=== PATIENT | male | born 1945 | race Caucasian/White ===

== ENCOUNTER 2019-08-23 17:18 | Inpatient (IN) | payer MEDICARE, OTHER ==
[~2019-08-23] VITALS: Ht 162.6 cm; Wt 95.5 kg
[2019-08-23] MEDS ORDERED: SODIUM CHLORIDE 0.9% 1000ML 1,000 ML IV STA (17:27)
[2019-08-23] MEDS ORDERED: ACETAMINOPHEN 325 MG TAB PO ONE (17:30)
[2019-08-23] MEDS ORDERED: CEFTRIAXONE SOD 1 GM VIAL IV ONE (17:30)
[2019-08-23] MEDS ORDERED: AZITHROMYCIN 500MG/SOD CHL 0.9% 250ML BAG IV SCH ×2 (17:45→21:30)
--- NOTE | 2019-08-23 17:45 | Emergency Department Note ---
History of Present Illnes History of Present Illness Chief Complaint: COVID PUI History of Present Illness This is a 74 year old male diabetes, htn cad, c/o flu-like symptoms for 1 wk, went to clinic few days ago with fever, tested negative for COVID 19, d/c home, not doing better, sat 92 % RA in moderate resp difficulty. . Arrival Mode: Car Marketing Project Manager Required: No Onset (how long ago): week(s) (1) Radiation: Reports non-radiation Severity: moderate Onset quality: gradual Duration (how long): week(s) Timing of current episode: constant Progression: worsening Context: Reports recent illness Relieving factors: none Exacerbating factors: none Associated symptoms: Reports cough, Reports fever/chills, Reports malaise, Reports shortness of breath, Reports weakness Treatments prior to arrival: aspirin Previous service: medications given Past Medical/Family History Physician Review I have reviewed the patient's past medical and family history. Any updates have been documented here. Past Medical History Past Medical History: Hypertension, Diabetes, CAD Social History Smoking Cessation: Unknown if ever smoked Alcohol Use: None Any Illegal Drug Use: No TB Exposure/Symptoms: No Physically hurt or threatened: No Family History Family history of heart diseas: No Other Any Pre-Existing Lines (PICC,: No Is patient up to date on immun: No Review of Systems Review of Systems Constitutional: Reports chills, Reports diaphoresis, Reports fever, Reports malaise, Reports weakness EENTM: Reports no symptoms Cardiovascular: Reports no symptoms Respiratory: Reports chest congestion, Reports cough Gastrointestinal: Reports no symptoms Genitourinary: Reports no symptoms Musculoskeletal: Reports no symptoms Integumentary: Reports no symptoms Neurological: Reports no symptoms Psychological: Reports no symptoms Endocrine: Reports no symptoms Hematological/Lymphatic: Reports no symptoms Review of other systems: All other systems negative Physical Exam Related Data Allergies: Coded Allergies: Penicillins (Verified Allergy, Mild, 08/23/19) Vital signs reviewed: Yes (fever, hypoxic) Physical Exam CONSTITUTIONAL Constitutional: Present well-developed, Present obese, Present distressed, Present ill appearing HENT HENT: Present normocephalic, Present atraumatic, Present oropharynx clear /moist, Present nose normal HENT L/R: Present left ext ear normal, Present right ext ear normal EYES Eyes: Reports PERRL, Reports conjunctivae normal NECK Neck: Present ROM normal PULMONARY Pulmonary: Present respiratory distress, Present rhonchi, Present other (RR 33) CARDIOVASCULAR Cardiovascular: Present regular rhythm, Present heart sounds normal, Present capillary refill normal, Present normal rate GASTROINTESTINAL Abdominal: Present soft, Present nontender, Present bowel sounds normal GENITOURINARY Genitourinary: Present exam deferred SKIN Skin: Present warm, Present dry MUSCULOSKELETAL Musculoskeletal: Present ROM normal NEUROLOGICAL Neurological: Present alert, Present oriented x 3, Present no gross motor or sensory deficits PSYCHOLOGICAL Psychological: Present mood/affect normal, Present judgement normal Results Laboratory Lab results reviewed: Yes Imaging Imaging results reviewed: Yes Imaging Comments pneumonia Diagnostics Tests Diagnostic test(s) reviewed: Yes Critical Care Time Total Critical Care Time (min): 45 Time ED Physician saw patient: 17:30 Critcal care necessary due to: dehydration, respiratory failure (critical care for respiratory distress, saturation at 92 percent, respiratory rate 33, sepsis with lactic acid level 2.6.), sepsis Critcal care time spent by me: develop tx plan w patient/surrogate, discussion w primary provider, evaluation patient response to tx, examination of patient, obtaining hx from patient/surrogate, order/perform tx or interventions, order/review laboratory studies, order/review radiographic studies, pulse oximetry, re-evaluation of patient condition Assessment & Plan Medical Decision Making MDM covid 19 vs PNA Reassessment Reassessment time: 18:45 Reassessment doing beter genaro oxygen, His lactic acid level 2.6, Blood pressure normal, he hypoxic. he is not a candidate for IV fluid 30 cc/kg bolus as per sepsis protocol. He also declines additional IV fluid Assessment & Plan Final Impression: (1) Hypoxia (2) Respiratory distress (3) Pneumonia Depart Disposition: ADMITTED Medications in the ED Ceftriaxone Sodium 1 gm ONCE ONCE IV ; Start 08/23/19 at 17:30; Stop 08/23/19 at 17:37; Status DC Sodium Chloride 1,000 ml @ 0 mls/hr Q0M STAT IV ; Start 08/23/19 at 17:27; Stop 08/23/19 at 17:34; Status DC Acetaminophen 650 mg ONCE ONCE PO ; Start 08/23/19 at 17:30; Stop 08/23/19 at 17:37; Status DC Physician Attestation Provider Attestation case discussed with Dr Purdy, add Pulmonary consult at 8:00 PM, sat 98 percent on 4 liter, mild distress, temperature 99.6. MAICOL ODONNELL MD Aug 23, 2019 17:45
[2019-08-23] MEDS ORDERED: SODIUM CHLORIDE 0.9% 1000ML 1,000 ML ONE (17:52)
[2019-08-23] MEDS ORDERED: CEFTRIAXONE SOD 1 GM/NS 50 ML 50 ML IV ONE (17:52)
[2019-08-23] MEDS ORDERED: ACETAMINOPHEN 325 MG TAB ONE (17:52)
[2019-08-23] MEDS ORDERED: AZITHROMYCIN 500MG/NS 250 ML 250 ML ONE (17:53)
[2019-08-23 21:26] LABS: CREATINE KINASE MB < 1.00 ng/mL (0-4.3)
[2019-08-23] MEDS ORDERED: DIPHENHYDRAMINE HCL INJ 50 MG/ML VIAL IV PRN (21:30)
[2019-08-23] MEDS ORDERED: ENALAPRILAT IV INJ 1.25 MG/ML VIAL IV PRN (21:30)
[2019-08-23] MEDS ORDERED: ACETAMINOPHEN 325 MG TAB PO PRN (21:30)
--- NOTE | 2019-08-23 22:25 | NUR ---
Received patient from the ER. Alert and oriented. Assisted to bed. Bed low and locked, Bed alarm on. Call light within reached.
[2019-08-23 23:29] VITALS: BP 107/56
[2019-08-23 23:47] VITALS: BP 107/56
[2019-08-24] VITALS (8 sets, daily range): BP systolic 96–132; BP diastolic 46–98
--- NOTE | 2019-08-24 00:42 | Diagnostic Imaging Report ---
EXAMINATION: CHEST SINGLE (PORTABLE) INDICATION: Pneumonia COMPARISON: None FINDINGS: TUBES and LINES: None. LUNGS: Normal lung volumes. Multifocal patchy haziness. PLEURA: No pleural effusion or pneumothorax. HEART AND MEDIASTINUM: Cardiac size is mildly enlarged. Surgical clips along the mediastinum. BONES AND SOFT TISSUES: No acute osseous lesion. Soft tissues are unremarkable. Sternotomy wires. UPPER ABDOMEN: No free air under the diaphragm. IMPRESSION: Findings compatible with multifocal pneumonia. Superimposed edema is possible. Mild cardiomegaly. Signed by: Pascual Diana DO on 08/24/2019 12:39 AM
[2019-08-24] MEDS ORDERED: NIFEDIPINE ER30 M1 PO (01:31)
[2019-08-24] MEDS ORDERED: GLIMEPIRIDE2 MG PO (01:32)
[2019-08-24] MEDS ORDERED: METOPROLOL SUCC50 MG PO (01:32)
[2019-08-24] MEDS ORDERED: ATORVASTATIN CA20 MG PO (01:33)
[2019-08-24] MEDS ORDERED: CLOPIDOGREL75 MG PO (01:34)
[2019-08-24] MEDS ORDERED: LISINOPRIL10 MG PO (01:34)
[2019-08-24 04:43] LABS: CREATINE KINASE MB 1.3 ng/mL (0-5.0)
[2019-08-24] MEDS ORDERED: DEXAMETHASONE SOD PHOS INJ 4 MG/ML VIAL IV SCH (06:00)
[2019-08-24] MEDS: FAMOTIDINE 20 MG/2 ML VIAL IV SCH ×2 (08:19→16:53)
[2019-08-24] MEDS: ASCORBIC ACID 500 MG TAB PO SCH (08:19)
[2019-08-24] MEDS ORDERED: CEFTRIAXONE SOD 1 GRAM/0.9% SOD CHL 50ML BAG IV SCH (09:00)
[2019-08-24] MEDS ORDERED: DEXTROSE 50% SYRINGE 50 ML IV PRN (14:30)
[2019-08-24 15:42] LABS: ANION GAP 13.1 mmol/L (8-16); BLOOD UREA NITROGEN 21 mg/dL (7-26); BUN/CREATININE RATIO 21 (6-25); CALCIUM 8.3 mg/dL (8.4-10.2); CARBON DIOXIDE 24 mmol/L (22-29); CHLORIDE 108 mmol/L (98-107); CREATININE, SERUM 1.01 mg/dL (0.72-1.25); EST GLOMERULAR FILTRATION RATE > 60 ML/MIN (60-); GLUCOSE 137 mg/dL (74-118); POTASSIUM 4.1 mmol/L (3.5-5.1); SODIUM 141 mmol/L (136-145)
[2019-08-24 15:52] LABS: CREATINE KINASE MB 1.2 ng/mL (0-5.0)
[2019-08-24] MEDS: INSULIN REGULAR, HUMAN 100 UNIT/1 ML 3ML VIAL SQ SCH ×2 (16:30→21:00)
[2019-08-24] MEDS: AZITHROMYCIN 500MG/SOD CHL 0.9% 250ML BAG IV SCH (17:01)
--- NOTE | 2019-08-24 17:05 | NUR ---
AAOX3. ACYANOTIC. RESTING IN BED SHIVERING. PATIENT'S SHIRT IS WET AND LINEN ARE WET. OFFERED PATIENT A SPONGE BATH OR SHOWER. PATIENT REFUSED. OFFERED TO CHANGE BED LINEN AND ASSIST PATIENT WITH CHANGING INTO A GOWN FOR COMFORT. PATIENT REFUSED. PATIENT ALSO REFUSED INSULIN. NO DISTRESS NOTED. CALL LIGHT IN REACH. SIDE RAILS UP X2.
[2019-08-24] MEDS: CEFTRIAXONE SOD 1 GRAM/0.9% SOD CHL 50ML BAG IV SCH (17:56)
--- NOTE | 2019-08-24 20:35 | Consultation ---
DATE OF CONSULTATION: Pulmonary Critical Care Consultation CHIEF COMPLAINT: Fatigue and dyspnea. HISTORY OF PRESENT ILLNESS: The patient is a 74-year-old man. He has a history of dyspnea and fatigue for the past 7 days. He complains of some cough. He does not complain of any nausea or vomiting. He does note some chest discomfort. He also has some fevers. PAST MEDICAL HISTORY: 1. Hypertension. 2. Diabetes. 3. Hypercholesterolemia. ALLERGIES: THE PATIENT IS ALLERGIC TO PENICILLIN. SOCIAL HISTORY: Noncontributory. FAMILY HISTORY: Noncontributory. REVIEW OF SYSTEMS: The patient is complaining of some fevers. He has some fatigue for the past 7 days. He has no headache. He is not having any neck pain. He denies any chest pain. He does have some cough and dyspnea. He has no abdominal pain. There is no nausea or vomiting. PHYSICAL EXAMINATION: VITAL SIGNS: The patient is afebrile. The vital signs are stable. HEENT: Shows no facial swelling or erythema. CARDIAC: Reveals regular rate and rhythm with normal S1 and S2. LUNGS: Auscultation of lungs reveals clear breath sounds bilaterally. There is no wheezing. ABDOMEN: Soft and nontender. There is no rebound or guarding. EXTREMITIES: Shows no leg edema or calf tenderness. There is no cyanosis or clubbing. SKIN: Shows no rashes. NEUROLOGICAL: Shows no focal abnormalities. LABORATORY DATA: White blood cell count is within normal limits. CBC and CMP are normal. Creatinine is 1.01. RADIOGRAPHIC DATA: Chest x-ray shows bilateral infiltrates. IMPRESSION: 1. COVID-19 and viral pneumonia. 2. Diabetes. 3. Hypertension. PLAN: 1. Rocephin and Zithromax. 2. Lovenox. 3. Tylenol. 4. Decadron. 5. Oxygen as needed. Marc Tong MD [facility]/MODL /[id number]
[2019-08-24] MEDS ORDERED: ZOLPIDEM TARTRATE 5 MG TAB PO PRN (21:00)
[2019-08-24] MEDS: ENOXAPARIN 30 MG/0.3 ML SYR SC SCH (21:00)
[2019-08-24] MEDS: ATORVASTATIN 20 MG TAB PO SCH (21:00)
[2019-08-24] MEDS: CLOPIDOGREL BISULFATE 75 MG TAB PO SCH (21:00)
--- NOTE | 2019-08-24 21:38 | NUR ---
Patient trying to get out of the bed. Pulling off telemetry leads. Assisted to bed and reposition repositioned. oxygen saturation at 90% room air. Patient refused O2. RN explained the importance of O2 patient agreed. Oxygen saturation 96% with oxygen at 4l/min. Patient refused medications yelled No to RN.
[2019-08-25] VITALS (8 sets, daily range): BP systolic 113–131; BP diastolic 61–98
--- NOTE | 2019-08-25 01:36 | History and Physical ---
CHIEF COMPLAINT: Hypoxia, shortness of breath, and chills. HISTORY OF PRESENT ILLNESS: This is a 74-year-old male with past medical history of hypertension, high cholesterol, CAD status post bypass, diabetes, and gout, who presented to the ER with complaints of chills, hypoxia, and shortness of breath x1 week. He reports that he lives with his daughter, who has been diagnosed with COVID- 19. He reports he is feeling okay, but visibly having chills. He is on room air saturating at 95%. He denies any chest pain, nausea, vomiting, hemoptysis, diarrhea, or dizziness. He reports he has joint pains, especially his feet feel swollen and pain with ambulation. He also reports chronic cough and he presented to the [facility] ER for further evaluation as his symptoms continued to worsen. In the [facility] ER, his white counts were 10.4, creatinine 1.1. Sodium 137, potassium 3.9, lactic acid 2.64. Troponin is 0.029. IMAGING: Chest x-ray showed multifocal pneumonia, superimposed edema as possible, so he is admitted for further evaluation. PAST MEDICAL HISTORY: 1. Hypertension. 2. High cholesterol. 3. CAD, status post bypass surgery. 4. Diabetes type 2. 5. Gout. PAST SURGICAL HISTORY: He reports bypass. FAMILY MEDICAL HISTORY: He reports does not remember. SOCIAL HISTORY: Reports he quit smoking a few months ago. He also stopped drinking according to him eight months ago. He denies any illicit drug use. ALLERGIES: HE IS ALLERGIC TO PENICILLIN. REVIEW OF SYSTEMS: Twelve-system reviewed and negative except ones reported in HPI. [id number] EXAMINATION: VITAL SIGNS: Temperature 98.7, pulse is 85, respirations 18, blood pressure 117/75, pulse ox is 96% on room air. GENERAL: Chills and fatigue. HEENT: Normocephalic and atraumatic. NECK: Supple. LUNGS: Decreased breath sounds. CARDIOVASCULAR: Regular rate and rhythm. GI: Soft and nontender, obese. NEUROLOGIC: Alert, awake, and oriented x2-3. MUSCULOSKELETAL: Moves all extremities, bilateral lower extremity edema and pain. SKIN: Dry and intact. PSYCH: Calm. LABORATORY DATA: WBC 10.4, hemoglobin 10.5, hematocrit 31. Sodium 141, potassium 4.1, CO2 of 24, BUN is 21, creatinine 1.01, estimated GFR is 60, glucose 137. CK 212, troponin I 0.029 and 0.020. BNP 161. TSH 1.309. Coronavirus PCR detected. Urine culture pending. Chest x-ray shows multifocal pneumonia superimposed edema as possible. Mild cardiomegaly. IMPRESSION: 1. Generalized weakness and hypoxia due to COVID-19. Chest x-ray noted with multifocal pneumonia. We will continue with Rocephin and Zithromax. Pulmonary and Infectious Disease consulted. Decadron 6 mg IV x10 days. Vitamin C and zinc daily. 2. Diabetes type 2. 3. . 4. Hypertension. To resume metoprolol on lower dose. 5. Coronary artery disease. We will continue Plavix, beta blockers, and statin. 6. High cholesterol. We will continue on statin. 7. Bilateral lower extremity pain and swelling. We will give Lasix x1. Check venous Doppler. 8. Deep venous thrombosis prophylaxis. We will start on Lovenox 30 mg b.i.d. PLAN: To continue IV antibiotics, Decadron, we will check echocardiogram and venous Doppler. Further recommendations per Pulmonary and ID. Dictated by CRYSTAL Gordon Deangelo Purdy MD [facility]/MODL /[id number] The patient was seen and examined on 08/24/19. Agree with the findings and plan as documented by CRYSTAL Hicks. MTDD
[2019-08-25] MEDS: DEXAMETHASONE SOD PHOS INJ 4 MG/ML VIAL IV SCH (05:37)
[2019-08-25 05:43] LABS: BASOPHILS # (AUTO) 0.1 (0.0-0.1); BASOPHILS % 0.4 % (0.0-1.0); EOSINOPHILS % 0.1 % (0.0-6.0); HEMATOCRIT 28.9 % (38.2-49.6); HEMOGLOBIN 9.2 g/dL (14.0-18.0); LYMPHOCYTES % 8.8 % (18.0-39.1); MEAN CORPUSCULAR HEMOGLOBIN 27.8 pg (28-32); MEAN CORPUSCULAR HGB CONC 31.8 g/dL (31-35); MEAN CORPUSCULAR VOLUME 87.3 fL (81-99); MONOCYTES # (AUTO) 1.1 (0.2-0.8); MONOCYTES % 9.7 % (4.4-11.3); NEUTROPHILS # (AUTO) 9.4 (2.1-6.9); NEUTROPHILS % 79.5 % (38.7-80.0); PLATELET COUNT 347 x10e3/uL (140-360); RED BLOOD COUNT 3.31 x10e6/uL (4.3-5.7); RED CELL DISTRIBUTION WIDTH 13.6 % (11.7-14.4)
[2019-08-25 06:02] LABS: BLOOD UREA NITROGEN 18 mg/dL (7-26); BUN/CREATININE RATIO 18 (6-25); CALCIUM 8.5 mg/dL (8.4-10.2); CARBON DIOXIDE 23 mmol/L (22-29); CHLORIDE 110 mmol/L (98-107); EST GLOMERULAR FILTRATION RATE > 60 ML/MIN (60-); GLUCOSE 162 mg/dL (74-118); SODIUM 141 mmol/L (136-145)
--- NOTE | 2019-08-25 06:59 | NUR ---
Called consult for Dr. Keen thru power generation plant operator.
--- NOTE | 2019-08-25 07:00 | NUR ---
RECEIVED PATIENT AWAKE RESTING IN BED NO S/S OF DISTRESS. BED LOW, WHEELS LOCKED, SIDE RAILS X2. CALL LIGHT IN REACH WILL CONTINUE TO MONITOR PATIENT.
[2019-08-25] MEDS: INSULIN REGULAR, HUMAN 100 UNIT/1 ML 3ML VIAL SQ SCH ×4 (07:30→21:30)
[2019-08-25] MEDS ORDERED: FUROSEMIDE INJ 10 MG/ML 2 ML VIAL IV ONE (08:30)
[2019-08-25] MEDS: ENOXAPARIN 30 MG/0.3 ML SYR SC SCH ×2 (09:03→21:30)
[2019-08-25] MEDS: ASCORBIC ACID 500 MG TAB PO SCH (09:03)
[2019-08-25] MEDS: FAMOTIDINE 20 MG/2 ML VIAL IV SCH (09:03)
[2019-08-25] MEDS: METOPROLOL SUCCINATE 50 MG TAB XL PO SCH (09:03)
--- NOTE | 2019-08-25 13:31 | NUR ---
MAGING: Chest x-ray showed multifocal pneumonia, superimposed edema as possible, so he is admitted for further evaluation. PAST MEDICAL HISTORY: 1. Hypertension. 2. High cholesterol. 3. CAD, status post bypass surgery. 4. Diabetes type 2. 5. Gout. PAST SURGICAL HISTORY: He reports bypass. FAMILY MEDICAL HISTORY: He reports does not remember. SOCIAL HISTORY: Reports he quit smoking a few months ago. He also stopped drinking according to him eight months ago. He denies any illicit drug use. ALLERGIES: HE IS ALLERGIC TO PENICILLIN. REVIEW OF SYSTEMS: Twelve-system reviewed and negative except ones reported in HPI. [id number]
[2019-08-25] MEDS ORDERED: SODIUM CHLORIDE 0.9% 250ML 250 ML ONE (16:53)
[2019-08-25] MEDS: CEFTRIAXONE SOD 1 GRAM/0.9% SOD CHL 50ML BAG IV SCH (16:56)
--- NOTE | 2019-08-25 17:25 | Progress Note ---
DATE: SUBJECTIVE: The patient is not complaining of any dyspnea. He is not complaining of pain or cough. PHYSICAL EXAMINATION: VITAL SIGNS: Blood pressure is 113/70 and saturation is 99%. The pulse is 92. HEENT: Shows no facial swelling or erythema. CARDIAC: Reveals regular rate and rhythm with normal S1 and S2. There are no murmurs or rubs. LUNGS: Auscultation of lungs reveals rhonchorous breath sounds bilaterally. There is no wheezing. ABDOMEN: Soft and nontender. There is no rebound or guarding. EXTREMITIES: Shows no leg edema or calf tenderness. There is no cyanosis or clubbing. SKIN: Shows no rashes. LABORATORY DATA: CBC is within normal limits. Lytes, BUN and creatinine are within normal limits. IMPRESSION: 1. Viral pneumonia and COVID-19 infection. 2. Diabetes. 3. Hypertension. 4. Coronary artery disease. PLAN: 1. Continue antibiotics. 2. Oxygen as needed. 3. Lovenox. 4. Dexamethasone. Marc Tong MD [facility]/MODL /[id number]
[2019-08-25] MEDS: AZITHROMYCIN 500MG/SOD CHL 0.9% 250ML BAG IV SCH (17:38)
--- NOTE | 2019-08-25 20:35 | Progress Note ---
DATE: SUBJECTIVE: Mr. Camp is a 74-year-old white male, who comes in with shortness of breath and cough and chills. The patient does have history of hypertension, hypercholesteremia, coronary artery disease, CABG, diabetes mellitus, and gout comes to emergency room with fever and chills, hypoxemia for one week. The patient was diagnosed with COVID-19 but currently he is doing much better. He says his breathing is better. He is on room air. He denies any chest pain, nausea, vomiting, diarrhea, or dizziness. REVIEW OF SYSTEMS: Otherwise unremarkable. PHYSICAL EXAMINATION: GENERAL: Currently, alert and oriented. VITAL SIGNS: Stable. Currently afebrile. HEENT: He is not icteric. NECK: Supple. CHEST: Clear. HEART: S1 and S2: No murmur. ABDOMEN: Soft. Bowel sounds present. EXTREMITIES: No edema. SKIN: No rash. LABORATORY DATA: His cultures are pending. White count 11, hemoglobin 9.2. His sodium 141, potassium 4.0, creatinine 1. His COVID-19 was positive. His white count is 9.8, his temperature 98.2, heart rate 79, O2 saturation on room air is 95. IMPRESSION: COVID-19 pneumonia, concerned superimposed bacterial pneumonia. Rocephin 1 g daily for 5 days, azithromycin 500 mg daily for 3 days. If he is short of breath, he may benefit from short dose of dexamethasone 6 mg daily, Lovenox 0.5 mg/kg q.12 hours, diabetic control. If he continued to be stable, we will watch him for a day or two. If he continued to be stable, he may be discharged home with oxygen and finish course of treatment as an outpatient. Thank you for asking me to see this patient. Further recommendations to follow. MD NAKUL Baca/MARY /[id number]
[2019-08-25] MEDS: ATORVASTATIN 20 MG TAB PO SCH (21:30)
[2019-08-25] MEDS: CLOPIDOGREL BISULFATE 75 MG TAB PO SCH (21:30)
--- NOTE | 2019-08-25 22:46 | Progress Note ---
DATE: 08/25/2019 SUBJECTIVE: He thought that his breathing is little bit better. OBJECTIVE: VITAL SIGNS: Temperature 97.9, pulse 84, respiratory rate 24, and blood pressure 114/71. GENERAL: In no acute distress. SKIN: No rash. LUNGS: Clear. HEART: Regular rate and rhythm. Normal S1, S2. GI: Abdomen is soft, nondistended, and nontender. Normoactive bowel sounds. NEUROLOGIC: Alert and oriented x3. PSYCHIATRIC: No hallucination. LABORATORY DATA: White count 11.8, hemoglobin 9.2, platelet count 347, creatinine 1.0, BUN 18. ASSESSMENT AND PLAN: 1. COVID pneumonia. We will continue azithromycin and Rocephin per consultants. 2. Morbid obesity. 3. Diabetes. We will continue sliding scale. We will also restart his glimepiride. 4. Coronary artery disease. The patient will be continued on Plavix and Lipitor and also metoprolol. His echocardiogram is done, but I do not see a preliminary in his chart. His venous Doppler did not show any deep vein thrombosis. 5. Debility. We will have physical therapist evaluate him. Potentially, he may need SNF placement. 6. Gastrointestinal and deep vein thrombosis prophylaxis. Lovenox. MD DIEGO Mirza/MARY /[id number]
[2019-08-26] VITALS (8 sets, daily range): BP systolic 113–138; BP diastolic 61–83
[2019-08-26] MEDS: DEXAMETHASONE SOD PHOS INJ 4 MG/ML VIAL IV SCH (06:15)
--- NOTE | 2019-08-26 07:00 | NUR ---
RECEIVED PATIENT AWAKE RESTING IN BED NO S/S OF DISTRESS. BED LOW, WHEELS LOCKED, SIDE RAILS X2. CALL LIGHT IN REACH WILL CONTINUE TO MONITOR PATIENT.
[2019-08-26] MEDS: INSULIN REGULAR, HUMAN 100 UNIT/1 ML 3ML VIAL SQ SCH ×4 (07:30→21:10)
[2019-08-26] MEDS: ASCORBIC ACID 500 MG TAB PO SCH (08:38)
[2019-08-26] MEDS: ENOXAPARIN 30 MG/0.3 ML SYR SC SCH ×2 (08:38→21:35)
[2019-08-26] MEDS: METOPROLOL SUCCINATE 50 MG TAB XL PO SCH (08:38)
[2019-08-26] MEDS: GLIMEPIRIDE 2 MG TAB PO SCH (08:38)
--- NOTE | 2019-08-26 14:51 | NUR ---
CALLED CALLI BROWN [phone] AT [facility] TO SEE IF JERRY HAS A COVID POSITIVE BUILDING OR CAN DO A 1 TIME CONTRACT. WAITING MEDICAL FRONT DESK SPECIALIST BACK, NOTIFIED MD AND CM OF DELAY, STILL PENDING PHYSICAL THERAPY NOTE AND RECOMMENDATION.
[2019-08-26] MEDS ORDERED: PREGABALIN 75 MG CAP PO SCH (16:00)
[2019-08-26] MEDS: CEFTRIAXONE SOD 1 GRAM/0.9% SOD CHL 50ML BAG IV SCH (17:27)
[2019-08-26] MEDS: PREGABALIN 50 MG CAP PO SCH (17:27)
--- NOTE | 2019-08-26 17:50 | Progress Note ---
DATE: SUBJECTIVE: The patient was currently lying in bed comfortably, feeling better. He continued to have bilateral lower extremities pain with limited mobility. PHYSICAL EXAMINATION: GENERAL: He is currently alert. VITAL SIGNS: Stable. HEENT: He is not icteric. NECK: Supple. CHEST: Clear. He is currently on 2 L. IMPRESSION: 1. COVID-19, present on admission. 2. Obesity. 3. Neuropathy with debility. 4. Diabetes mellitus. 5. Component of congestive heart failure. Continue diabetic control. Continue with neuropathy treatment, low-dose Lovenox, vitamin C and D. He is currently on dexamethasone, can switch to oral to finish 10 days. Probably need to go home on oxygen, but he would need PT/OT differently. MD NAKUL Baca/MODL /[id number]
[2019-08-26] MEDS: AZITHROMYCIN 500MG/SOD CHL 0.9% 250ML BAG IV SCH (18:02)
--- NOTE | 2019-08-26 19:11 | Progress Note ---
DATE: SUBJECTIVE: The patient is having some confusion. He complains of being thirsty. He is still requiring 2 L of oxygen. PHYSICAL EXAMINATION: VITAL SIGNS: The blood pressure is 125/62, saturation is 99%, and the pulse is 91. HEENT: Shows no facial swelling or erythema. CARDIAC: Reveals regular rate and rhythm with normal S1 and S2. LUNGS: Auscultation of lungs reveals rhonchorous breath sounds bilaterally. There is no wheezing. ABDOMEN: Soft and nontender. There is no rebound or guarding. EXTREMITIES: Shows no leg edema or calf tenderness. There is no cyanosis or clubbing. SKIN: Shows no rashes. NEUROLOGICAL: Shows no focal abnormalities. LABORATORY DATA: White blood cell count is 11.7, hemoglobin is 9.2, and platelet count is 347. Blood sugars are between 170 and 230. IMPRESSION: 1. Viral pneumonia and COVID-19 infection. 2. Diabetes. 3. Hypertension. 4. Coronary artery disease. PLAN: 1. Continue antibiotics. 2. Lovenox. 3. Dexamethasone. 4. Oxygen. 5. Monitor and control blood sugars. Marc Tong MD [facility]/MODL /[id number]
--- NOTE | 2019-08-26 20:30 | NUR ---
VOIDED IN URINAL.BED ALARM ON.NO PAIN VOICED.NO RESP.DISTRESS.TELE IN PLACE.PHONE AND CALL LIGHT WITHIN REACH.INSTRUCTED TO CALL FOR ASSISTANCE NEEDED.
[2019-08-26] MEDS: CLOPIDOGREL BISULFATE 75 MG TAB PO SCH (22:06)
[2019-08-26] MEDS: ATORVASTATIN 20 MG TAB PO SCH (22:06)
[2019-08-27] VITALS: BP 126/68
--- NOTE | 2019-08-27 01:32 | Progress Note ---
DATE: 08/26/2019 SUBJECTIVE: He knows that he is very weak. OBJECTIVE: VITAL SIGNS: Stable. Temperature 97.5, pulse 77, respiratory rate 20, blood pressure 138/65. GENERAL: No acute distress. SKIN: No rash. LUNGS: Decreased. HEART: Regular rate and rhythm. Normal S1, S2. GI: Abdomen is soft, nondistended. NEUROLOGIC: Alert and oriented x3. PSYCHIATRIC: He is calm. ASSESSMENT AND PLAN: 1. Coronavirus disease pneumonia with hypoxia. We will continue management per Infectious Disease specialist and wash crew person. 2. Debility. Still waiting for PT evaluation, most likely he will need Residential Facility placement for skilled physical therapy. However, this may prove to be difficult given his COVID status. 3. Morbid obesity. 4. Diabetes. Sugar appears to be acceptable. We will continue his glimepiride and sliding scale. 5. Coronary artery disease. Continue Plavix and Lipitor and metoprolol. 6. Gastrointestinal and deep vein thrombosis prophylaxes. Continue Lovenox 30 mg twice a day. MD DIEGO Mirza/MARY /[id number]
[2019-08-27 04:00] VITALS: BP 119/69
--- NOTE | 2019-08-27 04:00 | NUR ---
PATIENT IS NO COMPLIANT WITH CALL BUTTON.TYING TO GET OUT OF THE BED AND GOING TO REST ROOM WITHOUT CALLING ASSISTANCE AND BED ALARM IS GOING OFF.MANYTIMES TELLING THE PATIENT TO CALL ASSISTANCE BEFORE TO USE REST ROOM.
[2019-08-27] MEDS: DEXAMETHASONE SOD PHOS INJ 4 MG/ML VIAL IV SCH (05:14)
--- NOTE | 2019-08-27 06:47 | NUR ---
REPORT GIVEN TO ONCOMING RN.STABLE CONDITION.
--- NOTE | 2019-08-27 07:00 | NUR ---
RECEIVED PATIENT AWAKE RESTING IN BED NO S/S OF DISTRESS. BED LOW, WHEELS LOCKED, SIDE RAILS X2. CALL LIGHT IN REACH WILL CONTINUE TO MONITOR PATIENT.
[2019-08-27] MEDS: INSULIN REGULAR, HUMAN 100 UNIT/1 ML 3ML VIAL SQ SCH ×3 (07:30→16:30)
--- NOTE | 2019-08-27 07:54 | NUR ---
PHYSICAL THERAPY NOTE RECOMMENDS HOME WITH HOME HEALTH
[2019-08-27] MEDS: GLIMEPIRIDE 2 MG TAB PO SCH (08:13)
[2019-08-27] MEDS: PREGABALIN 50 MG CAP PO SCH (08:13)
[2019-08-27] MEDS: ASCORBIC ACID 500 MG TAB PO SCH (08:14)
[2019-08-27] MEDS: METOPROLOL SUCCINATE 50 MG TAB XL PO SCH (08:14)
[2019-08-27 09:04] VITALS: BP 118/79
[2019-08-27] MEDS: ENOXAPARIN 30 MG/0.3 ML SYR SC SCH (11:46)
[2019-08-27 11:48] VITALS: BP 137/75
--- NOTE | 2019-08-27 12:30 | NUR ---
Called and spoke to pt regarding home health order. Pt states to call his . Called pt's Marah Capm [phone]. States pt had home health previously but she does not remember the name. Said can use any company in network. Offered choice for [facility] and [facility]. Informed her that referral will be faxed to [facility] since they said they can take COVID pts and service pt's area. Pt's asked about providers. CM informed her that usually that is out of pocket. CM will leave brochures with nurse to give to pt. IMM letter discussed. She verbalized understanding. Copy will be given to nurse to give to pt. Signed choice letter placed in front of chart. Signed IMM placed in chart. Home health referral faxed to [facility] at [phone] / . Fatuma Mohan with [facility] was notified of referral and dc for today. Copies of IMM and choice letter with HH contact information and provider brochures given to GATO Kirkpatrick to give to pt. Addendum: 08/27/19 at 1243 by Bonita Arriaga CM Correction - brochures, choice letter, IMM given to GATO Potter to give to pt.
--- NOTE | 2019-08-27 12:34 | NUR ---
PATIENT ON ROOM AIR O2 SATS 97%. NO S/S OF DISTRESS. RESPIRATIONS EVEN AND UNLABORED.
--- NOTE | 2019-08-27 13:01 | NUR ---
Per Fatuma with [facility], they can accept pt.
[2019-08-27 16:10] VITALS: BP 141/69
--- NOTE | 2019-08-27 16:14 | NUR ---
SPOKE WITH MRS. CASTELLANOS TO LET HER KNOW PATIENT HAS BEEN CLEARED FOR DISCHARGE.
[2019-08-27] MEDS ORDERED: AZITHROMYCIN250 MG PO (16:47)
[2019-08-27] MEDS ORDERED: NAPROSYN500 MG PO (16:47)
[2019-08-27] MEDS ORDERED: DECADRON6 MG PO (16:48)
[2019-08-27] MEDS ORDERED: ASPIRIN325 MG PO (16:48)
--- NOTE | 2019-08-27 17:10 | NUR ---
REMOVED PATIENTS IV. CATHETER TIP INTACT AND PRESSURE DRESSING APPLIED.
--- NOTE | 2019-08-27 17:20 | NUR ---
PATIENT DISCHARGED FROM FACILITY. PATIENT GATHERED ALL PERSONAL BELONGINGS, DISCHARGE INSTRUCTIONS AND FOLLOW UP INFORMATION. NO S/S OF DISTRESS LEAVING FACILITY.
--- NOTE | 2019-08-28 00:12 | Discharge Summary ---
PRIMARY CARE DOCTOR: Dr. Deonte Baumann. FINAL DIAGNOSIS: Coronavirus disease 2019 pneumonia with hypoxia. SECONDARY DIAGNOSES: 1. Debility. Home physical therapy has been arranged. 2. Morbid obesity. 3. Diabetes. 4. Coronary artery disease. CONSULTANTS: 1. Dr. Keen, Infectious Disease. 2. Dr. Tong, dye weigher. PROCEDURE/STUDIES PERFORMED: Venous Doppler was negative for DVT. HISTORY: Per H and P. HOSPITAL COURSE: The patient was admitted, was supported with oxygen. He received Lovenox 30 mg twice a day for DVT prophylaxis. Decadron was given. IV Rocephin was given. IV azithromycin was given as well. The patient was able to come off the oxygen. I have discussed the case with both Dr. Keen and Dr. Tong. Will go home on 7 more days p.o. Decadron and 5 more days of azithromycin. The patient will also get aspirin 300 mg daily for 30 days for DVT prophylaxis. The patient is to follow up with his primary care doctor in a week. The patient was seen and examined today. It took 33 minutes total to discharge this patient. CONDITION ON DISCHARGE: Improved. DISCHARGE MEDICATIONS: Please see medication reconciliation form. MD DIEGO Mirza/MARY /[id number] cc: [facility]
--- OUTSIDE RECORDS SUMMARY | 2019-09-12 10:16 | XMS REPORT | Continuity of Care Document ---
Author Author [facility] t Organization [facility] Address [address] [place] [address] Phone Unavailable Care Team Providers Care [id number] Java Developer Name Role Phone MD CHERYL KASHILPA PCP Unavailable Hieu JOHNSON Attphys Unavailable Cortney DIAZ, Edita Attphys EDITA MILLARD Attphys Unavailable Sona DIAZ, Lila Kirkpatrick Attphys [phone] Scott DIAZ, Benitez Patricio Attphys [phone] Abel DIAZ, Katharine Motta Attphys Eben DIAZ, Ebonie Huber Attphys Rene Cristina DO Attphys Stefanie DIAZ, Karina Coleman Attphys Hieu JOHNSON Admphys Unavailable EDITA MILLARD Admphys Unavailable Payers Payer Name Policy Type Policy Number Effective Date Expiration Date Francesco cooper [employer] Medicare Advantage [id number] 2019 00:0 0:00 [facility] Cdc Review Covid19 [id number] [facility] KELSEYCAREKELSEYCARE MEDICARE ADVxxxxxxxxxxx xxxxxxxxxxx [facility] Problems Condition Name Condition Details Condition Category Status Onset Date Resolution Date Last Treatment Date Treating Clinician Comments Source Paroxysmal atrial fibrillation with rapid ventricular response Paroxysmal atrial fibrillation with rapid ventricular response Disease Active 201 10-20-12 00:00:00 [facility] Acute encephalopathy, metabolic Acute encephalopathy, metabolic Dis ease Active 2018-09-23 00:00:00 [facility] Acute prerenal azotemia Acute prerenal azotemia Disease Active 2018-09-23 00:00:00 [facility] Fluid overload Fluid overload Disease Active 2018-09-23 00:00:00 [facility] S/P CABG x [address] Magallanes on 09/19 S/P CABG x [address] Magallanes o n 09/19 Disease Active 2018-09-20 00:00:00 [facility] CAD (coronary artery disease) CAD (coronary artery disease) Disease Active 2018-09-19 00:00:00 [facility] Chest pain Chest pain Disease Active 2018-09-18 00:00:00 [facility] Peripheral edema Peripheral edema Disease Active 2014-12-05 00:00:00 [facility] D-dimer, elevated D-dimer, elevated Disease Active 2014-12-05 00:00:00 [facility] Acute on chronic renal insufficiency Acute on chronic renal insufficiency Disease Active 2014-12-05 00:00:00 [facility] Neuropathy Neuropathy Disease Active 2014-11-26 00:00:00 [facility] Unsteady gait Unsteady gait Disease Active 2014-11-26 00:00:00 [facility] Lower extremity weakness Lower extremity weakness Disease Acti ve 2014-11-26 00:00:00 [facility] Essential hypertension Essential hypertension Disease Active 2014-11-26 00:00:00 [facility] CAD (coronary artery disease) CAD (coronary artery disease) Disease Active 2014-11-26 00:00:00 [facility] Hypoxia Problem Active [facility] Respiratory distress Problem Active [facility] Pneumonia Problem Active [facility] Gout Gout Disease Active [facility] Hyperlipidemia Hyperlipidemia Disease Active [facility] Chronic kidney disease, stage III (moderate) Chronic k idney disease, stage III (moderate) Disease Active [facility] Type 2 diabetes mellitus with stage 3 chronic kidney d isease Type 2 diabetes mellitus with stage 3 chronic kidney disease Disease Active [facility] Severe obesity Severe obesity Disease Active [facility] Peripheral vascular disease Peripheral vascular disease Disease Active [facility] Acute respiratory insufficiency Acute respiratory insufficiency Dis ease Active [facility] Vasogenic shock Vasogenic shock Disease Active [facility] Acute blood loss anemia Acute blood loss anemia Disease Active [facility] Hyperglycemia Hyperglycemia Disease Active [facility] ETOH abuse ETOH abuse Disease Active [facility] Alcohol withdrawal syndrome without complication Alcoh ol withdrawal syndrome without complication Disease Active [facility] Allergies, Adverse Reactions, Alerts Allergy Name Allergy Type Status Severity Reaction(s) Onset Date Inacti ve Date Treating Clinician Comments Source Penicillin Allergy to substance Active Mild 2019-08-23 00:00:00 [facility] No Known Allergies DA Active U 2018-12-31 00:00:00 [facility] Penicillin V Potassium Propensity to adverse reactions Active 2014-12-05 00:00:00 Severe gas build up and chest pr essure [facility] Amlodipine Propensity to adverse reactions Active [facility] (See Comments) 2014-12-04 00:00:00 Severe back pain [facility] Cilostazol Propensity to adverse reactions Active [facility] (See Comments) 2014-12-04 00:00:00 Severe Urinary incontinence [facility] No Known Contrast Allergies DA Active U 2005-06-20 00:00: 00 [facility] No Known Drug Allergies DA Active U 2005-06-20 00:00:00 [facility] No Known Food Allergies DA Active U 2005-06-20 00:00:00 [facility] No Known Other Allergies DA Active U 2005-06-20 00:00:00 [facility] Family History Family Member Diagnosis Comments Start Date Stop Date Source Natural daughter Mental retardation [facility] Natural father Diabetes [facility] Natural father Hyperlipidemia [facility] Natural father Hypertension [facility] Natural father Stroke [facility] Natural mother Arthritis [facility] Natural mother Diabetes [facility] Natural mother Hyperlipidemia [facility] Natural mother Hypertension [facility] Natural mother Stroke [facility] Social History Social Habit Start Date Stop Date Quantity Comments Source Sex Assigned At [facility] Tobacco Comment 2018-09-18 00:00:00 2018-09-18 00:00:00 quit 25 yrs a go [facility] Alcohol Comment 2014-12-05 00:00:00 2014-12-05 00:00:00 Daily [facility] Smoking Status Start Date Stop Date Source Former smoker 2019-01-18 00:00:00 2019-01-18 00:00:00 [facility] Medications Ordered Medication Name Filled Medication Name Start Date Stop Da te Current Medication? Ordering Clinician Indication Dosage Frequency Signature (SIG) Comments Components Source NIFEdipine (PROCARDIA-XL) 60 MG (OSM) 24 hr tablet 2019-01 11:02:57 Yes 60mg QD Take 60 mg by mouth daily. [facility] nitroglycerin (NITROSTAT) 0.4 MG SL tablet 01-16 11:02:26 2019-01-16 00:00:[address] 0.4 mg u nder the tongue every 5 (five) minutes as needed for Chest pain Put 1 pill under tongue every 5min as needed for chest pain.No more than 3 doses in 15min.Call 911 if pain is unrelieved 5min after 1st dose . [facility] predniSONE (DELTASONE) 20 MG tablet 2019-01-16 11:02:2 2 2019-01-16 00:00:00 No 20mg Take 20 mg by mouth 2 (two) times daily as needed. [facility] colchicine (COLCRYS) 0.6 mg tablet 2019-01-16 10:45:07 Yes .6mg QD Take 0.6 mg by mouth daily. [facility] clopidogrel (PLAVIX) 75 mg tablet 2019-01-16 00:00:00 2019 23:59:00 No 75mg QD Take 1 tablet (75 mg total) by mouth hernan rodríguez. [facility] multivitamin per tablet 2018-10-17 11:40:48 2018-10-17 00:00:00 No 1{tbl} Take [address] [facility] lisinopril (PRINIVIL,ZESTRIL) 20 MG tablet 2018-10-16 00:00:00 Yes 40mg QD Take 40 mg by mouth daily . [facility] metoprolol (TOPROL-XL) 25 MG 24 hr tablet 2018-10-16 00:00:00 Yes 50mg QD Take 50 mg by mouth daily . [facility] amiodarone (PACERONE) 200 MG tablet 2018-10-03 00:00:0 0 2019-10-03 23:59:00 No 200mg QD Take 1 tablet (200 mg total) by mouth donald tony. [facility] folic acid (FOLVITE) 1 MG tablet 2018-10-03 00:00:00 2019-09 23:59:00 No 1mg QD Take 1 tablet (1 mg total) by mouth daily. [facility] multivitamin (THERAGRAN) tablet 2018-10-03 00:00:00 23:59:00 No 1{tbl} QD Take 1 tablet by mouth daily. [facility] thiamine 100 MG tablet 2018-10-03 00:00:00 2019-10-03 23:59:00 N o 100mg QD Take 1 tablet (100 mg total) by mouth daily. [facility] metoprolol (LOPRESSOR) 25 MG tablet 2018-10-02 13:51:4 7 2018-10-02 00:00:00 No 25mg QD Take 25 mg by mouth daily. [facility] lisinopril (PRINIVIL,ZESTRIL) 40 MG tablet 10-02 13:51:47 2018-10-02 00:00:00 No 40mg QD Take 40 mg by mouth daily. [facility] melatonin 5 mg Tab tablet 2018-10-02 00:00:00 Yes 5mg Take 1 tablet (5 mg total) by mouth every night as needed. [facility] senna (SENOKOT) 8.6 mg tablet 2018-10-02 00:00:00 2019-10-02 23: 59:00 No 8.6mg QD Take 1 tablet (8.6 mg total) by mouth nightly. [facility] apixaban (ELIQUIS) 5 mg Tab tablet 2018-10-02 00:00:00 201 10-24-04 00:00:00 No 5mg Q.5D Take 1 tablet (5 mg total) by mouth 2 (t wo) times daily. [facility] insulin lispro (HUMALOG) 100 unit/mL injection 2 00:00:00 2019-01-16 00:00:00 No 0U Inject 0-4 Uni ts subcutaneously every night as needed (High blood sugar). [facility] insulin lispro (HUMALOG) 100 unit/mL injection 2 00:00:00 2019-01-16 00:00:00 No 0U Inject 0-8 Uni ts subcutaneously as needed (High blood sugar). [facility] QUEtiapine (SEROQUEL) 25 MG tablet 2018-10-02 00:00:00 201 10-22-19 23:59:00 No 25mg QD Take 1 tablet (25 mg total) by mouth nig htly for 30 days. [facility] metoprolol (LOPRESSOR) 50 MG tablet 2018-10-02 00:00:0 0 2018-10-17 00:00:00 No 50mg Q.5D Take 1 tablet (50 mg total) by mouth 2 ( two) times daily. [facility] atorvastatin (LIPITOR) 40 MG tablet 2018-09-18 09:58:34 Yes 40mg QD Take 40 mg by mouth daily. [facility] aspirin 81 MG EC tablet 2018-09-18 09:58:34 Yes 81mg QD Take 81 mg by mouth daily. [facility] aspirin 325 MG tablet 2018-09-18 09:54:43 2018-09-18 00:00:00 No QD Take by mouth daily . [facility] cholecalciferol, vitamin D3, (VITAMIN D3) 2,000 unit Cap 2014-12-05 01:19:46 Yes 2000U QD Take 2,000 Units by mouth daily . [facility] glimepiride (AMARYL) 4 MG tablet 2014-05-26 00:00:00 Yes TAKE ONE TABLET BY MOUTH EVERY MORNING WITH BREAKFAST. [facility] fenofibrate (TRIGLIDE,LOFIBRA) 160 MG tablet 201 06-15-13 00:00:00 2018-10-02 00:00:00 No 160mg QD Take 160 mg by mouth daily . [facility] Aspirin Aspirin Yes 325 Daily [facility] Atorvastatin Calcium Atorvastatin Calcium Yes 40 Bedtime [facility] Azithromycin (Z-Apolinar) 250 Mg TABLET Azithromycin (Z-Apolinar) 250 Mg TABLET Yes 500 Daily [facility] Clopidogrel Bisulfate (Clopidogrel) 75 Mg TABLET Clopi dogrel Bisulfate (Clopidogrel) 75 Mg TABLET Yes 75 Bedtime [facility] Dexamethasone (Decadron) 6 Mg TABLET Dexamethasone (Decadron) 6 Mg TABLET Yes 6 Daily [facility] Glimepiride Glimepiride Yes 4 Daily [facility] Lisinopril Lisinopril Yes 40 Bedtime [facility] Metoprolol Succinate Metoprolol Succinate Yes 50 Daily [facility] Naproxen (Naprosyn) 500 Mg TABLET Naproxen (Naprosyn) 500 Mg TABLET Yes 500 Every 12 Hours as needed for Mild Pain (1-3) Or Fever> 100.8 [facility] Nifedipine (Nifedipine Er) 30 Mg TAB.ER.24 Nifedipine (Nifedipine Er) 30 Mg TAB.ER.24 Yes 60 Daily [facility] Vital Signs Vital Name Observation Time Observation Value Comments Source Body Temperature 2019-08-27 16:10:00 97.5 [degF] [facility] Weight 2019-08-27 01:00:00 210.56 [lb_av] [facility] BMI (Body Mass Index) 2019-08-27 01:00:00 36.1 kg/m2 [facility] Systolic blood pressure 2019-01-16 19:30:00 136 mm[Hg] [facility] Diastolic blood pressure 2019-01-16 19:30:00 79 mm[Hg] [facility] Heart rate 2019-01-16 19:30:00 67 /min [facility] Respiratory rate 2019-01-16 19:30:00 16 /min [facility] Oxygen saturation in Arterial blood by Pulse oximetry 2018-02 17:40:00 97 [facility] 2019-01-16 10:14:00 37 Susie [facility] Body height 2019-01-16 10:14:[address] [facility] Body weight Measured 2019-01-16 10:14:00 89.359 kg [facility] BMI 2019-01-16 10:14:00 33.81 kg/m2 [facility] Procedures Procedure Date / Time Performed Performing Clinician Sourc e VASCULAR DIAGRAM -SCAN 2019-01-29 12:20:52 Provider, Default Sca nning [facility] REPORT OF PROCEDURE - ENDOSCOPY SCAN 2019-01-20 07:00:32 Pro vider, Default Scanning [facility] CARDIAC CATH REPORT - SCAN 2019-01-20 07:00:31 Provider, Default Scanning [facility] POCT-ACT 2019-01-16 16:16:00 [facility] PERIPHERAL ANGIOS & IVUS 2019-01-16 13:52:00 [facility] POCT-GLUCOSE METER 2019-01-16 12:00:00 [facility] RHYTHM STRIP - SCAN 2018-10-03 11:11:13 Provider, Default Scanni [facility] RHYTHM STRIP - SCAN 2018-10-03 10:10:31 Provider, Default Scanni [facility] CARDIAC CATH REPORT - SCAN 2018-10-03 10:10:26 Provider, Default Scanning [facility] VASCULAR DIAGRAM -SCAN 2018-10-03 10:10:24 Provider, Default Sca nning [facility] POCT-GLUCOSE METER 2018-10-02 14:09:00 Jae Cristina [facility] POCT-GLUCOSE METER 2018-10-02 13:05:00 Jae Cristina [facility] POCT-GLUCOSE METER 2018-10-02 07:48:00 Jae Cristina [facility] BASIC METABOLIC PANEL (7) 2018-10-02 06:08:00 Jes Gutierrez [facility] CBC W/PLT COUNT & AUTO DIFFERENTIAL 2018-10-02 06:08:00 Jhonatan Gutierrez [facility] POCT-GLUCOSE METER 2018-10-01 23:19:00 Jae Cristina [facility] VASCULAR DIAGRAM -SCAN 2018-10-01 14:41:50 Provider, Default Sca [facility] POCT-GLUCOSE METER 2018-10-01 13:26:00 Jae Cristina [facility] POCT-GLUCOSE METER 2018-10-01 09:23:00 Jae Cristina [facility] BASIC METABOLIC PANEL (7) 2018-10-01 05:18:00 Jes Gutierrez [facility] CBC W/PLT COUNT & AUTO DIFFERENTIAL 2018-10-01 05:18:00 Jhonatan Gutierrez [facility] POCT-GLUCOSE METER 2018-09-30 21:51:00 Jae Cristina [facility] POCT-GLUCOSE METER 2018-09-30 18:24:00 Jae Cristina [facility] POCT-GLUCOSE METER 2018-09-30 16:43:00 Jae Cristina [facility] POCT-GLUCOSE METER 2018-09-30 12:36:00 Jae Cristina [facility] POCT-GLUCOSE METER 2018-09-30 08:24:00 Jae Cristina [facility] BASIC METABOLIC PANEL (7) 2018-09-30 04:56:00 Jes Gutierrez [facility] CBC W/PLT COUNT & AUTO DIFFERENTIAL 2018-09-30 04:56:00 Jhonatan Gutierrez [facility] POCT-GLUCOSE METER 2018-09-29 21:40:00 CroCecile mitchell [facility] POCT-GLUCOSE METER 2018-09-29 16:47:00 CroCecile mitchell [facility] POCT-GLUCOSE METER 2018-09-29 12:50:00 Cecile Treadwell [facility] BASIC METABOLIC PANEL (7) 2018-09-29 04:08:00 Jes Gutierrez [facility] CBC W/PLT COUNT & AUTO DIFFERENTIAL 2018-09-29 04:08:00 Jhonatan Gutierrez [facility] POCT-GLUCOSE METER 2018-09-28 21:06:00 Cecile Treadwell [facility] POCT-GLUCOSE METER 2018-09-28 13:12:00 Cecile Treadwell [facility] POCT-GLUCOSE METER 2018-09-28 07:47:00 Cecile Treadwell [facility] BASIC METABOLIC PANEL (7) 2018-09-28 05:54:00 Jes Gutierrez [facility] CBC W/PLT COUNT & AUTO DIFFERENTIAL 2018-09-28 05:54:00 Jhonatan Gutierrez [facility] POCT-GLUCOSE METER 2018-09-27 21:43:00 Cecile Treadwell [facility] POCT-GLUCOSE METER 2018-09-27 17:31:00 Abel [facility] POCT-GLUCOSE METER 2018-09-27 09:43:00 Kalia Roman [facility] ECG 12-LEAD 2018-09-27 06:35:10 Gely Landry [facility] BASIC METABOLIC PANEL (7) 2018-09-27 06:26:00 Jes Gutierrez [facility] MAGNESIUM 2018-09-27 06:26:00 Helen Brooks [facility] PHOSPHORUS 2018-09-27 06:26:00 [facility] AUTO DIFFERENTIAL 2018-09-27 06:26:00 Jhonatan Gutierrez [facility] POCT-GLUCOSE METER 2018-09-26 16:09:00 Abel [facility] POCT-GLUCOSE METER 2018-09-26 11:57:00 Kalia Roman [facility] XR CHEST 1 VIEW PORTABLE/BEDSIDE 2018-09-26 08:50:00 Waldemar Davidson [facility] POCT-GLUCOSE METER 2018-09-26 07:46:00 Abel [facility] BASIC METABOLIC PANEL (7) 2018-09-26 04:44:00 Jes Gutierrez [facility] MAGNESIUM 2018-09-26 04:44:00 Helen Brooks [facility] PHOSPHORUS 2018-09-26 04:44:00 [facility] W/[facility]T COUNT & AUTO DIFFERENTIAL 2018-09-26 04:44:00 Jhonatan Gutierrez [facility] POCT-GLUCOSE METER 2018-09-25 22:22:00 Kalia Roman [facility] POCT-GLUCOSE METER 2018-09-25 17:51:00 Abel [facility] POCT-GLUCOSE METER 2018-09-25 11:56:00 Abel [facility] POCT-GLUCOSE METER 2018-09-25 08:04:00 Abel [facility] BASIC METABOLIC PANEL (7) 2018-09-25 04:13:00 Jes Gutierrez [facility], [facility] MAGNESIUM 2018-09-25 04:13:00 Honey Brookszabeth [facility] PHOSPHORUS 2018-09-25 04:13:00 Todd [facility] CALCIUM, IONIZED 2018-09-25 04:13:00 [facility] W/[facility] COUNT & AUTO DIFFERENTIAL 2018-09-25 04:13:00 Jhonatan Gutierrez [facility] POCT-GLUCOSE METER 2018-09-24 22:01:00 [facility] 2018-09-24 20:33:00 Marilee [facility] MAGNESIUM 2018-09-24 20:33[facility] 2018-09-24 11:58:00 Kalia Roman [facility] POCT-GLUCOSE METER 2018-09-24 08:03:00 [facility] 2018-09-24 04:03:00 Marilee [facility] BASIC METABOLIC PANEL (7) 2018-09-24 04:03:00 Jes Gutierrez [facility] CALCIUM, IONIZED 2018-09-24 04:03:00 Jes Gutierrez [facility] CBC W/PLT COUNT & AUTO DIFFERENTIAL 2018-09-24 04:03:00 Jhonatan Gutierrez [facility] POCT-GLUCOSE METER 2018-09-23 21:56:00 Kalia Roman [facility] POCT-GLUCOSE METER 2018-09-23 17:10:00 Kalia Roman [facility] RHYTHM STRIP - SCAN 2018-09-23 12:26:07 Provider, Khai pettit [facility] POCT-GLUCOSE METER 2018-09-23 12:14:00 Kalia Roman [facility] POCT-GLUCOSE METER 2018-09-23 07:57:00 Kalia Roman [facility] XR CHEST 1 VIEW PORTABLE/BEDSIDE 2018-09-23 05:10:00 [place] donald [facility] MAGNESIUM 2018-09-23 04:54:00 [place], [facility] BASIC METABOLIC PANEL (7) 2018-09-23 04:54:00 [place], [facility] CBC (HEMOGRAM ONLY) 2018-09-23 04:54:00 [place], [facility] BASIC METABOLIC PANEL (7) 2018-09-22 12:18:00 [facility] 2018-09-22 12:18:00 [place], [facility] CBC W/PLT COUNT & AUTO DIFFERENTIAL 2018-09-22 12:18:00 Ck Hawthorne [facility] XR CHEST 1 VIEW PORTABLE/BEDSIDE 2018-09-22 07:25:00 Krystin Hawthorne [facility] LACTIC ACID, VENOUS 2018-09-22 00:29:00 [place], [facility] BLOOD GAS, VENOUS 2018-09-22 00:29:00 [place], [facility] BASIC METABOLIC PANEL (7) 2018-09-22 00:29:00 [place], [facility] CBC (HEMOGRAM ONLY) 2018-09-22 00:29:00 [place], [facility] MAGNESIUM 2018-09-22 00:29:00 [place], [facility] POCT-GLUCOSE METER 2018-09-22 00:12:00 Cortney [facility] ECG 12-LEAD 2018-09-21 23:33:39 Unknown, Hl7 [facility] POCT-GLUCOSE METER 2018-09-21 12:14:00 [facility] ECG 12-LEAD 2018-09-21 10:13:04 Unknown, Hl7 [facility] POCT-GLUCOSE METER 2018-09-21 07:38:00 [facility] VIEW PORTABLE/BEDSIDE 2018-09-21 04:59:00 Jes Gutierrez Katiana [facility] BASIC METABOLIC PANEL (7) 2018-09-21 03:49:00 Kaya Magallanes [facility] MAGNESIUM 2018-09-21 03:49:00 Kaya Magallanes [facility] PHOSPHORUS 2018-09-21 03:49:00 Kaya Magallanes [facility] CBC (HEMOGRAM ONLY) 2018-09-21 03:49:00 Kaya Magallanes [facility] BLOOD GAS, ARTERIAL 2018-09-21 03:49:00 Matt [facility] LACTIC ACID, ARTERIAL 2018-09-21 03:49:00 Matt [facility] OXYGEN SATURATION, MEASURED 2018-09-21 03:49:00 Matt [facility] CALCIUM, IONIZED 2018-09-21 03:49:00 Matt [facility] BLOOD GAS, ARTERIAL 2018-09-20 23:00:00 Kaya Magallanes [facility] SODIUM NA-STAT LAB 2018-09-20 23:00:00 Kaya Magallanes [facility] POTASSIUM-STAT LAB 2018-09-20 23:00:00 Kaya Magallanes [facility] GLUCOSE-STAT LAB 2018-09-20 23:00:00 Kaya Magallanes [facility] HGB/HCT (H&H) - STAT LAB 2018-09-20 23:00:00 Kaya Magallanes [facility] POCT-GLUCOSE METER 2018-09-20 20:47:00 Cortney [facility] TRANSFUSION SERVICE REPORT - SCAN 2018-09-20 18:04:05 Provid er, Default Scanning [facility] POCT-GLUCOSE METER 2018-09-20 16:04:00 Massumi, [facility] POCT-GLUCOSE METER 2018-09-20 13:00:00 Massumi, [facility] POCT-GLUCOSE METER 2018-09-20 11:59:00 Massumi, [facility] POCT-GLUCOSE METER 2018-09-20 10:30:00 Massumi, [facility] POCT-GLUCOSE METER 2018-09-20 07:40:00 Massumi, [facility] POCT-GLUCOSE METER 2018-09-20 05:45:00 Mass[place], [facility] XR CHEST 1 VIEW PORTABLE/BEDSIDE 2018-09-20 04:12:00 Fay Magallanes [facility] CBC (HEMOGRAM ONLY) 2018-09-20 03:08:00 Kaya Magallanes [facility] BASIC METABOLIC PANEL (7) 2018-09-20 03:08:00 Danay Stanton [facility] MAGNESIUM 2018-09-20 03:08:00 Danay Stanton [facility] PHOSPHORUS 2018-09-20 03:08:00 [facility] 2018-09-20 03:08:00 Danay Stanton [facility] LACTIC ACID, ARTERIAL 2018-09-20 03:08:00 Danay Stanton [facility] BLOOD GAS, ARTERIAL 2018-09-20 01:36:[address] [facility] SODIUM NA-STAT LAB 2018-09-20 01:36:00 Jes Gutierrez [facility] POTASSIUM-STAT LAB 2018-09-20 01:36:00 Jes Gutierrez [facility] GLUCOSE-STAT LAB 2018-09-20 01:36:00 Jes Gutierrez [facility] HGB/HCT (H&H) - STAT LAB 2018-09-20 01:36:00 Matt, Jes [facility] BASIC METABOLIC PANEL (7) 2018-09-19 23:53:00 Kaya Magallanes [facility] MAGNESIUM 2018-09-19 23:53:00 Kaya Magallanes [facility] PHOSPHORUS 2018-09-19 23:53:00 [facility] 2018-09-19 23:52:00 Matt [facility] LACTIC ACID, ARTERIAL 2018-09-19 23:52:00 Matt [facility] OXYGEN SATURATION, MEASURED 2018-09-19 23:52:00 Matt [facility] BLOOD GAS, ARTERIAL 2018-09-19 23:52:00 Jes Gutierrez [facility] SODIUM NA-STAT LAB 2018-09-19 23:52:00 Matt [facility] POTASSIUM-STAT LAB 2018-09-19 23:52:00 Matt [facility] GLUCOSE-STAT LAB 2018-09-19 23:52:00 Matt [facility] HGB/HCT (H&H) - STAT LAB 2018-09-19 23:52:00 Matt [facility] POCT-GLUCOSE METER 2018-09-19 22:59:00 Cortney [facility] LACTIC ACID, ARTERIAL 2018-09-19 22:57:00 Danay Stanton [facility] BLOOD GAS, ARTERIAL 2018-09-19 22:56:00 Danay Stanton [facility] POCT-GLUCOSE METER 2018-09-19 22:00:00 Cortney [facility] XR CHEST 1 VIEW PORTABLE/BEDSIDE 2018-09-19 19:31:00 Matt [facility] CBC W/PLT COUNT & AUTO DIFFERENTIAL 2018-09-19 19:18:00 Jhonatan Gutierrez [facility] BASIC METABOLIC PANEL (7) 2018-09-19 19:11:00 Jes Gutierrez [facility], [facility] MAGNESIUM 2018-09-19 19:11:00 Jes Gutierrez [facility] PROTHROMBIN TIME/INR 2018-09-19 19:11:00 Jes Gutierrez [facility] BLOOD GAS, ARTERIAL 2018-09-19 19:11:[address] [facility] PREPARE RBC 2018-09-19 19:02:00 Cortney [facility] POCT-ACT 2018-09-19 17:07:00 Cortney [facility] CALCIUM, IONIZED 2018-09-19 17:03:[address] [facility] PROTHROMBIN TIME/INR 2018-09-19 17:03:48 Catalina [facility] APTT 2018-09-19 17:03:48 Catalina [facility] FIBRINOGEN 2018-09-19 17:03:48 Catalina [facility] THROMBOELASTOGRAPH (TEG) 2018-09-19 17:03:48 [facility] 2018-09-19 17:03:48 Catalina [facility] BLOOD GAS, ARTERIAL 2018-09-19 17:03:48 Catalina [facility] SODIUM NA-STAT LAB 2018-09-19 17:03:48 Catalina [facility] POTASSIUM-STAT LAB 2018-09-19 17:03:48 [facility] 2018-09-19 17:03:[address] [facility] HGB/HCT (H&H) - STAT LAB 2018-09-19 17:03:48 Catalina [facility] POCT-ACT 2018-09-19 16:45:00 Cortney [facility] BLOOD GAS, ARTERIAL 2018-09-19 16:43:40 Kaya Magallanes [facility] SODIUM NA-STAT LAB 2018-09-19 16:43:40 Kaya Magallanes [facility] POTASSIUM-STAT LAB 2018-09-19 16:43:40 Kaya Magallanes [facility] GLUCOSE-STAT LAB 2018-09-19 16:43:40 Kaya Magallanes [facility] HGB/HCT (H&H) - STAT LAB 2018-09-19 16:43:40 Kaya Magallanes [facility] POCT-ACT 2018-09-19 16:15:00 Massumi [facility] BLOOD GAS, ARTERIAL 2018-09-19 16:14:06 Kaya Magallanes [facility] SODIUM NA-STAT LAB 2018-09-19 16:14:06 Kaya Magallanes [facility] POTASSIUM-STAT LAB 2018-09-19 16:14:06 Kaya Magallanes [facility] GLUCOSE-STAT LAB 2018-09-19 16:14:06 Kaya Magallanes [facility] HGB/HCT (H&H) - STAT LAB 2018-09-19 16:14:06 Kaya Magallanes [facility] POCT-ACT 2018-09-19 15:54:00 Massumi, [facility] BLOOD GAS, ARTERIAL 2018-09-19 15:44:47 Kaya Magallanes [facility] SODIUM NA-STAT LAB 2018-09-19 15:44:47 Kaya Magallanes [facility] POTASSIUM-STAT LAB 2018-09-19 15:44:47 Kaya Magallanes [facility] GLUCOSE-STAT LAB 2018-09-19 15:44:47 Sona, [facility] - STAT LAB 2018-09-19 15:44:47 Kaya Magallanes [facility] POCT-ACT 2018-09-19 15:22:00 [facility] BLOOD GAS, ARTERIAL 2018-09-19 15:18:07 Kaya Magallanes [facility] SODIUM NA-STAT LAB 2018-09-19 15:18:07 Kaya Magallanes [facility] POTASSIUM-STAT LAB 2018-09-19 15:18:07 Kaya Magallanes [facility] GLUCOSE-STAT LAB 2018-09-19 15:18:07 Kaya Magallanes [facility] HGB/HCT (H&H) - STAT LAB 2018-09-19 15:18:07 [facility] 2018-09-19 15:05:00 Cortney [facility] POCT-ACT 2018-09-19 14:46:00 [facility] BLOOD GAS, ARTERIAL 2018-09-19 13:04:34 [facility] 2018-09-19 13:04:34 [facility] 2018-09-19 13:04:34 [facility] 2018-09-19 13:04:[address] [facility] HGB/HCT (H&H) - STAT LAB 2018-09-19 13:04:34 Catalina [facility] BYPASS,AORTO CORONARY SU/SVG 2018-09-19 12:00:00 Verona Magallanes [facility] ENDOSCOPIC HARVEST,VEIN 2018-09-19 12:00:00 Kaya Magallanes [facility] 2D ECHO W/ DOPPLER (CW/PW/COLOR) 2018-09-19 09:54:27 Fay Magallanes [facility] APTT 2018-09-19 08:32:00 Cortney [facility] POCT-GLUCOSE METER 2018-09-19 07:01:00 Cortney, [facility] ABORH, MANUAL 2018-09-19 03:56:00 Adrianne Charles [facility] ECG 12-LEAD 2018-09-19 03:52:42 Kaya Magallanes [facility] MAGNESIUM 2018-09-19 03:35:00 Kaya Magallanes [facility] HEMOGLOBIN A1C 2018-09-19 03:35:00 Kaya Magallanes [facility] LIPID PANEL 2018-09-19 03:35:00 Kaya Magallanes [facility] PROTHROMBIN TIME/INR 2018-09-19 03:35:00 [facility] COMPREHENSIVE METABOLIC PANEL 2018-09-19 03:35:00 Verona Magallanes [facility] TYPE AND SCREEN, AUTOMATED 2018-09-19 03:35:00 Kaya Magallanes [facility] CBC W/PLT COUNT & AUTO DIFFERENTIAL 2018-09-19 03:35:00 [facility] APTT 2018-09-19 01:01:00 Cortney [facility] XR CHEST 1 VIEW PORTABLE/BEDSIDE 2018-09-18 22:50:00 [facility] CAROTID DOPPLER BILATERAL 2018-09-18 21:39:00 Kaya Magallanes [facility] POCT-GLUCOSE METER 2018-09-18 21:27:00 [facility] 2018-09-18 15:34:00 Cortney [facility] APTT 2018-09-18 15:34:00 [facility] POCT-GLUCOSE METER 2018-09-18 15:33:00 [facility] L CATH & CORONARY ANGIOS 2018-09-18 15:10:00 [facility] CORONARY ANGIOS / PCI / STENT 2018-09-18 15:10:00 [facility] Alejandra n [facility] PCI 2018-09-18 15:10:00 [facility] POCT-GLUCOSE METER 2018-09-18 11:09:00 [facility] Plan of Care Planned Activity Planned Date Details Comments Source Future Scheduled Test 2019-10-14 00:00:00 INFLUENZA VACCINE (#1) [code = INFLUENZA VACCINE (#1)] [facility] Future Scheduled Test 2019-03-22 00:00:00 Hemoglobin A1c vasile surement (procedure) [code = 13000553] [facility] Future Scheduled Test 2018-11-26 00:00:00 Urine screening fo r protein (procedure) [code = 258374075] [facility] Future Scheduled Test 2010-02-13 00:00:00 MEDICARE ANNUAL WE LLNESS (YEAR 2 or FIRST YEAR if no IPPE) [code = MEDICARE ANNUAL WELLNESS (YEAR 2 or FIRST YEAR if no IPPE)] [facility] Future Scheduled Test 1955-05-15 00:00:00 DIABETIC EYE EXAM [code = DIABETIC EYE EXAM] [facility] Future Scheduled Test 1955-05-15 00:00:00 Diabetic foot exam ination (regime/therapy) [code = 847705094] [facility] Instructions Pneumonia - Viral [facility] Encounters Start Date/Time End Date/Time Encounter Type Admission Type Attendi [facility] Facility Care Department Encounter ID Source 2019-08-23 17:41:00 2019-08-27 17:20:00 Discharged Inpatient 1 DILLAN JOHNSON [facility] [id number] [facility] Results Test Description Test Time Test Comments Results Result Comments Source Capillary blood glucose measurement by glucometer (mas s/volume) 2019-08-26 10:56:00 Test Item Bedside Glucose (test code = 02496-6) 231 70-120 Meter ID: [id number] [facility] leukocytes automated count (number/volume)2019-08-25 05:30:00* Test Item Value Reference Range Interpretation Comments White Blood Count (test code = 6690-2) 11.77 4.8-10.8 [facility] erythrocytes automated count (number/volume)2019-08-25 05:30:00* Test Item Value Reference Range Interpretation Comments Red Blood Count (test code = 789-8) 3.31 4.3-5.7 [facility] (moles/volume)2019-08-25 05:30:00* Test Item Value Reference Range Interpretation Comments Hemoglobin (test code = 87022-6) 9.2 14.0-18.0 [facility] SystemAutomated blood hematocrit (volume fraction)2019-08-25 05:30:00* Test Item Value Reference Range Interpretation Comments Hematocrit (test code = 4544-3) 28.9 38.2-49.6 [facility] SystemAutomated erythrocyte mean corpuscular suaouo1410-00-36 05:30:00* Test Item Value Reference Range Interpretation Comments Mean Corpuscular Volume (test code = 787-2) 87.3 81-99 [facility] SystemAutom[facility] erythrocyte mean corpuscular hemoglobin (mass per erythrocyte)2019-08-25 05:30:00* Test Item Value Reference Range Interpretation Comments Mean Corpuscular Hemoglobin (test code = 785-6) 27.8 28-32 [facility] SystemAutomated erythrocyte mean corpuscular hemoglobin concentration measurement (mass/volume)2019-08-25 05:30:00* Test Item Value Reference Range Interpretation Comments Mean Corpuscular Hemoglobin Concent (test code = 786-4) 31.8 31-35 [facility] SystemRDW JecVu-Imo1438-25-13 05:30:00* Test Item Value Reference Range Interpretation Comments Red Cell Distribution Width (test code = 81163-5) 13.6 11.7 -14.4 [facility] SystemAutomated blood platelet count (count/volume)2019-08-25 05:30:00* Test Item Value Reference Range Interpretation Comments Platelet Count (test code = 777-3) 347 140-360 [facility] SystemAutomated blood segmented neutrophil count as percentage of total apiwpudyvp6878-13-84 05:30:00* Test Item Value Reference Range Interpretation Comments Neutrophils (%) (Auto) (test code = 03752-2) 79.5 38.7-80.0 [facility] SystemAutomated blood lymphocyte count as percentage ot total bexrnepwtx7388-39-66 05:30:00* Test Item Value Reference Range Interpretation Comments Lymphocytes (%) (Auto) (test code = 736-9) 8.8 18.0-39.1 [facility] SystemAutomated blood monocyte count as percentage of total bniaykdmfp0731-12-30 05:30:00* Test Item Value Reference Range Interpretation Comments Monocytes (%) (Auto) (test code = 5905-5) 9.7 4.4-11.3 [facility] SystemAutomated blood eosinophil count as percentage of total tnpvyvvpux9507-30-20 05:30:00* Test Item Value Reference Range Interpretation Comments Eosinophils (%) (Auto) (test code = 713-8) 0.1 0.0-6.0 [facility] SystemAutomated blood basophil count as percentage of total foblnaeowe0444-83-67 05:30:00* Test Item Value Reference Range Interpretation Comments Basophils (%) (Auto) (test code = 706-2) 0.4 0.0-1.0 [facility] SystemFluoroscopic procedure less than one hour czxhtess4327-14-61 05:30:00* Test Item Value Reference Range Interpretation Comments IM GRANULOCYTES % (test code = IM GRANULOCYTES %) 1.5 0.0- 1.0 [facility] SystemAutomated blood neutrophil count 2019-08-25 05:30:00* Test Item Value Reference Range Interpretation Comments Neutrophils # (Auto) (test code = 751-8) 9.4 2.1-6.9 [facility] SystemBlood lymphocytes count (number/volume) 2019-08-25 05:30:00* Test Item Value Reference Range Interpretation Comments Lymphocytes # (Auto) (test code = 69247-4) 1.0 1.0-3.2 [facility] SystemBlood monocytes automated count (number/volume)2019-08-25 05:30:00* Test Item Value Reference Range Interpretation Comments Monocytes # (Auto) (test code = 742-7) 1.1 0.2-0.8 [facility] SystemAutomated blood eosinophil count 2019-08-25 05:30:00* Test Item Value Reference Range Interpretation Comments Eosinophils # (Auto) (test code = 711-2) 0.0 0.0-0.4 [facility] SystemAutomated blood basophil count (count/volume)2019-08-25 05:30:00* Test Item Value Reference Range Interpretation Comments Basophils # (Auto) (test code = 704-7) 0.1 0.0-0.1 [facility] SystemFluoroscopic procedure less than one hour wrnsasbw3505-67-28 05:30:00* Test Item Value Reference Range Interpretation Comments Absolute Immature Granulocyte (auto (shanique t code = Absolute Immature Granulocyte (auto) 0.18 0-0.1 [facility] sodium measurement (moles/volume)2019-08-25 05:30:00* Test Item Value Reference Range Interpretation Comments Sodium Level (test code = 2951-2) 141 136-145 [facility]wooderum or plasma potassium measurement (moles/volume)2019-08-25 05:30:00* Test Item Value Reference Range Interpretation Comments Potassium Level (test code = 2823-3) 4.0 3.5-5.1 [facility]wood[facility]um or plasma chloride measurement (moles/volume)2019-08-25 05:30:00* Test Item Value Reference Range Interpretation Comments Chloride Level (test code = 2075-0) 110 98-107 [facility]wooderum or plasma carbon dioxide, total measurement (moles/volume)2019-08-25 05:30:00* Test Item Value Reference Range Interpretation Comments Carbon Dioxide Level (test code = 2028-9) 23 22-29 [facility]wooderum or plasma anion auq3106-82-47 05:30:00* Test Item Value Reference Range Interpretation Comments Anion Gap (test code = 43178-3) 12.0 8-16 [facility]wood[facility] or plasma urea nitrogen measurement (mass/volume)2019-08-25 05:30:00* Test Item Value Reference Range Interpretation Comments Blood Urea Nitrogen (test code = 3094-0) 18 7-26 [facility]wood[facility] or plasma creatinine measurement (mass/volume)2019-08-25 05:30:00* Test Item Value Reference Range Interpretation Comments Creatinine (test code = 2160-0) 1.00 0.72-1.25 [facility] or plasma urea nitrogen/creatinine mass zqjnz7579-27-83 05:30:00* Test Item Value Reference Range Interpretation Comments BUN/Creatinine Ratio (test code = 3097-3) 18 6-25 [facility] SystemEstimated glomerular filtration rate (GFR) uutmmtopnyiaf5040-41-75 05:30:00* Test Item Value Reference Range Interpretation Comments Estimat Glomerular Filtration Rate (test code = 186347567) > 60 >60 Ranges were taken from the National Kidney Disease Education Program and the [facility] Kidney Foundation literature.Reference ranges:60 or greater: Rqmwvo13-96 ( for 3 consecutive months): Chronic kidney disease 15 or less: Kidney failureNorthwest Texas Healthcare SystemGlucose zzlwproiaxr6073-65-11 05:30:00* Test Item Value Reference Range Interpretation Comments Glucose Level (test code = OUK6863) 162 74-118 [facility]wooder[facility] or plasma calcium measurement (mass/volume)2019-08-25 05:30:00* Test Item Value Reference Range Interpretation Comments Calcium Level (test code = 07825-9) 8.5 8.4-10.2 [facility] SystemBNP Tcm-kTtk0342-58-12 15:00:00* Test Item Value Reference Range Interpretation Comments B-Type Natriuretic Peptide (test code = 85480-4) 161.6 0-100 [facility]wooderum or plasma creatine kinase measurement (enzymatic activity/volume)2019-08-24 15:00:00* Test Item Value Reference Range Interpretation Comments Creatine Kinase (test code = 2157-6) 179 30-200 [facility]wooderum or plasma creatine kinase MB measurement (mass/volume)2019-08-24 15:00:00* Test Item Value Reference Range Interpretation Comments Creatine Kinase MB (test code = 06842-3) 1.20 0-5.0 [facility] SystemTroponin I measurement by highly sensitive enzyme lxwmczhdaqj5030-06-36 15:00:00* Test Item Value Reference Range Interpretation Comments Troponin I (test code = 91945-3) 0.020 0-0.300 [facility]wood[facility] or plasma thyrotropin measurement by detection limit <= 0.005 miu/l (units/volume)2019-08-24 15:00:00* Test Item Value Reference Range Interpretation Comments Thyroid Stimulating Hormone (TSH) (test code = 89181-2) 1.309 0.350-4.940 [facility] SystemCHEST SINGLE (PORTABLE)2019-08-24 00:38:00 [facility] [address] [place] [address] Patient Name: STACIA CASTELLANOS MR #: [id number] : 1945 Age/Sex: 74/M Req #: [id number] Adm Physician: DILLAN JOHNSON MD Ordered by: MAICOL ODONNELL MD Report #: [id number] Location: [facility] Room/Bed: [place] [address] Procedure: [id number] DX/CHEST SINGLE (PORTABLE) Exam Date: 08/23/19 Exam Time: REPORT STATUS: Signed EXAMINA TION: CHEST SINGLE (PORTABLE) INDICATION: Pneumonia COMPARIS ON: None FINDINGS: TUBES and LINES: None. LUNGS: Norm al lung volumes. Multifocal patchy haziness. PLEURA: No pleural effu keaton or pneumothorax. HEART AND MEDIASTINUM: Cardiac size is mildly enlarg ed. Surgical clips along the mediastinum. BONES AND SOFT TISSUES: No acu te osseous lesion. Soft tissues are unremarkable. Sternotomy wires. UPPE R ABDOMEN: No free air under the diaphragm. IMPRESSION: Findings compatible with multifocal pneumonia. Superimposed edema is possible. Mild cardiomegaly. Signed by: Pascual Yeh DO on 08/24/2019 12:39 AM Di ctated By: PASCUAL YEH DO Transcribed By: GIANCARLO on 08/24/1938 COPY TO: SHANAE ODONNELL MD Fluoroscopic procedure less than one hour zmnwwmet6007-22-01 21:30:00* Test Item Value Reference Range Interpretation Comments Coronavirus (PCR) (test code = Coronavirus (PCR)) DETECTED NOTD ETECTED SARS-COV2/RT-PCRResults are for the detection of SARS-COV-2 RNA. The SARS-COV-2 RNA is generally detectable in nasopharyngeal swab specimens during the acute ph ase of infection. Positive results are indicitive of active infection with SARS- COV-2; clinical correlation with patient history and other diagnostic informatio n is necessary to determine patient infection status. Positive results do not ru le out bacterial infection or co-infection with other viruses. The agent detecte d may not be the definite cause of the disease.The limit of detection for this a ssay is 250 copies/mLThe SARS-CoV-2 test is a rapid, real-time RT-PCR test inten ded for the qualitative detection of nucleic acid from SARS-CoV-2 in nasopharyng eal swab specimen collected from individuals suspected of COVID-19 by their [facility] provider. This test has not been Food and Drug Administration (FDA) clear ed or approved and has been authorized by FDA under an Emergency Use Authorizati on (EUA). This EUA will be effective until the declaration that circumstances ex ist justifying the authorization of the emergency use of in vitro diagnostic shanique t for detection and or diagnosis of COVID-19 is terminated under section 564(b) of the Act, or the the EUA is revoked under 564(g) of the ACT.Testing performed by [address] [address] ACTIVATED CLOTTING [id number] 16:47:00* Test Item Value Reference Range Interpretation Comments Activated Clotting Time (test code = 441) 257 sec Reference Range: 74-137 seconds, Baseline/TESTED AT [address] [address] [facility]TME9550-65-79 16:47:00* Test Item Value Reference Range Interpretation Comments ACTIVATED CLOTTING TIME (BEAKER) (test code = 441) 257 sec Reference Range: 74-137 seconds, Baseline/TESTED AT [address] [address] POC-Glucose qfjio3891-42-93 12:16:00* Test Item Value Reference Range Interpretation Comments POC-Glucose Meter (test code = 1538) 106 mg/dL 70-110 : TESTED AT [address], [address]: Environmental Programs Specialist/Lieutenant Ballistics ID = [id number] for Maryjo Flores Lab Interpretation (test code = 81139-8) Normal [facility] [id number] 12:16:00* Test Item Value Reference Range Interpretation Comments POC-GLUCOSE METER (BEAKER) (test code = 1538) 106 mg/dL 70-110 : TESTED AT [address], [address]: Environmental Programs Specialist/Lieutenant Ballistics ID = [id number] for Maryjo Flores BASIC METABOLIC [id number] 15:26:00* Test Item Value Reference Range Interpretation Comments SODIUM (test code = NA) 139 mEq/L 134-147 N POTASSIUM (test code = K) 3.6 mEq/L 3.4-5.0 N CHLORIDE (test code = CL) 105 mEq/L 100-108 N CARBON DIOXIDE (test code = CO2) 28 mEq/L 21-33 N ANION GAP (test code = GAP) 10 0-20 N GLUCOSE (test code = GLU) 152 mg/dL 70-110 H BLOOD UREA NITROGEN (test code = BUN) 12 mg/dL 7-18 N GLOMERULAR FILTRATION RATE (test code = GFR) 59.0 70-80 L Units of measure = ml/min/1.73 m2 CREATININE (test code = CREAT) 1.2 mg/dL 0.6-1.3 N CALCIUM (test code = CA) 9.0 mg/dL 8.0-10.5 N PROTHROMBIN [id number] 15:23:00* Test Item Value Reference Range Interpretation Comments PROTHROMBIN TIME PATIENT (test code = PTP) 12.5 SECONDS 9.3-12.9 N INTERNATIONAL NORMAL RATIO (test code = INR) 1.1 0.8-1.2 N TARGET INR BY INDICATION Indication INR1. Prophylaxis of venous thrombosis 2.0 - 3.0 (orthopedic surgery), Prophylaxis of venous thrombosis (other than high-risk surgery), Treatment of Deep Vein Thrombosis/Pulmonary Embolism, Prevention of systemic embolism - Tissue heart valves, Acute Myocardial Infarction (to prevent systemic embolism), Valvular heart disease, Atrial Fibrillation, Bileaflet mechanical valve in aortic position.2. Mechanical prosthetic valves (high risk), 2.5 - 3.5 Presence of Lupus Anticoagulant or Antiphospholipid Antibodies, Prevention of systemic embolism - Acute Myocardial Infarction (to prevent recurrent infarct). BASIC METABOLIC [id number] 15:23:00* Test Item Value Reference Range Interpretation Comments SODIUM (test code = NA) 139 mEq/L 134-147 N POTASSIUM (test code = K) 3.6 mEq/L 3.4-5.0 N CHLORIDE (test code = CL) 105 mEq/L 100-108 N CARBON DIOXIDE (test code = CO2) 28 mEq/L 21-33 N ANION GAP (test code = GAP) 10 0-20 N GLUCOSE (test code = GLU) 152 mg/dL 70-110 H BLOOD UREA NITROGEN (test code = BUN) 12 mg/dL 7-18 N GLOMERULAR FILTRATION RATE (test code = GFR) 70-80 CREATININE (test code = CREAT) mg/dL 0.6-1.3 CALCIUM (test code = CA) 9.0 mg/dL 8.0-10.5 N CBC W/AUTO [id number] 15:21:00* Test Item Value Reference Range Interpretation Comments WHITE BLOOD CELL (test code = WBC) 7.84 x10 3/uL 4.5-11.0 N RED BLOOD CELL (test code = RBC) 4.90 x10 6/uL 4.00-5.60 N HEMOGLOBIN (test code = HGB) 13.5 g/dL 12.5-16.9 N HEMATOCRIT (test code = HCT) 42.7 % 37.5-50.7 N MEAN CELL VOLUME (test code = MCV) 87.1 fL 81.0-99.0 N MEAN CELL HGB (test code = MCH) 27.6 pg 27.0-33.0 N MEAN CELL HGB CONCETRATION (test code = MCHC) 31.6 g/dL 33.0-37. 0 L RED CELL DISTRIBUTION WIDTH CV (test code = RDW) 14.5 % 11.5- 14.5 N RED CELL DISTRIBUTION WIDTH SD (test code = RDW-SD) 46.3 fL 37 .0-54.0 N PLATELET COUNT (test code = PLT) 195 x10 3/uL 150-400 N MEAN PLATELET VOLUME (test code = MPV) 12.2 fL 7.0-9.0 H NEUTROPHIL % (test code = NT%) 73.3 % 56.0-77.0 N IMMATURE GRANULOCYTE % (test code = IG%) 0.3 % 0.0-2.0 N LYMPHOCYTE % (test code = LY%) 17.5 % 14.0-32.0 N MONOCYTE % (test code = MO%) 5.0 % 4.8-9.0 N EOSINOPHIL % (test code = EO%) 2.6 % 0.3-3.7 N BASOPHIL % (test code = BA%) 1.3 % 0.0-2.0 N NUCLEATED RBC % (test code = NRBC%) 0.0 % 0-0 N NEUTROPHIL # (test code = NT#) 5.76 x10 3/uL 2.0-7.6 N IMMATURE GRANULOCYTE # (test code = IG#) 0.02 x10 3/uL 0.00-0.03 N LYMPHOCYTE # (test code = LY#) 1.37 x10 3/uL 1.0-3.8 N MONOCYTE # (test code = MO#) 0.39 x10 3/uL 0.1-0.8 N EOSINOPHIL # (test code = EO#) 0.20 x10 3/uL 0.0-0.2 N BASOPHIL # (test code = BA#) 0.10 x10 3/uL 0.0-0.2 N NUCLEATED RBC # (test code = NRBC#) 0.00 x10 3/uL 0.0-0.1 N MANUAL DIFF REQUIRED (test code = MDIFF) NO - CT HEAD/BRAIN W/O [id number] 15:14:00 Name: STACIA CASTELLANOS [facility] : 1945 Age/S: 73 / M [address] [place] [address] Bl Unit #: [id number] Loc: [place] [address] Phys: Star Son MD Acct: [id number] Dis Date: Status: REG ER PHONE #: [phone] Exam Date: 12/31/2018 7243 FAX #: [phone] Reason: fall / occipital contusion/lac EXAMS: CPT CODE: [id number] CT HEAD/BRAIN W/O CONT [id number] STUDY: - CT HEAD/BRAIN W/O CONT 12/31/2018 1:53 PM Ordering Physician: Star Son MD Patient Name: STACIA CASTELLANOS MR: [id number] : 1945; Age: 73 years y/o Male Clinical Indication: fall / occipital contusion/lac Comparison: None TECHNIQUE: Multiple contiguous transaxial noncontrast CT images were obtained through the head. Coronal and sagittal reformatted images were prepared. DOSE: CT imaging performed at this location utilizes radiation dose optimization technique which includes one or more of the followin) Automated exposure c ontrol; 2) Adjustment of the mA and/or kV according to patient's size; 3) Use of iterative reconstruction techniques. DLP (mGy-cm): 972 FINDINGS: BRAIN PARENCHYMA: Moderate diffuse atro phy. Confluent and scattered hypodensities in the supratentorial white matter likely reflect chronic small vessel ischemic changes. 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 Vascular calcifications in the carotid siphons and intradural vertebral arteries. No evidence o f acute intracranial hemorrhage, mass lesion, mass effect, midline shift, or extra-axial fluid collection. VENTRICLES: The lateral ventricle s, third ventricle, fourth ventricle, and basilar cisterns are appropriate for degree of atrophy present. PARANASAL SINUSES: Right maxillary sinus retention cyst MASTOIDS: Clear. ORBITS: The v isualized portions of the orbits are normal. Bilateral lens prostheses. SOFT TISSUES: Left parietal scalp hematoma PAGE 1 Signed Report (CONTINUED) Name: Taylor CASTELLANOS [facility] : 1945 Age/ S: 73 / M [address] [place] [address] Blvd Unit #: [id number] Loc: [place] [address] Phys: Star Son MD Acct: [id number] Dis Date: Status: REG ER PHONE #: [phone] Exam Date: 12/31/2018 1454 FAX #: [phone] Reason: fall / occipital contusion/lac EXAMS: CPT CODE: [id number] CT HEAD/BRAIN W/O CONT [id number] <Continued> SKULL: No acute fracture or suspicious osseous lesion. IMPRESSION: 1. No acute intracranial abnormality. Left parietal scalp hematoma. 2. Severe chronic small vessel ischemic changes in the supratentorial white matter. 3. 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 SL: [id number] at 1514 Reported and signed by: Mello Guzmán M.D. CC: Star Son MD Technologist:Nemo Arriaga RT(R)(CT) CTDI: DLP: Trnscb Date/Time: 12/31/2018 (1513) [email or web address] Orig Print D/T: S: 12/31/2018 (4527) PAGE 2 Signed Report ECG 12 lead 2018-10-02 17:56:35Interface, External Ris In - 10/02/2018 5:56 PM CDTVentricular Rate 70 BPMAtrial Rate 70 BPMP-R Interval 170 msQRS Duration 88 msQ-T Interval 424 msQTC Calculation(Bazezev) 457 msP [place] 56 degreesR [place] -3 degreesT [place] 70 degreesNormal sinus rhythmNormal ECGWhen compared with ECG of 21-SEP-2018 23:33,PAC's are not seen on the current EKGConfirmed by Chas HOLLINS BASANT ([id number]) on 10/02/2018 5:56:33 [facility] [id number] 14:11:00* Test Item Value Reference Range Interpretation Comments POC-GLUCOSE METER (BEAKER) (test code = 1538) 140 mg/dL 70-110 H TESTED AT [facility] [address] [facility] [address] POCT-GLUCOSE [id number] 13:08:00* Test Item Value Reference Range Interpretation Comments POC-GLUCOSE METER (BEAKER) (test code = 1538) 138 mg/dL 70-110 H TESTED AT [facility] [address] [facility] [address] POCT-GLUCOSE [id number] 08:26:00* Test Item Value Reference Range Interpretation Comments POC-GLUCOSE METER (BEAKER) (test code = 1538) 183 mg/dL 70-110 H TESTED AT [facility] [address] [facility] [address] Basic Metabolic [id number] 07:27:00* Test Item Value Reference Range Interpretation Comments Sodium (test code = 2951-2) 140 meq/L 136-145 Potassium (test code = 2823-3) 4.3 meq/L 3.5-5.1 Chloride (test code = 2075-0) 107 meq/L 98-107 CO2 (test code = 8-9) 26 meq/L 22-29 BUN (test code = 3094-0) 12 mg/dL 7-21 Creatinine (test code = 2160-0) 1.24 mg/dL 0.57-1.25 Glucose (test code = 2345-7) 129 mg/dL 70-105 H Calcium (test code = 33219-5) 9.0 mg/dL 8.4-10.2 EGFR (test code = 45360-5) 57 mL/min/1.73 sq m ESTIMATED GFR IS NOT ACCURATE CREATININE CLEARANCE IN PREDICTING GLOMERULAR FILTRATION RATE. ESTIMATED GFR IS NOT APPLICABLE FOR DIALYSIS PATIENTS. Lab Interpretation (test code = 56410-5) [facility]normal [facility] [id number] 07:27:00* Test Item Value Reference Range Interpretation Comments SODIUM (BEAKER) (test code = 381) 140 meq/L 136-145 POTASSIUM (BEAKER) (test code = 379) 4.3 meq/L 3.5-5.1 CHLORIDE (BEAKER) (test code = 382) 107 meq/L 98-107 CO2 (BEAKER) (test code = 355) 26 meq/L 22-29 BLOOD UREA NITROGEN (BEAKER) (test code = 354) 12 mg/dL 7-21 CREATININE (BEAKER) (test code = 358) 1.24 mg/dL 0.57-1.25 GLUCOSE RANDOM (BEAKER) (test code = 652) 129 mg/dL 70-105 H CALCIUM (BEAKER) (test code = 697) 9.0 mg/dL 8.4-10.2 EGFR (BEAKER) (test code = 1092) 57 mL/min/1.73 sq m ESTIMATED GFR IS NOT ACCURATE CREATININE CLEARANCE IN PREDICTING GLOMERULAR FILTRATION RATE. ESTIMATED GFR IS NOT APPLICABLE FOR DIALYSIS PATIENTS. CBC with platelet count + automated [id number] 06:47:00* Test Item Value Reference Range Interpretation Comments WBC (test code = 6690-2) 9.5 3.5- 10.5 K/L RBC (test code = 789-8) 3.10 4.63- 6.08 M/L L MCHC (test code = 786-4) 31.1 32.3- 36.5 GM/DL L Hematocrit (test code = 4544-3) 28.6 % 40.1-51 L MCV (test code = 787-2) 92.3 fL 79-92.2 H MCH (test code = 785-6) 28.7 pg 25.7-32.2 RDW (test code = 788-0) 14.1 % 11.6-14.4 Platelets (test code = 777-3) 368 150- 450 K/CU MM MPV (test code = 27170-4) 11.3 fL 9.4-12.4 nRBC (test code = 413) 0 0- 0 /100 WBC % Neutros (test code = 429) 67 % % Lymphs (test code = 430) 17 % % Monos (test code = 431) 7 % % Eos (test code = 432) 8 % % Baso (test code = 437) 1 % # Neutros (test code = 670) 6.33 1.78- 5.38 K/L H # Lymphs (test code = 414) 1.56 1.32- 3.57 K/L # Monos (test code = 415) 0.69 0.30- 0.82 K/L # Eos (test code = 416) 0.72 0.04- 0.54 K/L H # Baso (test code = 417) 0.08 0.01- 0.08 K/L Immature Granulocytes-Relative (test code = 2801) 1 % 0-1 Lab Interpretation (test code = 47797-3) Abnormal [facility] W/PLT COUNT & AUTO [id number] 06:47:00* Test Item Value Reference Range Interpretation Comments WHITE BLOOD CELL COUNT (BEAKER) (test code = 775) 9.5 K/ L 3.5- 10.5 RED BLOOD CELL COUNT (BEAKER) (test code = 761) 3.10 M/ L 4.63-6 .08 L HEMOGLOBIN (BEAKER) (test code = 410) 8.9 GM/DL 13.7-17.5 L HEMATOCRIT (BEAKER) (test code = 411) 28.6 % 40.1-51.0 L MEAN CORPUSCULAR VOLUME (BEAKER) (test code = 753) 92.3 fL 79. 0-92.2 H MEAN CORPUSCULAR HEMOGLOBIN (BEAKER) (test code = 751) 28.7 pg 25.7-32.2 MEAN CORPUSCULAR HEMOGLOBIN CONC (BEAKER) (test code = 752) 31.1 GM/DL 32.3-36.5 L RED CELL DISTRIBUTION WIDTH (BEAKER) (test code = 412) 14.1 % 11.6-14.4 PLATELET COUNT (BEAKER) (test code = 756) 368 K/CU MM 150-450 MEAN PLATELET VOLUME (BEAKER) (test code = 754) 11.3 fL 9.4-12 .4 NUCLEATED RED BLOOD CELLS (BEAKER) (test code = 413) 0 /100 WBC 0 -0 NEUTROPHILS RELATIVE PERCENT (BEAKER) (test code = 429) 67 % LYMPHOCYTES RELATIVE PERCENT (BEAKER) (test code = 430) 17 % MONOCYTES RELATIVE PERCENT (BEAKER) (test code = 431) 7 % EOSINOPHILS RELATIVE PERCENT (BEAKER) (test code = 432) 8 % BASOPHILS RELATIVE PERCENT (BEAKER) (test code = 437) 1 % NEUTROPHILS ABSOLUTE COUNT (BEAKER) (test code = 670) 6.33 K/ L 1.78-5.38 H LYMPHOCYTES ABSOLUTE COUNT (BEAKER) (test code = 414) 1.56 K/ L 1.32-3.57 MONOCYTES ABSOLUTE COUNT (BEAKER) (test code = 415) 0.69 K/ L 0. 30-0.82 EOSINOPHILS ABSOLUTE COUNT (BEAKER) (test code = 416) 0.72 K/ L 0.04-0.54 H BASOPHILS ABSOLUTE COUNT (BEAKER) (test code = 417) 0.08 K/ L 0. 01-0.08 IMMATURE GRANULOCYTES-RELATIVE PERCENT (BEAKER) (test code = 2801) 1 % 0-1 POCT-GLUCOSE [id number] 23:47:00* Test Item Value Reference Range Interpretation Comments POC-GLUCOSE METER (BEAKER) (test code = 1538) 137 mg/dL 70-110 H TESTED AT [place] [id number] POCT-GLUCOSE [id number] 13:28:00* Test Item Value Reference Range Interpretation Comments POC-GLUCOSE METER (BEAKER) (test code = 1538) 130 mg/dL 70-110 H TESTED AT [place] [address] POCT-GLUCOSE [id number] 09:31:00* Test Item Value Reference Range Interpretation Comments POC-GLUCOSE METER (BEAKER) (test code = 1538) 151 mg/dL 70-110 H TESTED AT [address] [address] BASIC METABOLIC [id number] 06:37:00* Test Item Value Reference Range Interpretation Comments SODIUM (BEAKER) (test code = 381) 136 meq/L 136-145 POTASSIUM (BEAKER) (test code = 379) 3.8 meq/L 3.5-5.1 CHLORIDE (BEAKER) (test code = 382) 105 meq/L 98-107 CO2 (BEAKER) (test code = 355) 22 meq/L 22-29 BLOOD UREA NITROGEN (BEAKER) (test code = 354) 15 mg/dL 7-21 CREATININE (BEAKER) (test code = 358) 1.18 mg/dL 0.57-1.25 GLUCOSE RANDOM (BEAKER) (test code = 652) 138 mg/dL 70-105 H CALCIUM (BEAKER) (test code = 697) 8.4 mg/dL 8.4-10.2 EGFR (BEAKER) (test code = 1092) 60 mL/min/1.73 sq m ESTIMATED GFR IS NOT ACCURATE CREATININE CLEARANCE IN PREDICTING GLOMERULAR FILTRATION RATE. ESTIMATED GFR IS NOT APPLICABLE FOR DIALYSIS PATIENTS. CBC W/PLT COUNT & AUTO [id number] 05:40:00* Test Item Value Reference Range Interpretation Comments WHITE BLOOD CELL COUNT (BEAKER) (test code = 775) 9.1 K/ L 3.5- 10.5 RED BLOOD CELL COUNT (BEAKER) (test code = 761) 2.94 M/ L 4.63-6 .08 L HEMOGLOBIN (BEAKER) (test code = 410) 8.6 GM/DL 13.7-17.5 L HEMATOCRIT (BEAKER) (test code = 411) 27.0 % 40.1-51.0 L MEAN CORPUSCULAR VOLUME (BEAKER) (test code = 753) 91.8 fL 79. 0-92.2 MEAN CORPUSCULAR HEMOGLOBIN (BEAKER) (test code = 751) 29.3 pg 25.7-32.2 MEAN CORPUSCULAR HEMOGLOBIN CONC (BEAKER) (test code = 752) 31.9 GM/DL 32.3-36.5 L RED CELL DISTRIBUTION WIDTH (BEAKER) (test code = 412) 13.8 % 11.6-14.4 PLATELET COUNT (BEAKER) (test code = 756) 395 K/CU MM 150-450 MEAN PLATELET VOLUME (BEAKER) (test code = 754) 11.0 fL 9.4-12 .4 NUCLEATED RED BLOOD CELLS (BEAKER) (test code = 413) 0 /100 WBC 0 -0 NEUTROPHILS RELATIVE PERCENT (BEAKER) (test code = 429) 66 % LYMPHOCYTES RELATIVE PERCENT (BEAKER) (test code = 430) 17 % MONOCYTES RELATIVE PERCENT (BEAKER) (test code = 431) 8 % EOSINOPHILS RELATIVE PERCENT (BEAKER) (test code = 432) 8 % BASOPHILS RELATIVE PERCENT (BEAKER) (test code = 437) 1 % NEUTROPHILS ABSOLUTE COUNT (BEAKER) (test code = 670) 5.97 K/ L 1.78-5.38 H LYMPHOCYTES ABSOLUTE COUNT (BEAKER) (test code = 414) 1.51 K/ L 1.32-3.57 MONOCYTES ABSOLUTE COUNT (BEAKER) (test code = 415) 0.71 K/ L 0. 30-0.82 EOSINOPHILS ABSOLUTE COUNT (BEAKER) (test code = 416) 0.76 K/ L 0.04-0.54 H BASOPHILS ABSOLUTE COUNT (BEAKER) (test code = 417) 0.07 K/ L 0. 01-0.08 IMMATURE GRANULOCYTES-RELATIVE PERCENT (BEAKER) (test code = 2801) 1 % 0-1 POCT-GLUCOSE [id number] 22:39:00* Test Item Value Reference Range Interpretation Comments POC-GLUCOSE METER (BEAKER) (test code = 1538) 157 mg/dL 70-110 H TESTED AT [address] [address] POCT-GLUCOSE [id number] 18:30:00* Test Item Value Reference Range Interpretation Comments POC-GLUCOSE METER (BEAKER) (test code = 1538) 155 mg/dL 70-110 H TESTED AT [address] [address] POCT-GLUCOSE [id number] 16:45:00* Test Item Value Reference Range Interpretation Comments POC-GLUCOSE METER (BEAKER) (test code = 1538) 235 mg/dL 70-110 H TESTED AT [address] [address] POCT-GLUCOSE [id number] 12:39:00* Test Item Value Reference Range Interpretation Comments POC-GLUCOSE METER (BEAKER) (test code = 1538) 112 mg/dL 70-110 H TESTED AT [address] [address] POCT-GLUCOSE [id number] 08:35:00* Test Item Value Reference Range Interpretation Comments POC-GLUCOSE METER (BEAKER) (test code = 1538) 132 mg/dL 70-110 H TESTED AT [address] [address] BASIC METABOLIC [id number] 06:05:00* Test Item Value Reference Range Interpretation Comments SODIUM (BEAKER) (test code = 381) 137 meq/L 136-145 POTASSIUM (BEAKER) (test code = 379) 4.4 meq/L 3.5-5.1 CHLORIDE (BEAKER) (test code = 382) 104 meq/L 98-107 CO2 (BEAKER) (test code = 355) 24 meq/L 22-29 BLOOD UREA NITROGEN (BEAKER) (test code = 354) 16 mg/dL 7-21 CREATININE (BEAKER) (test code = 358) 1.14 mg/dL 0.57-1.25 GLUCOSE RANDOM (BEAKER) (test code = 652) 119 mg/dL 70-105 H CALCIUM (BEAKER) (test code = 697) 8.6 mg/dL 8.4-10.2 EGFR (BEAKER) (test code = 1092) 63 mL/min/1.73 sq m ESTIMATED GFR IS NOT ACCURATE CREATININE CLEARANCE IN PREDICTING GLOMERULAR FILTRATION RATE. ESTIMATED GFR IS NOT APPLICABLE FOR DIALYSIS PATIENTS. CBC W/PLT COUNT & AUTO [id number] 05:40:00* Test Item Value Reference Range Interpretation Comments WHITE BLOOD CELL COUNT (BEAKER) (test code = 775) 9.6 K/ L 3.5- 10.5 RED BLOOD CELL COUNT (BEAKER) (test code = 761) 3.10 M/ L 4.63-6 .08 L HEMOGLOBIN (BEAKER) (test code = 410) 9.0 GM/DL 13.7-17.5 L HEMATOCRIT (BEAKER) (test code = 411) 28.8 % 40.1-51.0 L MEAN CORPUSCULAR VOLUME (BEAKER) (test code = 753) 92.9 fL 79. 0-92.2 H MEAN CORPUSCULAR HEMOGLOBIN (BEAKER) (test code = 751) 29.0 pg 25.7-32.2 MEAN CORPUSCULAR HEMOGLOBIN CONC (BEAKER) (test code = 752) 31.3 GM/DL 32.3-36.5 L RED CELL DISTRIBUTION WIDTH (BEAKER) (test code = 412) 13.8 % 11.6-14.4 PLATELET COUNT (BEAKER) (test code = 756) 364 K/CU MM 150-450 MEAN PLATELET VOLUME (BEAKER) (test code = 754) 11.1 fL 9.4-12 .4 NUCLEATED RED BLOOD CELLS (BEAKER) (test code = 413) 0 /100 WBC 0 -0 NEUTROPHILS RELATIVE PERCENT (BEAKER) (test code = 429) 66 % LYMPHOCYTES RELATIVE PERCENT (BEAKER) (test code = 430) 16 % MONOCYTES RELATIVE PERCENT (BEAKER) (test code = 431) 8 % EOSINOPHILS RELATIVE PERCENT (BEAKER) (test code = 432) 8 % BASOPHILS RELATIVE PERCENT (BEAKER) (test code = 437) 1 % NEUTROPHILS ABSOLUTE COUNT (BEAKER) (test code = 670) 6.33 K/ L 1.78-5.38 H LYMPHOCYTES ABSOLUTE COUNT (BEAKER) (test code = 414) 1.55 K/ L 1.32-3.57 MONOCYTES ABSOLUTE COUNT (BEAKER) (test code = 415) 0.76 K/ L 0. 30-0.82 EOSINOPHILS ABSOLUTE COUNT (BEAKER) (test code = 416) 0.72 K/ L 0.04-0.54 H BASOPHILS ABSOLUTE COUNT (BEAKER) (test code = 417) 0.11 K/ L 0. 01-0.08 H IMMATURE GRANULOCYTES-RELATIVE PERCENT (BEAKER) (test code = 2801) 1 % 0-1 POCT-GLUCOSE [id number] 21:47:00* Test Item Value Reference Range Interpretation Comments POC-GLUCOSE METER (BEAKER) (test code = 1538) 128 mg/dL 70-110 H TESTED AT [address] [address] POCT-GLUCOSE [id number] 16:49:00* Test Item Value Reference Range Interpretation Comments POC-GLUCOSE METER (BEAKER) (test code = 1538) 115 mg/dL 70-110 H TESTED AT [address] [address] POCT-GLUCOSE [id number] 13:10:00* Test Item Value Reference Range Interpretation Comments POC-GLUCOSE METER (BEAKER) (test code = 1538) 124 mg/dL 70-110 H TESTED AT [address] [address] BASIC METABOLIC [id number] 06:35:00* Test Item Value Reference Range Interpretation Comments SODIUM (BEAKER) (test code = 381) 136 meq/L 136-145 POTASSIUM (BEAKER) (test code = 379) 3.7 meq/L 3.5-5.1 CHLORIDE (BEAKER) (test code = 382) 104 meq/L 98-107 CO2 (BEAKER) (test code = 355) 19 meq/L 22-29 L BLOOD UREA NITROGEN (BEAKER) (test code = 354) 13 mg/dL 7-21 CREATININE (BEAKER) (test code = 358) 1.10 mg/dL 0.57-1.25 GLUCOSE RANDOM (BEAKER) (test code = 652) 113 mg/dL 70-105 H CALCIUM (BEAKER) (test code = 697) 8.3 mg/dL 8.4-10.2 L EGFR (BEAKER) (test code = 1092) 65 mL/min/1.73 sq m ESTIMATED GFR IS NOT ACCURATE CREATININE CLEARANCE IN PREDICTING GLOMERULAR FILTRATION RATE. ESTIMATED GFR IS NOT APPLICABLE FOR DIALYSIS PATIENTS. CBC W/PLT COUNT & AUTO [id number] 05:04:00* Test Item Value Reference Range Interpretation Comments WHITE BLOOD CELL COUNT (BEAKER) (test code = 775) 9.1 K/ L 3.5- 10.5 RED BLOOD CELL COUNT (BEAKER) (test code = 761) 2.94 M/ L 4.63-6 .08 L HEMOGLOBIN (BEAKER) (test code = 410) 8.5 GM/DL 13.7-17.5 L HEMATOCRIT (BEAKER) (test code = 411) 27.7 % 40.1-51.0 L MEAN CORPUSCULAR VOLUME (BEAKER) (test code = 753) 94.2 fL 79. 0-92.2 H MEAN CORPUSCULAR HEMOGLOBIN (BEAKER) (test code = 751) 28.9 pg 25.7-32.2 MEAN CORPUSCULAR HEMOGLOBIN CONC (BEAKER) (test code = 752) 30.7 GM/DL 32.3-36.5 L RED CELL DISTRIBUTION WIDTH (BEAKER) (test code = 412) 14.0 % 11.6-14.4 PLATELET COUNT (BEAKER) (test code = 756) 308 K/CU MM 150-450 MEAN PLATELET VOLUME (BEAKER) (test code = 754) 11.5 fL 9.4-12 .4 NUCLEATED RED BLOOD CELLS (BEAKER) (test code = 413) 0 /100 WBC 0 -0 NEUTROPHILS RELATIVE PERCENT (BEAKER) (test code = 429) 66 % LYMPHOCYTES RELATIVE PERCENT (BEAKER) (test code = 430) 15 % MONOCYTES RELATIVE PERCENT (BEAKER) (test code = 431) 9 % EOSINOPHILS RELATIVE PERCENT (BEAKER) (test code = 432) 9 % BASOPHILS RELATIVE PERCENT (BEAKER) (test code = 437) 1 % NEUTROPHILS ABSOLUTE COUNT (BEAKER) (test code = 670) 5.99 K/ L 1.78-5.38 H LYMPHOCYTES ABSOLUTE COUNT (BEAKER) (test code = 414) 1.38 K/ L 1.32-3.57 MONOCYTES ABSOLUTE COUNT (BEAKER) (test code = 415) 0.78 K/ L 0. 30-0.82 EOSINOPHILS ABSOLUTE COUNT (BEAKER) (test code = 416) 0.78 K/ L 0.04-0.54 H BASOPHILS ABSOLUTE COUNT (BEAKER) (test code = 417) 0.11 K/ L 0. 01-0.08 H IMMATURE GRANULOCYTES-RELATIVE PERCENT (BEAKER) (test code = 2801) 1 % 0-1 POCT-GLUCOSE [id number] 21:22:00* Test Item Value Reference Range Interpretation Comments POC-GLUCOSE METER (BEAKER) (test code = 1538) 122 mg/dL 70-110 H TESTED AT [address] [address] POCT-GLUCOSE [id number] 13:14:00* Test Item Value Reference Range Interpretation Comments POC-GLUCOSE METER (BEAKER) (test code = 1538) 122 mg/dL 70-110 H TESTED AT [address] [address] POCT-GLUCOSE [id number] 07:50:00* Test Item Value Reference Range Interpretation Comments POC-GLUCOSE METER (BEAKER) (test code = 1538) 122 mg/dL 70-110 H TESTED AT [address] [address] BASIC METABOLIC [id number] 07:29:00* Test Item Value Reference Range Interpretation Comments SODIUM (BEAKER) (test code = 381) 133 meq/L 136-145 L POTASSIUM (BEAKER) (test code = 379) 3.8 meq/L 3.5-5.1 CHLORIDE (BEAKER) (test code = 382) 102 meq/L 98-107 CO2 (BEAKER) (test code = 355) 22 meq/L 22-29 BLOOD UREA NITROGEN (BEAKER) (test code = 354) 16 mg/dL 7-21 CREATININE (BEAKER) (test code = 358) 1.08 mg/dL 0.57-1.25 GLUCOSE RANDOM (BEAKER) (test code = 652) 122 mg/dL 70-105 H CALCIUM (BEAKER) (test code = 697) 8.2 mg/dL 8.4-10.2 L EGFR (BEAKER) (test code = 1092) 67 mL/min/1.73 sq m ESTIMATED GFR IS NOT ACCURATE CREATININE CLEARANCE IN PREDICTING GLOMERULAR FILTRATION RATE. ESTIMATED GFR IS NOT APPLICABLE FOR DIALYSIS PATIENTS. CBC W/PLT COUNT & AUTO [id number] 06:34:00* Test Item Value Reference Range Interpretation Comments WHITE BLOOD CELL COUNT (BEAKER) (test code = 775) 10.2 K/ L 3.5- 10.5 RED BLOOD CELL COUNT (BEAKER) (test code = 761) 2.81 M/ L 4.63-6 .08 L HEMOGLOBIN (BEAKER) (test code = 410) 8.2 GM/DL 13.7-17.5 L HEMATOCRIT (BEAKER) (test code = 411) 26.0 % 40.1-51.0 L MEAN CORPUSCULAR VOLUME (BEAKER) (test code = 753) 92.5 fL 79. 0-92.2 H MEAN CORPUSCULAR HEMOGLOBIN (BEAKER) (test code = 751) 29.2 pg 25.7-32.2 MEAN CORPUSCULAR HEMOGLOBIN CONC (BEAKER) (test code = 752) 31.5 GM/DL 32.3-36.5 L RED CELL DISTRIBUTION WIDTH (BEAKER) (test code = 412) 13.9 % 11.6-14.4 PLATELET COUNT (BEAKER) (test code = 756) 307 K/CU MM 150-450 MEAN PLATELET VOLUME (BEAKER) (test code = 754) 11.4 fL 9.4-12 .4 NUCLEATED RED BLOOD CELLS (BEAKER) (test code = 413) 0 /100 WBC 0 -0 NEUTROPHILS RELATIVE PERCENT (BEAKER) (test code = 429) 70 % LYMPHOCYTES RELATIVE PERCENT (BEAKER) (test code = 430) 13 % MONOCYTES RELATIVE PERCENT (BEAKER) (test code = 431) 8 % EOSINOPHILS RELATIVE PERCENT (BEAKER) (test code = 432) 7 % BASOPHILS RELATIVE PERCENT (BEAKER) (test code = 437) 1 % NEUTROPHILS ABSOLUTE COUNT (BEAKER) (test code = 670) 7.15 K/ L 1.78-5.38 H LYMPHOCYTES ABSOLUTE COUNT (BEAKER) (test code = 414) 1.30 K/ L 1.32-3.57 L MONOCYTES ABSOLUTE COUNT (BEAKER) (test code = 415) 0.86 K/ L 0. 30-0.82 H EOSINOPHILS ABSOLUTE COUNT (BEAKER) (test code = 416) 0.68 K/ L 0.04-0.54 H BASOPHILS ABSOLUTE COUNT (BEAKER) (test code = 417) 0.08 K/ L 0. 01-0.08 IMMATURE GRANULOCYTES-RELATIVE PERCENT (BEAKER) (test code = 2801) 1 % 0-1 POCT-GLUCOSE [id number] 21:50:00* Test Item Value Reference Range Interpretation Comments POC-GLUCOSE METER (BEAKER) (test code = 1538) 142 mg/dL 70-110 H TESTED AT [address] [address] POCT-GLUCOSE [id number] 17:34:00* Test Item Value Reference Range Interpretation Comments POC-GLUCOSE METER (BEAKER) (test code = 1538) 143 mg/dL 70-110 H TESTED AT [address] [address] POCT-GLUCOSE [id number] 09:46:00* Test Item Value Reference Range Interpretation Comments POC-GLUCOSE METER (BEAKER) (test code = 1538) 121 mg/dL 70-110 H TESTED AT [address] [address] [id number] 08:09:00* Test Item Value Reference Range Interpretation Comments Magnesium (test code = 36915-7) 1.9 mg/dL 1.6-2.6 Lab Interpretation (test code = 30639-8) [facility] Test Item Value Reference Range Interpretation Comments Phosphorus (test code = 2777-1) 4.1 mg/dL 2.3-4.7 Lab Interpretation (test code = 37511-7) [facility]:09:[facility]* Test Item Value Reference Range Interpretation Comments PHOSPHORUS (BEAKER) (test code = 604) 4.1 mg/dL 2.3-4.7 [id number] 08:09:00* Test Item Value Reference Range Interpretation Comments MAGNESIUM (BEAKER) (test code = 627) 1.9 mg/dL 1.6-2.6 BASIC METABOLIC [id number] 08:09:00* Test Item Value Reference Range Interpretation Comments SODIUM (BEAKER) (test code = 381) 137 meq/L 136-145 POTASSIUM (BEAKER) (test code = 379) 3.6 meq/L 3.5-5.1 CHLORIDE (BEAKER) (test code = 382) 104 meq/L 98-107 CO2 (BEAKER) (test code = 355) 23 meq/L 22-29 BLOOD UREA NITROGEN (BEAKER) (test code = 354) 19 mg/dL 7-21 CREATININE (BEAKER) (test code = 358) 1.08 mg/dL 0.57-1.25 GLUCOSE RANDOM (BEAKER) (test code = 652) 109 mg/dL 70-105 H CALCIUM (BEAKER) (test code = 697) 8.2 mg/dL 8.4-10.2 L EGFR (BEAKER) (test code = 1092) 67 mL/min/1.73 sq m ESTIMATED GFR IS NOT ACCURATE CREATININE CLEARANCE IN PREDICTING GLOMERULAR FILTRATION RATE. ESTIMATED GFR IS NOT APPLICABLE FOR DIALYSIS PATIENTS. CBC W/PLT COUNT & AUTO [id number] 06:57:00* Test Item Value Reference Range Interpretation Comments WHITE BLOOD CELL COUNT (BEAKER) (test code = 775) 10.3 K/ L 3.5- 10.5 RED BLOOD CELL COUNT (BEAKER) (test code = 761) 2.70 M/ L 4.63-6 .08 L HEMOGLOBIN (BEAKER) (test code = 410) 7.9 GM/DL 13.7-17.5 L HEMATOCRIT (BEAKER) (test code = 411) 25.3 % 40.1-51.0 L MEAN CORPUSCULAR VOLUME (BEAKER) (test code = 753) 93.7 fL 79. 0-92.2 H MEAN CORPUSCULAR HEMOGLOBIN (BEAKER) (test code = 751) 29.3 pg 25.7-32.2 MEAN CORPUSCULAR HEMOGLOBIN CONC (BEAKER) (test code = 752) 31.2 GM/DL 32.3-36.5 L RED CELL DISTRIBUTION WIDTH (BEAKER) (test code = 412) 14.0 % 11.6-14.4 PLATELET COUNT (BEAKER) (test code = 756) 271 K/CU MM 150-450 MEAN PLATELET VOLUME (BEAKER) (test code = 754) 11.6 fL 9.4-12 .4 NUCLEATED RED BLOOD CELLS (BEAKER) (test code = 413) 0 /100 WBC 0 -0 NEUTROPHILS RELATIVE PERCENT (BEAKER) (test code = 429) 68 % LYMPHOCYTES RELATIVE PERCENT (BEAKER) (test code = 430) 15 % MONOCYTES RELATIVE PERCENT (BEAKER) (test code = 431) 8 % EOSINOPHILS RELATIVE PERCENT (BEAKER) (test code = 432) 7 % BASOPHILS RELATIVE PERCENT (BEAKER) (test code = 437) 1 % NEUTROPHILS ABSOLUTE COUNT (BEAKER) (test code = 670) 6.95 K/ L 1.78-5.38 H LYMPHOCYTES ABSOLUTE COUNT (BEAKER) (test code = 414) 1.54 K/ L 1.32-3.57 MONOCYTES ABSOLUTE COUNT (BEAKER) (test code = 415) 0.79 K/ L 0. 30-0.82 EOSINOPHILS ABSOLUTE COUNT (BEAKER) (test code = 416) 0.72 K/ L 0.04-0.54 H BASOPHILS ABSOLUTE COUNT (BEAKER) (test code = 417) 0.07 K/ L 0. 01-0.08 IMMATURE GRANULOCYTES-RELATIVE PERCENT (BEAKER) (test code = 2801) 2 % 0-1 H POCT-GLUCOSE [id number] 16:15:00* Test Item Value Reference Range Interpretation Comments POC-GLUCOSE METER (BEAKER) (test code = 1538) 147 mg/dL 70-110 H TESTED AT [facility] [address] [facility] [address] POCT-GLUCOSE [id number] 11:59:00* Test Item Value Reference Range Interpretation Comments POC-GLUCOSE METER (BEAKER) (test code = 1538) 135 mg/dL 70-110 H TESTED AT [facility] [address] [facility] [address] RAD, CHEST, 1 VIEW, NON [id number] 08:51:00Reason for exam:->pulmonary edemaShould this be performed at the bedside?->YesFINAL REPORT RAD, CHEST, 1 VIEW, NON DEPT INDICATION: pulmonary edema COMPARISON: September 23, 2018 FINDINGS: Portable frontal view of the chest. IMPRESSION: Limited by underpenetration.Support Lines: Stable. Lungs and pleura: Congestive interstitial changes slightly increased from the prior examination. Stable left effusion. No pneumothorax.Heart and mediastinum: Stable contours. Stable surgical changes.Additional findings: None. Signed: JR Jaime Robert MDReport Verified Date/Time: 09/26/2018 08:51:52 Reading Location: [facility] Radiology Reading Room chest 1 view portable / [id number] 08:51:00 Interface, External Ris In - 09/26/2018 8:53 AM CDTFINAL REPORT PATIENT ID: [id number] RAD, CHEST, 1 VIEW, NON DEPT INDICATION: pulmonary edema COMPARISON: Sep us2018 FINDINGS: Portable frontal view of the chest. IMPRESSION: Limited by underpenetration.Support Lines: Stable. Lungs and pleura: Congestive interst itial changes slightly increased from the prior examination. Stable left effusio n. No pneumothorax.Heart and mediastinum: Stable contours. Stable surgical basurto es.Additional findings: None. Signed: JR Jaime Robert MDReport Verified Date/Time: 09/26/2018 08:51:52 Reading Location: [facility] [id number] 07:53:00* Test Item Value Reference Range Interpretation Comments POC-GLUCOSE METER (BEAKER) (test code = 1538) 129 mg/dL 70-110 H TESTED AT [facility] [address] [facility] [address] [id number] 07:24:00* Test Item Value Reference Range Interpretation Comments PHOSPHORUS (BEAKER) (test code = 604) 3.6 mg/dL 2.3-4.7 [id number] 07:24:00* Test Item Value Reference Range Interpretation Comments MAGNESIUM (BEAKER) (test code = 627) 1.9 mg/dL 1.6-2.6 BASIC METABOLIC [id number] 07:24:00* Test Item Value Reference Range Interpretation Comments SODIUM (BEAKER) (test code = 381) 138 meq/L 136-145 POTASSIUM (BEAKER) (test code = 379) 3.9 meq/L 3.5-5.1 CHLORIDE (BEAKER) (test code = 382) 106 meq/L 98-107 CO2 (BEAKER) (test code = 355) 23 meq/L 22-29 BLOOD UREA NITROGEN (BEAKER) (test code = 354) 19 mg/dL 7-21 CREATININE (BEAKER) (test code = 358) 1.06 mg/dL 0.57-1.25 GLUCOSE RANDOM (BEAKER) (test code = 652) 118 mg/dL 70-105 H CALCIUM (BEAKER) (test code = 697) 8.5 mg/dL 8.4-10.2 EGFR (BEAKER) (test code = 1092) 68 mL/min/1.73 sq m ESTIMATED GFR IS NOT ACCURATE CREATININE CLEARANCE IN PREDICTING GLOMERULAR FILTRATION RATE. ESTIMATED GFR IS NOT APPLICABLE FOR DIALYSIS PATIENTS. CBC W/PLT COUNT & AUTO [id number] 06:02:00* Test Item Value Reference Range Interpretation Comments WHITE BLOOD CELL COUNT (BEAKER) (test code = 775) 10.4 K/ L 3.5- 10.5 RED BLOOD CELL COUNT (BEAKER) (test code = 761) 2.74 M/ L 4.63-6 .08 L HEMOGLOBIN (BEAKER) (test code = 410) 8.0 GM/DL 13.7-17.5 L HEMATOCRIT (BEAKER) (test code = 411) 25.8 % 40.1-51.0 L MEAN CORPUSCULAR VOLUME (BEAKER) (test code = 753) 94.2 fL 79. 0-92.2 H MEAN CORPUSCULAR HEMOGLOBIN (BEAKER) (test code = 751) 29.2 pg 25.7-32.2 MEAN CORPUSCULAR HEMOGLOBIN CONC (BEAKER) (test code = 752) 31.0 GM/DL 32.3-36.5 L RED CELL DISTRIBUTION WIDTH (BEAKER) (test code = 412) 14.0 % 11.6-14.4 PLATELET COUNT (BEAKER) (test code = 756) 228 K/CU MM 150-450 MEAN PLATELET VOLUME (BEAKER) (test code = 754) 12.1 fL 9.4-12 .4 NUCLEATED RED BLOOD CELLS (BEAKER) (test code = 413) 0 /100 WBC 0 -0 NEUTROPHILS RELATIVE PERCENT (BEAKER) (test code = 429) 70 % LYMPHOCYTES RELATIVE PERCENT (BEAKER) (test code = 430) 13 % MONOCYTES RELATIVE PERCENT (BEAKER) (test code = 431) 10 % EOSINOPHILS RELATIVE PERCENT (BEAKER) (test code = 432) 4 % BASOPHILS RELATIVE PERCENT (BEAKER) (test code = 437) 1 % NEUTROPHILS ABSOLUTE COUNT (BEAKER) (test code = 670) 7.23 K/ L 1.78-5.38 H LYMPHOCYTES ABSOLUTE COUNT (BEAKER) (test code = 414) 1.39 K/ L 1.32-3.57 MONOCYTES ABSOLUTE COUNT (BEAKER) (test code = 415) 1.06 K/ L 0. 30-0.82 H EOSINOPHILS ABSOLUTE COUNT (BEAKER) (test code = 416) 0.44 K/ L 0.04-0.54 BASOPHILS ABSOLUTE COUNT (BEAKER) (test code = 417) 0.09 K/ L 0. 01-0.08 H IMMATURE GRANULOCYTES-RELATIVE PERCENT (BEAKER) (test code = 2801) 2 % 0-1 H POCT-GLUCOSE [id number] 22:29:00* Test Item Value Reference Range Interpretation Comments POC-GLUCOSE METER (BEAKER) (test code = 1538) 159 mg/dL 70-110 H TESTED AT [address] [address] POCT-GLUCOSE [id number] 18:23:00* Test Item Value Reference Range Interpretation Comments POC-GLUCOSE METER (BEAKER) (test code = 1538) 139 mg/dL 70-110 H TESTED AT [address] [address] POCT-GLUCOSE [id number] 12:42:00* Test Item Value Reference Range Interpretation Comments POC-GLUCOSE METER (BEAKER) (test code = 1538) 139 mg/dL 70-110 H TESTED AT [address] [address] POCT-GLUCOSE [id number] 08:36:00* Test Item Value Reference Range Interpretation Comments POC-GLUCOSE METER (BEAKER) (test code = 1538) 141 mg/dL 70-110 H TESTED AT [address] [address] [id number] 05:04:00* Test Item Value Reference Range Interpretation Comments PHOSPHORUS (BEAKER) (test code = 604) 2.7 mg/dL 2.3-4.7 [id number] 05:04:00* Test Item Value Reference Range Interpretation Comments MAGNESIUM (BEAKER) (test code = 627) 2.0 mg/dL 1.6-2.6 BASIC METABOLIC [id number] 05:04:00* Test Item Value Reference Range Interpretation Comments SODIUM (BEAKER) (test code = 381) 137 meq/L 136-145 POTASSIUM (BEAKER) (test code = 379) 3.6 meq/L 3.5-5.1 CHLORIDE (BEAKER) (test code = 382) 107 meq/L 98-107 CO2 (BEAKER) (test code = 355) 24 meq/L 22-29 BLOOD UREA NITROGEN (BEAKER) (test code = 354) 19 mg/dL 7-21 CREATININE (BEAKER) (test code = 358) 0.90 mg/dL 0.57-1.25 GLUCOSE RANDOM (BEAKER) (test code = 652) 130 mg/dL 70-105 H CALCIUM (BEAKER) (test code = 697) 8.3 mg/dL 8.4-10.2 L EGFR (BEAKER) (test code = 1092) 82 mL/min/1.73 sq m ESTIMATED GFR IS NOT ACCURATE CREATININE CLEARANCE IN PREDICTING GLOMERULAR FILTRATION RATE. ESTIMATED GFR IS NOT APPLICABLE FOR DIALYSIS PATIENTS. CBC W/PLT COUNT & AUTO [id number] 04:44:00* Test Item Value Reference Range Interpretation Comments WHITE BLOOD CELL COUNT (BEAKER) (test code = 775) 9.2 K/ L 3.5- 10.5 RED BLOOD CELL COUNT (BEAKER) (test code = 761) 2.78 M/ L 4.63-6 .08 L HEMOGLOBIN (BEAKER) (test code = 410) 8.2 GM/DL 13.7-17.5 L HEMATOCRIT (BEAKER) (test code = 411) 25.9 % 40.1-51.0 L MEAN CORPUSCULAR VOLUME (BEAKER) (test code = 753) 93.2 fL 79. 0-92.2 H MEAN CORPUSCULAR HEMOGLOBIN (BEAKER) (test code = 751) 29.5 pg 25.7-32.2 MEAN CORPUSCULAR HEMOGLOBIN CONC (BEAKER) (test code = 752) 31.7 GM/DL 32.3-36.5 L RED CELL DISTRIBUTION WIDTH (BEAKER) (test code = 412) 13.5 % 11.6-14.4 PLATELET COUNT (BEAKER) (test code = 756) 211 K/CU MM 150-450 MEAN PLATELET VOLUME (BEAKER) (test code = 754) 12.1 fL 9.4-12 .4 NUCLEATED RED BLOOD CELLS (BEAKER) (test code = 413) 0 /100 WBC 0 -0 NEUTROPHILS RELATIVE PERCENT (BEAKER) (test code = 429) 66 % LYMPHOCYTES RELATIVE PERCENT (BEAKER) (test code = 430) 17 % MONOCYTES RELATIVE PERCENT (BEAKER) (test code = 431) 11 % EOSINOPHILS RELATIVE PERCENT (BEAKER) (test code = 432) 4 % BASOPHILS RELATIVE PERCENT (BEAKER) (test code = 437) 1 % NEUTROPHILS ABSOLUTE COUNT (BEAKER) (test code = 670) 6.01 K/ L 1.78-5.38 H LYMPHOCYTES ABSOLUTE COUNT (BEAKER) (test code = 414) 1.51 K/ L 1.32-3.57 MONOCYTES ABSOLUTE COUNT (BEAKER) (test code = 415) 0.99 K/ L 0. 30-0.82 H EOSINOPHILS ABSOLUTE COUNT (BEAKER) (test code = 416) 0.35 K/ L 0.04-0.54 BASOPHILS ABSOLUTE COUNT (BEAKER) (test code = 417) 0.10 K/ L 0. 01-0.08 H IMMATURE GRANULOCYTES-RELATIVE PERCENT (BEAKER) (test code = 2801) 2 % 0-1 H Calcium, [id number] 04:27:00* Test Item Value Reference Range Interpretation Comments Calcium, Ion (test code = 1994-3) 1.14 mmol/L 1.12-1.27 pH, Blood (test code = 36785-2) 7.48 [facility] [id number] 04:27:00* Test Item Value Reference Range Interpretation Comments CALCIUM IONIZED (BEAKER) (test code = 698) 1.14 mmol/L 1.12-1.27 PH, BLOOD (BEAKER) (test code = 1810) 7.48 POCT-GLUCOSE [id number] 22:05:00* Test Item Value Reference Range Interpretation Comments POC-GLUCOSE METER (BEAKER) (test code = 1538) 156 mg/dL 70-110 H TESTED AT [place] [id number] [facility] [address] [id number] 21:22:00* Test Item Value Reference Range Interpretation Comments Potassium (test code = 2823-3) 3.5 meq/L 3.5-5.1 KRISTIAN (test code = KRISTIAN) Check Serum Potassium level 2 hours after oral potassium replacement completed or 30 min after intravenous potassium replacement. Lab Interpretation (test code = 77575-2) [id number] 21:22[facility]* Test Item Value Reference Range Interpretation Comments POTASSIUM (BEAKER) (test code = 379) 3.5 meq/L 3.5-5.1 Check Serum Potassium level 2 hours after oral potassium replacement completed o r 30 min after intravenous potassium replacement.[id number] 21:22:00* Test Item Value Reference Range Interpretation Comments MAGNESIUM (BEAKER) (test code = 627) 2.0 mg/dL 1.6-2.6 Check Serum Potassium level 2 hours after oral potassium replacement completed o r 30 min after intravenous potassium replacement.POCT-GLUCOSE [id number] 12:16:00* Test Item Value Reference Range Interpretation Comments POC-GLUCOSE METER (BEAKER) (test code = 1538) 156 mg/dL 70-110 H TESTED AT [address] [address] POCT-GLUCOSE [id number] 08:30:00* Test Item Value Reference Range Interpretation Comments POC-GLUCOSE METER (BEAKER) (test code = 1538) 145 mg/dL 70-110 H TESTED AT [address] [address] [id number] 04:43:00* Test Item Value Reference Range Interpretation Comments MAGNESIUM (BEAKER) (test code = 627) 1.9 mg/dL 1.6-2.6 BASIC METABOLIC [id number] 04:43:00* Test Item Value Reference Range Interpretation Comments SODIUM (BEAKER) (test code = 381) 138 meq/L 136-145 POTASSIUM (BEAKER) (test code = 379) 3.6 meq/L 3.5-5.1 CHLORIDE (BEAKER) (test code = 382) 106 meq/L 98-107 CO2 (BEAKER) (test code = 355) 24 meq/L 22-29 BLOOD UREA NITROGEN (BEAKER) (test code = 354) 22 mg/dL 7-21 H CREATININE (BEAKER) (test code = 358) 0.96 mg/dL 0.57-1.25 GLUCOSE RANDOM (BEAKER) (test code = 652) 130 mg/dL 70-105 H CALCIUM (BEAKER) (test code = 697) 8.3 mg/dL 8.4-10.2 L EGFR (BEAKER) (test code = 1092) 76 mL/min/1.73 sq m ESTIMATED GFR IS NOT ACCURATE CREATININE CLEARANCE IN PREDICTING GLOMERULAR FILTRATION RATE. ESTIMATED GFR IS NOT APPLICABLE FOR DIALYSIS PATIENTS. CBC W/PLT COUNT & AUTO [id number] 04:21:00* Test Item Value Reference Range Interpretation Comments WHITE BLOOD CELL COUNT (BEAKER) (test code = 775) 9.7 K/ L 3.5- 10.5 RED BLOOD CELL COUNT (BEAKER) (test code = 761) 2.88 M/ L 4.63-6 .08 L HEMOGLOBIN (BEAKER) (test code = 410) 8.5 GM/DL 13.7-17.5 L HEMATOCRIT (BEAKER) (test code = 411) 26.7 % 40.1-51.0 L MEAN CORPUSCULAR VOLUME (BEAKER) (test code = 753) 92.7 fL 79. 0-92.2 H MEAN CORPUSCULAR HEMOGLOBIN (BEAKER) (test code = 751) 29.5 pg 25.7-32.2 MEAN CORPUSCULAR HEMOGLOBIN CONC (BEAKER) (test code = 752) 31.8 GM/DL 32.3-36.5 L RED CELL DISTRIBUTION WIDTH (BEAKER) (test code = 412) 13.6 % 11.6-14.4 PLATELET COUNT (BEAKER) (test code = 756) 201 K/CU MM 150-450 MEAN PLATELET VOLUME (BEAKER) (test code = 754) 12.2 fL 9.4-12 .4 NUCLEATED RED BLOOD CELLS (BEAKER) (test code = 413) 0 /100 WBC 0 -0 NEUTROPHILS RELATIVE PERCENT (BEAKER) (test code = 429) 72 % LYMPHOCYTES RELATIVE PERCENT (BEAKER) (test code = 430) 14 % MONOCYTES RELATIVE PERCENT (BEAKER) (test code = 431) 10 % EOSINOPHILS RELATIVE PERCENT (BEAKER) (test code = 432) 2 % BASOPHILS RELATIVE PERCENT (BEAKER) (test code = 437) 1 % NEUTROPHILS ABSOLUTE COUNT (BEAKER) (test code = 670) 6.93 K/ L 1.78-5.38 H LYMPHOCYTES ABSOLUTE COUNT (BEAKER) (test code = 414) 1.40 K/ L 1.32-3.57 MONOCYTES ABSOLUTE COUNT (BEAKER) (test code = 415) 0.96 K/ L 0. 30-0.82 H EOSINOPHILS ABSOLUTE COUNT (BEAKER) (test code = 416) 0.21 K/ L 0.04-0.54 BASOPHILS ABSOLUTE COUNT (BEAKER) (test code = 417) 0.07 K/ L 0. 01-0.08 IMMATURE GRANULOCYTES-RELATIVE PERCENT (BEAKER) (test code = 2801) 1 % 0-1 CALCIUM, [id number] 04:11:00* Test Item Value Reference Range Interpretation Comments CALCIUM IONIZED (BEAKER) (test code = 698) 0.97 mmol/L 1.12-1.27 L PH, BLOOD (BEAKER) (test code = 1810) 7.46 POCT-GLUCOSE [id number] 21:59:00* Test Item Value Reference Range Interpretation Comments POC-GLUCOSE METER (BEAKER) (test code = 1538) 150 mg/dL 70-110 H TESTED AT [address] [address] POCT-GLUCOSE [id number] 17:41:00* Test Item Value Reference Range Interpretation Comments POC-GLUCOSE METER (BEAKER) (test code = 1538) 148 mg/dL 70-110 H TESTED AT [address] [address] POCT-GLUCOSE [id number] 12:17:00* Test Item Value Reference Range Interpretation Comments POC-GLUCOSE METER (BEAKER) (test code = 1538) 183 mg/dL 70-110 H TESTED AT [address] [address] POCT-GLUCOSE [id number] 07:59:00* Test Item Value Reference Range Interpretation Comments POC-GLUCOSE METER (BEAKER) (test code = 1538) 141 mg/dL 70-110 H TESTED AT [facility] [address] [facility] [address] RAD, CHEST, 1 VIEW, NON [id number] 07:51:00Reason for exam:->eval pulm congestionShould this be performed at the bedside?->YesFINAL REPORT INDICATION: eval pulm congestion TECHNIQUE: Chest radiograph, single view, portable technique. FINDINGS / IMPRESSION: Comparison to September 22.Enlarged heart shadow and evidence of coronary artery bypass.Pulmonary venous congestion, mild interstitial edema, and small left pleural effusion, unchanged allowing for differences in technique.No pneumothorax. Signed: Carmela Diaz MDReport Verified Date/Time: 09/23/2018 07:51:38 Reading Location: [facility] Diagnostic Imaging Reading Room - [place] [address] [id number] 05:35:00* Test Item Value Reference Range Interpretation Comments MAGNESIUM (BEAKER) (test code = 627) 2.0 mg/dL 1.6-2.6 BASIC METABOLIC [id number] 05:35:00* Test Item Value Reference Range Interpretation Comments SODIUM (BEAKER) (test code = 381) 136 meq/L 136-145 POTASSIUM (BEAKER) (test code = 379) 3.9 meq/L 3.5-5.1 CHLORIDE (BEAKER) (test code = 382) 107 meq/L 98-107 CO2 (BEAKER) (test code = 355) 22 meq/L 22-29 BLOOD UREA NITROGEN (BEAKER) (test code = 354) 26 mg/dL 7-21 H CREATININE (BEAKER) (test code = 358) 0.94 mg/dL 0.57-1.25 GLUCOSE RANDOM (BEAKER) (test code = 652) 129 mg/dL 70-105 H CALCIUM (BEAKER) (test code = 697) 8.2 mg/dL 8.4-10.2 L EGFR (BEAKER) (test code = 1092) 78 mL/min/1.73 sq m ESTIMATED GFR IS NOT ACCURATE CREATININE CLEARANCE IN PREDICTING GLOMERULAR FILTRATION RATE. ESTIMATED GFR IS NOT APPLICABLE FOR DIALYSIS PATIENTS. CBC (Hemogram only)2018-09-23 05:28:00* Test Item Value Reference Range Interpretation Comments WBC (test code = 6690-2) 10.4 3.5- 10.5 K/L RBC (test code = 789-8) 2.83 4.63- 6.08 M/L L MCHC (test code = 786-4) 29.7 32.3- 36.5 GM/DL L Hematocrit (test code = 4544-3) 27.9 % 40.1-51 L MCV (test code = 787-2) 98.6 fL 79-92.2 H Disc ordant MCV results compared to previous results; clinical correlation required. MCH (test code = 785-6) 29.3 pg 25.7-32.2 RDW (test code = 788-0) 13.7 % 11.6-14.4 Platelets (test code = 777-3) 166 150- 450 K/CU MM MPV (test code = 18784-0) 12.6 fL 9.4-12.4 H nRBC (test code = 413) 0 0- 0 /100 WBC Lab Interpretation (test code = 61499-0) [facility]normal [facility]2018-[facility] 05:28:00* Test Item Value Reference Range Interpretation Comments WHITE BLOOD CELL COUNT (BEAKER) (test code = 775) 10.4 K/ L 3.5- 10.5 RED BLOOD CELL COUNT (BEAKER) (test code = 761) 2.83 M/ L 4.63-6 .08 L HEMOGLOBIN (BEAKER) (test code = 410) 8.3 GM/DL 13.7-17.5 L HEMATOCRIT (BEAKER) (test code = 411) 27.9 % 40.1-51.0 L MEAN CORPUSCULAR VOLUME (BEAKER) (test code = 753) 98.6 fL 79. 0-92.2 H Discordant MCV results compared to previous results; clinical correlation required. MEAN CORPUSCULAR HEMOGLOBIN (BEAKER) (test code = 751) 29.3 pg 25.7-32.2 MEAN CORPUSCULAR HEMOGLOBIN CONC (BEAKER) (test code = 752) 29.7 GM/DL 32.3-36.5 L RED CELL DISTRIBUTION WIDTH (BEAKER) (test code = 412) 13.7 % 11.6-14.4 PLATELET COUNT (BEAKER) (test code = 756) 166 K/CU MM 150-450 MEAN PLATELET VOLUME (BEAKER) (test code = 754) 12.6 fL 9.4-12 .4 H NUCLEATED RED BLOOD CELLS (BEAKER) (test code = 413) 0 /100 WBC 0 -0 [id number] 13:01:00* Test Item Value Reference Range Interpretation Comments MAGNESIUM (BEAKER) (test code = 627) 2.2 mg/dL 1.6-2.6 BASIC METABOLIC [id number] 13:01:00* Test Item Value Reference Range Interpretation Comments SODIUM (BEAKER) (test code = 381) 136 meq/L 136-145 POTASSIUM (BEAKER) (test code = 379) 4.0 meq/L 3.5-5.1 CHLORIDE (BEAKER) (test code = 382) 107 meq/L 98-107 CO2 (BEAKER) (test code = 355) 21 meq/L 22-29 L BLOOD UREA NITROGEN (BEAKER) (test code = 354) 26 mg/dL 7-21 H CREATININE (BEAKER) (test code = 358) 1.09 mg/dL 0.57-1.25 GLUCOSE RANDOM (BEAKER) (test code = 652) 133 mg/dL 70-105 H CALCIUM (BEAKER) (test code = 697) 8.4 mg/dL 8.4-10.2 EGFR (BEAKER) (test code = 1092) 66 mL/min/1.73 sq m ESTIMATED GFR IS NOT ACCURATE CREATININE CLEARANCE IN PREDICTING GLOMERULAR FILTRATION RATE. ESTIMATED GFR IS NOT APPLICABLE FOR DIALYSIS PATIENTS. CBC W/PLT COUNT & AUTO [id number] 12:30:00* Test Item Value Reference Range Interpretation Comments WHITE BLOOD CELL COUNT (BEAKER) (test code = 775) 11.5 K/ L 3.5- 10.5 H RED BLOOD CELL COUNT (BEAKER) (test code = 761) 2.87 M/ L 4.63-6 .08 L HEMOGLOBIN (BEAKER) (test code = 410) 8.7 GM/DL 13.7-17.5 L HEMATOCRIT (BEAKER) (test code = 411) 26.8 % 40.1-51.0 L MEAN CORPUSCULAR VOLUME (BEAKER) (test code = 753) 93.4 fL 79. 0-92.2 H MEAN CORPUSCULAR HEMOGLOBIN (BEAKER) (test code = 751) 30.3 pg 25.7-32.2 MEAN CORPUSCULAR HEMOGLOBIN CONC (BEAKER) (test code = 752) 32.5 GM/DL 32.3-36.5 RED CELL DISTRIBUTION WIDTH (BEAKER) (test code = 412) 13.6 % 11.6-14.4 PLATELET COUNT (BEAKER) (test code = 756) 146 K/CU MM 150-450 L MEAN PLATELET VOLUME (BEAKER) (test code = 754) 12.5 fL 9.4-12 .4 H NUCLEATED RED BLOOD CELLS (BEAKER) (test code = 413) 0 /100 WBC 0 -0 NEUTROPHILS RELATIVE PERCENT (BEAKER) (test code = 429) 77 % LYMPHOCYTES RELATIVE PERCENT (BEAKER) (test code = 430) 13 % MONOCYTES RELATIVE PERCENT (BEAKER) (test code = 431) 8 % EOSINOPHILS RELATIVE PERCENT (BEAKER) (test code = 432) 1 % BASOPHILS RELATIVE PERCENT (BEAKER) (test code = 437) 1 % NEUTROPHILS ABSOLUTE COUNT (BEAKER) (test code = 670) 8.82 K/ L 1.78-5.38 H LYMPHOCYTES ABSOLUTE COUNT (BEAKER) (test code = 414) 1.43 K/ L 1.32-3.57 MONOCYTES ABSOLUTE COUNT (BEAKER) (test code = 415) 0.92 K/ L 0. 30-0.82 H EOSINOPHILS ABSOLUTE COUNT (BEAKER) (test code = 416) 0.12 K/ L 0.04-0.54 BASOPHILS ABSOLUTE COUNT (BEAKER) (test code = 417) 0.10 K/ L 0. 01-0.08 H IMMATURE GRANULOCYTES-RELATIVE PERCENT (BEAKER) (test code = 2801) 1 % 0-1 RAD, CHEST, 1 VIEW, NON [id number] 09:04:00Reason for exam:->S/p CABGShould this be performed at the bedside?->YesFINAL REPORT Chest, one view HISTORY: 09/21/2018 Comparison: Date Findings: Lungs: Stable mild left basilar airspace disease. Heart: Normal in size. Pleura: Stable small left pleural effusion. No pneumothorax is appreciated. Bones: Unremarkable. Lines/tubes: Interval removal of previous bilateral chest tubes and right IJ central line. IMPRESSION: Interval removal of previous bilateral chest tubes and right IJ central line. Otherwise, there has been no significant interval change. Signed: Estuardo Arambula MDReport Verified Date/Time: 09/22/2018 09:04:28 Reading Location: [address] Ortho Consult Reading Room [id number] 01:29:00* Test Item Value Reference Range Interpretation Comments MAGNESIUM (BEAKER) (test code = 627) 2.0 mg/dL 1.6-2.6 BASIC METABOLIC [id number] 01:29:00* Test Item Value Reference Range Interpretation Comments SODIUM (BEAKER) (test code = 381) 137 meq/L 136-145 POTASSIUM (BEAKER) (test code = 379) 3.7 meq/L 3.5-5.1 CHLORIDE (BEAKER) (test code = 382) 108 meq/L 98-107 H CO2 (BEAKER) (test code = 355) 23 meq/L 22-29 BLOOD UREA NITROGEN (BEAKER) (test code = 354) 22 mg/dL 7-21 H CREATININE (BEAKER) (test code = 358) 1.07 mg/dL 0.57-1.25 GLUCOSE RANDOM (BEAKER) (test code = 652) 143 mg/dL 70-105 H CALCIUM (BEAKER) (test code = 697) 8.3 mg/dL 8.4-10.2 L EGFR (BEAKER) (test code = 1092) 67 mL/min/1.73 sq m ESTIMATED GFR IS NOT ACCURATE CREATININE CLEARANCE IN PREDICTING GLOMERULAR FILTRATION RATE. ESTIMATED GFR IS NOT APPLICABLE FOR DIALYSIS PATIENTS. Lactic acid, [id number] 01:24:00* Test Item Value Reference Range Interpretation Comments Lactate, Venous (test code = 2872) 2.0 mmol/L 0.5-2.2 Lab Interpretation (test code = 60367-2) [facility] [id number] 01:24:00* Test Item Value Reference Range Interpretation Comments LACTATE BLOOD VENOUS (2) (BEAKER) (test code = 2872) 2.0 mmol/L 0 .5-2.2 CBC (HEMOGRAM ONLY)2018-09-22 00:56:00* Test Item Value Reference Range Interpretation Comments WHITE BLOOD CELL COUNT (BEAKER) (test code = 775) 13.3 K/ L 3.5- 10.5 H RED BLOOD CELL COUNT (BEAKER) (test code = 761) 2.87 M/ L 4.63-6 .08 L HEMOGLOBIN (BEAKER) (test code = 410) 8.7 GM/DL 13.7-17.5 L HEMATOCRIT (BEAKER) (test code = 411) 26.8 % 40.1-51.0 L MEAN CORPUSCULAR VOLUME (BEAKER) (test code = 753) 93.4 fL 79. 0-92.2 H MEAN CORPUSCULAR HEMOGLOBIN (BEAKER) (test code = 751) 30.3 pg 25.7-32.2 MEAN CORPUSCULAR HEMOGLOBIN CONC (BEAKER) (test code = 752) 32.5 GM/DL 32.3-36.5 RED CELL DISTRIBUTION WIDTH (BEAKER) (test code = 412) 13.6 % 11.6-14.4 PLATELET COUNT (BEAKER) (test code = 756) 152 K/CU MM 150-450 MEAN PLATELET VOLUME (BEAKER) (test code = 754) 12.7 fL 9.4-12 .4 H NUCLEATED RED BLOOD CELLS (BEAKER) (test code = 413) 0 /100 WBC 0 -0 Blood gas, [id number] 00:37:00* Test Item Value Reference Range Interpretation Comments pH, Stephen (test code = 2746-6) 7.46 7.32-7.42 H pCO2, Stephen (test code = 755) 34 41- 51 mmHg L pO2, Stephen (test code = 2705-2) 47 25- 40 mmHg H O2 Sat, Stephen (test code = 2711-0) 85.7 % 40-70 H HCO3, Stephen (test code = 20184-1) 24 mmol/L 21-29 Base Excess, Stephen (test code = 1927-3) 0.3 mmol/L -2-3 Patient Temperature (test code = 8310-5) 37.0 C FIO2 (test code = 1819) 100 % Lab Interpretation (test code = 65571-4) [facility] [id number] 00:37:00* Test Item Value Reference Range Interpretation Comments PH VENOUS (BEAKER) (test code = 701) 7.46 7.32-7.42 H PCO2 VENOUS (BEAKER) (test code = 755) 34 mmHg 41-51 L PO2 VENOUS (BEAKER) (test code = 702) 47 mmHg 25-40 H O2 SATURATION VENOUS (BEAKER) (test code = 703) 85.7 % 40.0-7 0.0 H HCO3 VENOUS (BEAKER) (test code = 705) 24 mmol/L 21-29 BASE EXCESS VENOUS (BEAKER) (test code = 704) 0.3 mmol/L -2.0-3.0 PATIENT TEMPERATURE (BEAKER) (test code = 1818) 37.0 C FIO2 (BEAKER) (test code = 1819) 100.0 % POCT-GLUCOSE [id number] 00:18:00* Test Item Value Reference Range Interpretation Comments POC-GLUCOSE METER (BEAKER) (test code = 1538) 154 mg/dL 70-110 H TESTED AT [facility] [address] [facility] [address] POCT-GLUCOSE [id number] 23:18:00* Test Item Value Reference Range Interpretation Comments POC-GLUCOSE METER (BEAKER) (test code = 1538) 154 mg/dL 70-110 H TESTED AT [facility] [address] [facility] [address] RAD, CHEST, 1 VIEW, NON [id number] 13:24:00Reason for exam:->chest tubes FINAL REPORT Chest, one view HISTORY: Chest tubes Compari son: 09/20/2018 Findings: Lungs: The lungs are clear. Heart: Mild cardiomegaly. Po stoperative changes of CABG surgery. Pleura: No pneumothorax. Questionable small bilateral pleural effusions. Bones: Unremarkable. Lines/tubes: Unchanged in pos ition. IMPRESSION: No significant interval change. Signed: Estuardo Arambula MDRep ort Verified Date/Time: 09/21/2018 13:24:39 Reading Location: [facility] [address] [place] [address] Consult Reading Room Electronically signed by: ESTUARDO ARAMBULA MD on 09/12 01:24 PM POCT-GLUCOSE [id number] 08:55:00* Test Item Value Reference Range Interpretation Comments POC-GLUCOSE METER (BEAKER) (test code = 1538) 140 mg/dL 70-110 H TESTED AT [facility] [address] [facility] [address] [id number] 06:24:00* Test Item Value Reference Range Interpretation Comments PHOSPHORUS (BEAKER) (test code = 604) 3.0 mg/dL 2.3-4.7 [id number] 06:24:00* Test Item Value Reference Range Interpretation Comments MAGNESIUM (BEAKER) (test code = 627) 2.1 mg/dL 1.6-2.6 BASIC METABOLIC [id number] 06:24:00* Test Item Value Reference Range Interpretation Comments SODIUM (BEAKER) (test code = 381) 138 meq/L 136-145 POTASSIUM (BEAKER) (test code = 379) 3.8 meq/L 3.5-5.1 CHLORIDE (BEAKER) (test code = 382) 108 meq/L 98-107 H CO2 (BEAKER) (test code = 355) 21 meq/L 22-29 L BLOOD UREA NITROGEN (BEAKER) (test code = 354) 17 mg/dL 7-21 CREATININE (BEAKER) (test code = 358) 1.12 mg/dL 0.57-1.25 GLUCOSE RANDOM (BEAKER) (test code = 652) 154 mg/dL 70-105 H CALCIUM (BEAKER) (test code = 697) 8.3 mg/dL 8.4-10.2 L EGFR (BEAKER) (test code = 1092) 64 mL/min/1.73 sq m ESTIMATED GFR IS NOT ACCURATE CREATININE CLEARANCE IN PREDICTING GLOMERULAR FILTRATION RATE. ESTIMATED GFR IS NOT APPLICABLE FOR DIALYSIS PATIENTS. Lactic Acid, [id number] 05:25:00* Test Item Value Reference Range Interpretation Comments Lactate, Art (test code = 2874) 0.8 mmol/L 0.5-2.2 Lab Interpretation (test code = 04631-7) [facility] [id number] 05:25:00* Test Item Value Reference Range Interpretation Comments LACTATE BLOOD ARTERIAL (2) (BEAKER) (test code = 2874) 0.8 mmol/L 0.5-2.2 CBC (HEMOGRAM ONLY)2018-09-21 04:47:00* Test Item Value Reference Range Interpretation Comments WHITE BLOOD CELL COUNT (BEAKER) (test code = 775) 13.4 K/ L 3.5- 10.5 H RED BLOOD CELL COUNT (BEAKER) (test code = 761) 3.06 M/ L 4.63-6 .08 L HEMOGLOBIN (BEAKER) (test code = 410) 9.0 GM/DL 13.7-17.5 L HEMATOCRIT (BEAKER) (test code = 411) 28.4 % 40.1-51.0 L MEAN CORPUSCULAR VOLUME (BEAKER) (test code = 753) 92.8 fL 79. 0-92.2 H MEAN CORPUSCULAR HEMOGLOBIN (BEAKER) (test code = 751) 29.4 pg 25.7-32.2 MEAN CORPUSCULAR HEMOGLOBIN CONC (BEAKER) (test code = 752) 31.7 GM/DL 32.3-36.5 L RED CELL DISTRIBUTION WIDTH (BEAKER) (test code = 412) 13.7 % 11.6-14.4 PLATELET COUNT (BEAKER) (test code = 756) 142 K/CU MM 150-450 L MEAN PLATELET VOLUME (BEAKER) (test code = 754) 12.9 fL 9.4-12 .4 H NUCLEATED RED BLOOD CELLS (BEAKER) (test code = 413) 0 /100 WBC 0 -0 CALCIUM, [id number] 04:05:00* Test Item Value Reference Range Interpretation Comments CALCIUM IONIZED (BEAKER) (test code = 698) 1.13 mmol/L 1.12-1.27 PH, BLOOD (BEAKER) (test code = 1810) 7.42 Blood gas, [id number] 04:04:00* Test Item Value Reference Range Interpretation Comments pH, Arterial (test code = 2744-1) 7.43 7.35-7.45 pCO2, Arterial (test code = 2018-) 36 35- 45 mmHg pO2, Arterial (test code = 2703-7) 86 80- 90 mmHg O2 Sat, Arterial (test code = 2708-6) 96.8 % 96-97 HCO3, Arterial (test code = 1959-4) 23 mmol/L 21-29 Base Excess, Arterial (test code = 1925-7) -0.8 mmol/L -2-3 Patient Temperature (test code = 8310-5) 36.8 C FIO2 (test code = 1819) 32 % [facility] [id number] 04:04:00* Test Item Value Reference Range Interpretation Comments O2 Saturation (Measured) (test code = 47449-6) 64.1 % [facility], [id number] 04:04:00* Test Item Value Reference Range Interpretation Comments PH ARTERIAL (BEAKER) (test code = 383) 7.43 7.35-7.45 PCO2 ARTERIAL (BEAKER) (test code = 384) 36 mmHg 35-45 PO2 ARTERIAL (BEAKER) (test code = 385) 86 mmHg 80-90 O2 SATURATION ARTERIAL (BEAKER) (test code = 386) 96.8 % 96.0 -97.0 HCO3 ARTERIAL (BEAKER) (test code = 388) 23 mmol/L 21-29 BASE EXCESS ARTERIAL (BEAKER) (test code = 387) -0.8 mmol/L -2.0-3 .0 PATIENT TEMPERATURE (BEAKER) (test code = 1818) 36.8 C FIO2 (BEAKER) (test code = 1819) 32.0 % OXYGEN SATURATION, [id number] 04:04:00* Test Item Value Reference Range Interpretation Comments O2 SATURATION (MEASURED) (BEAKER) (test code = 1455) 64.1 % HGB/HCT (H&H)-Stat [id number] 23:19:00* Test Item Value Reference Range Interpretation Comments Hemoglobin (test code = 786-4) 9.9 g/dL 13-16.8 L Hematocrit (test code = 4544-3) 29.0 % 40-50 L Lab Interpretation (test code = 57607-5) [facility]normal [facility] [id number] 23:19:00* Test Item Value Reference Range Interpretation Comments Glucose (test code = 2345-7) 132 mg/dL 70-110 H Lab Interpretation (test code = 62968-5) [facility]normal [facility] [id number] 23:19:00* Test Item Value Reference Range Interpretation Comments Potassium (test code = 2823-3) 3.4 meq/L 3.6-5.5 L Lab Interpretation (test code = 72291-6) [facility]normal [facility], [id number] 23:19:00* Test Item Value Reference Range Interpretation Comments PH ARTERIAL (BEAKER) (test code = 383) 7.44 7.35-7.45 PCO2 ARTERIAL (BEAKER) (test code = 384) 34 mmHg 35-45 L PO2 ARTERIAL (BEAKER) (test code = 385) 88 mmHg 80-90 O2 SATURATION ARTERIAL (BEAKER) (test code = 386) 97.1 % 96.0 -97.0 H HCO3 ARTERIAL (BEAKER) (test code = 388) 22 mmol/L 21-29 BASE EXCESS ARTERIAL (BEAKER) (test code = 387) -1.5 mmol/L -2.0-3 .0 PATIENT TEMPERATURE (BEAKER) (test code = 1818) 36.9 C FIO2 (BEAKER) (test code = 1819) 32.0 % GLUCOSE-STAT [id number] 23:19:00* Test Item Value Reference Range Interpretation Comments GLUCOSE RANDOM (BEAKER) (test code = 652) 132 mg/dL 70-110 H POTASSIUM-STAT [id number] 23:19:00* Test Item Value Reference Range Interpretation Comments POTASSIUM (BEAKER) (test code = 379) 3.4 meq/L 3.6-5.5 L HGB/HCT (H&H) - STAT [id number] 23:19:00* Test Item Value Reference Range Interpretation Comments HEMOGLOBIN (BEAKER) (test code = 410) 9.9 g/dL 13.0-16.8 L HEMATOCRIT (BEAKER) (test code = 411) 29.0 % 40.0-50.0 L Sodium Na-Stat [id number] 23:18:00* Test Item Value Reference Range Interpretation Comments Sodium (test code = 2951-2) 137 meq/L 135-148 Lab Interpretation (test code = 70005-9) [facility] [id number] 23:18:00* Test Item Value Reference Range Interpretation Comments SODIUM (BEAKER) (test code = 381) 137 meq/L 135-148 POCT-GLUCOSE [id number] 20:54:00* Test Item Value Reference Range Interpretation Comments POC-GLUCOSE METER (BEAKER) (test code = 1538) 131 mg/dL 70-110 H TESTED AT [address] [address] POCT-GLUCOSE [id number] 16:19:00* Test Item Value Reference Range Interpretation Comments POC-GLUCOSE METER (BEAKER) (test code = 1538) 173 mg/dL 70-110 H TESTED AT [address] [address] [id number] 14:45:00* Test Item Value Reference Range Interpretation Comments ACTIVATED CLOTTING TIME (BEAKER) (test code = 441) 103 sec TESTED AT [address] [address] [id number] 14:45:00* Test Item Value Reference Range Interpretation Comments ACTIVATED CLOTTING TIME (BEAKER) (test code = 441) 439 sec TESTED AT [address] [address] [id number] 14:45:00* Test Item Value Reference Range Interpretation Comments ACTIVATED CLOTTING TIME (BEAKER) (test code = 441) 422 sec TESTED AT [address] [address] [id number] 14:45:00* Test Item Value Reference Range Interpretation Comments ACTIVATED CLOTTING TIME (BEAKER) (test code = 441) 444 sec TESTED AT [address] [address] POCT-GLUCOSE [id number] 13:40:00* Test Item Value Reference Range Interpretation Comments POC-GLUCOSE METER (BEAKER) (test code = 1538) 164 mg/dL 70-110 H TESTED AT [address] [address] POCT-GLUCOSE [id number] 12:04:00* Test Item Value Reference Range Interpretation Comments POC-GLUCOSE METER (BEAKER) (test code = 1538) 162 mg/dL 70-110 H TESTED AT [address] [address] POCT-GLUCOSE [id number] 12:03:00* Test Item Value Reference Range Interpretation Comments POC-GLUCOSE METER (BEAKER) (test code = 1538) 180 mg/dL 70-110 H TESTED AT [facility] [address] [facility] [address] POCT-GLUCOSE [id number] 08:07:00* Test Item Value Reference Range Interpretation Comments POC-GLUCOSE METER (BEAKER) (test code = 1538) 126 mg/dL 70-110 H TESTED AT [facility] [address] [facility] [address] RAD, CHEST, 1 VIEW, NON [id number] 07:47:00while patient is intubated or has chest tubes.Reason for exam:->Status post CV SurgeryShould this be performed at the bedside?->YesFINAL REPORT RAD, CHEST, 1 VIEW, NON DEPT CLINICAL INDICATION: Status post CV Surgery COMPARISON: Radiograph 09/19/2018 TECHNIQUE: AP view of the chest FINDINGS: ET tube and enteric tube have been removed. Left basilar chest tube, mediastinal drain, and right IJ central venous catheter are unchanged. Lower lung volumes. Increased bibasilar opacities likely represent atelectasis. No new focal consolidation or pneumothorax. Cardiomediastinal silhouette, ivan, and pulmonary vasculature are unchanged allowing for lower lung volumes. IMPRESSION:Lower lung volumes following extubation. Signed: Maddie Calabrese Verified Date/Time: 09/20/2018 07:47:04 Reading Location: [facility] Radiology Reading Room -GLUCOSE METER 2018-09-20 06:35:00* Test Item Value Reference Range Interpretation Comments POC-GLUCOSE METER (BEAKER) (test code = 1538) 128 mg/dL 70-110 H TESTED AT [place] [id number] [facility] [address] BLOOD GAS, [id number] 04:15:00* Test Item Value Reference Range Interpretation Comments PH ARTERIAL (BEAKER) (test code = 383) 7.42 7.35-7.45 PCO2 ARTERIAL (BEAKER) (test code = 384) 36 mmHg 35-45 PO2 ARTERIAL (BEAKER) (test code = 385) 120 mmHg 80-90 H O2 SATURATION ARTERIAL (BEAKER) (test code = 386) 98.4 % 96.0 -97.0 H HCO3 ARTERIAL (BEAKER) (test code = 388) 23 mmol/L 21-29 BASE EXCESS ARTERIAL (BEAKER) (test code = 387) -1.2 mmol/L -2.0-3 .0 PATIENT TEMPERATURE (BEAKER) (test code = 1818) 37.0 C FIO2 (BEAKER) (test code = 1819) 36.0 % [id number] 03:55:00* Test Item Value Reference Range Interpretation Comments PHOSPHORUS (BEAKER) (test code = 604) 4.0 mg/dL 2.3-4.7 [id number] 03:55:00* Test Item Value Reference Range Interpretation Comments MAGNESIUM (BEAKER) (test code = 627) 2.1 mg/dL 1.6-2.6 BASIC METABOLIC [id number] 03:55:00* Test Item Value Reference Range Interpretation Comments SODIUM (BEAKER) (test code = 381) 141 meq/L 136-145 POTASSIUM (BEAKER) (test code = 379) 4.0 meq/L 3.5-5.1 CHLORIDE (BEAKER) (test code = 382) 111 meq/L 98-107 H CO2 (BEAKER) (test code = 355) 24 meq/L 22-29 BLOOD UREA NITROGEN (BEAKER) (test code = 354) 14 mg/dL 7-21 CREATININE (BEAKER) (test code = 358) 1.14 mg/dL 0.57-1.25 GLUCOSE RANDOM (BEAKER) (test code = 652) 131 mg/dL 70-105 H CALCIUM (BEAKER) (test code = 697) 8.4 mg/dL 8.4-10.2 EGFR (BEAKER) (test code = 1092) 63 mL/min/1.73 sq m ESTIMATED GFR IS NOT ACCURATE CREATININE CLEARANCE IN PREDICTING GLOMERULAR FILTRATION RATE. ESTIMATED GFR IS NOT APPLICABLE FOR DIALYSIS PATIENTS. LACTIC ACID, [id number] 03:46:00* Test Item Value Reference Range Interpretation Comments LACTATE BLOOD ARTERIAL (2) (BEAKER) (test code = 2874) 1.8 mmol/L 0.5-2.2 CBC (HEMOGRAM ONLY)2018-09-20 03:26:00* Test Item Value Reference Range Interpretation Comments WHITE BLOOD CELL COUNT (BEAKER) (test code = 775) 11.4 K/ L 3.5- 10.5 H RED BLOOD CELL COUNT (BEAKER) (test code = 761) 3.32 M/ L 4.63-6 .08 L HEMOGLOBIN (BEAKER) (test code = 410) 9.8 GM/DL 13.7-17.5 L HEMATOCRIT (BEAKER) (test code = 411) 31.1 % 40.1-51.0 L MEAN CORPUSCULAR VOLUME (BEAKER) (test code = 753) 93.7 fL 79. 0-92.2 H MEAN CORPUSCULAR HEMOGLOBIN (BEAKER) (test code = 751) 29.5 pg 25.7-32.2 MEAN CORPUSCULAR HEMOGLOBIN CONC (BEAKER) (test code = 752) 31.5 GM/DL 32.3-36.5 L RED CELL DISTRIBUTION WIDTH (BEAKER) (test code = 412) 13.3 % 11.6-14.4 PLATELET COUNT (BEAKER) (test code = 756) 160 K/CU MM 150-450 MEAN PLATELET VOLUME (BEAKER) (test code = 754) 12.2 fL 9.4-12 .4 NUCLEATED RED BLOOD CELLS (BEAKER) (test code = 413) 0 /100 WBC 0 -0 BLOOD GAS, [id number] 01:47:00* Test Item Value Reference Range Interpretation Comments PH ARTERIAL (BEAKER) (test code = 383) 7.39 7.35-7.45 PCO2 ARTERIAL (BEAKER) (test code = 384) 41 mmHg 35-45 PO2 ARTERIAL (BEAKER) (test code = 385) 100 mmHg 80-90 H O2 SATURATION ARTERIAL (BEAKER) (test code = 386) 97.5 % 96.0 -97.0 H HCO3 ARTERIAL (BEAKER) (test code = 388) 24 mmol/L 21-29 BASE EXCESS ARTERIAL (BEAKER) (test code = 387) -1.2 mmol/L -2.0-3 .0 PATIENT TEMPERATURE (BEAKER) (test code = 1818) 36.9 C FIO2 (BEAKER) (test code = 1819) 36.0 % GLUCOSE-STAT [id number] 01:47:00* Test Item Value Reference Range Interpretation Comments GLUCOSE RANDOM (BEAKER) (test code = 652) 140 mg/dL 70-110 H HGB/HCT (H&H) - STAT [id number] 01:47:00* Test Item Value Reference Range Interpretation Comments HEMOGLOBIN (BEAKER) (test code = 410) 10.5 g/dL 13.0-16.8 L HEMATOCRIT (BEAKER) (test code = 411) 31.0 % 40.0-50.0 L SODIUM NA-STAT [id number] 01:46:00* Test Item Value Reference Range Interpretation Comments SODIUM (BEAKER) (test code = 381) 138 meq/L 135-148 POTASSIUM-STAT [id number] 01:46:00* Test Item Value Reference Range Interpretation Comments POTASSIUM (BEAKER) (test code = 379) 4.0 meq/L 3.6-5.5 [id number] 01:03:00* Test Item Value Reference Range Interpretation Comments PHOSPHORUS (BEAKER) (test code = 604) 4.3 mg/dL 2.3-4.7 [id number] 01:03:00* Test Item Value Reference Range Interpretation Comments MAGNESIUM (BEAKER) (test code = 627) 2.3 mg/dL 1.6-2.6 BASIC METABOLIC [id number] 01:03:00* Test Item Value Reference Range Interpretation Comments SODIUM (BEAKER) (test code = 381) 140 meq/L 136-145 POTASSIUM (BEAKER) (test code = 379) 4.1 meq/L 3.5-5.1 CHLORIDE (BEAKER) (test code = 382) 109 meq/L 98-107 H CO2 (BEAKER) (test code = 355) 23 meq/L 22-29 BLOOD UREA NITROGEN (BEAKER) (test code = 354) 15 mg/dL 7-21 CREATININE (BEAKER) (test code = 358) 1.16 mg/dL 0.57-1.25 GLUCOSE RANDOM (BEAKER) (test code = 652) 177 mg/dL 70-105 H CALCIUM (BEAKER) (test code = 697) 8.3 mg/dL 8.4-10.2 L EGFR (BEAKER) (test code = 1092) 61 mL/min/1.73 sq m ESTIMATED GFR IS NOT ACCURATE CREATININE CLEARANCE IN PREDICTING GLOMERULAR FILTRATION RATE. ESTIMATED GFR IS NOT APPLICABLE FOR DIALYSIS PATIENTS. BLOOD GAS, [id number] 00:58:00* Test Item Value Reference Range Interpretation Comments PH ARTERIAL (BEAKER) (test code = 383) 7.40 7.35-7.45 PCO2 ARTERIAL (BEAKER) (test code = 384) 38 mmHg 35-45 PO2 ARTERIAL (BEAKER) (test code = 385) 158 mmHg 80-90 H O2 SATURATION ARTERIAL (BEAKER) (test code = 386) 99.1 % 96.0 -97.0 H HCO3 ARTERIAL (BEAKER) (test code = 388) 23 mmol/L 21-29 BASE EXCESS ARTERIAL (BEAKER) (test code = 387) -1.9 mmol/L -2.0-3 .0 PATIENT TEMPERATURE (BEAKER) (test code = 1818) 36.7 C FIO2 (BEAKER) (test code = 1819) 40.0 % GLUCOSE-STAT [id number] 00:58:00* Test Item Value Reference Range Interpretation Comments GLUCOSE RANDOM (BEAKER) (test code = 652) 171 mg/dL 70-110 H HGB/HCT (H&H) - STAT [id number] 00:58:00* Test Item Value Reference Range Interpretation Comments HEMOGLOBIN (BEAKER) (test code = 410) 10.2 g/dL 13.0-16.8 L HEMATOCRIT (BEAKER) (test code = 411) 30.0 % 40.0-50.0 L OXYGEN SATURATION, [id number] 00:57:00* Test Item Value Reference Range Interpretation Comments O2 SATURATION (MEASURED) (BEAKER) (test code = 1455) 71.7 % SODIUM NA-STAT [id number] 00:53:00* Test Item Value Reference Range Interpretation Comments SODIUM (BEAKER) (test code = 381) 138 meq/L 135-148 POTASSIUM-STAT [id number] 00:53:00* Test Item Value Reference Range Interpretation Comments POTASSIUM (BEAKER) (test code = 379) 3.9 meq/L 3.6-5.5 CALCIUM, [id number] 00:53:00* Test Item Value Reference Range Interpretation Comments CALCIUM IONIZED (BEAKER) (test code = 698) 1.13 mmol/L 1.12-1.27 PH, BLOOD (BEAKER) (test code = 1810) 7.39 LACTIC ACID, [id number] 00:41:00* Test Item Value Reference Range Interpretation Comments LACTATE BLOOD ARTERIAL (2) (BEAKER) (test code = 2874) 2.4 mmol/L 0.5-2.2 H LACTIC ACID, [id number] 23:40:00* Test Item Value Reference Range Interpretation Comments LACTATE BLOOD ARTERIAL (2) (BEAKER) (test code = 2874) 2.8 mmol/L 0.5-2.2 H BLOOD GAS, [id number] 23:13:00* Test Item Value Reference Range Interpretation Comments PH ARTERIAL (BEAKER) (test code = 383) 7.39 7.35-7.45 PCO2 ARTERIAL (BEAKER) (test code = 384) 37 mmHg 35-45 PO2 ARTERIAL (BEAKER) (test code = 385) 134 mmHg 80-90 H O2 SATURATION ARTERIAL (BEAKER) (test code = 386) 98.7 % 96.0 -97.0 H HCO3 ARTERIAL (BEAKER) (test code = 388) 22 mmol/L 21-29 BASE EXCESS ARTERIAL (BEAKER) (test code = 387) -2.9 mmol/L -2.0-3 .0 L PATIENT TEMPERATURE (BEAKER) (test code = 1818) 36.7 C FIO2 (BEAKER) (test code = 1819) 40.0 % POCT-GLUCOSE [id number] 23:02:00* Test Item Value Reference Range Interpretation Comments POC-GLUCOSE METER (BEAKER) (test code = 1538) 204 mg/dL 70-110 H TESTED AT [facility] [address] [facility] [address] POCT-GLUCOSE [id number] 23:02:00* Test Item Value Reference Range Interpretation Comments POC-GLUCOSE METER (BEAKER) (test code = 1538) 199 mg/dL 70-110 H TESTED AT [facility] [address] [facility] [address] RAD, CHEST, 1 VIEW, NON [id number] 21:12:00Reason for exam:->S/P acbShould this be performed at the bedside?->YesFINAL REPORT Chest one view. Clinical history: S/P acb Comparison: Chest radiograph 09/18/2018. Technique: A single frontal view of the chest was obtained. Findings: The patient is status post median sternotomy and CABG. There is a right IJ central venous catheter with tip in the SVC. There is a left chest tube with tip in the left lung base. There is a mediastinal drain.There is a low-lying endotracheal tube with tip overlying the right main stem bronchus. There is a malpositioned feeding tube which is coiled in the midesophagus with tip in the proximal esophagus. The heart is normal in size. The aorta is atherosclerotic. There is mild elevation of the right hemidiaphragm. There is discoid atelectasis in the left upper and left lower lobes. There is no definite pneumothorax or pleural effusion. Impression: Malpositioned feeding tube which requires repositioning. Low-lying endotracheal tube which requires retraction of approximately 3 cm. GATO Swenson was notified at 9:11 PM 09/19/2018. Signed: Lexa Beeeport Verified Date/Time: 09/19/2018 21:12:10 C METABOLIC [id number] 19:55:00* Test Item Value Reference Range Interpretation Comments SODIUM (BEAKER) (test code = 381) 142 meq/L 136-145 POTASSIUM (BEAKER) (test code = 379) 3.8 meq/L 3.5-5.1 Specimen slightly hemolyzed CHLORIDE (BEAKER) (test code = 382) 111 meq/L 98-107 H CO2 (BEAKER) (test code = 355) 23 meq/L 22-29 BLOOD UREA NITROGEN (BEAKER) (test code = 354) 15 mg/dL 7-21 CREATININE (BEAKER) (test code = 358) 1.12 mg/dL 0.57-1.25 Specimen slightly hemolyzed GLUCOSE RANDOM (BEAKER) (test code = 652) 171 mg/dL 70-105 H CALCIUM (BEAKER) (test code = 697) 8.1 mg/dL 8.4-10.2 L EGFR (BEAKER) (test code = 1092) 64 mL/min/1.73 sq m ESTIMATED GFR IS NOT ACCURATE CREATININE CLEARANCE IN PREDICTING GLOMERULAR FILTRATION RATE. ESTIMATED GFR IS NOT APPLICABLE FOR DIALYSIS PATIENTS. [id number] 19:45:00* Test Item Value Reference Range Interpretation Comments MAGNESIUM (BEAKER) (test code = 627) 1.7 mg/dL 1.6-2.6 Specimen slightly hemolyzed Prothrombin time/[id number] 19:44:00* Test Item Value Reference Range Interpretation Comments Protime (test code = 5902-2) 16.5 11.9- 14.2 seconds H INR (test code = 6301-6) 1.4 <=5.9 KRISTIAN (test code = KRISTIAN) Effective 07/10/2018: PT Refe rence Range ChangeNew: 11.9- 14.2 Previous: 11.7-14.7 RECOMMENDED COUMADIN/WARFARIN INR THERAPY RANGESSTANDARD DOSE: 2.0-3.0 Includes: PROPHYLAXIS for venous thrombosis, sys temic embolization; TREATMENT for venous thrombosis and/or pulmonary embolus.HIGH RISK: Target INR is 2.5-3.5 for patients wiht mechanical heart valves. Lab Interpretation (test code = 65280-4) [facility]/[id number] 19:44:00* Test Item Value Reference Range Interpretation Comments PROTIME (BEAKER) (test code = 759) 16.5 seconds 11.9-14.2 H INR (BEAKER) (test code = 370) 1.4 <=5.9 Effective 07/10/2018: PT Reference Range ChangeNew: 11.9-14.2 Previous: 11.7-14. 7RECOMMENDED COUMADIN/WARFARIN INR THERAPY RANGESSTANDARD DOSE: 2.0-3.0 Include s: PROPHYLAXIS for venous thrombosis, systemic embolization; TREATMENT for venou s thrombosis and/or pulmonary embolus.HIGH RISK: Target INR is 2.5-3.5 for patie nts wiht mechanical heart valves.CBC W/PLT COUNT & AUTO [id number] 19:29:00* Test Item Value Reference Range Interpretation Comments WHITE BLOOD CELL COUNT (BEAKER) (test code = 775) 13.4 K/ L 3.5- 10.5 H RED BLOOD CELL COUNT (BEAKER) (test code = 761) 3.24 M/ L 4.63-6 .08 L HEMOGLOBIN (BEAKER) (test code = 410) 9.6 GM/DL 13.7-17.5 L HEMATOCRIT (BEAKER) (test code = 411) 30.2 % 40.1-51.0 L MEAN CORPUSCULAR VOLUME (BEAKER) (test code = 753) 93.2 fL 79. 0-92.2 H MEAN CORPUSCULAR HEMOGLOBIN (BEAKER) (test code = 751) 29.6 pg 25.7-32.2 MEAN CORPUSCULAR HEMOGLOBIN CONC (BEAKER) (test code = 752) 31.8 GM/DL 32.3-36.5 L RED CELL DISTRIBUTION WIDTH (BEAKER) (test code = 412) 13.3 % 11.6-14.4 PLATELET COUNT (BEAKER) (test code = 756) 149 K/CU MM 150-450 L MEAN PLATELET VOLUME (BEAKER) (test code = 754) 12.2 fL 9.4-12 .4 NUCLEATED RED BLOOD CELLS (BEAKER) (test code = 413) 0 /100 WBC 0 -0 NEUTROPHILS RELATIVE PERCENT (BEAKER) (test code = 429) 81 % LYMPHOCYTES RELATIVE PERCENT (BEAKER) (test code = 430) 11 % MONOCYTES RELATIVE PERCENT (BEAKER) (test code = 431) 6 % EOSINOPHILS RELATIVE PERCENT (BEAKER) (test code = 432) 0 % BASOPHILS RELATIVE PERCENT (BEAKER) (test code = 437) 1 % NEUTROPHILS ABSOLUTE COUNT (BEAKER) (test code = 670) 10.93 K/ L 1.78-5.38 H LYMPHOCYTES ABSOLUTE COUNT (BEAKER) (test code = 414) 1.42 K/ L 1.32-3.57 MONOCYTES ABSOLUTE COUNT (BEAKER) (test code = 415) 0.86 K/ L 0. 30-0.82 H EOSINOPHILS ABSOLUTE COUNT (BEAKER) (test code = 416) 0.05 K/ L 0.04-0.54 BASOPHILS ABSOLUTE COUNT (BEAKER) (test code = 417) 0.07 K/ L 0. 01-0.08 IMMATURE GRANULOCYTES-RELATIVE PERCENT (BEAKER) (test code = 2801) 1 % 0-1 BLOOD GAS, [id number] 19:24:00* Test Item Value Reference Range Interpretation Comments PH ARTERIAL (BEAKER) (test code = 383) 7.36 7.35-7.45 PCO2 ARTERIAL (BEAKER) (test code = 384) 41 mmHg 35-45 PO2 ARTERIAL (BEAKER) (test code = 385) 118 mmHg 80-90 H O2 SATURATION ARTERIAL (BEAKER) (test code = 386) 98.3 % 96.0 -97.0 H HCO3 ARTERIAL (BEAKER) (test code = 388) 23 mmol/L 21-29 BASE EXCESS ARTERIAL (BEAKER) (test code = 387) -2.7 mmol/L -2.0-3 .0 L PATIENT TEMPERATURE (BEAKER) (test code = 1818) 36.1 C FIO2 (BEAKER) (test code = 1819) 60.0 % Prepare [id number] 19:02:00* Test Item Value Reference Range Interpretation Comments CROSSMATCH (test code = 2264) COMPATIBLE Unit ABO (test code = 9645210) A Pos UNIT NUMBER (test code = 934-0) [id number] Status (test code = 0215871) RETURNED FROM ISSUE Blood Bank Product (test code = 2263) RED BLOOD CELLS PRODUCT CODE (test code = 933-2) [id number] [facility]2018-09-[facility] 17:56:00* Test Item Value Reference Range Interpretation Comments TEG Activated Clotting Time (test code = 90715-6) 5.0 4.0- 7.0 minutes TEG Fibrinogen Activity (test code = 19222-7) 70.9 61.0- 73 .0 degrees TEG Platelet Aggregation (test code = 89869-9) 66.5 55.0- 6 5.0 MM H TEG-H Activated Clotting Time (test code = 1411) 5.2 4.0- 7.0 minutes TEG-H Fibrinogen Activity (test code = 1412) 72.7 61.0- 73. 0 degrees TEG-H Platelet Aggregation (test code = 1413) 58.5 55.0- 65 .0 MM Lab Interpretation (test code = 07375-7) [facility]19 17:56:00* Test Item Value Reference Range Interpretation Comments TEG ACTIVATED CLOTTING TIME (BEAKER) (test code = 1407) 5.0 minutes 4.0-7.0 TEG FIBRINOGEN ACTIVITY (BEAKER) (test code = 1408) 70.9 degrees 61 .0-73.0 TEG PLT. AGGREGATION (BEAKER) (test code = 1409) 66.5 MM 55.0- 65.0 H TGH ACTIVATED CLOTTING TIME (BEAKER) (test code = 1411) 5.2 minutes 4.0-7.0 TGH FIBRINOGEN ACTIVITY (BEAKER) (test code = 1412) 72.7 degrees 61 .0-73.0 TGH PLT. AGGREGATION (BEAKER) (test code = 1413) 58.5 MM 55.0- 65.0 [id number] 17:46:00* Test Item Value Reference Range Interpretation Comments Fibrinogen (test code = 3255-7) 266 mg/dl 225-434 Lab Interpretation (test code = 16906-5) [facility] 17:46:00* Test Item Value Reference Range Interpretation Comments PTT (test code = 80309-2) 28.4 22.5- 36.0 seconds Lab Interpretation (test code = 68026-4) [facility]-08 17:46:00* Test Item Value Reference Range Interpretation Comments FIBRINOGEN LEVEL (BEAKER) (test code = 658) 266 mg/dl 225-434 [id number] 17:46:00* Test Item Value Reference Range Interpretation Comments PARTIAL THROMBOPLASTIN TIME (BEAKER) (test code = 760) 28.4 seconds 22.5-36.0 PROTHROMBIN TIME/[id number] 17:45:00* Test Item Value Reference Range Interpretation Comments PROTIME (BEAKER) (test code = 759) 18.3 seconds 11.9-14.2 H INR (BEAKER) (test code = 370) 1.6 <=5.9 Effective 07/10/2018: PT Reference Range ChangeNew: 11.9-14.2 Previous: 11.7-14. 7RECOMMENDED COUMADIN/WARFARIN INR THERAPY RANGESSTANDARD DOSE: 2.0-3.0 Include s: PROPHYLAXIS for venous thrombosis, systemic embolization; TREATMENT for venou s thrombosis and/or pulmonary embolus.HIGH RISK: Target INR is 2.5-3.5 for patie nts wiht mechanical heart valves.Platelet [id number] 17:21:00* Test Item Value Reference Range Interpretation Comments Platelets (test code = 777-3) 148 150- 450 K/CU MM L Lab Interpretation (test code = 19700-6) [facility] [id number] 17:21:00* Test Item Value Reference Range Interpretation Comments PLATELET COUNT (BEAKER) (test code = 756) 148 K/CU MM 150-450 L POTASSIUM-STAT [id number] 17:12:00* Test Item Value Reference Range Interpretation Comments POTASSIUM (BEAKER) (test code = 379) 4.9 meq/L 3.6-5.5 BLOOD GAS, [id number] 17:12:00* Test Item Value Reference Range Interpretation Comments PH ARTERIAL (BEAKER) (test code = 383) 7.44 7.35-7.45 PCO2 ARTERIAL (BEAKER) (test code = 384) 38 mmHg 35-45 PO2 ARTERIAL (BEAKER) (test code = 385) 311 mmHg 80-90 H O2 SATURATION ARTERIAL (BEAKER) (test code = 386) 99.7 % 96.0 -97.0 H HCO3 ARTERIAL (BEAKER) (test code = 388) 25 mmol/L 21-29 BASE EXCESS ARTERIAL (BEAKER) (test code = 387) 0.7 mmol/L -2.0-3 .0 PATIENT TEMPERATURE (BEAKER) (test code = 1818) 36.3 C FIO2 (BEAKER) (test code = 1819) 100.0 % SODIUM NA-STAT [id number] 17:12:00* Test Item Value Reference Range Interpretation Comments SODIUM (BEAKER) (test code = 381) 134 meq/L 135-148 L GLUCOSE-STAT [id number] 17:12:00* Test Item Value Reference Range Interpretation Comments GLUCOSE RANDOM (BEAKER) (test code = 652) 206 mg/dL 70-110 H HGB/HCT (H&H) - STAT [id number] 17:12:00* Test Item Value Reference Range Interpretation Comments HEMOGLOBIN (BEAKER) (test code = 410) 9.9 g/dL 13.0-16.8 L HEMATOCRIT (BEAKER) (test code = 411) 29.0 % 40.0-50.0 L CALCIUM, [id number] 17:12:00* Test Item Value Reference Range Interpretation Comments CALCIUM IONIZED (BEAKER) (test code = 698) 1.11 mmol/L 1.12-1.27 L PH, BLOOD (BEAKER) (test code = 1810) 7.43 BLOOD GAS, [id number] 16:48:00* Test Item Value Reference Range Interpretation Comments PH ARTERIAL (BEAKER) (test code = 383) 7.37 7.35-7.45 PCO2 ARTERIAL (BEAKER) (test code = 384) 41 mmHg 35-45 PO2 ARTERIAL (BEAKER) (test code = 385) 292 mmHg 80-90 H O2 SATURATION ARTERIAL (BEAKER) (test code = 386) 99.7 % 96.0 -97.0 H HCO3 ARTERIAL (BEAKER) (test code = 388) 24 mmol/L 21-29 BASE EXCESS ARTERIAL (BEAKER) (test code = 387) -1.9 mmol/L -2.0-3 .0 PATIENT TEMPERATURE (BEAKER) (test code = 1818) 34.6 C FIO2 (BEAKER) (test code = 1819) 75.0 % SODIUM NA-STAT [id number] 16:48:00* Test Item Value Reference Range Interpretation Comments SODIUM (BEAKER) (test code = 381) 134 meq/L 135-148 L GLUCOSE-STAT [id number] 16:48:00* Test Item Value Reference Range Interpretation Comments GLUCOSE RANDOM (BEAKER) (test code = 652) 221 mg/dL 70-110 H HGB/HCT (H&H) - STAT [id number] 16:48:00* Test Item Value Reference Range Interpretation Comments HEMOGLOBIN (BEAKER) (test code = 410) 9.9 g/dL 13.0-16.8 L HEMATOCRIT (BEAKER) (test code = 411) 29.0 % 40.0-50.0 L POTASSIUM-STAT [id number] 16:47:00* Test Item Value Reference Range Interpretation Comments POTASSIUM (BEAKER) (test code = 379) 5.5 meq/L 3.6-5.5 [id number] 16:39:00* Test Item Value Reference Range Interpretation Comments ACTIVATED CLOTTING TIME (BEAKER) (test code = 441) 455 sec TESTED AT [facility] [address] [facility] [address] [id number] 16:39:00* Test Item Value Reference Range Interpretation Comments ACTIVATED CLOTTING TIME (BEAKER) (test code = 441) 367 sec TESTED AT [facility] [address] [facility] [address] [id number] 16:39:00* Test Item Value Reference Range Interpretation Comments ACTIVATED CLOTTING TIME (BEAKER) (test code = 441) 351 sec TESTED AT [facility] [address] [facility] [address] BLOOD GAS, [id number] 16:21:00* Test Item Value Reference Range Interpretation Comments PH ARTERIAL (BEAKER) (test code = 383) 7.42 7.35-7.45 PCO2 ARTERIAL (BEAKER) (test code = 384) 38 mmHg 35-45 PO2 ARTERIAL (BEAKER) (test code = 385) 274 mmHg 80-90 H O2 SATURATION ARTERIAL (BEAKER) (test code = 386) 99.7 % 96.0 -97.0 H HCO3 ARTERIAL (BEAKER) (test code = 388) 25 mmol/L 21-29 BASE EXCESS ARTERIAL (BEAKER) (test code = 387) 0.1 mmol/L -2.0-3 .0 PATIENT TEMPERATURE (BEAKER) (test code = 1818) 34.4 C FIO2 (BEAKER) (test code = 1819) 75.0 % GLUCOSE-STAT [id number] 16:21:00* Test Item Value Reference Range Interpretation Comments GLUCOSE RANDOM (BEAKER) (test code = 652) 212 mg/dL 70-110 H HGB/HCT (H&H) - STAT [id number] 16:21:00* Test Item Value Reference Range Interpretation Comments HEMOGLOBIN (BEAKER) (test code = 410) 9.1 g/dL 13.0-16.8 L HEMATOCRIT (BEAKER) (test code = 411) 27.0 % 40.0-50.0 L SODIUM NA-STAT [id number] 16:20:00* Test Item Value Reference Range Interpretation Comments SODIUM (BEAKER) (test code = 381) 137 meq/L 135-148 POTASSIUM-STAT [id number] 16:20:00* Test Item Value Reference Range Interpretation Comments POTASSIUM (BEAKER) (test code = 379) 5.1 meq/L 3.6-5.5 BLOOD GAS, [id number] 15:55:00* Test Item Value Reference Range Interpretation Comments PH ARTERIAL (BEAKER) (test code = 383) 7.41 7.35-7.45 PCO2 ARTERIAL (BEAKER) (test code = 384) 33 mmHg 35-45 L PO2 ARTERIAL (BEAKER) (test code = 385) 272 mmHg 80-90 H O2 SATURATION ARTERIAL (BEAKER) (test code = 386) 99.6 % 96.0 -97.0 H HCO3 ARTERIAL (BEAKER) (test code = 388) 21 mmol/L 21-29 BASE EXCESS ARTERIAL (BEAKER) (test code = 387) -3.4 mmol/L -2.0-3 .0 L PATIENT TEMPERATURE (BEAKER) (test code = 1818) 35.3 C FIO2 (BEAKER) (test code = 1819) 70.0 % SODIUM NA-STAT [id number] 15:55:00* Test Item Value Reference Range Interpretation Comments SODIUM (BEAKER) (test code = 381) 130 meq/L 135-148 L GLUCOSE-STAT [id number] 15:55:00* Test Item Value Reference Range Interpretation Comments GLUCOSE RANDOM (BEAKER) (test code = 652) 223 mg/dL 70-110 H HGB/HCT (H&H) - STAT [id number] 15:55:00* Test Item Value Reference Range Interpretation Comments HEMOGLOBIN (BEAKER) (test code = 410) 10.1 g/dL 13.0-16.8 L HEMATOCRIT (BEAKER) (test code = 411) 30.0 % 40.0-50.0 L POTASSIUM-STAT [id number] 15:54:00* Test Item Value Reference Range Interpretation Comments POTASSIUM (BEAKER) (test code = 379) 5.5 meq/L 3.6-5.5 BLOOD GAS, [id number] 15:34:00* Test Item Value Reference Range Interpretation Comments PH ARTERIAL (BEAKER) (test code = 383) 7.37 7.35-7.45 PCO2 ARTERIAL (BEAKER) (test code = 384) 36 mmHg 35-45 PO2 ARTERIAL (BEAKER) (test code = 385) 285 mmHg 80-90 H O2 SATURATION ARTERIAL (BEAKER) (test code = 386) 99.7 % 96.0 -97.0 H HCO3 ARTERIAL (BEAKER) (test code = 388) 21 mmol/L 21-29 BASE EXCESS ARTERIAL (BEAKER) (test code = 387) -4.6 mmol/L -2.0-3 .0 L PATIENT TEMPERATURE (BEAKER) (test code = 1818) 34.2 C FIO2 (BEAKER) (test code = 1819) 65.0 % SODIUM NA-STAT [id number] 15:34:00* Test Item Value Reference Range Interpretation Comments SODIUM (BEAKER) (test code = 381) 131 meq/L 135-148 L GLUCOSE-STAT [id number] 15:34:00* Test Item Value Reference Range Interpretation Comments GLUCOSE RANDOM (BEAKER) (test code = 652) 206 mg/dL 70-110 H HGB/HCT (H&H) - STAT [id number] 15:34:00* Test Item Value Reference Range Interpretation Comments HEMOGLOBIN (BEAKER) (test code = 410) 9.6 g/dL 13.0-16.8 L HEMATOCRIT (BEAKER) (test code = 411) 28.0 % 40.0-50.0 L POTASSIUM-STAT [id number] 15:33:00* Test Item Value Reference Range Interpretation Comments POTASSIUM (BEAKER) (test code = 379) 5.1 meq/L 3.6-5.5 BLOOD GAS, [id number] 13:10:00* Test Item Value Reference Range Interpretation Comments PH ARTERIAL (BEAKER) (test code = 383) 7.44 7.35-7.45 PCO2 ARTERIAL (BEAKER) (test code = 384) 34 mmHg 35-45 L PO2 ARTERIAL (BEAKER) (test code = 385) 426 mmHg 80-90 H O2 SATURATION ARTERIAL (BEAKER) (test code = 386) 99.8 % 96.0 -97.0 H HCO3 ARTERIAL (BEAKER) (test code = 388) 22 mmol/L 21-29 BASE EXCESS ARTERIAL (BEAKER) (test code = 387) -1.4 mmol/L -2.0-3 .0 PATIENT TEMPERATURE (BEAKER) (test code = 1818) 36.4 C FIO2 (BEAKER) (test code = 1819) 100.0 % GLUCOSE-STAT [id number] 13:10:00* Test Item Value Reference Range Interpretation Comments GLUCOSE RANDOM (BEAKER) (test code = 652) 116 mg/dL 70-110 H HGB/HCT (H&H) - STAT [id number] 13:10:00* Test Item Value Reference Range Interpretation Comments HEMOGLOBIN (BEAKER) (test code = 410) 12.5 g/dL 13.0-16.8 L HEMATOCRIT (BEAKER) (test code = 411) 37.0 % 40.0-50.0 L SODIUM NA-STAT [id number] 13:09:00* Test Item Value Reference Range Interpretation Comments SODIUM (BEAKER) (test code = 381) 136 meq/L 135-148 POTASSIUM-STAT [id number] 13:09:00* Test Item Value Reference Range Interpretation Comments POTASSIUM (BEAKER) (test code = 379) 3.8 meq/L 3.6-5.5 2D Echo W/Doppler(CW/PW/Color)2018-09-19 12:03:28Ejection FractionSLEH ECHO HEARTLAB MKCKESSON CPACSInterface, External Ris In - 09/19/2018 12:03 PM CDTTransthoracic Echocardiography Report (TTE) Demographics Patient Name STACIA CASTELLANOS Date of Study 09/19/2018 JOSELYN Gender Male Visit Number [id number] Race Room Number SCPR Number Date of 1945 Referring Physician Kaya Magallanes MD Age 73 year(s) [employer] Operator Nahum Gonzalez Cigarette Carton Sealer Roxanne Snyder, RDCS Interpreting Physician JOE Rossi Procedure Type of Study TTE procedure:2DECHO W DOPPLER(CW/PW/COLOR) (JOSEPHINE) Indications:Acute Chest Pain/ Suspected CAD.Clinical HistoryHGB 11.8HCT 36.6 %HLDCKDCADDMGOUTHeight: 64 inches Weight: 98.43 kg (217 lbs) BSA: 2.03 m^2 BMI: 37.25 kg/m^2HR: 66 bpm BP: 176/72 mmHg Summary The left ventricle is chamber size (by vol index) is normal (male - LVED vol - 34-74ml/m2). No evidence of LV hypertrophy. All of the LV segments contract normally . Global LV systolic func tion normal . LVEF by Ambriz's method of disk assessment is normal (55-60%) . G rade 1 diastolic dysfunction (impaired relaxation and low-normal LA pressure). U nable to estimate peak systolic PA pressure; inadequate TR velocity signal. No p ericardial effusion is visualized. Previous Study No prior studies available fo r comparison. Signature Findings Technical Quality: Technically adequate exam. Left Ventricl e The left ventricle is chamber size (by vol index) is normal (male - LVED vol - 34-74ml/m2). No evidence of LV hypertrophy. All of the LV segments contract normal ly . Global LV systolic function normal . LVEF by Ambriz 's method of disk assessment is normal (55-60%) . Grade 1 diastolic dysfunction (impaired relaxation and low-normal LA pressure). Left Atrium LA size is severely enlarged (>48 ml/m2) . Right Ventricle The right ventricular chamber size and systolic function are within normal limits. Right Atrium RA size is normal. Aortic Valve Mild AoV cusp calcification. AoV cusp mobility is normal . Mitral Valve Mild MV leaflet thickening. Trace mitral regurgitation. Tricuspid Valve TV structure is normal. A trace of tricuspid regurgitation. Unable to estimate peak systolic PA pressure; inadequate TR velocity signal. Pulmonic Valve Mild pulmonary regurgitation. Normal PV structure appears normal by available views. Aorta Aortic root size (SInus of Valsalva diameter) is normal . Pericardium No pericardial effusion is visualized. IVC/SVC/PA/PV/Pleural The estimated RA pressure by IVC dynamics 5-10mmHg . Chambers/Structures Left Atrium LA Volume: 99 ml LA Vol. Index: 49 ml/m^2 Left Ventricle LVIDd: 5.11 cm LVIDs: 3.9 cm LV Septum Diastolic: 1 cm LV Septum Systolic: 1.22 cm LV Length: 7.99 cm LV PW Diastolic: 1 cm LV FS: 23.7 % LV PW Systolic: 1.22 cm LVEDV Ambriz's:94.75 ml LVEDVI: 47 ml/m^2 LVESV Ambriz's:38.77 ml LVESVI: 19 ml/m^2 LVEF Ambriz's: 59.1 % LVOT Diameter: 2.16 cm Aorta Ascending Aorta: 3.44 cm Doppler/Quantitative Measurements Mitral Valve MV Peak E-Wave: 0.83 m/s MV Peak A-Wave: 0.87 m/s E/A Ratio: 0.96 Peak Gradient: 2.79 mmHg Deceleration Time: 172.9 msec MV Ed. Peak: Aortic Valve Peak Velocity: 1.26 m/s Mean Velocity: 0.86 m/s Peak Gradient: 6.3 mmHg Mean Gradient: 3.36 mmHg AV Area (continuity): 2.8 cm^2 AV VTI: 30.71 cm AV DVI: 0.77 LVOT Peak Velocity: 0.99 m/s Peak Gradient: 3.96 mmHg Mean Velocity: 0.67 m/s Mean Gradient: 2.09 mmHg LVOT Diameter: 2.16 cm LVOT VTI: 23.51 cm LVOT Area: 3.66 cm^2 LVOT SV:86.11 ml LVOT CO: 5.68 l/min LVOT CI: 2.8 l/min/m^2 [facility] [id number] 09:57:49Ejection FractionSST. LUKE'S [facility] ECHO HEARTLAB MKCKESSON CPACSRight Impression1. There is <50% diameter reduction (approximately 10% by 2-D measurement)in the internal carotid artery with a peak velocity of 10 cm/sec andheterogeneous plaque.2. There is non-occluding plaque in the external carotid artery.3. There is non-occluding plaque in the common carotid artery.4. The vertebral artery flow is antegrade an d normal.5. The subclavian artery is within normal limits where visualized.Left Impression1. There is <50% diameter reduction (unable to determine by 2-D measurement)in the internal carotid artery with a peak velocity of 119/29.9 cm/sec andheterogeneous plaque.2. There is non-occluding plaque in the external carotid artery.3. There is non-occluding plaque in the common carotid artery.4. The vertebral artery flow is antegrade and normal.5. The subclavian artery is within normal limits where visualized. Conclusions Summary Carotid duplex scanning and color flow imaging were performed bilaterally. The arteries were adequately visualized except as noted. The bilateral internal carotid arteries had <50% hemodynamically insignificant stenosis (approximately 28% by 2-D measurement on the right, unable to determine by 2-D measurement on the left) with heterogeneous plaque. The vertebral artery flow was antegrade and normal bilaterally. The subclavian arteries were patent with normal flow bilaterally where visualized. Signature Velocities are measured in cm/s ; Diameters are measured in cm Carotid Right Measurem ents+ +----+----+-----+ + + + !Location !PSV !EDV !Angle!%Stenosis 2D!%Stenosis Doppler!Tortuosity !+--- +----+----+-----+ + + +!Prox CC A !87.9!11.1!60 ! ! ! !+ ----+----+----+-----+ + + +!Dist CCA !70.9!14.7!60 ! ! ! !+ +--- -+----+-----+ + + +!Prox ICA !61.6!14 .1!60 !28% !<50% ! !+ +----+----+-----+ +----- + +!Dist ICA !62.9!14.1!60 ! ! ! !+ +----+----+-----+ + ----+ +!Prox ECA !104 !9.97!60 ! ! ! !+ +----+----+-----+ + +--- --------+!Vertebral !41.6!13.4!60 ! ! ! !+ +----+----+-----+ + + +!Prox Subclavian!104 ! !60 ! ! ! !+-- +----+----+-----+ + + + - Th ere is antegrade vertebral flow noted on the right side. - Additional Measurem ents:ICAPSV/CCAPSV 0.89.ICAEDV/CCAEDV 1.27. Carotid Left Measurements+ -----+----+----+-----+ + + +!Location !PSV !EDV !Angle!%Stenosis 2D!%Stenosis Doppler!Tortuosity !+ +-- --+----+-----+ + + +!Prox CCA !110 !1 8.8!60 ! ! ! !+ +----+----+ -----+ + + +!Dist CCA !72.1!14.1!60 ! ! ! !+ +----+----+-----+-- + + +!Prox ICA !119 !29.9!60 ! !<50% ! !+ +----+----+-----+ +----- + +!Dist ICA !108 !29.9!60 ! ! ! !+ +----+----+-----+ + ----+ +!Prox ECA !92 !8.21!60 ! ! ! !+ +----+----+-----+ + +--- --------+!Vertebral !63.9!10.6!60 ! ! ! !+ +----+----+-----+ + + +!Prox Subclavian!151 ! !60 ! ! ! !+-- +----+----+-----+ + + + - Th ere is antegrade vertebral flow noted on the left side. - Additional Measureme nts:ICAPSV/CCAPSV 1.65.ICAEDV/CCAEDV 1.59. Interface, External Ris In - 09/20/19 9:58 AM CDTPV LAB - Carotid Duplex Study Demographics Patient Name STACIA ABEBE Date of Study 09/18/2018 JOSELYN Age 73 Visit Number [id number] Gender Male Accession Number [id number] Date of 1945 Referring Kaya Magallanes, Room Number C626 Tammy mcarthur MD [employer] Operator Philip Khan Interpreting Carie Magallanes MD Physician ProcedureType of Stud y: Cerebral: Carotid, CAROTID DOPPLER, BILATERAL. Indications for Study:Pre-op evaluation.Patient Status:TODAY.Study Location:Portable.Technical Quality:Techni joslyn Difficult.Risk FactorsHistory of Disease+ +----+- +!Diagnosis !Date!Comme nts !+ +----+--------- +!History/Risk Factors: ! !Neuropathy !! ! !DM !! ! !HTN !! ! !HLD !! ! !FOrmer smoker !! ! !Bilateral LE swelling x 1 day !+ +----+ -----+ImpressionsRight Impression1. There is <50% diameter reduction (approximately 10% by 2-D measurement)in the internal carotid artery with a peak velocity of 10 cm/sec andheterogeneous plaque.2. There is non-occluding plaque in the external carotid artery.3. There is non-occluding plaque in the common carotid artery.4. The vertebral artery flow is antegrade and normal.5. The subclavian artery is within normal limits where visualized.Left Impression1. There is <50% diameter reduction (unable to determine by 2-D measurement)in the internal carotid artery with a peak velocity of 119/29.9 cm/sec andheterogeneous plaque.2. There is non-occluding plaque in the external carotid artery.3. There is non-occluding plaque in the common carotid artery.4. The vertebral artery flow is antegrade and normal.5. The subclavian artery is within normal limits where visualized. Conclusions Summary Carotid duplex scanning and color flow imaging were performed bilaterally. The arteries were adequately visualized except as noted. The bilateral internal carotid arteries had <50% hemodynamically insignificant stenosis (approximately 28% by 2-D measurement on the right, unable to determine by 2-D measurement on the left) with heteroge neous plaque. The vertebral artery flow was antegrade and normal bilaterally. Th e subclavian arteries were patent with normal flow bilaterally where visualized. Signature El ectronically signed by Kaya Magallanes MD(Interpreting physician) on 09/19/2018 09:57 AM Veloc ities are measured in cm/s ; Diameters are measured in cmCarotid Right Measureme nts+ +----+----+-----+ + + +! Location !PSV !EDV !Angle!%Stenosis 2D!%Stenosis Doppler!Tortuosity !+---- +----+----+-----+ + + +!Prox CCA !87.9!11.1!60 ! ! ! !+ ---+----+----+-----+ + + +!Dist CCA ! 70.9!14.7!60 ! ! ! !+ +---- +----+-----+ + + +!Prox ICA !61.6!14. 1!60 !28% !<50% ! !+ +----+----+-----+ +----- + +!Dist ICA !62.9!14.1!60 ! ! ! !+ +----+----+-----+ + ----+ +!Prox ECA !104 !9.97!60 ! ! ! !+ +----+----+-----+ + +--- --------+!Vertebral !41.6!13.4!60 ! ! ! !+ +----+----+-----+ + + +!Prox Subclavian!104 ! !60 ! ! ! !+-- +----+----+-----+ + + + - The re is antegrade vertebral flow noted on the right side. - Additional Measuremen ts:ICAPSV/CCAPSV 0.89.ICAEDV/CCAEDV 1.27.Carotid Left Measurements+ --+----+----+-----+ + + +!Location !P SV !EDV !Angle!%Stenosis 2D!%Stenosis Doppler!Tortuosity !+ +----+ ----+-----+ + + +!Prox CCA !110 !18.8 !60 ! ! ! !+ +----+----+--- --+ + + +!Dist CCA !72.1!14.1!60 ! ! ! !+ +----+----+-----+----- -------+ + +!Prox ICA !119 !29.9!60 ! !<50% ! !+ +----+----+-----+ +----- + +!Dist ICA !108 !29.9!60 ! ! ! !+ +----+----+-----+ + ----+ +!Prox ECA !92 !8.21!60 ! ! ! !+ +----+----+-----+ + +--- --------+!Vertebral !63.9!10.6!60 ! ! ! !+ +----+----+-----+ + + +!Prox Subclavian!151 ! !60 ! ! ! !+-- +----+----+-----+ + + + - The re is antegrade vertebral flow noted on the left side. - Additional Measurement s:ICAPSV/CCAPSV 1.65.ICAEDV/CCAEDV 1.59.[facility] 2018-09-19 09:38:00* Test Item Value Reference Range Interpretation Comments PARTIAL THROMBOPLASTIN TIME (BEAKER) (test code = 760) 34.3 seconds 22.5-36.0 Hemoglobin [id number] 09:01:00* Test Item Value Reference Range Interpretation Comments Hemoglobin A1C (test code = 4548-4) 6.2 % 4.3-6.1 H Lab Interpretation (test code = 78025-2) [facility]normal [facility] [id number] 09:01:00* Test Item Value Reference Range Interpretation Comments HEMOGLOBIN A1C (BEAKER) (test code = 368) 6.2 % 4.3-6.1 H POCT-GLUCOSE [id number] 07:17:00* Test Item Value Reference Range Interpretation Comments POC-GLUCOSE METER (BEAKER) (test code = 1538) 138 mg/dL 70-110 H TESTED AT [facility] [address] [facility] [place] [address] ABORH, [id number] 06:19:00* Test Item Value Reference Range Interpretation Comments ABO Grouping (test code = 2588) A Rh Factor (test code = 2589) POS [facility] [id number] 04:37:00* Test Item Value Reference Range Interpretation Comments Protein, Total (test code = 2885-2) 6.7 6.0- 8.3 gm/dL Albumin (test code = 24186-8) 3.9 g/dL 3.5-5 Alkaline Phosphatase (test code = 6768-6) 40 U/L 40-150 Total Bilirubin (test code = 1974-2) 0.5 mg/dL 0.2-1.2 Sodium (test code = 2951-2) 138 meq/L 136-145 Potassium (test code = 2823-3) 4.1 meq/L 3.5-5.1 Chloride (test code = 5-0) 106 meq/L 98-107 CO2 (test code = 2027-9) 23 meq/L 22-29 BUN (test code = 3094-0) 18 mg/dL 7-21 Creatinine (test code = 2160-0) 1.30 mg/dL 0.57-1.25 H Glucose (test code = 2345-7) 127 mg/dL 70-105 H Calcium (test code = 62110-3) 9.6 mg/dL 8.4-10.2 AST (test code = 1920-8) 19 U/L 5-34 ALT (test code = 1742-6) 19 U/L 6-55 EGFR (test code = 91538-6) 54 mL/min/1.73 sq m ESTIMATED GFR IS NOT ACCURATE CREATININE CLEARANCE IN PREDICTING GLOMERULAR FILTRATION RATE. ESTIMATED GFR IS NOT APPLICABLE FOR DIALYSIS PATIENTS. Lab Interpretation (test code = 44415-0) [id number] 04:37:00* Test Item Value Reference Range Interpretation Comments Triglycerides (test code = 2571-8) 194 mg/dL Cholesterol (test code = 2093-3) 107 mg/dL HDL (test code = 2085-9) 27 mg/dL LDL Calculated (test code = 47201-7) 41 mg/dL KRISTIAN (test code = KRISTIAN) Triglyceride Reference Range : Low Risk <150 Borderline 150-199 High Risk 200-499 Very High Risk >=500 Cholesterol Reference Range: Low Risk <200 Borderline 200-239 High Risk >240 HDL Cholesterol Reference Range: Low Risk >=60 High Risk <40 LDL Cholesterol Reference Range: Optimal <100 Near Optimal 100-129 Borderline 130-159 High 160-189 Very High >=190 [facility]* Test Item Value Reference Range Interpretation Comments MAGNESIUM (BEAKER) (test code = 627) 1.8 mg/dL 1.6-2.6 COMPREHENSIVE METABOLIC [id number] 04:37:00* Test Item Value Reference Range Interpretation Comments TOTAL PROTEIN (BEAKER) (test code = 770) 6.7 gm/dL 6.0-8.3 ALBUMIN (BEAKER) (test code = 1145) 3.9 g/dL 3.5-5.0 ALKALINE PHOSPHATASE (BEAKER) (test code = 346) 40 U/L 40-150 BILIRUBIN TOTAL (BEAKER) (test code = 377) 0.5 mg/dL 0.2-1.2 SODIUM (BEAKER) (test code = 381) 138 meq/L 136-145 POTASSIUM (BEAKER) (test code = 379) 4.1 meq/L 3.5-5.1 CHLORIDE (BEAKER) (test code = 382) 106 meq/L 98-107 CO2 (BEAKER) (test code = 355) 23 meq/L 22-29 BLOOD UREA NITROGEN (BEAKER) (test code = 354) 18 mg/dL 7-21 CREATININE (BEAKER) (test code = 358) 1.30 mg/dL 0.57-1.25 H GLUCOSE RANDOM (BEAKER) (test code = 652) 127 mg/dL 70-105 H CALCIUM (BEAKER) (test code = 697) 9.6 mg/dL 8.4-10.2 AST (SGOT) (BEAKER) (test code = 353) 19 U/L 5-34 ALT (SGPT) (BEAKER) (test code = 347) 19 U/L 6-55 EGFR (BEAKER) (test code = 1092) 54 mL/min/1.73 sq m ESTIMATED GFR IS NOT ACCURATE CREATININE CLEARANCE IN PREDICTING GLOMERULAR FILTRATION RATE. ESTIMATED GFR IS NOT APPLICABLE FOR DIALYSIS PATIENTS. LIPID [id number] 04:37:00* Test Item Value Reference Range Interpretation Comments TRIGLYCERIDES (BEAKER) (test code = 540) 194 mg/dL CHOLESTEROL (BEAKER) (test code = 631) 107 mg/dL HDL CHOLESTEROL (BEAKER) (test code = 976) 27 mg/dL LDL CHOLESTEROL CALCULATED (BEAKER) (test code = 633) 41 mg/dL Triglyceride Reference Range: Low Risk <150 Borderline 150-199 High Risk 200-499 Very High Risk >=500Cholesterol Reference Range: Low Risk <200 Borderline 200-239 High Risk >240HDL Cholesterol Reference Range: Low Risk >=60 High Risk <40LDL Cholesterol Reference Range: Optimal <100 Near Optimal 100-129 Borderline 130-159 High 160-189 Very High >=190 Type and screen, [id number] 04:22:00* Test Item Value Reference Range Interpretation Comments ABO/RH AUTOMATED (BEAKER) (test code = 2260) A POSITIVE Ab Scrn (test code = 890-4) NEGATIVE [facility] Beach[facility]/[id number] 04:19:00* Test Item Value Reference Range Interpretation Comments PROTIME (BEAKER) (test code = 759) 14.2 seconds 11.9-14.2 INR (BEAKER) (test code = 370) 1.2 <=5.9 Effective 07/10/2018: PT Reference Range ChangeNew: 11.9-14.2 Previous: 11.7-14. 7RECOMMENDED COUMADIN/WARFARIN INR THERAPY RANGESSTANDARD DOSE: 2.0-3.0 Include s: PROPHYLAXIS for venous thrombosis, systemic embolization; TREATMENT for venou s thrombosis and/or pulmonary embolus.HIGH RISK: Target INR is 2.5-3.5 for patie nts wiht mechanical heart valves.CBC W/PLT COUNT & AUTO [id number] 03:57:00* Test Item Value Reference Range Interpretation Comments WHITE BLOOD CELL COUNT (BEAKER) (test code = 775) 7.9 K/ L 3.5- 10.5 RED BLOOD CELL COUNT (BEAKER) (test code = 761) 4.01 M/ L 4.63-6 .08 L HEMOGLOBIN (BEAKER) (test code = 410) 11.8 GM/DL 13.7-17.5 L HEMATOCRIT (BEAKER) (test code = 411) 36.6 % 40.1-51.0 L MEAN CORPUSCULAR VOLUME (BEAKER) (test code = 753) 91.3 fL 79. 0-92.2 MEAN CORPUSCULAR HEMOGLOBIN (BEAKER) (test code = 751) 29.4 pg 25.7-32.2 MEAN CORPUSCULAR HEMOGLOBIN CONC (BEAKER) (test code = 752) 32.2 GM/DL 32.3-36.5 L RED CELL DISTRIBUTION WIDTH (BEAKER) (test code = 412) 13.2 % 11.6-14.4 PLATELET COUNT (BEAKER) (test code = 756) 210 K/CU MM 150-450 MEAN PLATELET VOLUME (BEAKER) (test code = 754) 12.2 fL 9.4-12 .4 NUCLEATED RED BLOOD CELLS (BEAKER) (test code = 413) 0 /100 WBC 0 -0 NEUTROPHILS RELATIVE PERCENT (BEAKER) (test code = 429) 61 % LYMPHOCYTES RELATIVE PERCENT (BEAKER) (test code = 430) 28 % MONOCYTES RELATIVE PERCENT (BEAKER) (test code = 431) 7 % EOSINOPHILS RELATIVE PERCENT (BEAKER) (test code = 432) 3 % BASOPHILS RELATIVE PERCENT (BEAKER) (test code = 437) 1 % NEUTROPHILS ABSOLUTE COUNT (BEAKER) (test code = 670) 4.77 K/ L 1.78-5.38 LYMPHOCYTES ABSOLUTE COUNT (BEAKER) (test code = 414) 2.19 K/ L 1.32-3.57 MONOCYTES ABSOLUTE COUNT (BEAKER) (test code = 415) 0.56 K/ L 0. 30-0.82 EOSINOPHILS ABSOLUTE COUNT (BEAKER) (test code = 416) 0.23 K/ L 0.04-0.54 BASOPHILS ABSOLUTE COUNT (BEAKER) (test code = 417) 0.10 K/ L 0. 01-0.08 H IMMATURE GRANULOCYTES-RELATIVE PERCENT (BEAKER) (test code = 2801) 0 % 0-1 [id number] 01:30:00* Test Item Value Reference Range Interpretation Comments PARTIAL THROMBOPLASTIN TIME (BEAKER) (test code = 760) 37.8 seconds 22.5-36.0 H RAD, CHEST, 1 VIEW, NON [id number] 23:18:00Reason for exam:->sobShould this be performed at the bedside?->YesFINAL REPORT AP view of the chest dated 09/18/2018 CLINICAL INFORMATION: sob Comment: Heart is normal in size. Pulmonary vasculature is unremarkable. Lungs are clear. No pulmonary infiltrate or pleural effusion is present. Impression: No active cardiopulmonary disease. Signed: Kristel Parks MDReport Verified Date/Time: 09/18/2018 23:18:18 Reading Location: [facility] B1 [id number] Consult Reading Room -GLUCOSE [id number] 22:47:00* Test Item Value Reference Range Interpretation Comments POC-GLUCOSE METER (BEAKER) (test code = 1538) 105 mg/dL 70-110 [address]ED AT [address] [address] [id number] 15:57:00* Test Item Value Reference Range Interpretation Comments PARTIAL THROMBOPLASTIN TIME (BEAKER) (test code = 760) 61.0 seconds 22.5-36.0 H Prior to initiating heparinPLATELET [id number] 15:46:00* Test Item Value Reference Range Interpretation Comments PLATELET COUNT (BEAKER) (test code = 756) 241 K/CU MM 150-450 POCT-GLUCOSE [id number] 15:36:00* Test Item Value Reference Range Interpretation Comments POC-GLUCOSE METER (BEAKER) (test code = 1538) 136 mg/dL 70-110 H TESTED AT [address] [address] POCT-GLUCOSE [id number] 11:12:00* Test Item Value Reference Range Interpretation Comments POC-GLUCOSE METER (BEAKER) (test code = 1538) 129 mg/dL 70-110 H TESTED AT [address] [address]
--- OUTSIDE RECORDS SUMMARY | 2019-09-12 10:16 | XMS REPORT | Clinical Summary ---
Author Author [facility] Address Unknown Phone Unavailable Care Team Providers Care Supervisor Central Supply Name Role Phone Yusuf Menendez MD PCP Unavailable Allergies Comments Active Allergy Reactions Severity Noted Date Severe back pain Amlodipine Other (See 12/04/2014 Comments) Severe Urinary incontinence Cilostazol Other (See 12/04/2014 Comments) Severe gas build up and chest pressure Penicillin V Potassium 12/05/2014 Medications End Date Status Medication Sig Dispensed Refills Start Date Active cholecalciferol, vitamin Take 2,000 0 D3, (VITAMIN D3) 2,000 Units by unit Cap mouth daily . Active glimepiride (AMARYL) 4 MG TAKE ONE 0 05/13 tablet TABLET BY 5 MOUTH EVERY MORNING WITH BREAKFAST. Active atorvastatin (LIPITOR) 40 Take 40 mg by 0 MG tablet mouth daily. Active aspirin 81 MG EC tablet Take 81 mg by 0 mouth daily. 10/03/2019 Active amiodarone (PACERONE) 200 Take 1 tablet 0 09/13 MG tablet (200 mg 9 total) by mouth daily. 10/03/2019 Active folic acid (FOLVITE) 1 MG Take 1 tablet 0 09/13 tablet (1 mg total) 9 by mouth daily. Active melatonin 5 mg Tab tablet Take 1 tablet 0 09/13 (5 mg total) 9 by mouth every night as needed. 10/03/2019 Active multivitamin (THERAGRAN) Take 1 tablet 0 10/03 tablet by mouth 9 daily. 10/03/2019 Active thiamine 100 MG tablet Take 1 tablet 0 01 (100 mg 9 total) by mouth daily. 10/02/2019 Active senna (SENOKOT) 8.6 mg Take 1 tablet 0 01 tablet (8.6 mg 9 total) by mouth nightly. Active lisinopril Take 40 mg by 0 (PRINIVIL,ZESTRIL) 20 MG mouth daily . 9 tablet Active metoprolol (TOPROL-XL) 25 Take 50 mg by 0 / 4/201 MG 24 hr tablet mouth daily . 9 Active colchicine (COLCRYS) 0.6 Take 0.6 mg 0 mg tablet by mouth daily. Active NIFEdipine (PROCARDIA-XL) Take 60 mg by 0 60 MG (OSM) 24 hr tablet mouth daily. 01/16/2020 Active clopidogrel (PLAVIX) 75 Take 1 tablet 90 tablet 3 mg tablet (75 mg total) 9 by mouth daily. 10/02/2018 Discontinued metoprolol (LOPRESSOR) 25 Take 25 mg by 0 MG tablet mouth daily. 10/02/2018 Discontinued lisinopril Take 40 mg by 0 (PRINIVIL,ZESTRIL) 40 MG mouth daily. tablet 10/17/2018 Discontinued multivitamin per tablet Take 1 tablet 0 by mouth. 09/18/2018 Discontinued aspirin 325 MG tablet Take by mouth 0 daily . 10/02/2018 Discontinued fenofibrate Take 160 mg 0 (TRIGLIDE,LOFIBRA) 160 MG by mouth 5 tablet daily . 01/16/2019 Discontinued nitroglycerin (NITROSTAT) Place 0.4 mg 0 0.4 MG SL tablet under the tongue every 5 (five) minutes as needed for Chest pain Put 1 pill under tongue every 5min as needed for chest pain.No more than 3 doses in 15min.Call 911 if pain is unrelieved 5min after 1st dose . 10/17/2018 Discontinued metoprolol (LOPRESSOR) 50 Take 1 tablet 0 09/13/201 MG tablet (50 mg total) 9 by mouth 2 (two) times daily. 01/16/2019 Discontinued apixaban (ELIQUIS) 5 mg Take 1 tablet 0 Tab tablet (5 mg total) 9 by mouth 2 (two) times daily. 01/16/2019 Discontinued insulin lispro (HUMALOG) Inject 0-4 10 mL 0 0 100 unit/mL injection Units 9 subcutaneousl y every night as needed (High blood sugar). 01/16/2019 Discontinued insulin lispro (HUMALOG) Inject 0-8 10 mL 0 0 100 unit/mL injection Units 9 subcutaneousl y as needed (High blood sugar). 11/01/2018 QUEtiapine (SEROQUEL) 25 Take 1 tablet 0 10/02 MG tablet (25 mg total) 9 by mouth nightly for 30 days. 01/16/2019 Discontinued predniSONE (DELTASONE) 20 Take 20 mg by 0 MG tablet mouth 2 (two) times daily as needed. Active Problems Problem Noted Date PAD (peripheral artery disease) 01/16/2019 Paroxysmal atrial fibrillation with rapid ventricular response 09/24/2018 Acute encephalopathy, metabolic 09/23/2018 Acute prerenal azotemia 09/23/2018 Fluid overload 09/23/2018 S/P CABG x [address] Magallanes on 09/1909/20/2018 CAD (coronary artery disease) 09/19/2018 Type 2 diabetes mellitus with hyperglycemia, without long-term current use 09/19/2018 of insulin Chest pain 09/18/2018 Peripheral edema 12/05/2014 D-dimer, elevated 12/05/2014 Acute on chronic renal insufficiency 12/05/2014 Neuropathy 11/26/2014 Unsteady gait 11/26/2014 Lower extremity weakness 11/26/2014 Essential hypertension 11/26/2014 CAD (coronary artery disease) 11/26/2014 Gout Hyperlipidemia Chronic kidney disease, stage III (mode rate) Type 2 diabetes mellitus with stage 3 c hronic kidney disease Severe obesity Peripheral vascular disease Acute respiratory insufficiency Vasogenic shock Acute blood loss anemia Hyperglycemia ETOH abuse Alcohol withdrawal syndrome without com plication Encounters Care Team Description Date Type Specialty Rashel Barr MD PERIPHERAL ANGIOS & IVUS 01/16/2019 Surgery Rashel Barr MD 01/16/2019 Hospital Encounter Kaya Magallanes MD Post-operative state (Primary Dx) 10/17/2018 Office Visit Cardiology 09/21/2018 Orders Only General Internal Me Kaya Early MD [facility],[place] CORONARY SU/SVG 09/19/2018 Surgery Virginia Watts MD 09/19/2018 Anesthesia Event Rashel Barr MD L CATH & CORONARY ANGIOS 09/18/2018 Surgery Rashel Barr MD Herlihy, MD Abel Schultz, MD Eben Macias, MD Ibeth Shah Wayne K., DO Acute on chronic renal insufficiency (Pr imary Dx); Acute blood loss anemia; Acute encephalopathy; Acute prerenal azotemia; Acute respiratory insufficiency; Alcohol withdrawal syndrome without complication (HCC); Coronary artery disease involving [place] coronary artery of [place] heart with angina pectoris (HCC); ETOH abuse; Hypervolemia, unspecified hypervolemia type; S/P CABG x 2; Paroxysmal atrial fibrillation with rapid ventricular response (HCC); Impaired mobility and ADLs; Other abnormalities of gait and mobility 09/18/2018 Hospital Cardiology - Encounter 10/02/2018 09/18/2018 Travel after 08/22/2018 Family History Medical History Relation Name Comments Mental retardation Daughter Diabetes Father Hyperlipidemia Father Hypertension Father Stroke Father Arthritis Mother Diabetes Mother Hyperlipidemia Mother Hypertension Mother Stroke Mother Relation Name Status Comments Daughter Father Mother Social History Date Tobacco Use Types Packs/Day Years Used Former Smoker Smokeless Tobacco: Never Used Comments: quit 25 yrs ago Alcohol Use Drinks/Week oz/Week Comments Yes 21 Cans of 12.6 Daily beer Sex Assigned at Date Recorded Not on file Industry Job Start Date Occupation Not on file Not on file Not on file Travel End Travel History Travel Start No recent travel history available. Last Filed Vital Signs Time Taken Vital Sign Reading 01/16/2019 7:30 PM PROCESS MOLD TECHNICIAN Blood Pressure 136/79 01/16/2019 7:30 PM PROCESS MOLD TECHNICIAN Pulse 67 01/16/2019 10:14 AM PROCESS MOLD TECHNICIAN Temperature 37 C (98.6 F) 01/16/2019 7:30 PM PROCESS MOLD TECHNICIAN Respiratory Rate 16 01/16/2019 5:40 PM PROCESS MOLD TECHNICIAN Oxygen Saturation 97% 09/30/2018 7:52 AM CDT Inhaled Oxygen 21% Concentration 01/16/2019 10:14 AM PROCESS MOLD TECHNICIAN Weight 89.4 kg (197 lb) 01/16/2019 10:14 AM PROCESS MOLD TECHNICIAN Height 162.6 cm (5' 4") 01/16/2019 10:14 AM PROCESS MOLD TECHNICIAN Body Mass Index 33.81 Plan of Treatment Health Maintenance Due Date Last Done Comments DIABETIC EYE EXAM 05/15/1955 DIABETIC FOOT EXAM 05/15/1955 MEDICARE ANNUAL WELLNESS 02/13/2010 (YEAR 2 or FIRST YEAR if no IPPE) URINE MICROALBUMIN 11/26/2018 11/26/2017, 018 HEMOGLOBIN A1C 03/22/2019 09/19/2018 INFLUENZA VACCINE (#1) 2019 PNEUMOCOCCAL 65+ Completed 11/26/2017, 010 LOW/MEDIUM RISK Implants Device Identifier Shelf Expiration Date Model / Serial / L ot Implanted Type Area Manufactur er 03/14/2023 [id number] / / [id number] Sternal Zipfix Ndl Strl IMPLANTS SYNTHES:SY [id number] - [id number] [employer] [place] Implanted: Qty: 1 on 09/19/2018 by Kaay Magallanes MD Procedures Comments Procedure Name Priority Date/Time Associated Diag nosis VASCULAR DIAGRAM -SCAN 01/29/2019 12:20 PM PROCESS MOLD TECHNICIAN REPORT OF PROCEDURE - 01/20/2019 ENDOSCOPY SCAN 7:00 AM PROCESS MOLD TECHNICIAN CARDIAC CATH REPORT - 01/20/2019 SCAN 7:00 AM PROCESS MOLD TECHNICIAN POCT-ACT Routine 01/16/2019 4:16 PM PROCESS MOLD TECHNICIAN PERIPHERAL ANGIOS & IVUS 01/16/2019 PAD (periphe ral artery 1:52 PM PROCESS MOLD TECHNICIAN disease) (HCC) Case Notes (6)CASE 6TOP/ [id number] POCT-GLUCOSE METER Routine 01/16/2019 12:00 PM PROCESS MOLD TECHNICIAN RHYTHM STRIP - SCAN 10/03/2018 11:11 AM CDT RHYTHM STRIP - SCAN 10/03/2018 10:10 AM CDT CARDIAC CATH REPORT - 10/03/2018 SCAN 10:10 AM CDT VASCULAR DIAGRAM -SCAN 10/03/2018 10:10 AM CDT POCT-GLUCOSE METER Routine 10/02/2018 2:09 PM CDT POCT-GLUCOSE METER Routine 10/02/2018 1:05 PM CDT POCT-GLUCOSE METER Routine 10/02/2018 7:48 AM CDT CBC W/PLT COUNT & AUTO Routine 10/02/2018 DIFFERENTIAL 6:08 AM CDT BASIC METABOLIC PANEL (7) Routine 10/02/2018 6:08 AM CDT CBC W/PLT COUNT & AUTO Routine 10/02/2018 DIFFERENTIAL 6:08 AM CDT POCT-GLUCOSE METER Routine 10/01/2018 11:19 PM CDT VASCULAR DIAGRAM -SCAN 10/01/2018 2:41 PM CDT POCT-GLUCOSE METER Routine 10/01/2018 1:26 PM CDT POCT-GLUCOSE METER Routine 10/01/2018 9:23 AM CDT CBC W/PLT COUNT & AUTO Routine 10/01/2018 DIFFERENTIAL 5:18 AM CDT BASIC METABOLIC PANEL (7) Routine 10/01/2018 5:18 AM CDT CBC W/PLT COUNT & AUTO Routine 10/01/2018 DIFFERENTIAL 5:18 AM CDT POCT-GLUCOSE METER Routine 09/30/2018 9:51 PM CDT POCT-GLUCOSE METER Routine 09/30/2018 6:24 PM CDT POCT-GLUCOSE METER Routine 09/30/2018 4:43 PM CDT POCT-GLUCOSE METER Routine 09/30/2018 12:36 PM CDT POCT-GLUCOSE METER Routine 09/30/2018 8:24 AM CDT CBC W/PLT COUNT & AUTO Routine 09/30/2018 DIFFERENTIAL 4:56 AM CDT BASIC METABOLIC PANEL (7) Routine 09/30/2018 4:56 AM CDT CBC W/PLT COUNT & AUTO Routine 09/30/2018 DIFFERENTIAL 4:56 AM CDT POCT-GLUCOSE METER Routine 09/29/2018 9:40 PM CDT POCT-GLUCOSE METER Routine 09/29/2018 4:47 PM CDT POCT-GLUCOSE METER Routine 09/29/2018 12:50 PM CDT CBC W/PLT COUNT & AUTO Routine 09/29/2018 DIFFERENTIAL 4:08 AM CDT BASIC METABOLIC PANEL (7) Routine 09/29/2018 4:08 AM CDT CBC W/PLT COUNT & AUTO Routine 09/29/2018 DIFFERENTIAL 4:08 AM CDT POCT-GLUCOSE METER Routine 09/28/2018 9:06 PM CDT POCT-GLUCOSE METER Routine 09/28/2018 1:12 PM CDT POCT-GLUCOSE METER Routine 09/28/2018 7:47 AM CDT CBC W/PLT COUNT & AUTO Routine 09/28/2018 DIFFERENTIAL 5:54 AM CDT BASIC METABOLIC PANEL (7) Routine 09/28/2018 5:54 AM CDT CBC W/PLT COUNT & AUTO Routine 09/28/2018 DIFFERENTIAL 5:54 AM CDT POCT-GLUCOSE METER Routine 09/27/2018 9:43 PM CDT POCT-GLUCOSE METER Routine 09/27/2018 5:31 PM CDT POCT-GLUCOSE METER Routine 09/27/2018 9:43 AM CDT ECG 12-LEAD Routine 09/27/2018 6:35 AM CDT CBC W/PLT COUNT & AUTO Routine 09/27/2018 DIFFERENTIAL 6:26 AM CDT PHOSPHORUS Routine 09/27/2018 6:26 AM CDT MAGNESIUM Routine 09/27/2018 6:26 AM CDT BASIC METABOLIC PANEL (7) Routine 09/27/2018 6:26 AM CDT CBC W/PLT COUNT & AUTO Routine 09/27/2018 DIFFERENTIAL 6:26 AM CDT POCT-GLUCOSE METER Routine 09/26/2018 4:09 PM CDT POCT-GLUCOSE METER Routine 09/26/2018 11:57 AM CDT XR CHEST 1 VIEW JOSEPHINE 09/26/2018 PORTABLE/BEDSIDE 8:50 AM CDT POCT-GLUCOSE METER Routine 09/26/2018 7:46 AM CDT CBC W/PLT COUNT & AUTO Routine 09/26/2018 DIFFERENTIAL 4:44 AM CDT PHOSPHORUS Routine 09/26/2018 4:44 AM CDT MAGNESIUM Routine 09/26/2018 4:44 AM CDT BASIC METABOLIC PANEL (7) Routine 09/26/2018 4:44 AM CDT CBC W/PLT COUNT & AUTO Routine 09/26/2018 DIFFERENTIAL 4:44 AM CDT POCT-GLUCOSE METER Routine 09/25/2018 10:22 PM CDT POCT-GLUCOSE METER Routine 09/25/2018 5:51 PM CDT POCT-GLUCOSE METER Routine 09/25/2018 11:56 AM CDT POCT-GLUCOSE METER Routine 09/25/2018 8:04 AM CDT CBC W/PLT COUNT & AUTO Routine 09/25/2018 DIFFERENTIAL 4:13 AM CDT CALCIUM, IONIZED Routine 09/25/2018 4:13 AM CDT PHOSPHORUS Routine 09/25/2018 4:13 AM CDT MAGNESIUM Routine 09/25/2018 4:13 AM CDT BASIC METABOLIC PANEL (7) Routine 09/25/2018 4:13 AM CDT CBC W/PLT COUNT & AUTO Routine 09/25/2018 DIFFERENTIAL 4:13 AM CDT POCT-GLUCOSE METER Routine 09/24/2018 10:01 PM CDT MAGNESIUM Routine 09/24/2018 8:33 PM CDT POTASSIUM Routine 09/24/2018 8:33 PM CDT POCT-GLUCOSE METER Routine 09/24/2018 11:58 AM CDT POCT-GLUCOSE METER Routine 09/24/2018 8:03 AM CDT CBC W/PLT COUNT & AUTO Routine 09/24/2018 DIFFERENTIAL 4:03 AM CDT CALCIUM, IONIZED Routine 09/24/2018 4:03 AM CDT BASIC METABOLIC PANEL (7) Routine 09/24/2018 4:03 AM CDT CBC W/PLT COUNT & AUTO Routine 09/24/2018 DIFFERENTIAL 4:03 AM CDT MAGNESIUM Routine 09/24/2018 4:03 AM CDT POCT-GLUCOSE METER Routine 09/23/2018 9:56 PM CDT POCT-GLUCOSE METER Routine 09/23/2018 5:10 PM CDT RHYTHM STRIP - SCAN 09/23/2018 12:26 PM CDT POCT-GLUCOSE METER Routine 09/23/2018 12:14 PM CDT POCT-GLUCOSE METER Routine 09/23/2018 7:57 AM CDT XR CHEST 1 VIEW Routine 09/23/2018 PORTABLE/BEDSIDE 5:10 AM CDT CBC (HEMOGRAM ONLY) Routine 09/23/2018 4:54 AM CDT BASIC METABOLIC PANEL (7) Routine 09/23/2018 4:54 AM CDT MAGNESIUM Routine 09/23/2018 4:54 AM CDT CBC W/PLT COUNT & AUTO Routine 09/22/2018 DIFFERENTIAL 12:18 PM CDT MAGNESIUM Routine 09/22/2018 12:18 PM CDT CBC W/PLT COUNT & AUTO Routine 09/22/2018 DIFFERENTIAL 12:18 PM CDT BASIC METABOLIC PANEL (7) Routine 09/22/2018 12:18 PM CDT XR CHEST 1 VIEW Routine 09/22/2018 PORTABLE/BEDSIDE 7:25 AM CDT MAGNESIUM Routine 09/22/2018 12:29 AM CDT CBC (HEMOGRAM ONLY) Routine 09/22/2018 12:29 AM CDT BASIC METABOLIC PANEL (7) Routine 09/22/2018 12:29 AM CDT BLOOD GAS, VENOUS Routine 09/22/2018 12:29 AM CDT LACTIC ACID, VENOUS Routine 09/22/2018 12:29 AM CDT POCT-GLUCOSE METER Routine 09/22/2018 12:12 AM CDT ECG 12-LEAD Routine 09/21/2018 11:33 PM CDT POCT-GLUCOSE METER Routine 09/21/2018 12:14 PM CDT ECG 12-LEAD Routine 09/21/2018 10:13 AM CDT Procedure Note - Interface, External Ris In - 09/21/2018 10:22 AM CDT Ventricula r Rate 112 BPM Atrial Rate 112 BPM QRS Duration 82 ms Q-T Interval 330 ms QTC Calculatio n(Bazett) 450 ms P [place] 25 degrees R [place] -15 degrees T [place] 56 degrees Sinus tachycardi a with Premature atrial complexes Otherwise normal ECG ECG 12-LEAD Routine 09/21/2018 10:13 AM CDT POCT-GLUCOSE METER Routine 09/21/2018 7:38 AM CDT XR CHEST 1 VIEW Routine 09/21/2018 PORTABLE/BEDSIDE 4:59 AM CDT CALCIUM, IONIZED Routine 09/21/2018 3:49 AM CDT OXYGEN SATURATION, Routine 09/21/2018 MEASURED 3:49 AM CDT LACTIC ACID, ARTERIAL Routine 09/21/2018 3:49 AM CDT BLOOD GAS, ARTERIAL Routine 09/21/2018 3:49 AM CDT CBC (HEMOGRAM ONLY) Routine 09/21/2018 3:49 AM CDT PHOSPHORUS Routine 09/21/2018 3:49 AM CDT MAGNESIUM Routine 09/21/2018 3:49 AM CDT BASIC METABOLIC PANEL (7) Routine 09/21/2018 3:49 AM CDT HGB/HCT (H&H) - STAT LAB STAT 09/20/2018 11:00 PM CDT GLUCOSE-STAT LAB STAT 09/20/2018 11:00 PM CDT POTASSIUM-STAT LAB STAT 09/20/2018 11:00 PM CDT SODIUM NA-STAT LAB STAT 09/20/2018 11:00 PM CDT BLOOD GAS, ARTERIAL STAT 09/20/2018 11:00 PM CDT RRL CRITICAL LABS STAT 09/20/2018 (ABG,NA,K,H&H,GLUCOSE) 11:00 PM CDT POCT-GLUCOSE METER Routine 09/20/2018 8:47 PM CDT TRANSFUSION SERVICE 09/20/2018 REPORT - SCAN 6:04 PM CDT POCT-GLUCOSE METER Routine 09/20/2018 4:04 PM CDT POCT-GLUCOSE METER Routine 09/20/2018 1:00 PM CDT POCT-GLUCOSE METER Routine 09/20/2018 11:59 AM CDT POCT-GLUCOSE METER Routine 09/20/2018 10:30 AM CDT POCT-GLUCOSE METER Routine 09/20/2018 7:40 AM CDT POCT-GLUCOSE METER Routine 09/20/2018 5:45 AM CDT XR CHEST 1 VIEW Routine 09/20/2018 PORTABLE/BEDSIDE 4:12 AM CDT LACTIC ACID, ARTERIAL Routine 09/20/2018 3:08 AM CDT BLOOD GAS, ARTERIAL Routine 09/20/2018 3:08 AM CDT PHOSPHORUS Routine 09/20/2018 3:08 AM CDT MAGNESIUM Routine 09/20/2018 3:08 AM CDT BASIC METABOLIC PANEL (7) Routine 09/20/2018 3:08 AM CDT CBC (HEMOGRAM ONLY) Routine 09/20/2018 3:08 AM CDT HGB/HCT (H&H) - STAT LAB STAT 09/20/2018 1:36 AM CDT GLUCOSE-STAT LAB STAT 09/20/2018 1:36 AM CDT POTASSIUM-STAT LAB STAT 09/20/2018 1:36 AM CDT SODIUM NA-STAT LAB STAT 09/20/2018 1:36 AM CDT BLOOD GAS, ARTERIAL STAT 09/20/2018 1:36 AM CDT RRL CRITICAL LABS STAT 09/20/2018 (ABG,NA,K,H&H,GLUCOSE) 1:36 AM CDT PHOSPHORUS STAT 09/19/2018 11:53 PM CDT MAGNESIUM STAT 09/19/2018 11:53 PM CDT BASIC METABOLIC PANEL (7) STAT 09/19/2018 11:53 PM CDT HGB/HCT (H&H) - STAT LAB STAT 09/19/2018 11:52 PM CDT GLUCOSE-STAT LAB STAT 09/19/2018 11:52 PM CDT POTASSIUM-STAT LAB STAT 09/19/2018 11:52 PM CDT SODIUM NA-STAT LAB STAT 09/19/2018 11:52 PM CDT BLOOD GAS, ARTERIAL STAT 09/19/2018 11:52 PM CDT OXYGEN SATURATION, STAT 09/19/2018 MEASURED 11:52 PM CDT LACTIC ACID, ARTERIAL STAT 09/19/2018 11:52 PM CDT CALCIUM, IONIZED STAT 09/19/2018 11:52 PM CDT RRL CRITICAL LABS STAT 09/19/2018 (ABG,NA,K,H&H,GLUCOSE) 11:52 PM CDT POCT-GLUCOSE METER Routine 09/19/2018 10:59 PM CDT LACTIC ACID, ARTERIAL Routine 09/19/2018 10:57 PM CDT BLOOD GAS, ARTERIAL Routine 09/19/2018 10:56 PM CDT POCT-GLUCOSE METER Routine 09/19/2018 10:00 PM CDT XR CHEST 1 VIEW STAT 09/19/2018 PORTABLE/BEDSIDE 7:31 PM CDT CBC W/PLT COUNT & AUTO STAT 09/19/2018 DIFFERENTIAL 7:18 PM CDT CBC W/PLT COUNT & AUTO STAT 09/19/2018 DIFFERENTIAL 7:18 PM CDT BLOOD GAS, ARTERIAL STAT 09/19/2018 7:11 PM CDT PROTHROMBIN TIME/INR STAT 09/19/2018 7:11 PM CDT MAGNESIUM STAT 09/19/2018 7:11 PM CDT BASIC METABOLIC PANEL (7) STAT 09/19/2018 7:11 PM CDT PREPARE RBC STAT 09/19/2018 7:02 PM CDT POCT-ACT Routine 09/19/2018 5:07 PM CDT HGB/HCT (H&H) - STAT LAB STAT 09/19/2018 5:03 PM CDT GLUCOSE-STAT LAB STAT 09/19/2018 5:03 PM CDT POTASSIUM-STAT LAB STAT 09/19/2018 5:03 PM CDT SODIUM NA-STAT LAB STAT 09/19/2018 5:03 PM CDT BLOOD GAS, ARTERIAL STAT 09/19/2018 5:03 PM CDT PLATELET COUNT STAT 09/19/2018 5:03 PM CDT THROMBOELASTOGRAPH (TEG) STAT 09/19/2018 5:03 PM CDT FIBRINOGEN STAT 09/19/2018 5:03 PM CDT APTT STAT 09/19/2018 5:03 PM CDT PROTHROMBIN TIME/INR STAT 09/19/2018 5:03 PM CDT CALCIUM, IONIZED STAT 09/19/2018 5:03 PM CDT RRL CRITICAL LABS STAT 09/19/2018 (ABG,NA,K,H&H,GLUCOSE) 5:03 PM CDT POCT-ACT Routine 09/19/2018 4:45 PM CDT HGB/HCT (H&H) - STAT LAB STAT 09/19/2018 4:43 PM CDT GLUCOSE-STAT LAB STAT 09/19/2018 4:43 PM CDT POTASSIUM-STAT LAB STAT 09/19/2018 4:43 PM CDT SODIUM NA-STAT LAB STAT 09/19/2018 4:43 PM CDT BLOOD GAS, ARTERIAL STAT 09/19/2018 4:43 PM CDT RRL CRITICAL LABS STAT 09/19/2018 (ABG,NA,K,H&H,GLUCOSE) 4:43 PM CDT POCT-ACT Routine 09/19/2018 4:15 PM CDT HGB/HCT (H&H) - STAT LAB STAT 09/19/2018 4:14 PM CDT GLUCOSE-STAT LAB STAT 09/19/2018 4:14 PM CDT POTASSIUM-STAT LAB STAT 09/19/2018 4:14 PM CDT SODIUM NA-STAT LAB STAT 09/19/2018 4:14 PM CDT BLOOD GAS, ARTERIAL STAT 09/19/2018 4:14 PM CDT RRL CRITICAL LABS STAT 09/19/2018 (ABG,NA,K,H&H,GLUCOSE) 4:14 PM CDT POCT-ACT Routine 09/19/2018 3:54 PM CDT HGB/HCT (H&H) - STAT LAB STAT 09/19/2018 3:44 PM CDT GLUCOSE-STAT LAB STAT 09/19/2018 3:44 PM CDT POTASSIUM-STAT LAB STAT 09/19/2018 3:44 PM CDT SODIUM NA-STAT LAB STAT 09/19/2018 3:44 PM CDT BLOOD GAS, ARTERIAL STAT 09/19/2018 3:44 PM CDT RRL CRITICAL LABS STAT 09/19/2018 (ABG,NA,K,H&H,GLUCOSE) 3:44 PM CDT POCT-ACT Routine 09/19/2018 3:22 PM CDT HGB/HCT (H&H) - STAT LAB STAT 09/19/2018 3:18 PM CDT GLUCOSE-STAT LAB STAT 09/19/2018 3:18 PM CDT POTASSIUM-STAT LAB STAT 09/19/2018 3:18 PM CDT SODIUM NA-STAT LAB STAT 09/19/2018 3:18 PM CDT BLOOD GAS, ARTERIAL STAT 09/19/2018 3:18 PM CDT RRL CRITICAL LABS STAT 09/19/2018 (ABG,NA,K,H&H,GLUCOSE) 3:18 PM CDT POCT-ACT Routine 09/19/2018 3:05 PM CDT POCT-ACT Routine 09/19/2018 2:46 PM CDT HGB/HCT (H&H) - STAT LAB Routine 09/19/2018 1:04 PM CDT GLUCOSE-STAT LAB Routine 09/19/2018 1:04 PM CDT POTASSIUM-STAT LAB Routine 09/19/2018 1:04 PM CDT SODIUM NA-STAT LAB Routine 09/19/2018 1:04 PM CDT BLOOD GAS, ARTERIAL Routine 09/19/2018 1:04 PM CDT RRL CRITICAL LABS Routine 09/19/2018 (ABG,NA,K,H&H,GLUCOSE) 1:04 PM CDT ENDOSCOPIC HARVEST,VEIN 09/19/2018 Coronary malaika ry disease 12:00 PM CDT involving [place] coronary artery of [place] heart without angina pectoris Case Notes [facility] Special Needs Request 12 pm [place] CORONARY 09/19/2018 Coronary artery disease SU/SVG 12:00 PM CDT involving [place] co ronary artery of [place] heart without angina pectoris Case Notes [facility] Special Needs Request 12 pm 2D ECHO W/ DOPPLER JOSEPHINE 09/19/2018 (CW/PW/COLOR) 9:54 AM CDT APTT Routine 09/19/2018 8:32 AM CDT POCT-GLUCOSE METER Routine 09/19/2018 7:01 AM CDT ABORH, MANUAL STAT 09/19/2018 3:56 AM CDT ECG 12-LEAD Routine 09/19/2018 3:52 AM CDT CBC W/PLT COUNT & AUTO Routine 09/19/2018 DIFFERENTIAL 3:35 AM CDT TYPE AND SCREEN, Routine 09/19/2018 AUTOMATED 3:35 AM CDT COMPREHENSIVE METABOLIC Routine 09/19/2018 PANEL 3:35 AM CDT PROTHROMBIN TIME/INR Routine 09/19/2018 3:35 AM CDT CBC W/PLT COUNT & AUTO Routine 09/19/2018 DIFFERENTIAL 3:35 AM CDT LIPID PANEL Routine 09/19/2018 3:35 AM CDT HEMOGLOBIN A1C Routine 09/19/2018 3:35 AM CDT MAGNESIUM Routine 09/19/2018 3:35 AM CDT APTT Routine 09/19/2018 1:01 AM CDT XR CHEST 1 VIEW Routine 09/18/2018 PORTABLE/BEDSIDE 10:50 PM CDT CAROTID DOPPLER BILATERAL Routine 09/18/2018 9:39 PM CDT POCT-GLUCOSE METER Routine 09/18/2018 9:27 PM CDT APTT Routine 09/18/2018 3:34 PM CDT PLATELET COUNT Routine 09/18/2018 3:34 PM CDT POCT-GLUCOSE METER Routine 09/18/2018 3:33 PM CDT PCI 09/18/2018 Chest pain, unspeci fied 3:10 PM CDT type Essential hypertension, malignant Case Notes (5)case POP6 CORONARY ANGIOS / PCI / 09/18/2018 Chest pain, u nspecified STENT 3:10 PM CDT type Essential hypertension, malignant Case Notes (5)case POP6 L CATH & CORONARY ANGIOS 09/18/2018 Chest pain, unspecified 3:10 PM CDT type Essential hypertension, malignant Case Notes (5)case POP6 POCT-GLUCOSE METER Routine 09/18/2018 11:09 AM CDT after 08/22/2018 Results * VASCULAR DIAGRAM -SCAN (01/29/2019 12:20 PM PROCESS MOLD TECHNICIAN) Only the most recent of 3 results within the time period is included. Narrative Performed At This result has an attachment that is n ot available. * EKG-SCANNED (01/20/2019 7:00 AM PROCESS MOLD TECHNICIAN) Narrative Performed At This result has an attachment that is n ot available. * CARDIAC CATH REPORT - SCAN (01/20/2019 7:00 AM PROCESS MOLD TECHNICIAN) Narrative Performed At This result has an attachment that is n ot available. * POC ACTIVATED CLOTTING TIME (01/16/2019 4:16 PM PROCESS MOLD TECHNICIAN) Only the most recent of 8 results within the time period is included. Activated Clotting Time 257Comment: Reference Range: sec [facility] 74-137 seconds, [facility] Baseline/TESTED AT [facility] [address] [place] [id number] Specimen Blood Performing Organization Address City/State/Zipcode Ph one Number [address] [facility] * POC-Glucose meter (01/16/2019 12:00 PM PROCESS MOLD TECHNICIAN) Only the most recent of 51 results within the time period is included. POC-Glucose Meter 106Comment: : TESTED AT [facility] 70 - 110 mg/d L [address] [address]: Digital Solution Architect/Powertrain Design Engineer ID = [id number] for Maryjo Flores Specimen Blood Performing Organization Address City/State/[facility] [[email or web address] Ph one Number [address] [facility] * RHYTHM STRIP - SCAN (10/03/2018 11:11 AM CDT) Only the most recent of 3 results within the time period is included. Narrative Performed At This result has an attachment that is n ot available. * CARDIAC CATH REPORT - SCAN (10/03/2018 10:10 AM CDT) Narrative Performed At This result has an attachment that is n ot available. * CBC with platelet count + automated diff (10/02/2018 6:08 AM CDT) Only the most recent of 12 results within the time period is included. WBC 9.5 3.5 - 10.5 K/L [facility] RBC 3.10 (L) 4.63 - 6.08 M/L [facility] Hemoglobin 8.9 (L) 13.7 - 17.5 GM/DL [facility] Hematocrit 28.6 (L) 40.1 - 51.0 % [facility] MCV 92.3 (H) 79.0 - 92.2 fL [facility] MCH 28.7 25.7 - 32.2 pg [facility] MCHC 31.1 (L) 32.3 - 36.5 GM/DL [facility] RDW 14.1 11.6 - 14.4 % [facility] Platelets 368 150 - 450 K/CU MM [facility] MPV 11.3 9.4 - 12.4 fL [facility] nRBC 0 0 - 0 /100 WBC [facility] % Neutros 67 % [facility] % Lymphs 17 % [facility] % Monos 7 % [facility] % Eos 8 % [facility] % Baso 1 % [facility] # Neutros 6.33 (H) 1.78 - 5.38 K/L [facility] # Lymphs 1.56 1.32 - 3.57 K/L [facility] # Monos 0.69 0.30 - 0.82 K/L [facility] # Eos 0.72 (H) 0.04 - 0.54 K/L [facility] # Baso 0.08 0.01 - 0.08 K/L [facility] Immature 1 0 - 1 % [facility] Granulocytes-Relative [facility] Specimen Blood Performing Organization Address City/State/Zipcode Ph one Number [address] [facility] [facility] * Basic Metabolic Panel (10/02/2018 6:08 AM CDT) Only the most recent of 16 results within the time period is included. Sodium 140 136 - 145 meq/L [facility] Potassium 4.3 3.5 - 5.1 meq/L [facility] Chloride 107 98 - 107 meq/L [facility] CO2 26 22 - 29 meq/L [facility] BUN 12 7 - 21 mg/dL [facility] Creatinine 1.24 0.57 - 1.25 mg/dL [facility] Glucose 129 (H) 70 - 105 mg/dL [facility] Calcium 9.0 8.4 - 10.2 mg/dL [facility] EGFR 57Comment: ESTIMATED GFR IS mL/min/1.73 sq m [facility] NOT ACCURATE CREATININE [facility] CLEARANCE IN PREDICTING GLOMERULAR FILTRATION RATE. ESTIMATED GFR IS NOT APPLICABLE FOR DIALYSIS PATIENTS. Specimen Blood Performing Organization Address [facility] Ph one Number [facility] [address] [address] [facility] * ECG 12 lead (09/27/2018 6:35 AM CDT) Only the most recent of 4 results within the time period is included. Specimen Narrative Performed At Ventricular Rate 70 BPM GE MUSE Atrial Rate 70 BPM P-R Interval 170 ms QRS Duration 88 ms Q-T Interval 424 ms QTC Calculation(Bazett) 457 ms P Shohola 56 degrees R Shohola -3 degrees T Shohola 70 degrees Normal sinus rhythm Normal ECG When compared with ECG of 21-SEP-2018 2 3:33, PAC's are not seen on the current EKG Confirmed by Chas HOLLINS, ALFRED ([id number]) on 10/02/2018 5:56:33 PM Procedure Note Interface, External Ris In - 10/02/2018 5:56 PM CDT Ventricular Rate 70 BPM Atrial Rate 70 BPM P-R Interval 170 ms QRS Duration 88 ms Q-T Interval 424 ms QTC Calculation(Bazett) 457 ms P Shohola 56 degrees R Shohola -3 degrees T Shohola 70 degrees Normal sinus rhythm Normal ECG When compared with ECG of 21-SEP-2018 23:33, PAC's are not seen on the current EKG Confirmed by Chas HOLLINS BASANT ([email or web address]) on 10/02/2018 5:56:33 PM Performing Organization Address City/[facility] one Number GE MUSE * Phosphorus (09/27/2018 6:26 AM CDT) Only the most recent of 6 results within the time period is included. Phosphorus 4.1 2.3 - 4.7 mg/dL [facility] Specimen Blood Performing Organization Address City/[facility] [email or web address] Ph one Number [facility] [address] [place], [place] [address] [facility] * Magnesium (09/27/2018 6:26 AM CDT) Only the most recent of 13 results within the time period is included. Magnesium 1.9 1.6 - 2.6 mg/dL [facility] Specimen Blood Performing Organization Address City/[facility] [[email or web address] Ph one Number [facility] [address] [place], [place] [address] [facility] * XR chest 1 view portable / bedside (09/26/2018 8:50 AM CDT) Only the most recent of 7 results within the time period is included. Specimen Narrative Performed At FINAL REPORT GE RIS RAD, CHEST, 1 VIEW, NON DEPT INDICATION: pulmonary edema COMPARISON: September 23, 2018 FINDINGS: Portable frontal view of the chest. IMPRESSION: Limited by underpenetration. Support Lines: Stable. Lungs and pleura: Congestive interstiti al changes slightly increased from the prior examination. Stable left effusion. No pneumothorax. Heart and mediastinum: Stable contours. Stable surgical changes. Additional findings: None. Signed: JR Jaime Robert MD Report Verified Date/Time: 9 08:51:52 Reading Location: [facility] Reading Room Procedure Note Interface, External Ris In - 09/26/2018 8:53 AM CDT FINAL REPORT RAD, CHEST, 1 VIEW, NON DEPT INDICATION: pulmonary edema COMPARISON: September 23, 2018 FINDINGS: Portable frontal view of the chest. IMPRESSION: Limited by underpenetration. Support Lines: Stable. Lungs and pleura: Congestive interstitial changes slightly increased from the prior examination. Stable left effusion. No pneumothorax. Heart and mediastinum: Stable contours. Stable surgical changes. Additional findings: None. Signed: JR Jaime Robert MD Report Verified Date/Time: 09/26/2018 08:51:52 Reading Location: [facility] Reading Room Performing Organization Address City/[facility] Ph one Number GE RIS * Calcium, Ionized (09/25/2018 4:13 AM CDT) Only the most recent of 5 results within the time period is included. Calcium, Ion 1.14 1.12 - 1.27 mmol/L [facility] pH, Blood 7.48 [facility] Specimen Blood Performing Organization Address City/[facility] Ph one Number [address] [place] [address] 0 [phone] [place] [address] * Potassium (09/24/2018 8:33 PM CDT) Potassium 3.5 3.5 - 5.1 meq/L [facility] Specimen Blood Narrative Performed At Check Serum Potassium level 2 hours after oral potass ium replacement completed [facility] or 30 min after intravenous potassium replacement. [facility] Performing Organization Address [facility] Ph one Number [address] [address] 0 [phone] [place] [address] * CBC (Hemogram only) (09/23/2018 4:54 AM CDT) Only the most recent of 4 results within the time period is included. WBC 10.4 3.5 - 10.5 K/L [facility] RBC 2.83 (L) 4.63 - 6.08 M/L [facility] Hemoglobin 8.3 (L) 13.7 - 17.5 GM/DL [facility] Hematocrit 27.9 (L) 40.1 - 51.0 % [facility] MCV 98.6 (H)Comment: Discordant 79.0 - 92.2 fL [facility] MCV results compared to [facility] previous results; clinical correlation required. MCH 29.3 25.7 - 32.2 pg [facility] MCHC 29.7 (L) 32.3 - 36.5 GM/DL [facility] RDW 13.7 11.6 - 14.4 % [facility] Platelets 166 150 - 450 K/CU MM [facility] MPV 12.6 (H) 9.4 - 12.4 fL [facility] nRBC 0 0 - 0 /100 WBC [facility] Specimen Blood Performing Organization Address City/[facility] [[email or web address] Ph one Number [place] [address] [facility] * Lactic acid, venous (09/22/2018 12:29 AM CDT) Lactate, Venous 2.0 0.5 - 2.2 mmol/L [facility] Specimen Blood Performing Organization Address City/[facility] Ph one Number [address] [place] [address] [facility] * Blood gas, venous (09/22/2018 12:29 AM CDT) pH, Stephen 7.46 (H) 7.32 - 7.42 [facility] pCO2, Stephen 34 (L) 41 - 51 mmHg [facility] pO2, Stephen 47 (H) 25 - 40 mmHg [facility] O2 Sat, Stephen 85.7 (H) 40.0 - 70.0 % [facility] HCO3, Stephen 24 21 - 29 mmol/L [facility] Base Excess, Stephen 0.3 -2.0 - 3.0 mmol/L [facility] Patient Temperature 37.0 C [facility] FIO2 100.0 % [facility] Specimen Blood Performing Organization Address [facility] one Number [facility] [address] [place] [address] [facility] * Oxygen saturation, measured (09/21/2018 3:49 AM CDT) Only the most recent of 2 results within the time period is included. O2 Saturation (Measured) 64.1 % [facility] Specimen Blood Performing Organization Address [facility] Ph one Number [facility] [address] [place] [address] [facility] * Lactic Acid, Arterial (09/21/2018 3:49 AM CDT) Only the most recent of 4 results within the time period is included. Lactate, Art 0.8 0.5 - 2.2 mmol/L [facility] Specimen Blood, Arterial Performing Organization Address [facility] Ph one Number [phone] [place], [place] [address] [facility] * Blood gas, arterial (09/21/2018 3:49 AM CDT) Only the most recent of 13 results within the time period is included. pH, Arterial 7.43 7.35 - 7.45 [facility] pCO2, Arterial 36 35 - 45 mmHg [facility] pO2, Arterial 86 80 - 90 mmHg [facility] O2 Sat, Arterial 96.8 96.0 - 97.0 % [facility] HCO3, Arterial 23 21 - 29 mmol/L [facility] Base Excess, Arterial -0.8 -2.0 - 3.0 mmol/L [facility] Patient Temperature 36.8 C [facility] FIO2 32.0 % [facility] Specimen Blood, Arterial Performing Organization Address [facility] one Number [address] [facility] * Potassium-Stat Lab (09/20/2018 11:00 PM CDT) Only the most recent of 9 results within the time period is included. Potassium 3.4 (L) 3.6 - 5.5 meq/L [facility] Specimen Blood, Arterial Performing Organization Address [facility] one Number [address] [address] [facility] * Sodium Na-Stat Lab (09/20/2018 11:00 PM CDT) Only the most recent of 9 results within the time period is included. Sodium 137 135 - 148 meq/L [facility] Specimen Blood, Arterial Performing Organization Address [facility] one Number [address] [facility] * Glucose-Stat Lab (09/20/2018 11:00 PM CDT) Only the most recent of 9 results within the time period is included. Glucose 132 (H) 70 - 110 mg/dL [facility] Specimen Blood, Arterial Performing Organization Address [facility] one Number [address] [facility] * HGB/HCT (H&H)-Stat Lab (09/20/2018 11:00 PM CDT) Only the most recent of 9 results within the time period is included. Hemoglobin 9.9 (L) 13.0 - 16.8 g/dL [facility] Hematocrit 29.0 (L) 40.0 - 50.0 % [facility] Specimen Blood, Arterial Performing Organization Address [facility] one Number [address] [facility] * TRANSFUSION SERVICE REPORT - SCAN (09/20/2018 6:04 PM CDT) Narrative Performed At This result has an attachment that is n ot available. * Prothrombin time/INR (09/19/2018 7:11 PM CDT) Only the most recent of 3 results within the time period is included. Protime 16.5 (H) 11.9 - 14.2 seconds [facility] INR 1.4 <=5.9 [facility] Specimen Blood Narrative Performed At Effective 07/10/2018: PT Reference Range Change [facility] New: 11.9-14.2Previous: 11.7-14.7 [facility] NTER RECOMMENDED COUMADIN/WARFARIN INR THERA PY RANGES STANDARD DOSE: 2.0-3.0Includes: PRO PHYLAXIS for venous thrombosis, systemic embolization; TREATMENT for venous thro mbosis and/or pulmonary embolus. HIGH RISK: Target INR is 2.5-3.5 for pa tients wiht mechanical heart valves. Performing Organization Address [facility] Ph one Number [address] [facility] * Prepare RBC (09/19/2018 7:02 PM CDT) CROSSMATCH COMPATIBLE SAFETRACE TX Unit ABO A Pos SAFETRACE TX UNIT NUMBER [id number] SAFETRACE TX Status RETURNED FROM ISSUE SAFETRACE TX Blood Bank Product RED BLOOD CELLS SAFETRACE TX PRODUCT CODE [id number] SAFETRACE TX CROSSMATCH COMPATIBLE SAFETRACE TX Unit ABO A Pos SAFETRACE TX UNIT NUMBER [id number] SAFETRACE TX Status RETURNED FROM ISSUE SAFETRACE TX Blood Bank Product RED BLOOD CELLS SAFETRACE TX PRODUCT CODE [id number] SAFETRACE TX Performing Organization Address [facility] one Number SAFETRACE [place] * Thromboelastograph (TEG) (09/19/2018 5:03 PM CDT) TEG Activated Clotting 5.0 4.0 - 7.0 minutes [facility] TEG Fibrinogen Activity 70.9 61.0 - 73.[address] [facility] TEG Platelet Aggregation 66.5 (H) 55.0 - 65.[address] [facility] TEG-H Activated Clotting 5.2 4.0 - 7.0 minutes [facility] Time [facility] TEG-H Fibrinogen Activity 72.7 61.0 - 73.0 degrees [facility] TEG-H Platelet 58.5 55.0 - 65.0 MM [facility] Aggregation [facility] Specimen Blood Performing Organization Address [facility] Ph one Number [address] [facility] * aPTT (09/19/2018 5:03 PM CDT) Only the most recent of 4 results within the time period is included. PTT 28.4 22.5 - 36.0 seconds [facility] Specimen Blood Performing Organization Address [facility] Ph one Number [address] [address] [facility] * Fibrinogen (09/19/2018 5:03 PM CDT) Fibrinogen 266 225 - 434 mg/dl [facility] Specimen Blood Performing Organization Address City/[facility] Ph one Number [address] [facility] * Platelet count (09/19/2018 5:03 PM CDT) Only the most recent of 2 results within the time period is included. Platelets 148 (L) 150 - 450 K/CU MM [facility] Specimen Blood Performing Organization Address [facility] Ph one Number [address] [facility] * 2D Echo W/Doppler(CW/PW/Color) (09/19/2018 9:54 AM CDT) Ejection Fraction [facility] ECHO HEARTLAB [facility] Specimen Narrative Performed At Transthoracic Echocardiography Report (TTE) [facility] ECH O HEARTLAB Demographics [facility] Patient Name PEE CASTELLANOS Date of Study 09/19/2018 JOSELYN [id number] Gender Male Visit Number [id number] Room Number SCPR Number Date of Birth1945 Referring Physician Kaya Magallanes MD Age73 year(s)[employer] Transplanter Nahum Snyder RD CSInterpretingJoseJanny Bone MD Procedure Type of Study TTE procedure:2DECHO W DO PPLER(CW/PW/COLOR) (JOSEPHINE) Indications:Acute Chest Pain/ Suspected CAD. Clinical History HGB 11.8 HCT 36.6 % HLD CKD CAD DM GOUT Height: 64 inches Weight: 98.43 kg (217 lbs) BSA: 2.03 m^2 BMI: 37.25 kg/m^2 HR: 66 bpm BP: 176/72 mmHg Summary The left ventricle is chamber size (by vol index) is normal (male - LVED vol - 34-74ml/m2). No evidence of LV hy pertrophy. All of the LV segments contract normally . Global LV systolic function normal . LVEF by Ambriz's method of disk assessment is normal (55 -60%) . Grade 1 diastolic dysfunction (impaired relaxation and lo w-normal LA pressure). Unable to estimate peak systolic PA pre ssure; inadequate TR velocity signal. No pericardial effusion is visualized. Previous Study No prior studies available for comparis on. Signature Findings Technical Quality: Technically adequate exam. Left Ventricle The left ventricle is chamber size (by vol index) is normal (male - LVED vol - 34-74ml/m2). No evidence of LV hypertrophy. All of the LV segments contract normally . Global LV systolic function normal . LVEF by Ambriz's method of disk assessment is normal (55-60%) . Grade 1 diastolic dysfunction (impaired relaxation and low-normal LA pressure). Left AtriumLA s ize is severely enlarged (>48 ml/m2) . Right VentricleThe righ t ventricular chamber size and systolic function are within normal limits. Right Atrium RA siz e is normal. Aortic Valve Mild A oV cusp calcification. AoV cusp mobility is normal . Mitral Valve Mild M V leaflet thickening. Trace mitral regurgitation. Tricuspid ValveTV struc ture is normal. A trace of tricuspid regurgitation. Unable to estimate peak systolic PA pressure; inadequate TR velocity signal. Pulmonic Valve Mild pul monary regurgitation. Normal PV structure appears normal by available views. Aorta Aortic root size (SInus of Valsalva diameter) is normal . PericardiumNo p ericardial effusion is visualized. IVC/SVC/PA/PV/PleuralThe estimated RA pressure by IVC dynamics 5-10mmHg [...] E/A Ratio: 0.96 Peak Gradient: 2.79 mmHg Decelera tion Time: 172.9 msec MV Ed. Peak: Aortic [...] CO: 5.68 l/min LVOT CI: 2.8 l/min/m^2 Procedure Note Interface, External Ris In - 09/19/2018 12:03 PM CDT Transthoracic Echocardiography Report (TTE) Demographics Patient Name PEE CASTELLANOS Date of Study 09/19/2018 JOSELYN Gender Male Visit Number [id number] Race Room Number SCPR Number Date of 1945 Referring Physician Kaya Magallanes MD Age 73 year(s) [employer] Transplanter Nahum Gonzalez Water Valve Repairer Roxanne Snyder, [facility] Interpreting Physician JOE Rossi Procedure Type of Study TTE procedure:2DECHO W DOPPLER(CW/PW/COLOR) (JOSEPHINE) Indications:Acute Chest Pain/ Suspected CAD. Clinical History HGB 11.8 HCT 36.6 % HLD CKD CAD DM GOUT Height: 64 inches Weight: 98.43 kg (217 lbs) BSA: 2.03 m^2 BMI: 37.25 kg/m^2 HR: 66 bpm BP: 176/72 mmHg Summary The left ventricle is chamber size (by vol index) is normal (male - LVED vol - 34-74ml/m2). No evidence of LV hypertrophy. All of the LV segments contract normally . Global LV systolic function normal . LVEF by Ambriz's method of disk assessment is normal (55-60%) . Grade 1 diastolic dysfunction (impaired relaxation and low-normal LA pressure). Unable to estimate peak systolic PA pressure; inadequate TR velocity signal. No pericardial effusion is visualized. Previous Study No prior studies available for comparison. Signature Findings Technical Quality: Technically adequate exam. Left Ventricle The left ventricle is chamber size (by vol index) is normal (male - LVED vol - 34-74ml/m2). No evidence of LV hypertrophy. All of the LV segments contract normally . Global LV systolic function normal . LVEF by Ambriz's method of [...] CO: 5.68 l/min LVOT CI: 2.8 l/min/m^2 Performing Organization Address [facility] Ph one Number [facility] ECHO HEARTLAB MKCKESSON CPACS * ABORH, manual (09/19/2018 3:56 AM CDT) ABO Grouping A [facility] Rh Factor POS [facility] Specimen Blood Performing Organization Address [facility] Ph one Number [address] * Type and screen, automated (09/19/2018 3:35 AM CDT) ABO/RH AUTOMATED (BEAKER) A POSITIVE [facility] Ab Scrn NEGATIVE [facility] Specimen Blood Performing Organization Address [facility] Ph one Number [address] * Hemoglobin A1c (09/19/2018 3:35 AM CDT) Hemoglobin A1C 6.2 (H) 4.3 - 6.1 % [facility] Specimen Blood Performing Organization Address [facility] one Number [address] [facility] * Lipid panel (09/19/2018 3:35 AM CDT) Triglycerides 194 mg/dL [facility] Cholesterol 107 mg/dL [facility] HDL 27 mg/dL [facility] LDL Calculated 41 mg/dL [facility] Specimen Blood Narrative Performed At Triglyceride Reference Range: [facility] Low Risk <150 [facility] R [id number] High Risk 200-499 Very High Risk>=500 Cholesterol Reference Range: Low Risk <200 [id number] High Risk>240 HDL Cholesterol Reference Range: Low Risk >=60 High Risk <40 LDL Cholesterol Reference Range: Optimal<100 Near [id number] Very High >=190 Performing Organization Address [facility] one Number [address] [facility] * Comprehensive metabolic panel (09/19/2018 3:35 AM CDT) Protein, Total 6.7 6.0 - 8.3 gm/dL [facility] Albumin 3.9 3.5 - 5.0 g/dL [facility] Alkaline Phosphatase 40 40 - 150 U/L [facility] Total Bilirubin 0.5 0.2 - 1.2 mg/dL [facility] Sodium 138 136 - 145 meq/L [facility] Potassium 4.1 3.5 - 5.1 meq/L [facility] Chloride 106 98 - 107 meq/L [facility] CO2 23 22 - 29 meq/L [facility] BUN 18 7 - 21 mg/dL [facility] Creatinine 1.30 (H) 0.57 - 1.25 mg/dL [facility] Glucose 127 (H) 70 - 105 mg/dL [facility] Calcium 9.6 8.4 - 10.2 mg/dL [facility] AST 19 5 - 34 U/L [facility] ALT 19 6 - 55 U/L [facility] EGFR 54Comment: ESTIMATED GFR IS mL/min/1.73 sq m [facility] NOT ACCURATE CREATININE [facility] CLEARANCE IN PREDICTING GLOMERULAR FILTRATION RATE. ESTIMATED GFR IS NOT APPLICABLE FOR DIALYSIS PATIENTS. Specimen Blood Performing Organization Address City/State/Zipcode Ph one Number [facility] [address] [place], [place] [address] [facility] * Carotid doppler bilateral (09/18/2018 9:39 PM CDT) [facility] ECHO HEARTLAB MK[facility] CPACS Specimen Impressions Performed At Right Impression [facility] ECHO HEARTLAB 1. There is <50% diameter reduction (approximately 10 % by 2-D measurement) [facility] CPACS in the internal carotid artery with a p eak velocity of 10 cm/sec and heterogeneous plaque. 2. There is non-occluding plaque in the external carotid artery. 3. There is non-occluding plaque in the common carotid artery. 4. The vertebral artery flow is antegra de and normal. 5. The subclavian artery is within norm al limits where visualized. Left Impression 1. There is <50% diameter reduction (un able to determine by 2-D measurement) in the internal carotid artery with a p eak velocity of 119/29.9 cm/sec and heterogeneous plaque. 2. There is non-occluding plaque in the external carotid artery. 3. There is non-occluding plaque in the common carotid artery. 4. The vertebral artery flow is antegra de and normal. 5. The subclavian artery is within norm al limits where visualized. Conclusions Summary Carotid duplex scanning and color flow imaging were performed bilaterally. The arteries were adequately visualized except as noted. The bilateral internal carotid arteries had <50% hemo dynamically insignificant stenosis (approximately 28% by 2-D measurement o n the right, unable to determine by 2-D measurement on the left) with heter ogeneous plaque. The vertebral artery flow was antegrade and normal bi laterally. The subclavian arteries were patent with normal flow bilaterall y where visualized. Signature Velocities are measured in cm/s ; Diame ters are measured in cm Carotid Right Measurements + +----+----+-----+------ ------+ + + !Location !PSV !EDV !Angle! %Stenosis 2D!%Stenosis Doppler!Tortuosity ! + +----+----+-----+------ ------+ + + !Prox CCA !87.9!11.1!60 !! ! ! + +----+----+-----+------ ------+ + + !Dist CCA !70.9!14.7!60 !! ! ! + +----+----+-----+------ ------+ + + !Prox ICA !61.6!14.1!60 !28% !<50% ! ! + +----+----+-----+------ ------+ + + !Dist ICA !62.9!14.1!60 !! ! ! + +----+----+-----+------ ------+ + + !Prox ECA !104 !9.97!60 !! ! ! + +----+----+-----+------ ------+ + + !Vertebral!41.6!13.4!60 !! ! ! + +----+----+-----+------ ------+ + + !Prox Subclavian!104 !!60 !! ! ! + +----+----+-----+------ ------+ + + - There is antegrade vertebral flow noted on the right side. - Additional Measurements:ICAPSV/CC APSV 0.89.ICAEDV/CCAEDV 1.27. Carotid Left Measurements + +----+----+-----+------ ------+ + + !Location !PSV !EDV !Angle! %Stenosis 2D!%Stenosis Doppler!Tortuosity ! + +----+----+-----+------ ------+ + + !Prox CCA !110 !18.8!60 !! ! ! + +----+----+-----+------ ------+ + + !Dist CCA !72.1!14.1!60 !! ! ! + +----+----+-----+------ ------+ + + !Prox ICA !119 !29.9!60 !!<50% ! ! + +----+----+-----+------ ------+ + + !Dist ICA !108 !29.9!60 !! ! ! + +----+----+-----+------ ------+ + + !Prox ECA !92!8.21!60 !! ! ! + +----+----+-----+------ ------+ + + !Vertebral!63.9!10.6!60 !! ! ! + +----+----+-----+------ ------+ + + !Prox Subclavian!151 !!60 !! ! ! + +----+----+-----+------ ------+ + + - There is antegrade vertebral flow noted on the left side. - Additional Measurements:ICAPSV/CC APSV 1.65.ICAEDV/CCAEDV 1.59. Narrative Performed At LAB - Carotid Duplex Study [facility] Demographics [facility] Patient Name EMANUEL, PEE Date of Study09/18/2018 EDWINA STENI [id number] Visit Number [id number] Gender Male Accession Number [id number] Date of Birth1945 ReferringIlanalinsey Vincespencer umaña, Room [id number] PhysicianMD Thea Khan Interpreting Kaya Magallanes MD Physician Procedure Type of Study: Cerebral: Carotid, CAROTID DOPPLER, DEMETRA ATERAL. Indications for Study:Pre-op evaluation . Patient Status:TODAY. Study Location:Portable. Technical Quality:Technically Difficult . Risk Factors History of Disease + +----+------ + !Diagnosis !Date!Comments ! + +----+------ + !History/Risk Factors: !!Neuropathy ! !!!DM ! !!!HTN ! !!!HLD ! ! !!FOrmer smoker ! ! !!Bilateral LE swelling x 1 day ! + +----+------ + Procedure Note Interface, External Ris In - 09/19/2018 9:58 AM CDT [facility] - Carotid Duplex Study Demographics Patient Name SUNIL CASTELLANOSFRED Date of Study 09/18/2018 JOSELYN Age 73 Visit Number [id number] Gender Male Accession Number [id number] Date of 1945 Referring Kaya Magallanes, Room Number C626 Physician [facility] Philip Khan Interpreting Kaya Magallanes MD Physician Procedure Type of Study: Cerebral: Carotid, CAROTID DOPPLER, BILATERAL. Indications for Study:Pre-op evaluation. Patient Status:TODAY. Study Location:Portable. Technical Quality:Technically Difficult. Risk Factors History of Disease + +----+------- + !Diagnosis !Date!Comments ! + +----+------- + !History/Risk Factors: ! !Neuropathy ! ! ! !DM ! ! ! !HTN ! ! ! !HLD ! ! ! !FOrmer smoker ! ! ! !Bilateral LE swelling x 1 day ! + +----+------- + Impressions Right Impression 1. There is <50% diameter reduction (delma roximately 10% by 2-D measurement) in the internal carotid artery with a peak velocity of 10 cm/sec and heterogeneous plaque. 2. There is non-occluding plaque in the external carotid artery. 3. There is non-occluding plaque in the common carotid artery. 4. The vertebral artery flow is antegrad e and normal. 5. The subclavian artery is within konstantin l limits where visualized. Left Impression 1. There is <50% diameter reduction (wandy ble to determine by 2-D measurement) in the internal carotid artery with a peak velocity of 119/29.9 cm/sec and heterogeneous plaque. 2. There is non-occluding plaque in the external carotid artery. 3. There is non-occluding plaque in the common carotid artery. 4. The vertebral artery flow is antegrad e and normal. 5. The subclavian artery is within konstantin l limits where visualized. Conclusions Summary Carotid duplex [...] Diameters are measured in cm Carotid Right Measurements + +----+----+-----+------- -----+ + + !Location !PSV !EDV !Angle!%Stenosis 2D!%Stenosis Doppler!Tortuosity ! + +----+----+-----+------- -----+ + + !Prox CCA !87.9!11.1!60 ! ! ! ! + +----+----+-----+------- -----+ + + !Dist CCA !70.9!14.7!60 ! ! ! ! + +----+----+-----+------- -----+ + + !Prox ICA !61.6!14.1!60 !28% !<50% ! ! + +----+----+-----+------- -----+ + + !Dist ICA !62.9!14.1!60 ! ! ! ! + +----+----+-----+------- -----+ + + !Prox ECA !104 !9.97!60 ! ! ! ! + +----+----+-----+------- -----+ + + !Vertebral !41.6!13.4!60 ! ! ! ! + +----+----+-----+------- -----+ + + !Prox Subclavian!104 ! !60 ! ! ! ! + +----+----+-----+------- -----+ + + - There is antegrade vertebral flow noted on the right side. - Additional Measurements:ICAPSV/CCAPSV 0.89.ICAEDV/CCAEDV 1.27. Carotid Left Measurements + +----+----+-----+------- -----+ + + !Location !PSV !EDV !Angle!%Stenosis 2D!%Stenosis Doppler!Tortuosity ! + +----+----+-----+------- -----+ + + !Prox CCA !110 !18.8!60 ! ! ! ! + +----+----+-----+------- -----+ + + !Dist CCA !72.1!14.1!60 ! ! ! ! + +----+----+-----+------- -----+ + + !Prox ICA !119 !29.9!60 ! !<50% ! ! + +----+----+-----+------- -----+ + + !Dist ICA !108 !29.9!60 ! ! ! ! + +----+----+-----+------- -----+ + + !Prox ECA !92 !8.21!60 ! ! ! ! + +----+----+-----+------- -----+ + + !Vertebral !63.9!10.6!60 ! ! ! ! + +----+----+-----+------- -----+ + + !Prox Subclavian!151 ! !60 ! ! ! ! + +----+----+-----+------- -----+ + + - There is antegrade vertebral flow noted on the left side. - Additional Measurements:ICAPSV/CCAPSV 1.65.ICAEDV/CCAEDV 1.59. Performing Organization Address City/State/Zipcode Ph one Number [facility] after 08/22/2018 Insurance Payer Benefit Subscriber ID Type Phone Address Plan / Group [employer] xxxxxxxxxxx MEDICARE ADV [id number] Advance Directives For more information, please contact: [facility] [address] [place] [address] Date Inactivated Comments Code Status Date Activated 01/16/2019 10:08 PM Full Code 01/16/2019 10:33 AM This code status was determined by: Patient 10/02/2018 6:44 PM Full Code 09/18/2018 9:33 AM This code status was determined by: Patient 12/07/2014 4:38 PM Full Code 12/05/2014 1:32 AM This code status was determined by: Patient 11/30/2014 2:45 PM Full Code 11/26/2014 7:26 PM This code status was determined by: Patient
--- OUTSIDE RECORDS SUMMARY | 2019-09-12 10:18 | XMS REPORT | Clinical Summary ---
Author Author ESTELA [facility] Address Unknown Phone Unavailable Care Team Providers Care Net Coordinator Name Role Phone Yusuf Menendez MD PCP [...] without complication (HCC); Coronary artery disease involving [place] coronary artery of [place] heart with angina pectoris (HCC); ETOH abuse; [...] Taken Vital Sign Reading 01/16/2019 7:30 PM SPICE ROOM WORKER Blood Pressure 136/79 01/16/2019 7:30 PM SPICE ROOM WORKER Pulse 67 01/16/2019 10:14 AM SPICE ROOM WORKER Temperature 37 C (98.6 F) 01/16/2019 7:30 PM SPICE ROOM WORKER Respiratory Rate 16 01/16/2019 5:40 PM SPICE ROOM WORKER Oxygen Saturation 97% 09/30/2018 7:52 AM CDT Inhaled Oxygen 21% Concentration 01/16/2019 10:14 AM SPICE ROOM WORKER Weight 89.4 kg (197 lb) 01/16/2019 10:14 AM SPICE ROOM WORKER Height 162.6 cm (5' 4") 01/16/2019 10:14 AM SPICE ROOM WORKER Body Mass Index 33.81 Plan of Treatment [...] Area Manufactur er 03/14/2023 [id number] / / [id number] Sternal [employer]fix Ndl Strl IMPLANTS SYNTHES:[id number] .[id number] - [id number] NTHES [place] Implanted: Qty: 1 on 09/19/2018 by Kaya Magallanes MD Procedures Comments Procedure Name Priority Date/Time Associated Diag nosis VASCULAR DIAGRAM -SCAN 01/29/2019 12:20 PM SPICE ROOM WORKER REPORT OF PROCEDURE - 01/20/2019 ENDOSCOPY SCAN 7:00 AM SPICE ROOM WORKER CARDIAC CATH REPORT - 01/20/2019 SCAN 7:00 AM SPICE ROOM WORKER POCT-ACT Routine 01/16/2019 4:16 PM SPICE ROOM WORKER PERIPHERAL ANGIOS & IVUS 01/16/2019 PAD (periphe ral artery 1:52 PM SPICE ROOM WORKER disease) (HCC) Case Notes (6)CASE 6TOP/ [id number] POCT-GLUCOSE METER Routine 01/16/2019 12:00 PM SPICE ROOM WORKER RHYTHM STRIP - SCAN 10/03/2018 11:11 AM [...] ms QTC Calculatio n(Bazett) 450 ms P Sawyer 25 degrees R Sawyer -15 degrees T Sawyer 56 degrees Sinus tachycardi a with Premature [...] malaika ry disease 12:00 PM CDT involving [place] coronary artery of [place] heart without angina pectoris Case Notes [facility] Special Needs Request 12 pm [place]PASS,[place] CORONARY 09/19/2018 Coronary artery disease SU/SVG 12:00 PM CDT involving [place] co ronary artery of [place] heart without angina pectoris Case Notes HARD [...] * VASCULAR DIAGRAM -SCAN (01/29/2019 12:20 PM SPICE ROOM WORKER) Only the most recent of 3 results within the time period is included. Narrative Performed At This result has an attachment that is n ot available. * EKG-SCANNED (01/20/2019 7:00 AM SPICE ROOM WORKER) Narrative Performed At This result has an attachment that is n ot available. * CARDIAC CATH REPORT - SCAN (01/20/2019 7:00 AM SPICE ROOM WORKER) Narrative Performed At This result has an attachment that is n ot available. * POC ACTIVATED CLOTTING TIME (01/16/2019 4:16 PM SPICE ROOM WORKER) Only the most recent of 8 results within the time period is included. Activated Clotting Time 257Comment: Reference Range: sec [facility] 74-137 seconds, [facility] Baseline/TESTED AT [facility] [address] [place] [id number] Specimen Blood Performing Organization Address City/State/Zipcode Ph one Number [address] [facility] * POC-Glucose meter (01/16/2019 12:00 PM SPICE ROOM WORKER) Only the most recent of 51 results within the time period is included. POC-Glucose Meter 106Comment: : TESTED AT [facility] 70 - 110 mg/d L [address] [address]: Tufter Hand/Catalog Library Assistant ID = [id number] for Maryjo Flores Specimen Blood Performing Organization Address City/State/[facility] Ph one Number [address] [facility] * RHYTHM STRIP - SCAN (10/03/2018 11:11 [...] included. WBC 9.5 3.5 - 10.5 K/L [facility] RBC 3.10 (L) 4.63 - 6.08 M/L [facility] Hemoglobin 8.9 (L) 13.7 - 17.5 GM/DL [facility] Hematocrit 28.6 (L) 40.1 - 51.0 % [facility] MCV 92.3 (H) 79.0 - 92.2 fL [facility] MCH 28.7 25.7 - 32.2 pg [facility] MCHC 31.1 (L) 32.3 - 36.5 GM/DL [facility] RDW 14.1 11.6 - 14.4 % [facility] Platelets 368 150 - 450 K/CU MM [facility] MPV 11.3 9.4 - 12.4 fL [facility] nRBC 0 0 - 0 /100 WBC [facility] % Neutros 67 % [facility] % Lymphs 17 % [facility] % Monos 7 % [facility] % Eos 8 % [facility] % Baso 1 % [facility] # Neutros 6.33 (H) 1.78 - 5.38 K/L [facility] # Lymphs 1.56 1.32 - 3.57 K/L [facility] # Monos 0.69 0.30 - 0.82 K/L [facility] # Eos 0.72 (H) 0.04 - 0.54 K/L [facility] # Baso 0.08 0.01 - 0.08 K/L [facility] Immature 1 0 - 1 % [facility] Granulocytes-Relative [facility] Specimen Blood Performing Organization Address City/State/Zipcode Ph one Number [address] [facility] * Basic Metabolic Panel (10/02/2018 6:08 AM CDT) Only the most recent of 16 results within the time period is included. Sodium 140 136 - 145 meq/L [facility] Potassium 4.3 3.5 - 5.1 meq/L [facility] Chloride 107 98 - 107 meq/L [facility] CO2 26 22 - 29 meq/L [facility] BUN 12 7 - 21 mg/dL [facility] Creatinine 1.24 0.57 - 1.25 mg/dL [facility] Glucose 129 (H) 70 - 105 mg/dL [facility] Calcium 9.0 8.4 - 10.2 mg/dL [facility] EGFR 57Comment: ESTIMATED GFR IS mL/min/1.73 sq m [facility] NOT ACCURATE CREATININE [facility] CLEARANCE IN PREDICTING GLOMERULAR FILTRATION RATE. ESTIMATED GFR IS NOT APPLICABLE FOR DIALYSIS PATIENTS. Specimen Blood Performing Organization Address [facility] Ph one Number [facility] [address] [address] [facility] * ECG 12 lead (09/27/2018 6:35 AM CDT) Only the most recent of 4 results within the time period is included. Specimen Narrative Performed At Ventricular Rate 70 BPM GE MUSE Atrial Rate 70 BPM P-R Interval 170 ms QRS Duration 88 ms Q-T Interval 424 ms QTC Calculation(Bazett) 457 ms P Sawyer 56 degrees R Sawyer -3 degrees T Sawyer 70 degrees Normal sinus rhythm Normal ECG [...] 424 ms QTC Calculation(Bazett) 457 ms P Sawyer 56 degrees R Sawyer -3 degrees T Sawyer 70 degrees Normal sinus rhythm Normal ECG When compared with ECG of 21-SEP-2018 23:33, PAC's are not seen on the current EKG Confirmed by Chas HOLLINS BASANT ([email or web address]) on 10/02/2018 5:56:33 PM Performing Organization Address City/[facility]/Replaced By [facility] one Number GE MUSE * Phosphorus (09/27/2018 6:26 AM CDT) Only the most recent of 6 results within the time period is included. Phosphorus 4.1 2.3 - 4.7 mg/dL [facility] Specimen Blood Performing Organization Address City/[facility] Ph one Number [facility] [address] [place], [place] [address] [facility] * Magnesium (09/27/2018 6:26 AM CDT) Only the most recent of 13 results within the time period is included. Magnesium 1.9 1.6 - 2.6 mg/dL [facility] Specimen Blood Performing Organization Address City/[facility] Ph one Number [facility] [address] [place], [place] [address] [facility] * XR chest 1 view portable / [...] Verified Date/Time: 9 08:51:52 Reading Location: [facility] Reading Room Procedure Note Interface, [...] [facility] Reading Room Performing Organization Address City/[facility] Ph one Number GE RIS * Calcium, Ionized (09/25/2018 4:13 AM CDT) Only the most recent of 5 results within the time period is included. Calcium, Ion 1.14 1.12 - 1.27 mmol/L [facility] pH, Blood 7.48 [facility] Specimen Blood Performing Organization Address City/[facility] Ph one Number [place] [address] 0 [phone] [place] [address] * Potassium (09/24/2018 8:33 PM CDT) Potassium 3.5 3.5 - 5.1 meq/L [facility] Specimen Blood Narrative Performed At Check Serum Potassium level 2 hours after oral potass ium replacement completed [facility] or 30 min after intravenous potassium replacement. B [facility] Performing Organization Address [facility] Ph one Number [place] [address] 0 [phone] [place] [address] * CBC (Hemogram only) (09/23/2018 4:54 AM CDT) Only the most recent of 4 results within the time period is included. WBC 10.4 3.5 - 10.5 K/L [facility] RBC 2.83 (L) 4.63 - 6.08 M/L [facility] Hemoglobin 8.3 (L) 13.7 - 17.5 GM/DL [facility] Hematocrit 27.9 (L) 40.1 - 51.0 % [facility] MCV 98.6 (H)Comment: Discordant 79.0 - 92.2 fL [facility] MCV results compared to [facility] previous results; clinical correlation required. MCH 29.3 25.7 - 32.2 pg [facility] MCHC 29.7 (L) 32.3 - 36.5 GM/DL [facility] RDW 13.7 11.6 - 14.4 % [facility] Platelets 166 150 - 450 K/CU MM [facility] MPV 12.6 (H) 9.4 - 12.4 fL [facility] nRBC 0 0 - 0 /100 WBC [facility] Specimen Blood Performing Organization Address City/[facility] Ph one Number [place] [address] [facility] * Lactic acid, venous (09/22/2018 12:29 AM CDT) Lactate, Venous 2.0 0.5 - 2.2 mmol/L [facility] Specimen Blood Performing Organization Address City/[facility] Ph one Number [place] [address] [facility] * Blood gas, venous (09/22/2018 12:29 AM CDT) pH, Stephen 7.46 (H) 7.32 - 7.42 [facility] pCO2, Stephen 34 (L) 41 - 51 mmHg [facility] pO2, Stephen 47 (H) 25 - 40 mmHg [facility] O2 Sat, Stephen 85.7 (H) 40.0 - 70.0 % [facility] HCO3, Stephen 24 21 - 29 mmol/L [facility] Base Excess, Stephen 0.3 -2.0 - 3.0 mmol/L [facility] Patient Temperature 37.0 C [facility] FIO2 100.0 % [facility] Specimen Blood Performing Organization Address [facility]/Replaced By [facility] one Number [facility] [address] [place] [address] [address] [facility] * Oxygen saturation, measured (09/21/2018 3:49 AM CDT) Only the most recent of 2 results within the time period is included. O2 Saturation (Measured) 64.1 % [facility] [place] Specimen Blood Performing Organization Address [facility] Ph one Number [facility] [address] [place] [address] [address] [facility] * Lactic Acid, Arterial (09/21/2018 3:49 AM CDT) Only the most recent of 4 results within the time period is included. Lactate, Art 0.8 0.5 - 2.2 mmol/L [facility] Specimen Blood, Arterial Performing Organization Address [facility] Ph one Number [place] [address] [phone] [place], [place] [address] [facility] * Blood gas, arterial (09/21/2018 3:49 AM CDT) Only the most recent of 13 results within the time period is included. pH, Arterial 7.43 7.35 - 7.45 [facility] pCO2, Arterial 36 35 - 45 mmHg [facility] pO2, Arterial 86 80 - 90 mmHg [facility] O2 Sat, Arterial 96.8 96.0 - 97.0 % [facility] HCO3, Arterial 23 21 - 29 mmol/L [facility] Base Excess, Arterial -0.8 -2.0 - 3.0 mmol/L [facility] [place] Patient Temperature 36.8 C [facility] FIO2 32.0 % [facility] Specimen Blood, Arterial Performing Organization Address [facility]/Replaced By [facility] one Number [address] [facility] * Potassium-Stat Lab (09/20/2018 11:00 PM CDT) Only the most recent of 9 results within the time period is included. Potassium 3.4 (L) 3.6 - 5.5 meq/L [facility] Specimen Blood, Arterial Performing Organization Address [facility] one Number [address] [facility] * Sodium Na-Stat Lab (09/20/2018 11:00 PM CDT) Only the most recent of 9 results within the time period is included. Sodium 137 135 - 148 meq/L [facility] Specimen Blood, Arterial Performing Organization Address [facility] one Number [address] [facility] * Glucose-Stat Lab (09/20/2018 11:00 PM CDT) Only the most recent of 9 results within the time period is included. Glucose 132 (H) 70 - 110 mg/dL [facility] Specimen Blood, Arterial Performing Organization Address [facility] one Number [address] [facility] * HGB/HCT (H&H)-Stat Lab (09/20/2018 11:00 PM CDT) Only the most recent of 9 results within the time period is included. Hemoglobin 9.9 (L) 13.0 - 16.8 g/dL [facility] Hematocrit 29.0 (L) 40.0 - 50.0 % [facility] Specimen Blood, Arterial Performing Organization Address [facility] one Number [address] [facility] * TRANSFUSION SERVICE REPORT - SCAN (09/20/2018 6:04 PM CDT) Narrative Performed At This result has an attachment that is n ot available. * Prothrombin time/INR (09/19/2018 7:11 PM CDT) Only the most recent of 3 results within the time period is included. Protime 16.5 (H) 11.9 - 14.2 seconds [facility] INR 1.4 <=5.9 [facility] Specimen Blood Narrative Performed At Effective 07/10/2018: PT Reference Range Change [facility] New: 11.9-14.2Previous: 11.7-14.7 [facility] NTER RECOMMENDED COUMADIN/WARFARIN INR THERA PY RANGES STANDARD DOSE: 2.0-3.0Includes: PRO PHYLAXIS for venous thrombosis, systemic embolization; TREATMENT for venous thro mbosis and/or pulmonary embolus. HIGH RISK: Target INR is 2.5-3.5 for pa tients wiht mechanical heart valves. Performing Organization Address [facility] Ph one Number [address] [facility] * Prepare RBC (09/19/2018 7:02 PM CDT) CROSSMATCH COMPATIBLE SAFETRACE TX Unit ABO A Pos SAFETRACE TX UNIT NUMBER [id number] SAFETRACE TX Status RETURNED FROM ISSUE SAFETRACE TX Blood Bank Product RED BLOOD CELLS SAFETRACE TX PRODUCT CODE [id number] SAFETRACE TX CROSSMATCH COMPATIBLE SAFETRACE TX Unit ABO A Pos SAFETRACE TX UNIT NUMBER [id number] SAFETRACE TX Status RETURNED FROM ISSUE SAFETRACE TX Blood Bank Product RED BLOOD CELLS SAFETRACE [place] PRODUCT CODE [id number] SAFETRACE [place] Performing Organization Address [facility]/Replaced By [facility] one Number [place] * Thromboelastograph (TEG) (09/19/2018 5:03 PM CDT) TEG Activated Clotting 5.0 4.0 - 7.0 minutes [facility] TEG Fibrinogen Activity 70.9 61.0 - 73.0 degrees C HI [facility] TEG Platelet Aggregation 66.5 (H) 55.0 - 65.[address] [facility] [place] TEG-H Activated Clotting 5.2 4.0 - 7.0 minutes [facility] Time [facility] TEG-H Fibrinogen Activity 72.7 61.0 - 73.[address] [facility] TEG-H Platelet 58.5 55.0 - 65.0 MM [facility] Aggregation [facility] Specimen Blood Performing Organization Address [facility] Ph one Number [address] [facility] * aPTT (09/19/2018 5:03 PM CDT) Only the most recent of 4 results within the time period is included. PTT 28.4 22.5 - 36.0 seconds [facility] Specimen Blood Performing Organization Address [facility] Ph one Number [address] [facility] * Fibrinogen (09/19/2018 5:03 PM CDT) Fibrinogen 266 225 - 434 mg/dl [facility] Specimen Blood Performing Organization Address City/[facility] Ph one Number [address] [facility] * Platelet count (09/19/2018 5:03 PM CDT) Only the most recent of 2 results within the time period is included. Platelets 148 (L) 150 - 450 K/CU MM [facility] Specimen Blood Performing Organization Address [facility] Ph one Number [address] [facility] * 2D Echo W/Doppler(CW/PW/Color) (09/19/2018 9:54 AM CDT) Ejection Fraction [facility] Specimen Narrative Performed At Transthoracic Echocardiography Report (TTE) [facility] Demographics [facility] Patient Name PEE CASTELLANOS Date of Study 09/19/2018 JOSELYN [id number] Gender Male Visit Number [id number] Room Number SCPR Number Date of Birth1945 Referring Physician Kaya Magallanes MD Age73 year(s)Roll Shop Supervisor Nahum Snyder RD CSInterpretingJoseJanny Bone MD Procedure [...] Study 09/19/2018 JOSELYN Gender Male Visit Number [id number] Race Room Number SCPR Number Date of 1945 Referring Physician Kaya Magallanes MD Age 73 year(s) Roll Shop Supervisor Nahum Gonzalez Tower Attendant Roxanne Snyder, [facility] Interpreting Physician JOE Rossi Procedure Type [...] LVOT CI: 2.8 l/min/m^2 Performing Organization Address [facility] Ph one Number [facility] MKCKESSON CPACS * ABORH, manual (09/19/2018 3:56 AM CDT) ABO Grouping A [facility] Rh Factor POS [facility] Specimen Blood Performing Organization Address [facility] Ph one Number [address] * Type and screen, automated (09/19/2018 3:35 AM CDT) ABO/RH AUTOMATED (BEAKER) A POSITIVE [facility] Ab Scrn NEGATIVE [facility] Specimen Blood Performing Organization Address [facility] Ph one Number [address] * Hemoglobin A1c (09/19/2018 3:35 AM CDT) Hemoglobin A1C 6.2 (H) 4.3 - 6.1 % [facility] Specimen Blood Performing Organization Address [facility]/Replaced By [facility] one Number [address] [facility] * Lipid panel (09/19/2018 3:35 AM CDT) Triglycerides 194 mg/dL [facility] Cholesterol 107 mg/dL [facility] HDL 27 mg/dL [facility] LDL Calculated 41 mg/dL [facility] Specimen Blood Narrative Performed At Triglyceride Reference Range: [facility] Low Risk <150 [facility] R [id number] High Risk 200-499 Very High Risk>=500 Cholesterol Reference Range: Low Risk <200 Ucjyjbiqve119-317 High Risk>240 HDL Cholesterol Reference Range: Low Risk >=60 High Risk <40 LDL Cholesterol Reference Range: Optimal<100 Near [id number] Hbksoshzrj223-876 Cydj115-160 Very High >=190 Performing Organization Address [facility]/Replaced By [facility] one Number [address] [facility] * Comprehensive metabolic panel (09/19/2018 3:35 AM CDT) Protein, Total 6.7 6.0 - 8.3 gm/dL [facility] Albumin 3.9 3.5 - 5.0 g/dL [facility] Alkaline Phosphatase 40 40 - 150 U/L [facility] Total Bilirubin 0.5 0.2 - 1.2 mg/dL [facility] Sodium 138 136 - 145 meq/L [facility] Potassium 4.1 3.5 - 5.1 meq/L [facility] Chloride 106 98 - 107 meq/L [facility] CO2 23 22 - 29 meq/L [facility] BUN 18 7 - 21 mg/dL [facility] Creatinine 1.30 (H) 0.57 - 1.25 mg/dL [facility] Glucose 127 (H) 70 - 105 mg/dL [facility] Calcium 9.6 8.4 - 10.2 mg/dL [facility] AST 19 5 - 34 U/L [facility] ALT 19 6 - 55 U/L [facility] EGFR 54Comment: ESTIMATED GFR IS mL/min/1.73 sq m [facility] NOT ACCURATE CREATININE [facility] CLEARANCE IN PREDICTING GLOMERULAR FILTRATION RATE. ESTIMATED GFR IS NOT APPLICABLE FOR DIALYSIS PATIENTS. Specimen Blood Performing Organization Address City/State/Zipcode Ph one Number [facility] [address] [place], [place] [address] [facility] * Carotid doppler bilateral (09/18/2018 9:39 PM CDT) [facility]CHO [facility]ART[facility] MKCKESSON CPACS Specimen Impressions Performed At Right Impression [facility] 1. There is <50% diameter [...] Performed At LAB - Carotid Duplex Study [facility] Demographics [facility] Patient Name EMANUEL, PEE Date of Study09/18/2018 EDWINA STEIN [id number] Age73 Visit Number [id number] Gender Male Accession Number [id number] Date of Birth1945 ReferringIlanalinsey Vincespencer umaña, Room [id number] PhysicianMD Thea Khan Interpreting Kaya Magallanes MD [...] Study 09/18/2018 JOSELYN Age 73 Visit Number [id number] Gender Male Accession Number [id number] Date of 1945 Referring Kaya Magallanes, Room Number C626 Physician Roll Shop Supervisor Philip Khan Interpreting Kaya Magallanes MD Physician [...] / Group [facility] xxxxxxxxxxx MEDICARE ADV [id number] Advance Directives For more information, please contact: [facility] [address] [place] [address] Date Inactivated Comments Code Status [...]
--- OUTSIDE RECORDS SUMMARY | 2019-09-12 10:19 | XMS REPORT | Continuity of Care Document ---
Author Author [facility] t Organization [facility] Address [address] [place] [address] Phone Unavailable Care Team Providers Care Advice Nurse Name Role Phone MD CHERYL KASHILPA PCP Unavailable Hieu JOHNSON Attphys Unavailable Cortney DIAZ, Edita Attphys EDITA MILLARD Attphys Unavailable Sona DIAZ, Lila Kirkpatrick Attphys [phone] Scott DIAZ, Benitez Patricio Attphys Abel DIAZ, Katharine Motta Attphys Eben DIAZ, Ebonie Huber Attphys Rene Cristina DO Attphys Stefanie DIAZ, Karina Coleman Attphys Hieu JOHNSON Admphys Unavailable EDITA MILLARD Admphys Unavailable Payers Payer Name Policy Type Policy Number Effective Date Expiration Date Francesco cooper [employer] Medicare Advantage [id number] 2019 00:0 0:00 [facility] Cdc Review Covid19 [id number] [facility] K[employer]SEYCAREK[employer]SE[employer]CARE MEDICARE ADVxxxxxxxxxxx xxxxxxxxxxx [facility] Problems Condition Name Condition Details Condition Category Status Onset Date Resolution Date Last Treatment Date Treating Clinician Comments Source Paroxysmal atrial fibrillation with rapid ventricular response Paroxysmal atrial fibrillation with rapid ventricular response Disease Active 201 10-20-12 00:00:00 [facility] Acute encephalopathy, metabolic Acute encephalopathy, metabolic Dis ease Active 2018-09-23 00:00:00 [facility] Acute prerenal azotemia Acute prerenal azotemia Disease Active 2018-09-23 00:00:00 [facility] Fluid overload Fluid overload Disease Active 2018-09-23 00:00:00 [facility] S/P CABG x [address] Magallanes on 09/19 S/P CABG x [address] Magallanes o n 09/19 Disease Active 2018-09-20 00:00:00 [facility] CAD (coronary artery disease) CAD (coronary artery disease) Disease Active 2018-09-19 00:00:00 [facility] Chest pain Chest pain Disease Active 2018-09-18 00:00:00 [facility] Peripheral edema Peripheral edema Disease Active 2014-12-05 00:00:00 [facility] D-dimer, elevated D-dimer, elevated Disease Active 2014-12-05 00:00:00 [facility] Acute on chronic renal insufficiency Acute on chronic renal insufficiency Disease Active 2014-12-05 00:00:00 [facility] Neuropathy Neuropathy Disease Active 2014-11-26 00:00:00 [facility] Unsteady gait Unsteady gait Disease Active 2014-11-26 00:00:00 [facility] Lower extremity weakness Lower extremity weakness Disease Acti ve 2014-11-26 00:00:00 [facility] Essential hypertension Essential hypertension Disease Active 2014-11-26 00:00:00 [facility] CAD (coronary artery disease) CAD (coronary artery disease) Disease Active 2014-11-26 00:00:00 [facility] Hypoxia Problem Active [facility] Respiratory distress Problem Active [facility] Pneumonia Problem Active [facility] Gout Gout Disease Active [facility] Hyperlipidemia Hyperlipidemia Disease Active [facility] Chronic kidney disease, stage III (moderate) Chronic k idney disease, stage III (moderate) Disease Active [facility] Type 2 diabetes mellitus with stage 3 chronic kidney d isease Type 2 diabetes mellitus with stage 3 chronic kidney disease Disease Active [facility] Severe obesity Severe obesity Disease Active [facility] Peripheral vascular disease Peripheral vascular disease Disease Active [facility] Acute respiratory insufficiency Acute respiratory insufficiency Dis ease Active [facility] Vasogenic shock Vasogenic shock Disease Active [facility] Acute blood loss anemia Acute blood loss anemia Disease Active [facility] Hyperglycemia Hyperglycemia Disease Active [facility] ETOH abuse ETOH abuse Disease Active [facility] Alcohol withdrawal syndrome without complication Alcoh ol withdrawal syndrome without complication Disease Active [facility] Allergies, Adverse Reactions, Alerts Allergy Name Allergy Type Status Severity Reaction(s) Onset Date Inacti ve Date Treating Clinician Comments Source Penicillin Allergy to substance Active Mild 2019-08-23 00:00:00 [facility] No Known Allergies DA Active U 2018-12-31 00:00:00 [facility] Penicillin V Potassium Propensity to adverse reactions Active 2014-12-05 00:00:00 Severe gas build up and chest pr essure [facility] Amlodipine Propensity to adverse reactions Active [facility] (See Comments) 2014-12-04 00:00:00 Severe back pain [facility] Cilostazol Propensity to adverse reactions Active [facility] (See Comments) 2014-12-04 00:00:00 Severe Urinary incontinence [facility] No Known Contrast Allergies DA Active U 2005-06-20 00:00: 00 [facility] No Known Drug Allergies DA Active U 2005-06-20 00:00:00 [facility] No Known Food Allergies DA Active U 2005-06-20 00:00:00 [facility] No Known Other Allergies DA Active U 2005-06-20 00:00:00 [facility] Family History Family Member Diagnosis Comments Start Date Stop Date Source Natural daughter Mental retardation [facility] Natural father Diabetes [facility] Natural father Hyperlipidemia [facility] Natural father Hypertension [facility] Natural father Stroke [facility] Natural mother Arthritis [facility] Natural mother Diabetes [facility] Natural mother Hyperlipidemia [facility] Natural mother Hypertension [facility] Natural mother Stroke [facility] Social History Social Habit Start Date Stop Date Quantity Comments Source Sex Assigned At [facility] Tobacco Comment 2018-09-18 00:00:00 2018-09-18 00:00:00 quit 25 yrs a go [facility] Alcohol Comment 2014-12-05 00:00:00 2014-12-05 00:00:00 Daily [facility] Smoking Status Start Date Stop Date Source Former smoker 2019-01-18 00:00:00 2019-01-18 00:00:00 [facility] Medications Ordered Medication Name Filled Medication Name Start Date Stop Da te Current Medication? Ordering Clinician Indication Dosage Frequency Signature (SIG) Comments Components Source NIFEdipine (PROCARDIA-XL) 60 MG (OSM) 24 hr tablet 2019-01 11:02:57 Yes 60mg QD Take 60 mg by mouth daily. [facility] nitroglycerin (NITROSTAT) 0.4 MG SL tablet 01-16 11:02:26 2019-01-16 00:00:[address] 0.4 mg u nder the tongue every 5 (five) minutes as needed for Chest pain Put 1 pill under tongue every 5min as needed for chest pain.No more than 3 doses in 15min.Call 911 if pain is unrelieved 5min after 1st dose . [facility] predniSONE (DELTASONE) 20 MG tablet 2019-01-16 11:02:2 2 2019-01-16 00:00:00 No 20mg Take 20 mg by mouth 2 (two) times daily as needed. [facility] colchicine (COLCRYS) 0.6 mg tablet 2019-01-16 10:45:07 Yes .6mg QD Take 0.6 mg by mouth daily. [facility] clopidogrel (PLAVIX) 75 mg tablet 2019-01-16 00:00:00 2019 23:59:00 No 75mg QD Take 1 tablet (75 mg total) by mouth hernan rodríguez. [facility] multivitamin per tablet 2018-10-17 11:40:48 2018-10-17 00:00:00 No 1{tbl} Take 1 tablet by mouth. [facility] lisinopril (PRINIVIL,ZESTRIL) 20 MG tablet 2018-10-16 00:00:00 Yes 40mg QD Take 40 mg by mouth daily . [facility] metoprolol (TOPROL-XL) 25 MG 24 hr tablet 2018-10-16 00:00:00 Yes 50mg QD Take 50 mg by mouth daily . [facility] amiodarone (PACERONE) 200 MG tablet 2018-10-03 00:00:0 0 2019-10-03 23:59:00 No 200mg QD Take 1 tablet (200 mg total) by mouth donald tony. [facility] folic acid (FOLVITE) 1 MG tablet 2018-10-03 00:00:00 2019-09 23:59:00 No 1mg QD Take 1 tablet (1 mg total) by mouth daily. [facility] multivitamin (THERAGRAN) tablet 2018-10-03 00:00:00 23:59:00 No 1{tbl} QD Take 1 tablet by mouth daily. [facility] thiamine 100 MG tablet 2018-10-03 00:00:00 2019-10-03 23:59:00 N o 100mg QD Take 1 tablet (100 mg total) by mouth daily. [facility] metoprolol (LOPRESSOR) 25 MG tablet 2018-10-02 13:51:4 7 2018-10-02 00:00:00 No 25mg QD Take 25 mg by mouth daily. [facility] lisinopril (PRINIVIL,ZESTRIL) 40 MG tablet 10-02 13:51:47 2018-10-02 00:00:00 No 40mg QD Take 40 mg by mouth daily. [facility] melatonin 5 mg Tab tablet 2018-10-02 00:00:00 Yes 5mg Take 1 tablet (5 mg total) by mouth every night as needed. [facility] senna (SENOKOT) 8.6 mg tablet 2018-10-02 00:00:00 2019-10-02 23: 59:00 No 8.6mg QD Take 1 tablet (8.6 mg total) by mouth nightly. [facility] apixaban (ELIQUIS) 5 mg Tab tablet 2018-10-02 00:00:00 201 10-24-04 00:00:00 No 5mg Q.5D Take 1 tablet (5 mg total) by mouth 2 (t wo) times daily. [facility] insulin lispro (HUMALOG) 100 unit/mL injection 2 00:00:00 2019-01-16 00:00:00 No 0U Inject 0-4 Uni ts subcutaneously every night as needed (High blood sugar). [facility] insulin lispro (HUMALOG) 100 unit/mL injection 2 00:00:00 2019-01-16 00:00:00 No 0U Inject 0-8 Uni ts subcutaneously as needed (High blood sugar). [facility] QUEtiapine (SEROQUEL) 25 MG tablet 2018-10-02 00:00:00 201 10-22-19 23:59:00 No 25mg QD Take 1 tablet (25 mg total) by mouth nig htly for 30 days. [facility] metoprolol (LOPRESSOR) 50 MG tablet 2018-10-02 00:00:0 0 2018-10-17 00:00:00 No 50mg Q.5D Take 1 tablet (50 mg total) by mouth 2 ( two) times daily. [facility] atorvastatin (LIPITOR) 40 MG tablet 2018-09-18 09:58:34 Yes 40mg QD Take 40 mg by mouth daily. [facility] aspirin 81 MG EC tablet 2018-09-18 09:58:34 Yes 81mg QD Take 81 mg by mouth daily. [facility] aspirin 325 MG tablet 2018-09-18 09:54:43 2018-09-18 00:00:00 No QD Take by mouth daily . [facility] cholecalciferol, vitamin D3, (VITAMIN D3) 2,000 unit Cap 2014-12-05 01:19:46 Yes 2000U QD Take 2,000 Units by mouth daily . [facility] glimepiride (AMARYL) 4 MG tablet 2014-05-26 00:00:00 Yes TAKE ONE TABLET BY MOUTH EVERY MORNING WITH BREAKFAST. [facility] fenofibrate (TRIGLIDE,LOFIBRA) 160 MG tablet 201 06-15-13 00:00:00 2018-10-02 00:00:00 No 160mg QD Take 160 mg by mouth daily . [facility] Aspirin Aspirin Yes 325 Daily [facility] Atorvastatin Calcium Atorvastatin Calcium Yes 40 Bedtime [facility] Azithromycin (Z-Apolinar) 250 Mg TABLET Azithromycin (Z-Apolinar) 250 Mg TABLET Yes 500 Daily [facility] Clopidogrel Bisulfate (Clopidogrel) 75 Mg TABLET Clopi dogrel Bisulfate (Clopidogrel) 75 Mg TABLET Yes 75 Bedtime [facility] Dexamethasone (Decadron) 6 Mg TABLET Dexamethasone (Decadron) 6 Mg TABLET Yes 6 Daily [facility] Glimepiride Glimepiride Yes 4 Daily [facility] Lisinopril Lisinopril Yes 40 Bedtime [facility] Metoprolol Succinate Metoprolol Succinate Yes 50 Daily [facility] Naproxen (Naprosyn) 500 Mg TABLET Naproxen (Naprosyn) 500 Mg TABLET Yes 500 Every 12 Hours as needed for Mild Pain (1-3) Or Fever> 100.8 [facility] Nifedipine (Nifedipine Er) 30 Mg TAB.ER.24 Nifedipine (Nifedipine Er) 30 Mg TAB.ER.24 Yes 60 Daily [facility] Vital Signs Vital Name Observation Time Observation Value Comments Source Body Temperature 2019-08-27 16:10:00 97.5 [degF] [facility] Weight 2019-08-27 01:00:00 210.56 [lb_av] [facility] BMI (Body Mass Index) 2019-08-27 01:00:00 36.1 kg/m2 [facility] Systolic blood pressure 2019-01-16 19:30:00 136 mm[Hg] [facility] Diastolic blood pressure 2019-01-16 19:30:00 79 mm[Hg] [facility] Heart rate 2019-01-16 19:30:00 67 /min [facility] Respiratory rate 2019-01-16 19:30:00 16 /min [facility] Oxygen saturation in Arterial blood by Pulse oximetry 2018-02 17:40:00 97 /[facility] temperature 2019-01-16 10:14:00 37 Susie [facility] Body height 2019-01-16 10:14:00 162.6 cm [facility] Body weight Measured 2019-01-16 10:14:00 89.359 kg [facility] BMI 2019-01-16 10:14:00 33.81 kg/m2 [facility] Procedures Procedure Date / Time Performed Performing Clinician Sourc e VASCULAR DIAGRAM -SCAN 2019-01-29 12:20:52 Provider, Default Sca nning [facility] REPORT OF PROCEDURE - ENDOSCOPY SCAN 2019-01-20 07:00:32 Pro vider, Default Scanning [facility] CARDIAC CATH REPORT - SCAN 2019-01-20 07:00:31 Provider, Default Scanning [facility] POCT-ACT 2019-01-16 16:16:00 [facility] PERIPHERAL ANGIOS & IVUS 2019-01-16 13:52:00 [facility] POCT-GLUCOSE METER 2019-01-16 12:00:00 [facility] RHYTHM STRIP - SCAN 2018-10-03 11:11:13 Provider, Default [facility] RHYTHM STRIP - SCAN 2018-10-03 10:10:31 Provider, Default [facility] CARDIAC CATH REPORT - SCAN 2018-10-03 10:10:26 Provider, Default Scanning [facility] VASCULAR DIAGRAM -SCAN 2018-10-03 10:10:24 Provider, Default Sca nning [facility] POCT-GLUCOSE METER 2018-10-02 14:09:00 Jae Cristina [facility] POCT-GLUCOSE METER 2018-10-02 13:05:00 Jae Cristina [facility] POCT-GLUCOSE METER 2018-10-02 07:48:00 Jae Cristina [facility] BASIC METABOLIC PANEL (7) 2018-10-02 06:08:00 Jes Gutierrez [facility] CBC W/PLT COUNT & AUTO DIFFERENTIAL 2018-10-02 06:08:00 Jhonatan Gutierrez [facility] POCT-GLUCOSE METER 2018-10-01 23:19:00 Jae Cristina [facility] VASCULAR DIAGRAM -SCAN 2018-10-01 14:41:50 Provider, Default [facility] POCT-GLUCOSE METER 2018-10-01 13:26:00 Jae Cristina [facility] POCT-GLUCOSE METER 2018-10-01 09:23:00 Jae Cristina [facility] BASIC METABOLIC PANEL (7) 2018-10-01 05:18:00 Jes Gutierrez [facility] CBC W/PLT COUNT & AUTO DIFFERENTIAL 2018-10-01 05:18:00 Jhonatan Gutierrez [facility] POCT-GLUCOSE METER 2018-09-30 21:51:00 Jae Cristina [facility] POCT-GLUCOSE METER 2018-09-30 18:24:00 Jae Cristina [facility] POCT-GLUCOSE METER 2018-09-30 16:43:00 Jae Cristina [facility] POCT-GLUCOSE METER 2018-09-30 12:36:00 Jae Cristina [facility] POCT-GLUCOSE METER 2018-09-30 08:24:00 Jae Cristina [facility] BASIC METABOLIC PANEL (7) 2018-09-30 04:56:00 Jes Gutierrez [facility] CBC W/PLT COUNT & AUTO DIFFERENTIAL 2018-09-30 04:56:00 Jhonatan Gutierrez [facility] POCT-GLUCOSE METER 2018-09-29 21:40:00 CroCecile mitchell [facility] POCT-GLUCOSE METER 2018-09-29 16:47:00 CroCecile mitchell [facility] POCT-GLUCOSE METER 2018-09-29 12:50:00 Cecile Treadwell [facility] BASIC METABOLIC PANEL (7) 2018-09-29 04:08:00 Jes Gutierrez [facility] CBC W/PLT COUNT & AUTO DIFFERENTIAL 2018-09-29 04:08:00 Jhonatan Gutierrez [facility] POCT-GLUCOSE METER 2018-09-28 21:06:00 Cecile Treadwell [facility] POCT-GLUCOSE METER 2018-09-28 13:12:00 Cecile Treadwell [facility] POCT-GLUCOSE METER 2018-09-28 07:47:00 Cecile Treadwell [facility] BASIC METABOLIC PANEL (7) 2018-09-28 05:54:00 Jes Gutierrez [facility] CBC W/PLT COUNT & AUTO DIFFERENTIAL 2018-09-28 05:54:00 Jhonatan Gutierrez [facility] POCT-GLUCOSE METER 2018-09-27 21:43:00 Cecile Treadwell [facility] POCT-GLUCOSE METER 2018-09-27 17:31:00 Abel [facility] POCT-GLUCOSE METER 2018-09-27 09:43:00 Kalia Roman [facility] ECG 12-LEAD 2018-09-27 06:35:10 Gely Landry [facility] BASIC METABOLIC PANEL (7) 2018-09-27 06:26:00 Jes Gutierrez CH, I [facility] MAGNESIUM 2018-09-27 06:26:00 Helen Brooks [facility] PHOSPHORUS 2018-09-27 06:26:00 [facility] & AUTO DIFFERENTIAL 2018-09-27 06:26:00 Jhonatan Gutierrez [facility] POCT-GLUCOSE METER 2018-09-26 16:09:00 Abel [facility] POCT-GLUCOSE METER 2018-09-26 11:57:00 Kalia Roman [facility] XR CHEST 1 VIEW PORTABLE/BEDSIDE 2018-09-26 08:50:00 Waldemar Davidson [facility] POCT-GLUCOSE METER 2018-09-26 07:46:00 Abel [facility] BASIC METABOLIC PANEL (7) 2018-09-26 04:44:00 Jes Gutierrez [facility] MAGNESIUM 2018-09-26 04:44:00 Helen Brooks [facility] PHOSPHORUS 2018-09-26 04:44:00 [facility] W/PLT COUNT & AUTO DIFFERENTIAL 2018-09-26 04:44:00 Jhonatan Gutierrez [facility] POCT-GLUCOSE METER 2018-09-25 22:22:00 Kalia Roman [facility] POCT-GLUCOSE METER 2018-09-25 17:51:00 Abel [facility] POCT-GLUCOSE METER 2018-09-25 11:56:00 Abel [facility] POCT-GLUCOSE METER 2018-09-25 08:04:00 Abel [facility] BASIC METABOLIC PANEL (7) 2018-09-25 04:13:00 Jes Gutierrez CH, I [facility] MAGNESIUM 2018-09-25 04:13:00 Honey Brookszabeth [facility] PHOSPHORUS 2018-09-25 04:13:00 Todd [facility] CALCIUM, IONIZED 2018-09-25 04:13:00 [facility] & AUTO DIFFERENTIAL 2018-09-25 04:13:00 Jhonatan Gutierrez [facility] POCT-GLUCOSE METER 2018-09-24 22:01:00 [facility] 2018-09-24 20:33:00 Marilee [facility] MAGNESIUM 2018-09-24 20:33[facility] 2018-09-24 11:58:00 Kalia Roman [facility] POCT-GLUCOSE METER 2018-09-24 08:03:00 [facility] 2018-09-24 04:03:00 Marilee [facility] BASIC METABOLIC PANEL (7) 2018-09-24 04:03:00 Jes Gutierrez [facility] CALCIUM, IONIZED 2018-09-24 04:03:00 Jes Gutierrez [facility] CBC W/PLT COUNT & AUTO DIFFERENTIAL 2018-09-24 04:03:00 Jhonatan Gutierrez [facility] POCT-GLUCOSE METER 2018-09-23 21:56:00 Kalia Roman [facility] POCT-GLUCOSE METER 2018-09-23 17:10:00 Kalia Roman [facility] RHYTHM STRIP - SCAN 2018-09-23 12:26:07 Provider, Khai pettit [facility] POCT-GLUCOSE METER 2018-09-23 12:14:00 Kalia Roman [facility] POCT-GLUCOSE METER 2018-09-23 07:57:00 Kalia Roman [facility] XR CHEST 1 VIEW PORTABLE/BEDSIDE 2018-09-23 05:10:00 [place] [facility] MAGNESIUM 2018-09-23 04:54:00 [place], [facility] BASIC METABOLIC PANEL (7) 2018-09-23 04:54:00 [place], [facility] CBC (HEMOGRAM ONLY) 2018-09-23 04:54:00 [place], [facility] BASIC METABOLIC PANEL (7) 2018-09-22 12:18:00 [facility] 2018-09-22 12:18:00 [place], [facility] CBC W/PLT COUNT & AUTO DIFFERENTIAL 2018-09-22 12:18:00 Ck Hawthorne [facility] XR CHEST 1 VIEW PORTABLE/BEDSIDE 2018-09-22 07:25:00 Krystin Hawthorne [facility] LACTIC ACID, VENOUS 2018-09-22 00:29:00 [place], [facility] BLOOD GAS, VENOUS 2018-09-22 00:29:00 [place], [facility] BASIC METABOLIC PANEL (7) 2018-09-22 00:29:00 [place], [facility] CBC (HEMOGRAM ONLY) 2018-09-22 00:29:00 [place], [facility] MAGNESIUM 2018-09-22 00:29:00 [place], [facility] POCT-GLUCOSE METER 2018-09-22 00:12:00 Cortney [facility] ECG 12-LEAD 2018-09-21 23:33:39 Unknown, [facility] POCT-GLUCOSE METER 2018-09-21 12:14:00 [facility] ECG 12-LEAD 2018-09-21 10:13:04 Unknown, [facility] POCT-GLUCOSE METER 2018-09-21 07:38:00 [facility] PORTABLE/BEDSIDE 2018-09-21 04:59:00 Jes Gutierrez Katiana [facility] BASIC METABOLIC PANEL (7) 2018-09-21 03:49:00 Kaya Magallanes [facility] MAGNESIUM 2018-09-21 03:49:00 Kaya Magallanes [facility] PHOSPHORUS 2018-09-21 03:49:00 Kaya Magallanes [facility] CBC (HEMOGRAM ONLY) 2018-09-21 03:49:00 Kaya Magallanes [facility] BLOOD GAS, ARTERIAL 2018-09-21 03:49:00 Matt [facility] LACTIC ACID, ARTERIAL 2018-09-21 03:49:00 Matt [facility] OXYGEN SATURATION, MEASURED 2018-09-21 03:49:00 Matt [facility] CALCIUM, IONIZED 2018-09-21 03:49:00 Matt [facility] BLOOD GAS, ARTERIAL 2018-09-20 23:00:00 Kaya Magallanes [facility] SODIUM NA-STAT LAB 2018-09-20 23:00:00 Kaya Magallanes [facility] POTASSIUM-STAT LAB 2018-09-20 23:00:00 Kaya Magallanes [facility] GLUCOSE-STAT LAB 2018-09-20 23:00:00 Kaya Magallanes [facility] HGB/HCT (H&H) - STAT LAB 2018-09-20 23:00:00 Kaya Magallanes [facility] POCT-GLUCOSE METER 2018-09-20 20:47:00 Cortney [facility] TRANSFUSION SERVICE REPORT - SCAN 2018-09-20 18:04:05 Provid er, Default Scanning [facility] POCT-GLUCOSE METER 2018-09-20 16:04:00 Massumi, [facility] POCT-GLUCOSE METER 2018-09-20 13:00:00 Massumi, [facility] POCT-GLUCOSE METER 2018-09-20 11:59:00 Massumi, [facility] POCT-GLUCOSE METER 2018-09-20 10:30:00 Massumi, [facility] POCT-GLUCOSE METER 2018-09-20 07:40:00 Massumi, [facility] POCT-GLUCOSE METER 2018-09-20 05:45:00 Massumi, [facility] XR CHEST 1 VIEW PORTABLE/BEDSIDE 2018-09-20 04:12:00 Fay Magallanes [facility] CBC (HEMOGRAM ONLY) 2018-09-20 03:08:00 Kaya Magallanes [facility] BASIC METABOLIC PANEL (7) 2018-09-20 03:08:00 Danay Stanton [facility] MAGNESIUM 2018-09-20 03:08:00 Danay Stanton [facility] PHOSPHORUS 2018-09-20 03:08:00 [facility], [facility] 2018-09-20 03:08:00 Danay Stanton [facility] LACTIC ACID, ARTERIAL 2018-09-20 03:08:00 Danay Stanton [facility] BLOOD GAS, ARTERIAL 2018-09-20 01:36:00 Jes Gutierrez [facility] SODIUM NA-STAT LAB 2018-09-20 01:36:00 Jes Gutierrez [facility] POTASSIUM-STAT LAB 2018-09-20 01:36:00 Jes Gutierrez [facility] GLUCOSE-STAT LAB 2018-09-20 01:36:00 Jes Gutierrez [facility] HGB/HCT (H&H) - STAT LAB 2018-09-20 01:36:00 Matt, Jes [facility] BASIC METABOLIC PANEL (7) 2018-09-19 23:53:00 Kaya Magallanes [facility] MAGNESIUM 2018-09-19 23:53:00 Kaya Magallanes [facility] PHOSPHORUS 2018-09-19 23:53:00 [facility] 2018-09-19 23:52:00 Matt [facility] LACTIC ACID, ARTERIAL 2018-09-19 23:52:00 Matt [facility] OXYGEN SATURATION, MEASURED 2018-09-19 23:52:00 Matt [facility] BLOOD GAS, ARTERIAL 2018-09-19 23:52:00 Jes Gutierrez [facility] SODIUM NA-STAT LAB 2018-09-19 23:52:00 Matt [facility] POTASSIUM-STAT LAB 2018-09-19 23:52:00 Matt [facility] GLUCOSE-STAT LAB 2018-09-19 23:52:00 Matt [facility] HGB/HCT (H&H) - STAT LAB 2018-09-19 23:52:00 Matt [facility] POCT-GLUCOSE METER 2018-09-19 22:59:00 Cortney [facility] LACTIC ACID, ARTERIAL 2018-09-19 22:57:00 Danay Stanton [facility] BLOOD GAS, ARTERIAL 2018-09-19 22:56:00 Danay Stanton [facility] POCT-GLUCOSE METER 2018-09-19 22:00:00 Cortney [facility] XR CHEST 1 VIEW PORTABLE/BEDSIDE 2018-09-19 19:31:00 Matt [facility] CBC W/PLT COUNT & AUTO DIFFERENTIAL 2018-09-19 19:18:00 Jhonatan Gutierrez [facility] BASIC METABOLIC PANEL (7) 2018-09-19 19:11:00 Jes Gutierrez CH, I [facility] MAGNESIUM 2018-09-19 19:11:00 Jes Gutierrez [facility] PROTHROMBIN TIME/INR 2018-09-19 19:11:00 Jes Gutierrez [facility] BLOOD GAS, ARTERIAL 2018-09-19 19:11:00 Jes Gutierrez [facility] PREPARE RBC 2018-09-19 19:02:00 Cortney [facility] POCT-ACT 2018-09-19 17:07:00 Cortney [facility] CALCIUM, IONIZED 2018-09-19 17:03:48 Catalina [facility] PROTHROMBIN TIME/INR 2018-09-19 17:03:48 Catalina [facility] APTT 2018-09-19 17:03:48 Catalina [facility] FIBRINOGEN 2018-09-19 17:03:48 Catalina [facility] THROMBOELASTOGRAPH (TEG) 2018-09-19 17:03:[facility] 2018-09-19 17:03:48 Catalina [facility] BLOOD GAS, ARTERIAL 2018-09-19 17:03:48 Catalina [facility] SODIUM NA-STAT LAB 2018-09-19 17:03:48 Catalina [facility] POTASSIUM-STAT LAB 2018-09-19 17:03:48 [facility] 2018-09-19 17:03:48 Catalina [facility] HGB/HCT (H&H) - STAT LAB 2018-09-19 17:03:48 Catalina [facility] POCT-ACT 2018-09-19 16:45:00 Cortney [facility] BLOOD GAS, ARTERIAL 2018-09-19 16:43:40 Kaya Magallanes [facility] SODIUM NA-STAT LAB 2018-09-19 16:43:40 Kaya Magallanes [facility] POTASSIUM-STAT LAB 2018-09-19 16:43:40 Kaya Magallanes [facility] GLUCOSE-STAT LAB 2018-09-19 16:43:40 Kaya Magallanes [facility] HGB/HCT (H&H) - STAT LAB 2018-09-19 16:43:40 Kaya Magallanes [facility] POCT-ACT 2018-09-19 16:15:00 [facility] BLOOD GAS, ARTERIAL 2018-09-19 16:14:06 Kaya Magallanes [facility] SODIUM NA-STAT LAB 2018-09-19 16:14:06 Kaya Magallanes [facility] POTASSIUM-STAT LAB 2018-09-19 16:14:06 Kaya Magallanes [facility] GLUCOSE-STAT LAB 2018-09-19 16:14:06 Kaya Magallanes [facility] HGB/HCT (H&H) - STAT LAB 2018-09-19 16:14:06 Kaya Magallanes [facility] POCT-ACT 2018-09-19 15:54:00 [facility] BLOOD GAS, ARTERIAL 2018-09-19 15:44:47 Kaya Magallanes [facility] SODIUM NA-STAT LAB 2018-09-19 15:44:47 Kaya Magallanes [facility] POTASSIUM-STAT LAB 2018-09-19 15:44:47 Kaya Magallanes [facility] GLUCOSE-STAT LAB 2018-09-19 15:44:47 Sona, [facility] (H&H) - STAT LAB 2018-09-19 15:44:47 Kaya Magallanes [facility] POCT-ACT 2018-09-19 15:22:00 [facility] BLOOD GAS, ARTERIAL 2018-09-19 15:18:07 Kaya Magallanes [facility] SODIUM NA-STAT LAB 2018-09-19 15:18:07 Kaya Magallanes [facility] POTASSIUM-STAT LAB 2018-09-19 15:18:07 Kaya Magallanes [facility] GLUCOSE-STAT LAB 2018-09-19 15:18:07 Kaya Magallanes [facility] HGB/HCT (H&H) - STAT LAB 2018-09-19 15:18:07 [facility] 2018-09-19 15:05:00 Cortney [facility] POCT-ACT 2018-09-19 14:46:00 [facility] BLOOD GAS, ARTERIAL 2018-09-19 13:04:34 [facility] 2018-09-19 13:04:34 [facility] POT[facility]SIUM-STAT LAB 2018-09-19 13:04:34 [facility] GLU[facility]SE-[facility] 2018-09-19 13:04:34 Catalina [facility] HGB/HCT (H&H) - STAT LAB 2018-09-19 13:04:34 Catalina [facility] BYPASS,AORTO CORONARY SU/SVG 2018-09-19 12:00:00 Verona Magallanes [facility] ENDOSCOPIC HARVEST,VEIN 2018-09-19 12:00:00 Kaya Magallanes [facility] 2D ECHO W/ DOPPLER (CW/PW/COLOR) 2018-09-19 09:54:27 Fay Magallanes [facility] APTT 2018-09-19 08:32:00 Cortney [facility] POCT-GLUCOSE METER 2018-09-19 07:01:00 Cortney, [facility] ABORH, MANUAL 2018-09-19 03:56:00 Adrianne Charles [facility] ECG 12-LEAD 2018-09-19 03:52:42 Kaya Magallanes [facility] MAGNESIUM 2018-09-19 03:35:00 Kaya Magallanes [facility] HEMOGLOBIN A1C 2018-09-19 03:35:00 Kaya Magallanes [facility] LIPID PANEL 2018-09-19 03:35:00 Kaya Magallanes [facility] PROTHROMBIN TIME/INR 2018-09-19 03:35:00 [facility] COMPREHENSIVE METABOLIC PANEL 2018-09-19 03:35:00 Verona Magallanes [facility] TYPE AND SCREEN, AUTOMATED 2018-09-19 03:35:00 Kaya Magallanes [facility] CBC W/PLT COUNT & AUTO DIFFERENTIAL 2018-09-19 03:35:00 [facility] AP[facility] 2018-09-19 01:01:00 Cortney [facility] XR CHEST 1 VIEW PORTABLE/BEDSIDE 2018-09-18 22:50:00 [facility] CAROTID DOPPLER BILATERAL 2018-09-18 21:39:00 Kaya Magallanes [facility] POCT-GLUCOSE METER 2018-09-18 21:27:00 [facility] 2018-09-18 15:34:00 Cortney [facility] APTT 2018-09-18 15:34:00 [facility] POCT-GLUCOSE METER 2018-09-18 15:33:00 [facility] L CATH & CORONARY ANGIOS 2018-09-18 15:10:00 [facility] CORONARY ANGIOS / PCI / STENT 2018-09-18 15:10:00 [facility] Alejandra n [facility] PCI 2018-09-18 15:10:00 [facility] POCT-GLUCOSE METER 2018-09-18 11:09:00 [facility] Plan of Care Planned Activity Planned Date Details Comments Source Future Scheduled Test 2019-10-14 00:00:00 INFLUENZA VACCINE (#1) [code = INFLUENZA VACCINE (#1)] [facility] Future Scheduled Test 2019-03-22 00:00:00 Hemoglobin A1c vasile surement (procedure) [code = 22744210] [facility] Future Scheduled Test 2018-11-26 00:00:00 Urine screening fo r protein (procedure) [code = 731897206] [facility] Future Scheduled Test 2010-02-13 00:00:00 MEDICARE ANNUAL WE LLNESS (YEAR 2 or FIRST YEAR if no IPPE) [code = MEDICARE ANNUAL WELLNESS (YEAR 2 or FIRST YEAR if no IPPE)] [facility] Future Scheduled Test 1953[birth year] 00:00:00 DIABETIC EYE EXAM [code = DIABETIC EYE EXAM] [facility] Future Scheduled Test 1955-05-15 00:00:00 Diabetic foot exam ination (regime/therapy) [code = 214684149] [facility] Instructions Pneumonia - Viral [facility] Encounters Start Date/Time End Date/Time Encounter Type Admission Type Attendi [facility] Facility Care Department Encounter ID Source 2019-08-23 17:41:00 2019-08-27 17:20:00 Discharged Inpatient 1 DILLAN JOHNSON [facility] [id number] [facility] Results Test Description Test Time Test Comments Results Result Comments Source Capillary blood glucose measurement by glucometer (mas s/volume) 2019-08-26 10:56:00 Test Item Bedside Glucose (test code = 88446-8) 231 70-120 Meter ID: [id number] [facility] CenterBlst[facility] leukocytes automated count (number/volume)2019-08-25 05:30:00* Test Item Value Reference Range Interpretation Comments White Blood Count (test code = 6690-2) 11.77 4.8-10.8 [facility] CenterBlood erythrocytes automated count (number/volume)2019-08-25 05:30:00* Test Item Value Reference Range Interpretation Comments Red Blood Count (test code = 789-8) 3.31 4.3-5.7 [facility] (moles/volume)2019-08-25 05:30:00* Test Item Value Reference Range Interpretation Comments Hemoglobin (test code = 32439-2) 9.2 14.0-18.0 [facility] CenterAutomated blood hematocrit (volume fraction)2019-08-25 05:30:00* Test Item Value Reference Range Interpretation Comments Hematocrit (test code = 4544-3) 28.9 38.2-49.6 [facility] CenterAutomated erythrocyte mean corpuscular vldnrh0341-43-27 05:30:00* Test Item Value Reference Range Interpretation Comments Mean Corpuscular Volume (test code = 787-2) 87.3 81-99 [facility] CenterAutomated erythrocyte mean corpuscular hemoglobin (mass per erythrocyte)2019-08-25 05:30:00* Test Item Value Reference Range Interpretation Comments Mean Corpuscular Hemoglobin (test code = 785-6) 27.8 28-32 [facility] CenterAutomated erythrocyte mean corpuscular hemoglobin concentration measurement (mass/volume)2019-08-25 05:30:00* Test Item Value Reference Range Interpretation Comments Mean Corpuscular Hemoglobin Concent (test code = 786-4) 31.8 31-35 [facility] CenterRDW SifXq-Mav3196-88-13 05:30:00* Test Item Value Reference Range Interpretation Comments Red Cell Distribution Width (test code = 69209-5) 13.6 11.7 -14.4 [facility] CenterAutomated blood platelet count (count/volume)2019-08-25 05:30:00* Test Item Value Reference Range Interpretation Comments Platelet Count (test code = 777-3) 347 140-360 [facility] CenterAutomated blood segmented neutrophil count as percentage of total idqvjcgbbw2775-65-68 05:30:00* Test Item Value Reference Range Interpretation Comments Neutrophils (%) (Auto) (test code = 50145-9) 79.5 38.7-80.0 [facility] CenterAutomated blood lymphocyte count as percentage ot total yklzwbsjbf9417-65-76 05:30:00* Test Item Value Reference Range Interpretation Comments Lymphocytes (%) (Auto) (test code = 736-9) 8.8 18.0-39.1 [facility] CenterAutomated blood monocyte count as percentage of total hdljiayewc1741-64-52 05:30:00* Test Item Value Reference Range Interpretation Comments Monocytes (%) (Auto) (test code = 5905-5) 9.7 4.4-11.3 [facility] CenterAutomated blood eosinophil count as percentage of total ypbldjeyzd3979-15-26 05:30:00* Test Item Value Reference Range Interpretation Comments Eosinophils (%) (Auto) (test code = 713-8) 0.1 0.0-6.0 [facility] CenterAutomated blood basophil count as percentage of total anpmpgczju2608-75-84 05:30:00* Test Item Value Reference Range Interpretation Comments Basophils (%) (Auto) (test code = 706-2) 0.4 0.0-1.0 [facility] CenterFluoroscopic procedure less than one hour fokhcxlv5403-79-31 05:30:00* Test Item Value Reference Range Interpretation Comments IM GRANULOCYTES % (test code = IM GRANULOCYTES %) 1.5 0.0- 1.0 [facility] CenterAutomated blood neutrophil count 2019-08-25 05:30:00* Test Item Value Reference Range Interpretation Comments Neutrophils # (Auto) (test code = 751-8) 9.4 2.1-6.9 [facility] CenterBlood lymphocytes count (number/volume) 2019-08-25 05:30:00* Test Item Value Reference Range Interpretation Comments Lymphocytes # (Auto) (test code = 97522-0) 1.0 1.0-3.2 [facility] CenterBlood monocytes automated count (number/volume)2019-08-25 05:30:00* Test Item Value Reference Range Interpretation Comments Monocytes # (Auto) (test code = 742-7) 1.1 0.2-0.8 [facility] CenterAutomated blood eosinophil count 2019-08-25 05:30:00* Test Item Value Reference Range Interpretation Comments Eosinophils # (Auto) (test code = 711-2) 0.0 0.0-0.4 [facility] CenterAutomated blood basophil count (count/volume)2019-08-25 05:30:00* Test Item Value Reference Range Interpretation Comments Basophils # (Auto) (test code = 704-7) 0.1 0.0-0.1 [facility] CenterFluoroscopic procedure less than one hour mdanpoka3170-03-16 05:30:00* Test Item Value Reference Range Interpretation Comments Absolute Immature Granulocyte (auto (shanique t code = Absolute Immature Granulocyte (auto) 0.18 0-0.1 [facility] sodium measurement (moles/volume)2019-08-25 05:30:00* Test Item Value Reference Range Interpretation Comments Sodium Level (test code = 2951-2) 141 136-145 [facility] Hospitalerum or plasma potassium measurement (moles/volume)2019-08-25 05:30:00* Test Item Value Reference Range Interpretation Comments Potassium Level (test code = 2823-3) 4.0 3.5-5.1 [facility] Hospitalerum or plasma chloride measurement (moles/volume)2019-08-25 05:30:00* Test Item Value Reference Range Interpretation Comments Chloride Level (test code = 2075-0) 110 98-107 [facility] Hospitalerum or plasma carbon dioxide, total measurement (moles/volume)2019-08-25 05:30:00* Test Item Value Reference Range Interpretation Comments Carbon Dioxide Level (test code = 2028-9) 23 22-29 [facility] Hospitalerum or plasma anion jcn9262-29-56 05:30:00* Test Item Value Reference Range Interpretation Comments Anion Gap (test code = 61381-9) 12.0 8-16 [facility] Hospitalerum or plasma urea nitrogen measurement (mass/volume)2019-08-25 05:30:00* Test Item Value Reference Range Interpretation Comments Blood Urea Nitrogen (test code = 3094-0) 18 7-26 [facility] Hospitalerum or plasma creatinine measurement (mass/volume)2019-08-25 05:30:00* Test Item Value Reference Range Interpretation Comments Creatinine (test code = 2160-0) 1.00 0.72-1.25 [facility] Hospitalerum or plasma urea nitrogen/creatinine mass pumqj9982-97-60 05:30:00* Test Item Value Reference Range Interpretation Comments BUN/Creatinine Ratio (test code = 3097-3) 18 6-25 [facility] CenterEstimated glomerular filtration rate (GFR) znojtwafopkdx8331-56-89 05:30:00* Test Item Value Reference Range Interpretation Comments Estimat Glomerular Filtration Rate (test code = 950104922) > 60 >60 Ranges were taken from the National Kidney Disease Education Program and the [facility] Foundation literature.Reference ranges:60 or greater: Rmrprt35-11 ( for 3 consecutive months): Chronic kidney disease 15 or less: Kidney failureHereford Regional Medical CenterGlucose pyyszgpcesm9096-21-71 05:30:00* Test Item Value Reference Range Interpretation Comments Glucose Level (test code = SNO6550) 162 74-118 [facility] Hospitalerum or plasma calcium measurement (mass/volume)2019-08-25 05:30:00* Test Item Value Reference Range Interpretation Comments Calcium Level (test code = 10549-8) 8.5 8.4-10.2 [facility] CenterBNP Ceb-fNty7631-74-12 15:00:00* Test Item Value Reference Range Interpretation Comments B-Type Natriuretic Peptide (test code = 17590-2) 161.6 0-100 [facility] Hospitalerum or plasma creatine kinase measurement (enzymatic activity/volume)2019-08-24 15:00:00* Test Item Value Reference Range Interpretation Comments Creatine Kinase (test code = 2157-6) 179 30-200 [facility] Hospitalerum or plasma creatine kinase MB measurement (mass/volume)2019-08-24 15:00:00* Test Item Value Reference Range Interpretation Comments Creatine Kinase MB (test code = 09625-2) 1.20 0-5.0 [facility] CenterTroponin I measurement by highly sensitive enzyme sfpcykfxjjp5036-61-79 15:00:00* Test Item Value Reference Range Interpretation Comments Troponin I (test code = 25018-3) 0.020 0-0.300 [facility] Hospitalerum or plasma thyrotropin measurement by detection limit <= 0.005 miu/l (units/volume)2019-08-24 15:00:00* Test Item Value Reference Range Interpretation Comments Thyroid Stimulating Hormone (TSH) (test code = 78290-1) 1.309 0.350-4.940 [facility] Medical CenterCHEST SINGLE (PORTABLE)2019-08-24 00:38:00 [facility] [address] [place] [address] Patient Name: STACIA CASTELLANOS MR #: [id number] : 1945 Age/Sex: 74/M Req #: [id number] Adm Physician: DILLAN JOHNSON MD Ordered by: MAICOL ODONNELL MD Report #: [id number] Location: [facility] Room/Bed: [place] [address] Procedure: [id number] DX/CHEST SINGLE (PORTABLE) Exam Date: 08/23/19 Exam [...] MD Fluoroscopic procedure less than one hour vlfleflq5609-63-85 21:30:00* Test Item Value Reference Range Interpretation [...] from individuals suspected of COVID-19 by their [facility] provider. This test has not been Food [...] under 564(g) of the ACT.Testing performed by [address] [address]IRJUT [facility] ACTIVATED CLOTTING [id number] 16:47:00* Test Item Value Reference Range Interpretation Comments Activated Clotting Time (test code = 441) 257 sec Reference Range: 74-137 seconds, Baseline/TESTED AT [address] [address] [facility] CenterCT-[id number] 16:47:00* Test Item Value Reference Range Interpretation Comments ACTIVATED CLOTTING TIME (BEAKER) (test code = 441) 257 sec Reference Range: 74-137 seconds, Baseline/TESTED AT [address] [address] POC-Glucose rmpea3883-69-33 12:16:00* Test Item Value Reference Range Interpretation Comments POC-Glucose Meter (test code = 1538) 106 mg/dL 70-110 : TESTED AT [address], [address]: Casting Machine Adjuster/Cmo & President ID = [id number] for Maryjo Flores Lab Interpretation (test code = 13806-1) Normal [facility] CenterCT-GLUCOSE [id number] 12:16:00* Test Item Value Reference Range Interpretation Comments POC-GLUCOSE METER (BEAKER) (test code = 1538) 106 mg/dL 70-110 : TESTED AT [address], [address]: Casting Machine Adjuster/Cmo & President ID = [id number] for Maryjo Flores BASIC METABOLIC [id number] 15:26:00* Test Item Value Reference Range Interpretation [...] = CA) 9.0 mg/dL 8.0-10.5 N PROTHROMBIN [id number] 15:23:00* Test Item Value Reference Range Interpretation [...] Infarction (to prevent recurrent infarct). BASIC METABOLIC [id number] 15:23:00* Test Item Value Reference Range Interpretation [...] CA) 9.0 mg/dL 8.0-10.5 N CBC W/AUTO [id number] 15:21:00* Test Item Value Reference Range Interpretation [...] = MDIFF) NO - CT HEAD/BRAIN W/O [id number] 15:14:00 Name: STACIA CASTELLANOS [facility] : 1945 Age/S: 73 / M [address] [place] [address] Bl Unit #: [id number] Loc: [place] [address] Phys: Star Son MD Acct: [id number] Dis Date: Status: REG ER PHONE #: [phone] Exam Date: 12/31/2018 2179 FAX #: [phone] Reason: fall / occipital contusion/lac EXAMS: CPT CODE: [id number] CT HEAD/BRAIN W/O CONT 74871 STUDY: - CT HEAD/BRAIN W/O CONT 12/31/2018 1:53 PM Ordering Physician: Star Son MD Patient Name: STACIA CASTELLANOS MR: [id number] : 1945; Age: 73 years y/o Male [...] 1 Signed Report (CONTINUED) Name: Taylor CASTELLANOS [facility] : 1945 Age/ S: 73 / M [address] [place] [address] Blvd Unit #: [id number] Loc: [place] [address] Phys: Star Son MD Acct: [id number] Dis Date: Status: REG ER PHONE #: [phone] Exam Date: 12/31/2018 1454 FAX #: [phone] Reason: fall / occipital contusion/lac EXAMS: CPT CODE: [id number] CT HEAD/BRAIN W/O CONT 81917 <Continued> SKULL: No acute fracture or suspicious osseous lesion. IMPRESSION: 1. No acute intracranial abnormality. Left parietal scalp hematoma. 2. Severe chronic small vessel ischemic changes in the supratentorial white matter. 3. 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 SL: [id number] at 1514 Reported and signed by: Mello Guzmán M.D. CC: Star Son MD Technologist:Nemo Arriaga RT(R)(CT) CTDI: DLP: Trnscb Date/Time: 12/31/2018 (1513) t.[email or web address].AP24 Orig Print D/T: S: 12/31/2018 (5457) PAGE 2 Signed Report ECG 12 lead 2018-10-02 17:56:35Interface, External Ris In - 10/02/2018 5:56 PM CDTVentricular Rate 70 BPMAtrial Rate 70 BPMP-R Interval 170 msQRS Duration 88 msQ-T Interval 424 msQTC Calculation(Bazezev) 457 msP [place] 56 degreesR [place] -3 degreesT [place] 70 degreesNormal sinus rhythmNormal ECGWhen compared with ECG of 21-SEP-2018 23:33,PAC's are not seen on the current EKGConfirmed by Chas HOLLINS BASANT ([id number]) on 10/02/2018 5:56:33 [facility] [id number] 14:11:00* Test Item Value Reference Range Interpretation Comments POC-GLUCOSE METER (BEAKER) (test code = 1538) 140 mg/dL 70-110 H TESTED AT [facility] [address] [facility] [facility] [address] POCT-GLUCOSE [id number] 13:08:00* Test Item Value Reference Range Interpretation Comments POC-GLUCOSE METER (BEAKER) (test code = 1538) 138 mg/dL 70-110 H TESTED AT [facility] [address] [facility] [address] POCT-GLUCOSE [id number] 08:26:00* Test Item Value Reference Range Interpretation Comments POC-GLUCOSE METER (BEAKER) (test code = 1538) 183 mg/dL 70-110 H TESTED AT [facility] [address] [facility] [address] Basic Metabolic [id number] 07:27:00* Test Item Value Reference Range Interpretation [...] mg/dL 70-105 H Calcium (test code = 64277-5) 9.0 mg/dL 8.4-10.2 EGFR (test code = 04796-5) 57 mL/min/1.73 sq m ESTIMATED GFR IS NOT ACCURATE CREATININE CLEARANCE IN PREDICTING GLOMERULAR FILTRATION RATE. ESTIMATED GFR IS NOT APPLICABLE FOR DIALYSIS PATIENTS. Lab Interpretation (test code = 73727-4) Abnormal [facility] [id number] 07:27:00* Test Item Value Reference Range Interpretation [...] PATIENTS. CBC with platelet count + automated [id number] 06:47:00* Test Item Value Reference Range Interpretation [...] 450 K/CU MM MPV (test code = 97638-4) 11.3 fL 9.4-12.4 nRBC (test code = [...] % 0-1 Lab Interpretation (test code = 61817-5) Abnormal [facility] W/PLT COUNT & AUTO [id number] 06:47:00* Test Item Value Reference Range Interpretation [...] code = 2801) 1 % 0-1 POCT-GLUCOSE [id number] 23:47:00* Test Item Value Reference Range Interpretation Comments POC-GLUCOSE METER (BEAKER) (test code = 1538) 137 mg/dL 70-110 H TESTED AT [place] [id number] POCT-GLUCOSE [id number] 13:28:00* Test Item Value Reference Range Interpretation Comments POC-GLUCOSE METER (BEAKER) (test code = 1538) 130 mg/dL 70-110 H TESTED AT [place] [address] POCT-GLUCOSE [id number] 09:31:00* Test Item Value Reference Range Interpretation Comments POC-GLUCOSE METER (BEAKER) (test code = 1538) 151 mg/dL 70-110 H TESTED AT [address] [address] BASIC METABOLIC [id number] 06:37:00* Test Item Value Reference Range Interpretation [...] DIALYSIS PATIENTS. CBC W/PLT COUNT & AUTO [id number] 05:40:00* Test Item Value Reference Range Interpretation [...] code = 2801) 1 % 0-1 POCT-GLUCOSE [id number] 22:39:00* Test Item Value Reference Range Interpretation Comments POC-GLUCOSE METER (BEAKER) (test code = 1538) 157 mg/dL 70-110 H TESTED AT [address] [address] POCT-GLUCOSE [id number] 18:30:00* Test Item Value Reference Range Interpretation Comments POC-GLUCOSE METER (BEAKER) (test code = 1538) 155 mg/dL 70-110 H TESTED AT [address] [address] POCT-GLUCOSE [id number] 16:45:00* Test Item Value Reference Range Interpretation Comments POC-GLUCOSE METER (BEAKER) (test code = 1538) 235 mg/dL 70-110 H TESTED AT [address] [address] POCT-GLUCOSE [id number] 12:39:00* Test Item Value Reference Range Interpretation Comments POC-GLUCOSE METER (BEAKER) (test code = 1538) 112 mg/dL 70-110 H TESTED AT [address] [address] POCT-GLUCOSE [id number] 08:35:00* Test Item Value Reference Range Interpretation Comments POC-GLUCOSE METER (BEAKER) (test code = 1538) 132 mg/dL 70-110 H TESTED AT [address] [address] BASIC METABOLIC [id number] 06:05:00* Test Item Value Reference Range Interpretation [...] DIALYSIS PATIENTS. CBC W/PLT COUNT & AUTO [id number] 05:40:00* Test Item Value Reference Range Interpretation [...] code = 2801) 1 % 0-1 POCT-GLUCOSE [id number] 21:47:00* Test Item Value Reference Range Interpretation Comments POC-GLUCOSE METER (BEAKER) (test code = 1538) 128 mg/dL 70-110 H TESTED AT [address] [address] POCT-GLUCOSE [id number] 16:49:00* Test Item Value Reference Range Interpretation Comments POC-GLUCOSE METER (BEAKER) (test code = 1538) 115 mg/dL 70-110 H TESTED AT [address] [address] POCT-GLUCOSE [id number] 13:10:00* Test Item Value Reference Range Interpretation Comments POC-GLUCOSE METER (BEAKER) (test code = 1538) 124 mg/dL 70-110 H TESTED AT [address] [address] BASIC METABOLIC [id number] 06:35:00* Test Item Value Reference Range Interpretation [...] DIALYSIS PATIENTS. CBC W/PLT COUNT & AUTO [id number] 05:04:00* Test Item Value Reference Range Interpretation [...] code = 2801) 1 % 0-1 POCT-GLUCOSE [id number] 21:22:00* Test Item Value Reference Range Interpretation Comments POC-GLUCOSE METER (BEAKER) (test code = 1538) 122 mg/dL 70-110 H TESTED AT [address] [address] POCT-GLUCOSE [id number] 13:14:00* Test Item Value Reference Range Interpretation Comments POC-GLUCOSE METER (BEAKER) (test code = 1538) 122 mg/dL 70-110 H TESTED AT [address] [address] POCT-GLUCOSE [id number] 07:50:00* Test Item Value Reference Range Interpretation Comments POC-GLUCOSE METER (BEAKER) (test code = 1538) 122 mg/dL 70-110 H TESTED AT [address] [address] BASIC METABOLIC [id number] 07:29:00* Test Item Value Reference Range Interpretation [...] DIALYSIS PATIENTS. CBC W/PLT COUNT & AUTO [id number] 06:34:00* Test Item Value Reference Range Interpretation [...] code = 2801) 1 % 0-1 POCT-GLUCOSE [id number] 21:50:00* Test Item Value Reference Range Interpretation Comments POC-GLUCOSE METER (BEAKER) (test code = 1538) 142 mg/dL 70-110 H TESTED AT [address] [address] POCT-GLUCOSE [id number] 17:34:00* Test Item Value Reference Range Interpretation Comments POC-GLUCOSE METER (BEAKER) (test code = 1538) 143 mg/dL 70-110 H TESTED AT [address] [address] POCT-GLUCOSE [id number] 09:46:00* Test Item Value Reference Range Interpretation Comments POC-GLUCOSE METER (BEAKER) (test code = 1538) 121 mg/dL 70-110 H TESTED AT [address] [address] [id number] 08:09:00* Test Item Value Reference Range Interpretation Comments Magnesium (test code = 33255-0) 1.9 mg/dL 1.6-2.6 Lab Interpretation (test code = 18477-3) [facility] 08:09:[facility]* Test Item Value Reference Range Interpretation Comments Phosphorus (test code = 2777-1) 4.1 mg/dL 2.3-4.7 Lab Interpretation (test code = 67513-0) Normal [facility]2019-[facility]-16 08:09:00* Test Item Value Reference Range Interpretation Comments PHOSPHORUS (BEAKER) (test code = 604) 4.1 mg/dL 2.3-4.7 [id number] 08:09:00* Test Item Value Reference Range Interpretation Comments MAGNESIUM (BEAKER) (test code = 627) 1.9 mg/dL 1.6-2.6 BASIC METABOLIC [id number] 08:09:00* Test Item Value Reference Range Interpretation [...] DIALYSIS PATIENTS. CBC W/PLT COUNT & AUTO [id number] 06:57:00* Test Item Value Reference Range Interpretation [...] = 2801) 2 % 0-1 H POCT-GLUCOSE [id number] 16:15:00* Test Item Value Reference Range Interpretation Comments POC-GLUCOSE METER (BEAKER) (test code = 1538) 147 mg/dL 70-110 H TESTED AT [facility] [address] [facility] [address] POCT-GLUCOSE [id number] 11:59:00* Test Item Value Reference Range Interpretation Comments POC-GLUCOSE METER (BEAKER) (test code = 1538) 135 mg/dL 70-110 H TESTED AT [facility] [address] [facility] [address] RAD, CHEST, 1 VIEW, NON [id number] 08:51:00Reason for exam:->pulmonary edemaShould this be performed [...] MDReport Verified Date/Time: 09/26/2018 08:51:52 Reading Location: [facility] Reading Room chest 1 view portable / [id number] 08:51:00 Interface, External Ris In - 09/26/2018 8:53 AM CDTFINAL REPORT PATIENT ID: [id number] RAD, CHEST, 1 VIEW, NON DEPT INDICATION: [...] MDReport Verified Date/Time: 09/26/2018 08:51:52 Reading Location: [facility] Readi ng Room [facility] [id number] 07:53:00* Test Item Value Reference Range Interpretation Comments POC-GLUCOSE METER (BEAKER) (test code = 1538) 129 mg/dL 70-110 H TESTED AT [facility] [address] [facility] [address] [id number] 07:24:00* Test Item Value Reference Range Interpretation Comments PHOSPHORUS (BEAKER) (test code = 604) 3.6 mg/dL 2.3-4.7 [id number] 07:24:00* Test Item Value Reference Range Interpretation Comments MAGNESIUM (BEAKER) (test code = 627) 1.9 mg/dL 1.6-2.6 BASIC METABOLIC [id number] 07:24:00* Test Item Value Reference Range Interpretation [...] DIALYSIS PATIENTS. CBC W/PLT COUNT & AUTO [id number] 06:02:00* Test Item Value Reference Range Interpretation [...] = 2801) 2 % 0-1 H POCT-GLUCOSE [id number] 22:29:00* Test Item Value Reference Range Interpretation Comments POC-GLUCOSE METER (BEAKER) (test code = 1538) 159 mg/dL 70-110 H TESTED AT [address] [address] POCT-GLUCOSE [id number] 18:23:00* Test Item Value Reference Range Interpretation Comments POC-GLUCOSE METER (BEAKER) (test code = 1538) 139 mg/dL 70-110 H TESTED AT [address] [address] POCT-GLUCOSE [id number] 12:42:00* Test Item Value Reference Range Interpretation Comments POC-GLUCOSE METER (BEAKER) (test code = 1538) 139 mg/dL 70-110 H TESTED AT [address] [address] POCT-GLUCOSE [id number] 08:36:00* Test Item Value Reference Range Interpretation Comments POC-GLUCOSE METER (BEAKER) (test code = 1538) 141 mg/dL 70-110 H TESTED AT [address] [address] [id number] 05:04:00* Test Item Value Reference Range Interpretation Comments PHOSPHORUS (BEAKER) (test code = 604) 2.7 mg/dL 2.3-4.7 [id number] 05:04:00* Test Item Value Reference Range Interpretation Comments MAGNESIUM (BEAKER) (test code = 627) 2.0 mg/dL 1.6-2.6 BASIC METABOLIC [id number] 05:04:00* Test Item Value Reference Range Interpretation [...] DIALYSIS PATIENTS. CBC W/PLT COUNT & AUTO [id number] 04:44:00* Test Item Value Reference Range Interpretation [...] = 2801) 2 % 0-1 H Calcium, [id number] 04:27:00* Test Item Value Reference Range Interpretation Comments Calcium, Ion (test code = 1994-3) 1.14 mmol/L 1.12-1.27 pH, Blood (test code = 19119-9) 7.48 [facility], [id number] 04:27:00* Test Item Value Reference Range Interpretation Comments CALCIUM IONIZED (BEAKER) (test code = 698) 1.14 mmol/L 1.12-1.27 PH, BLOOD (BEAKER) (test code = 1810) 7.48 POCT-GLUCOSE [id number] 22:05:00* Test Item Value Reference Range Interpretation Comments POC-GLUCOSE METER (BEAKER) (test code = 1538) 156 mg/dL 70-110 H TESTED AT [place] [address] [facility] [address] [id number] 21:22:00* Test Item Value Reference Range Interpretation Comments Potassium (test code = 2823-3) 3.5 meq/L 3.5-5.1 KRISTIAN (test code = KRISTIAN) Check Serum Potassium level 2 hours after oral potassium replacement completed or 30 min after intravenous potassium replacement. Lab Interpretation (test code = 81071-8) [facility] 21:22:00* Test Item Value Reference Range Interpretation Comments POTASSIUM (BEAKER) (test code = 379) 3.5 meq/L 3.5-5.1 Check Serum Potassium level 2 hours after oral potassium replacement completed o r 30 min after intravenous potassium replacement.[id number] 21:22:00* Test Item Value Reference Range Interpretation Comments MAGNESIUM (BEAKER) (test code = 627) 2.0 mg/dL 1.6-2.6 Check Serum Potassium level 2 hours after oral potassium replacement completed o r 30 min after intravenous potassium replacement.POCT-GLUCOSE [id number] 12:16:00* Test Item Value Reference Range Interpretation Comments POC-GLUCOSE METER (BEAKER) (test code = 1538) 156 mg/dL 70-110 H TESTED AT [address] [address] POCT-GLUCOSE [id number] 08:30:00* Test Item Value Reference Range Interpretation Comments POC-GLUCOSE METER (BEAKER) (test code = 1538) 145 mg/dL 70-110 H TESTED AT [address] [address] [id number] 04:43:00* Test Item Value Reference Range Interpretation Comments MAGNESIUM (BEAKER) (test code = 627) 1.9 mg/dL 1.6-2.6 BASIC METABOLIC [id number] 04:43:00* Test Item Value Reference Range Interpretation [...] DIALYSIS PATIENTS. CBC W/PLT COUNT & AUTO [id number] 04:21:00* Test Item Value Reference Range Interpretation [...] code = 2801) 1 % 0-1 CALCIUM, [id number] 04:11:00* Test Item Value Reference Range Interpretation Comments CALCIUM IONIZED (BEAKER) (test code = 698) 0.97 mmol/L 1.12-1.27 L PH, BLOOD (BEAKER) (test code = 1810) 7.46 POCT-GLUCOSE [id number] 21:59:00* Test Item Value Reference Range Interpretation Comments POC-GLUCOSE METER (BEAKER) (test code = 1538) 150 mg/dL 70-110 H TESTED AT [address] [address] POCT-GLUCOSE [id number] 17:41:00* Test Item Value Reference Range Interpretation Comments POC-GLUCOSE METER (BEAKER) (test code = 1538) 148 mg/dL 70-110 H TESTED AT [address] [address] POCT-GLUCOSE [id number] 12:17:00* Test Item Value Reference Range Interpretation Comments POC-GLUCOSE METER (BEAKER) (test code = 1538) 183 mg/dL 70-110 H TESTED AT [address] [address] POCT-GLUCOSE [id number] 07:59:00* Test Item Value Reference Range Interpretation Comments POC-GLUCOSE METER (BEAKER) (test code = 1538) 141 mg/dL 70-110 H TESTED AT [facility] [address] [facility] [address] RAD, CHEST, 1 VIEW, NON [id number] 07:51:00Reason for exam:->eval pulm congestionShould this be [...] MDReport Verified Date/Time: 09/23/2018 07:51:38 Reading Location: [facility] Diagnostic Imaging Reading Room - [place] [address] [id number] 05:35:00* Test Item Value Reference Range Interpretation Comments MAGNESIUM (BEAKER) (test code = 627) 2.0 mg/dL 1.6-2.6 BASIC METABOLIC [id number] 05:35:00* Test Item Value Reference Range Interpretation [...] 450 K/CU MM MPV (test code = 76339-1) 12.6 fL 9.4-12.4 H nRBC (test code = 413) 0 0- 0 /100 WBC Lab Interpretation (test code = 20868-2) [facility]normal [facility]2018-09-23 05:28:00* Test Item Value Reference [...] = 413) 0 /100 WBC 0 -0 [id number] 13:01:00* Test Item Value Reference Range Interpretation Comments MAGNESIUM (BEAKER) (test code = 627) 2.2 mg/dL 1.6-2.6 BASIC METABOLIC [id number] 13:01:00* Test Item Value Reference Range Interpretation [...] DIALYSIS PATIENTS. CBC W/PLT COUNT & AUTO [id number] 12:30:00* Test Item Value Reference Range Interpretation [...] % 0-1 RAD, CHEST, 1 VIEW, NON [id number] 09:04:00Reason for exam:->S/p CABGShould this be performed [...] MDReport Verified Date/Time: 09/22/2018 09:04:28 Reading Location: [address] Ortho Consult Reading Room [id number] 01:29:00* Test Item Value Reference Range Interpretation Comments MAGNESIUM (BEAKER) (test code = 627) 2.0 mg/dL 1.6-2.6 BASIC METABOLIC [id number] 01:29:00* Test Item Value Reference Range Interpretation [...] NOT APPLICABLE FOR DIALYSIS PATIENTS. Lactic acid, [id number] 01:24:00* Test Item Value Reference Range Interpretation Comments Lactate, Venous (test code = 2872) 2.0 mmol/L 0.5-2.2 Lab Interpretation (test code = 72646-2) Normal [facility] HospitalLACT[facility] ACID, [id number] 01:24:00* Test Item Value Reference Range Interpretation [...] 0 /100 WBC 0 -0 Blood gas, [id number] 00:37:00* Test Item Value Reference Range Interpretation Comments pH, Stephen (test code = 2746-6) 7.46 7.32-7.42 H pCO2, Stephen (test code = 755) 34 41- 51 mmHg L pO2, Stephen (test code = 2705-2) 47 25- 40 mmHg H O2 Sat, Stephen (test code = 2711-0) 85.7 % 40-70 H HCO3, Stephen (test code = 96339-5) 24 mmol/L 21-29 Base Excess, Stephen (test code = 1927-3) 0.3 mmol/L -2-3 Patient Temperature (test code = 8310-5) 37.0 C FIO2 (test code = 1819) 100 % Lab Interpretation (test code = 28627-4) Abnormal [facility] HospitalBLO[facility] GAS, [id number] 00:37:00* Test Item Value Reference Range Interpretation [...] (test code = 1819) 100.0 % POCT-GLUCOSE [id number] 00:18:00* Test Item Value Reference Range Interpretation Comments POC-GLUCOSE METER (BEAKER) (test code = 1538) 154 mg/dL 70-110 H TESTED AT [facility] [address] [facility] [address] POCT-GLUCOSE [id number] 23:18:00* Test Item Value Reference Range Interpretation Comments POC-GLUCOSE METER (BEAKER) (test code = 1538) 154 mg/dL 70-110 H TESTED AT [facility] [address] [facility] [address] RAD, CHEST, 1 VIEW, NON [id number] 13:24:00Reason for exam:->chest tubes FINAL REPORT Chest, one view HISTORY: Chest tubes Compari son: 09/20/2018 Findings: Lungs: The lungs are clear. Heart: Mild cardiomegaly. Po stoperative changes of CABG surgery. Pleura: No pneumothorax. Questionable small bilateral pleural effusions. Bones: Unremarkable. Lines/tubes: Unchanged in pos ition. IMPRESSION: No significant interval change. Signed: Estuardo Arambula MDRep ort Verified Date/Time: 09/21/2018 13:24:39 Reading Location: [facility] [address] [place] [address] Consult Reading Room Electronically signed by: ESTUARDO ARAMBULA MD on 09/12 01:24 PM POCT-GLUCOSE [id number] 08:55:00* Test Item Value Reference Range Interpretation Comments POC-GLUCOSE METER (BEAKER) (test code = 1538) 140 mg/dL 70-110 H TESTED AT [facility] [address] [facility] [address] [id number] 06:24:00* Test Item Value Reference Range Interpretation Comments PHOSPHORUS (BEAKER) (test code = 604) 3.0 mg/dL 2.3-4.7 [id number] 06:24:00* Test Item Value Reference Range Interpretation Comments MAGNESIUM (BEAKER) (test code = 627) 2.1 mg/dL 1.6-2.6 BASIC METABOLIC [id number] 06:24:00* Test Item Value Reference Range Interpretation [...] NOT APPLICABLE FOR DIALYSIS PATIENTS. Lactic Acid, [id number] 05:25:00* Test Item Value Reference Range Interpretation Comments Lactate, Art (test code = 2874) 0.8 mmol/L 0.5-2.2 Lab Interpretation (test code = 71528-6) Normal [facility]LA[facility] ACID, [id number] 05:25:00* Test Item Value Reference Range Interpretation [...] 413) 0 /100 WBC 0 -0 CALCIUM, [id number] 04:05:00* Test Item Value Reference Range Interpretation Comments CALCIUM IONIZED (BEAKER) (test code = 698) 1.13 mmol/L 1.12-1.27 PH, BLOOD (BEAKER) (test code = 1810) 7.42 Blood gas, [id number] 04:04:00* Test Item Value Reference Range Interpretation [...] FIO2 (test code = 1819) 32 % [facility], [id number] 04:04:00* Test Item Value Reference Range Interpretation Comments O2 Saturation (Measured) (test code = 65267-0) 64.1 % [facility] HospitalBL[facility] GAS, [id number] 04:04:00* Test Item Value Reference Range Interpretation [...] code = 1819) 32.0 % OXYGEN SATURATION, [id number] 04:04:00* Test Item Value Reference Range Interpretation Comments O2 SATURATION (MEASURED) (BEAKER) (test code = 1455) 64.1 % HGB/HCT (H&H)-Stat [id number] 23:19:00* Test Item Value Reference Range Interpretation Comments Hemoglobin (test code = 786-4) 9.9 g/dL 13-16.8 L Hematocrit (test code = 4544-3) 29.0 % 40-50 L Lab Interpretation (test code = 28433-9) Abnormal [facility] Hospital[facility]ucose-Stat [id number] 23:19:00* Test Item Value Reference Range Interpretation Comments Glucose (test code = 2345-7) 132 mg/dL 70-110 H Lab Interpretation (test code = 27725-0) Abnormal [facility] HospitalPotassium-Stat [id number] 23:19:00* Test Item Value Reference Range Interpretation Comments Potassium (test code = 2823-3) 3.4 meq/L 3.6-5.5 L Lab Interpretation (test code = 99129-3) Abnormal [facility] HospitalBL[facility] GAS, [id number] 23:19:00* Test Item Value Reference Range Interpretation [...] (test code = 1819) 32.0 % GLUCOSE-STAT [id number] 23:19:00* Test Item Value Reference Range Interpretation Comments GLUCOSE RANDOM (BEAKER) (test code = 652) 132 mg/dL 70-110 H POTASSIUM-STAT [id number] 23:19:00* Test Item Value Reference Range Interpretation Comments POTASSIUM (BEAKER) (test code = 379) 3.4 meq/L 3.6-5.5 L HGB/HCT (H&H) - STAT [id number] 23:19:00* Test Item Value Reference Range Interpretation Comments HEMOGLOBIN (BEAKER) (test code = 410) 9.9 g/dL 13.0-16.8 L HEMATOCRIT (BEAKER) (test code = 411) 29.0 % 40.0-50.0 L Sodium Na-Stat [id number] 23:18:00* Test Item Value Reference Range Interpretation Comments Sodium (test code = 2951-2) 137 meq/L 135-148 Lab Interpretation (test code = 69722-8) [facility] [id number] 23:18:00* Test Item Value Reference Range Interpretation Comments SODIUM (BEAKER) (test code = 381) 137 meq/L 135-148 POCT-GLUCOSE [id number] 20:54:00* Test Item Value Reference Range Interpretation Comments POC-GLUCOSE METER (BEAKER) (test code = 1538) 131 mg/dL 70-110 H TESTED AT [address] [address] POCT-GLUCOSE [id number] 16:19:00* Test Item Value Reference Range Interpretation Comments POC-GLUCOSE METER (BEAKER) (test code = 1538) 173 mg/dL 70-110 H TESTED AT [address] [address] [id number] 14:45:00* Test Item Value Reference Range Interpretation Comments ACTIVATED CLOTTING TIME (BEAKER) (test code = 441) 103 sec TESTED AT [address] [address] [id number] 14:45:00* Test Item Value Reference Range Interpretation Comments ACTIVATED CLOTTING TIME (BEAKER) (test code = 441) 439 sec TESTED AT [address] [address] [id number] 14:45:00* Test Item Value Reference Range Interpretation Comments ACTIVATED CLOTTING TIME (BEAKER) (test code = 441) 422 sec TESTED AT [address] [address] [id number] 14:45:00* Test Item Value Reference Range Interpretation Comments ACTIVATED CLOTTING TIME (BEAKER) (test code = 441) 444 sec TESTED AT [address] [address] POCT-GLUCOSE [id number] 13:40:00* Test Item Value Reference Range Interpretation Comments POC-GLUCOSE METER (BEAKER) (test code = 1538) 164 mg/dL 70-110 H TESTED AT [address] [address] POCT-GLUCOSE [id number] 12:04:00* Test Item Value Reference Range Interpretation Comments POC-GLUCOSE METER (BEAKER) (test code = 1538) 162 mg/dL 70-110 H TESTED AT [address] [address] POCT-GLUCOSE [id number] 12:03:00* Test Item Value Reference Range Interpretation Comments POC-GLUCOSE METER (BEAKER) (test code = 1538) 180 mg/dL 70-110 H TESTED AT [facility] [address] [facility] [address] POCT-GLUCOSE [id number] 08:07:00* Test Item Value Reference Range Interpretation Comments POC-GLUCOSE METER (BEAKER) (test code = 1538) 126 mg/dL 70-110 H TESTED AT [facility] [address] [facility] [address] RAD, CHEST, 1 VIEW, NON [id number] 07:47:00while patient is intubated or has chest [...] Calabrese Verified Date/Time: 09/20/2018 07:47:04 Reading Location: [facility] Radiology Reading Room -GLUCOSE METER 2018-09-20 06:35:00* Test Item Value Reference Range Interpretation Comments POC-GLUCOSE METER (BEAKER) (test code = 1538) 128 mg/dL 70-110 H TESTED AT [place] [address] [facility] [address] BLOOD GAS, [id number] 04:15:00* Test Item Value Reference Range Interpretation [...] (BEAKER) (test code = 1819) 36.0 % [id number] 03:55:00* Test Item Value Reference Range Interpretation Comments PHOSPHORUS (BEAKER) (test code = 604) 4.0 mg/dL 2.3-4.7 [id number] 03:55:00* Test Item Value Reference Range Interpretation Comments MAGNESIUM (BEAKER) (test code = 627) 2.1 mg/dL 1.6-2.6 BASIC METABOLIC [id number] 03:55:00* Test Item Value Reference Range Interpretation [...] NOT APPLICABLE FOR DIALYSIS PATIENTS. LACTIC ACID, [id number] 03:46:00* Test Item Value Reference Range Interpretation [...] 0 /100 WBC 0 -0 BLOOD GAS, [id number] 01:47:00* Test Item Value Reference Range Interpretation [...] (test code = 1819) 36.0 % GLUCOSE-STAT [id number] 01:47:00* Test Item Value Reference Range Interpretation Comments GLUCOSE RANDOM (BEAKER) (test code = 652) 140 mg/dL 70-110 H HGB/HCT (H&H) - STAT [id number] 01:47:00* Test Item Value Reference Range Interpretation Comments HEMOGLOBIN (BEAKER) (test code = 410) 10.5 g/dL 13.0-16.8 L HEMATOCRIT (BEAKER) (test code = 411) 31.0 % 40.0-50.0 L SODIUM NA-STAT [id number] 01:46:00* Test Item Value Reference Range Interpretation Comments SODIUM (BEAKER) (test code = 381) 138 meq/L 135-148 POTASSIUM-STAT [id number] 01:46:00* Test Item Value Reference Range Interpretation Comments POTASSIUM (BEAKER) (test code = 379) 4.0 meq/L 3.6-5.5 [id number] 01:03:00* Test Item Value Reference Range Interpretation Comments PHOSPHORUS (BEAKER) (test code = 604) 4.3 mg/dL 2.3-4.7 [id number] 01:03:00* Test Item Value Reference Range Interpretation Comments MAGNESIUM (BEAKER) (test code = 627) 2.3 mg/dL 1.6-2.6 BASIC METABOLIC [id number] 01:03:00* Test Item Value Reference Range Interpretation [...] NOT APPLICABLE FOR DIALYSIS PATIENTS. BLOOD GAS, [id number] 00:58:00* Test Item Value Reference Range Interpretation [...] (test code = 1819) 40.0 % GLUCOSE-STAT [id number] 00:58:00* Test Item Value Reference Range Interpretation Comments GLUCOSE RANDOM (BEAKER) (test code = 652) 171 mg/dL 70-110 H HGB/HCT (H&H) - STAT [id number] 00:58:00* Test Item Value Reference Range Interpretation Comments HEMOGLOBIN (BEAKER) (test code = 410) 10.2 g/dL 13.0-16.8 L HEMATOCRIT (BEAKER) (test code = 411) 30.0 % 40.0-50.0 L OXYGEN SATURATION, [id number] 00:57:00* Test Item Value Reference Range Interpretation Comments O2 SATURATION (MEASURED) (BEAKER) (test code = 1455) 71.7 % SODIUM NA-STAT [id number] 00:53:00* Test Item Value Reference Range Interpretation Comments SODIUM (BEAKER) (test code = 381) 138 meq/L 135-148 POTASSIUM-STAT [id number] 00:53:00* Test Item Value Reference Range Interpretation Comments POTASSIUM (BEAKER) (test code = 379) 3.9 meq/L 3.6-5.5 CALCIUM, [id number] 00:53:00* Test Item Value Reference Range Interpretation Comments CALCIUM IONIZED (BEAKER) (test code = 698) 1.13 mmol/L 1.12-1.27 PH, BLOOD (BEAKER) (test code = 1810) 7.39 LACTIC ACID, [id number] 00:41:00* Test Item Value Reference Range Interpretation Comments LACTATE BLOOD ARTERIAL (2) (BEAKER) (test code = 2874) 2.4 mmol/L 0.5-2.2 H LACTIC ACID, [id number] 23:40:00* Test Item Value Reference Range Interpretation Comments LACTATE BLOOD ARTERIAL (2) (BEAKER) (test code = 2874) 2.8 mmol/L 0.5-2.2 H BLOOD GAS, [id number] 23:13:00* Test Item Value Reference Range Interpretation [...] (test code = 1819) 40.0 % POCT-GLUCOSE [id number] 23:02:00* Test Item Value Reference Range Interpretation Comments POC-GLUCOSE METER (BEAKER) (test code = 1538) 204 mg/dL 70-110 H TESTED AT [facility] [address] [facility] [address] POCT-GLUCOSE [id number] 23:02:00* Test Item Value Reference Range Interpretation Comments POC-GLUCOSE METER (BEAKER) (test code = 1538) 199 mg/dL 70-110 H TESTED AT [facility] [address] [facility] [address] RAD, CHEST, 1 VIEW, NON [id number] 21:12:00Reason for exam:->S/P acbShould this be performed [...] [place] Verified Date/Time: 09/19/2018 21:12:10 C METABOLIC [id number] 19:55:00* Test Item Value Reference Range Interpretation [...] GFR IS NOT APPLICABLE FOR DIALYSIS PATIENTS. [id number] 19:45:00* Test Item Value Reference Range Interpretation Comments MAGNESIUM (BEAKER) (test code = 627) 1.7 mg/dL 1.6-2.6 Specimen slightly hemolyzed Prothrombin time/[id number] 19:44:00* Test Item Value Reference Range Interpretation [...] heart valves. Lab Interpretation (test code = 19559-8) [facility][id number] 19:44:00* Test Item Value Reference Range Interpretation [...] mechanical heart valves.CBC W/PLT COUNT & AUTO [id number] 19:29:00* Test Item Value Reference Range Interpretation [...] = 2801) 1 % 0-1 BLOOD GAS, [id number] 19:24:00* Test Item Value Reference Range Interpretation [...] (test code = 1819) 60.0 % Prepare [id number] 19:02:00* Test Item Value Reference Range Interpretation Comments CROSSMATCH (test code = 2264) COMPATIBLE Unit ABO (test code = 2285497) A Pos UNIT NUMBER (test code = 934-0) [id number] Status (test code = 0339300) RETURNED FROM ISSUE Blood Bank Product (test code = 2263) RED BLOOD CELLS PRODUCT CODE (test code = 933-2) [id number] [facility]2018-[facility]-19 17:56:00* Test Item Value Reference Range Interpretation Comments TEG Activated Clotting Time (test code = 40121-1) 5.0 4.0- 7.0 minutes TEG Fibrinogen Activity (test code = 92530-2) 70.9 61.0- 73 .0 degrees TEG Platelet Aggregation (test code = 18906-5) 66.5 55.0- 6 5.0 MM H TEG-H Activated Clotting Time (test code = 1411) 5.2 4.0- 7.0 minutes TEG-H Fibrinogen Activity (test code = 1412) 72.7 61.0- 73. 0 degrees TEG-H Platelet Aggregation (test code = 1413) 58.5 55.0- 65 .0 MM Lab Interpretation (test code = 36386-3) Abnormal [facility] (TEG)2018-09-19 17:56:00* Test Item Value Reference Range [...] code = 1413) 58.5 MM 55.0- 65.0 [id number] 17:46:00* Test Item Value Reference Range Interpretation Comments Fibrinogen (test code = 3255-7) 266 mg/dl 225-434 Lab Interpretation (test code = 08898-3) Normal [facility] 17:46:00* Test Item Value Reference Range Interpretation Comments PTT (test code = 83888-3) 28.4 22.5- 36.0 seconds Lab Interpretation (test code = 83496-7) Normal [facility]EN2019-[facility]-08 17:46:00* Test Item Value Reference Range Interpretation Comments FIBRINOGEN LEVEL (BEAKER) (test code = 658) 266 mg/dl 225-434 [id number] 17:46:00* Test Item Value Reference Range Interpretation Comments PARTIAL THROMBOPLASTIN TIME (BEAKER) (test code = 760) 28.4 seconds 22.5-36.0 PROTHROMBIN TIME/[id number] 17:45:00* Test Item Value Reference Range Interpretation [...] for patie nts wiht mechanical heart valves.Platelet [id number] 17:21:00* Test Item Value Reference Range Interpretation Comments Platelets (test code = 777-3) 148 150- 450 K/CU MM L Lab Interpretation (test code = 89876-5) Abnormal [facility] [id number] 17:21:00* Test Item Value Reference Range Interpretation Comments PLATELET COUNT (BEAKER) (test code = 756) 148 K/CU MM 150-450 L POTASSIUM-STAT [id number] 17:12:00* Test Item Value Reference Range Interpretation Comments POTASSIUM (BEAKER) (test code = 379) 4.9 meq/L 3.6-5.5 BLOOD GAS, [id number] 17:12:00* Test Item Value Reference Range Interpretation [...] code = 1819) 100.0 % SODIUM NA-STAT [id number] 17:12:00* Test Item Value Reference Range Interpretation Comments SODIUM (BEAKER) (test code = 381) 134 meq/L 135-148 L GLUCOSE-STAT [id number] 17:12:00* Test Item Value Reference Range Interpretation Comments GLUCOSE RANDOM (BEAKER) (test code = 652) 206 mg/dL 70-110 H HGB/HCT (H&H) - STAT [id number] 17:12:00* Test Item Value Reference Range Interpretation Comments HEMOGLOBIN (BEAKER) (test code = 410) 9.9 g/dL 13.0-16.8 L HEMATOCRIT (BEAKER) (test code = 411) 29.0 % 40.0-50.0 L CALCIUM, [id number] 17:12:00* Test Item Value Reference Range Interpretation Comments CALCIUM IONIZED (BEAKER) (test code = 698) 1.11 mmol/L 1.12-1.27 L PH, BLOOD (BEAKER) (test code = 1810) 7.43 BLOOD GAS, [id number] 16:48:00* Test Item Value Reference Range Interpretation [...] code = 1819) 75.0 % SODIUM NA-STAT [id number] 16:48:00* Test Item Value Reference Range Interpretation Comments SODIUM (BEAKER) (test code = 381) 134 meq/L 135-148 L GLUCOSE-STAT [id number] 16:48:00* Test Item Value Reference Range Interpretation Comments GLUCOSE RANDOM (BEAKER) (test code = 652) 221 mg/dL 70-110 H HGB/HCT (H&H) - STAT [id number] 16:48:00* Test Item Value Reference Range Interpretation Comments HEMOGLOBIN (BEAKER) (test code = 410) 9.9 g/dL 13.0-16.8 L HEMATOCRIT (BEAKER) (test code = 411) 29.0 % 40.0-50.0 L POTASSIUM-STAT [id number] 16:47:00* Test Item Value Reference Range Interpretation Comments POTASSIUM (BEAKER) (test code = 379) 5.5 meq/L 3.6-5.5 [id number] 16:39:00* Test Item Value Reference Range Interpretation Comments ACTIVATED CLOTTING TIME (BEAKER) (test code = 441) 455 sec TESTED AT [facility] [address] [address] [id number] 16:39:00* Test Item Value Reference Range Interpretation Comments ACTIVATED CLOTTING TIME (BEAKER) (test code = 441) 367 sec TESTED AT [facility] [address] [address] [id number] 16:39:00* Test Item Value Reference Range Interpretation Comments ACTIVATED CLOTTING TIME (BEAKER) (test code = 441) 351 sec TESTED AT [facility] [address] [address] BLOOD GAS, [id number] 16:21:00* Test Item Value Reference Range Interpretation [...] (test code = 1819) 75.0 % GLUCOSE-STAT [id number] 16:21:00* Test Item Value Reference Range Interpretation Comments GLUCOSE RANDOM (BEAKER) (test code = 652) 212 mg/dL 70-110 H HGB/HCT (H&H) - STAT [id number] 16:21:00* Test Item Value Reference Range Interpretation Comments HEMOGLOBIN (BEAKER) (test code = 410) 9.1 g/dL 13.0-16.8 L HEMATOCRIT (BEAKER) (test code = 411) 27.0 % 40.0-50.0 L SODIUM NA-STAT [id number] 16:20:00* Test Item Value Reference Range Interpretation Comments SODIUM (BEAKER) (test code = 381) 137 meq/L 135-148 POTASSIUM-STAT [id number] 16:20:00* Test Item Value Reference Range Interpretation Comments POTASSIUM (BEAKER) (test code = 379) 5.1 meq/L 3.6-5.5 BLOOD GAS, [id number] 15:55:00* Test Item Value Reference Range Interpretation [...] code = 1819) 70.0 % SODIUM NA-STAT [id number] 15:55:00* Test Item Value Reference Range Interpretation Comments SODIUM (BEAKER) (test code = 381) 130 meq/L 135-148 L GLUCOSE-STAT [id number] 15:55:00* Test Item Value Reference Range Interpretation Comments GLUCOSE RANDOM (BEAKER) (test code = 652) 223 mg/dL 70-110 H HGB/HCT (H&H) - STAT [id number] 15:55:00* Test Item Value Reference Range Interpretation Comments HEMOGLOBIN (BEAKER) (test code = 410) 10.1 g/dL 13.0-16.8 L HEMATOCRIT (BEAKER) (test code = 411) 30.0 % 40.0-50.0 L POTASSIUM-STAT [id number] 15:54:00* Test Item Value Reference Range Interpretation Comments POTASSIUM (BEAKER) (test code = 379) 5.5 meq/L 3.6-5.5 BLOOD GAS, [id number] 15:34:00* Test Item Value Reference Range Interpretation [...] code = 1819) 65.0 % SODIUM NA-STAT [id number] 15:34:00* Test Item Value Reference Range Interpretation Comments SODIUM (BEAKER) (test code = 381) 131 meq/L 135-148 L GLUCOSE-STAT [id number] 15:34:00* Test Item Value Reference Range Interpretation Comments GLUCOSE RANDOM (BEAKER) (test code = 652) 206 mg/dL 70-110 H HGB/HCT (H&H) - STAT [id number] 15:34:00* Test Item Value Reference Range Interpretation Comments HEMOGLOBIN (BEAKER) (test code = 410) 9.6 g/dL 13.0-16.8 L HEMATOCRIT (BEAKER) (test code = 411) 28.0 % 40.0-50.0 L POTASSIUM-STAT [id number] 15:33:00* Test Item Value Reference Range Interpretation Comments POTASSIUM (BEAKER) (test code = 379) 5.1 meq/L 3.6-5.5 BLOOD GAS, [id number] 13:10:00* Test Item Value Reference Range Interpretation [...] (test code = 1819) 100.0 % GLUCOSE-STAT [id number] 13:10:00* Test Item Value Reference Range Interpretation Comments GLUCOSE RANDOM (BEAKER) (test code = 652) 116 mg/dL 70-110 H HGB/HCT (H&H) - STAT [id number] 13:10:00* Test Item Value Reference Range Interpretation Comments HEMOGLOBIN (BEAKER) (test code = 410) 12.5 g/dL 13.0-16.8 L HEMATOCRIT (BEAKER) (test code = 411) 37.0 % 40.0-50.0 L SODIUM NA-STAT [id number] 13:09:00* Test Item Value Reference Range Interpretation Comments SODIUM (BEAKER) (test code = 381) 136 meq/L 135-148 POTASSIUM-STAT [id number] 13:09:00* Test Item Value Reference Range Interpretation Comments POTASSIUM (BEAKER) (test code = 379) 3.8 meq/L 3.6-5.5 2D Echo W/Doppler(CW/PW/Color)2018-09-19 12:03:28Ejection FractionSLEH ECHO HEARTLAB MKCKESSON CPACSInterface, External Ris In - 09/19/2018 12:03 PM CDTTransthoracic Echocardiography Report (TTE) Demographics Patient Name STACIA CASTELLANOS Date of Study 09/19/2018 JOSELYN Gender Male Visit Number [id number] Race Room Number SCPR Number Date of 1945 Referring Physician Kaya Magallanes MD Age 73 year(s) Customer Service Engineer Nahum Gonzalez Steward/Stewardess Night Roxanne Snyder, RDCS Interpreting Physician JOE Rossi [...] CO: 5.68 l/min LVOT CI: 2.8 l/min/m^2 [facility] HospitalCarotid doppler [id number] 09:57:49[facility] MKCKESSON CPACSRight Impression1. There is [...] Study 09/18/2018 JOSELYN Age 73 Visit Number [id number] Gender Male Accession Number [id number] Date of 1945 Referring Kaya Magallanes, Room Number C626 Tammy mcarthur MD Customer Service Engineer Philip Khan Interpreting Carie Magallanes MD Physician [...] left side. - Additional Measurement s:ICAPSV/CCAPSV 1.65.ICAEDV/CCAEDV 1.59.[facility] HospitalAPTT 2018-09-19 09:38:00* Test Item Value Reference Range Interpretation Comments PARTIAL THROMBOPLASTIN TIME (BEAKER) (test code = 760) 34.3 seconds 22.5-36.0 Hemoglobin [id number] 09:01:00* Test Item Value Reference Range Interpretation Comments Hemoglobin A1C (test code = 4548-4) 6.2 % 4.3-6.1 H Lab Interpretation (test code = 50696-6) Abnormal [facility] HospitalHEMOGLOBIN [id number] 09:01:00* Test Item Value Reference Range Interpretation Comments HEMOGLOBIN A1C (BEAKER) (test code = 368) 6.2 % 4.3-6.1 H POCT-GLUCOSE [id number] 07:17:00* Test Item Value Reference Range Interpretation Comments POC-GLUCOSE METER (BEAKER) (test code = 1538) 138 mg/dL 70-110 H TESTED AT [facility] [address] [place] [address] ABORH, [id number] 06:19:00* Test Item Value Reference Range Interpretation Comments ABO Grouping (test code = 2588) A Rh Factor (test code = 2589) POS [facility] HospitalComprehensive metabolic [id number] 04:37:00* Test Item Value Reference Range Interpretation Comments Protein, Total (test code = 2885-2) 6.7 6.0- 8.3 gm/dL Albumin (test code = 21756-1) 3.9 g/dL 3.5-5 Alkaline Phosphatase (test code [...] mg/dL 70-105 H Calcium (test code = 37828-0) 9.6 mg/dL 8.4-10.2 AST (test code = 1920-8) 19 U/L 5-34 ALT (test code = 1742-6) 19 U/L 6-55 EGFR (test code = 46388-1) 54 mL/min/1.73 sq m ESTIMATED GFR IS NOT ACCURATE CREATININE CLEARANCE IN PREDICTING GLOMERULAR FILTRATION RATE. ESTIMATED GFR IS NOT APPLICABLE FOR DIALYSIS PATIENTS. Lab Interpretation (test code = 63696-1) [facility]normal [facility] HospitalLipid [id number] 04:37:00* Test Item Value Reference Range Interpretation Comments Triglycerides (test code = 2571-8) 194 mg/dL Cholesterol (test code = 2093-3) 107 mg/dL HDL (test code = 2085-9) 27 mg/dL LDL Calculated (test code = 40362-4) 41 mg/dL KRISTIAN (test code = KRISTIAN) Triglyceride Reference Range : Low Risk <150 Borderline 150-199 High Risk 200-499 Very High Risk >=500 Cholesterol Reference Range: Low Risk <200 Borderline 200-239 High Risk >240 HDL Cholesterol Reference Range: Low Risk >=60 High Risk <40 LDL Cholesterol Reference Range: Optimal <100 Near Optimal 100-129 Borderline 130-159 High 160-189 Very High >=190 [facility] HospitalMAG[facility]IUM2019-08-08 04:37:00* Test Item Value Reference Range Interpretation Comments MAGNESIUM (BEAKER) (test code = 627) 1.8 mg/dL 1.6-2.6 COMPREHENSIVE METABOLIC [id number] 04:37:00* Test Item Value Reference Range Interpretation [...] IS NOT APPLICABLE FOR DIALYSIS PATIENTS. LIPID [id number] 04:37:00* Test Item Value Reference Range Interpretation [...] 160-189 Very High >=190 Type and screen, [id number] 04:22:00* Test Item Value Reference Range Interpretation Comments ABO/RH AUTOMATED (BEAKER) (test code = 2260) A POSITIVE Ab Scrn (test code = 890-4) NEGATIVE [facility] HospitalPROTHROMBIN TIME/[id number] 04:19:00* Test Item Value Reference Range Interpretation [...] mechanical heart valves.CBC W/PLT COUNT & AUTO [id number] 03:57:00* Test Item Value Reference Range Interpretation [...] (test code = 2801) 0 % 0-1 [id number] 01:30:00* Test Item Value Reference Range Interpretation Comments PARTIAL THROMBOPLASTIN TIME (BEAKER) (test code = 760) 37.8 seconds 22.5-36.0 H RAD, CHEST, 1 VIEW, NON [id number] 23:18:00Reason for exam:->sobShould this be performed at the bedside?->YesFINAL REPORT AP view of the chest dated 09/18/2018 CLINICAL INFORMATION: sob Comment: Heart is normal in size. Pulmonary vasculature is unremarkable. Lungs are clear. No pulmonary infiltrate or pleural effusion is present. Impression: No active cardiopulmonary disease. Signed: Kristel Parks [place] Verified Date/Time: 09/18/2018 23:18:18 Reading Location: [facility] B1 [id number] Consult Reading Room -GLUCOSE [id number] 22:47:00* Test Item Value Reference Range Interpretation Comments POC-GLUCOSE METER (BEAKER) (test code = 1538) 105 mg/dL 70-110 TESTED AT [address] [address] [id number] 15:57:00* Test Item Value Reference Range Interpretation Comments PARTIAL THROMBOPLASTIN TIME (BEAKER) (test code = 760) 61.0 seconds 22.5-36.0 H Prior to initiating heparinPLATELET [id number] 15:46:00* Test Item Value Reference Range Interpretation Comments PLATELET COUNT (BEAKER) (test code = 756) 241 K/CU MM 150-450 POCT-GLUCOSE [id number] 15:36:00* Test Item Value Reference Range Interpretation Comments POC-GLUCOSE METER (BEAKER) (test code = 1538) 136 mg/dL 70-110 H TESTED AT [address] [address] POCT-GLUCOSE [id number] 11:12:00* Test Item Value Reference Range Interpretation Comments POC-GLUCOSE METER (BEAKER) (test code = 1538) 129 mg/dL 70-110 H TESTED AT [address] [address]
== END 2019-08-27 17:20 | disposition home health service (06) | DRG 177 ==
LOC: FSED 17:40 → ERHOLD 17:41 → IMCU 22:24
PROVIDERS: ADMIT Internal Medicine; ATTEND Internal Medicine
DX: U07.1 COVID-19 (principal); J12.9 Viral pneumonia, unspecified; J15.9 Unspecified bacterial pneumonia; E78.00 Pure hypercholesterolemia, unspecified; M10.9 Gout, unspecified; I25.10 Atherosclerotic heart disease of native coronary artery without angina pectoris; Z95.1 Presence of aortocoronary bypass graft; E66.01 Morbid (severe) obesity due to excess calories; Z68.36 Body mass index [BMI] 36.0-36.9, adult; E11.40 Type 2 diabetes mellitus with diabetic neuropathy, unspecified; Z79.4 Long term (current) use of insulin; R09.02 Hypoxemia; I11.0 Hypertensive heart disease with heart failure; I50.9 Heart failure, unspecified
CPT/HCPCS: 36415; 71045; 80048; 80076; 81003; 82550; 82553; 82948; 83880; 84443; 84484; 85025; 87086; 93005; 93306; 93970; 97139; 99284; J0456; J0696; J1100; J1650; J1940; J7030; J7050; U0002